=== PATIENT | male | born 1960 | race Caucasian/White ===

== ENCOUNTER 2020-01-11 11:58 | Outpatient (CLI) | payer MEDICARE, MEDICAID, SELFPAY ==
--- NOTE | ~2020-01-11 | XR_ITS ---
EXAMINATION: XR abdomen/kub 1V EXAM DATE: 01/11/2020 12:27 INDICATION: Left ureteral stone. TECHNIQUE: Frontal projection of the upper abdomen, frontal projection lower abdomen/pelvis for inter pretation. There is no prior study for comparison. FINDINGS: There is an 9 mm calcification projecting over the proximal aspect left ureter, could be a ureteral stone. This finding has been indicated, marked on the examination for review, clinical corre lation. There may be a couple of calyceal stones. Nonobstructive bowel gas pattern. IMPRESSION: 1. Probable left ureteral stone, left nephrolithiasis. Reviewed, dictated and finalized at location A. 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
== END 2020-01-11 11:59 | disposition home or self-care (01) ==
LOC: ANHIMG 12:11
PROVIDERS: PCP Family Medicine; Visit Provider Urology
DX: N20.1 Calculus of ureter (principal)
CPT/HCPCS: 74018

== ENCOUNTER 2021-12-03 13:07 | Emergency (ER) | payer MEDICARE, MEDICAID, SELFPAY ==
[2021-12-03 13:19] VITALS: BP 113/66; PULSE 67; RESP 16; TEMP 36.1; O2SAT 99
--- NOTE | 2021-12-03 13:44 | ED.GENADULT ---
HPI - General Adult General Chief complaint: Unspecified Stated complaint: Dizziness,Rash on Body, Vision Blurry Time Seen by Provider: 12/03/21 13:25 Source: patient Mode of arrival: ambulatory Limitations: no limitations History of Present Illness HPI narrative: Mr. Salvador is a 61-year-old male patient presenting to the clinic today with complaints of a minute headache that comes and goes, dizziness, and double vision x1 week. He reports he also has a rash that developed on his left arm that started and it has spread to bilateral lower legs over the weekend. He denies any fever or chills. He reports he does have intermittent shortness of breath and chest pain. States the headache is sharp in nature over the right parietal lobe. History of CABG Related Data Home Medications Medication Instructions Recorded Confirmed aspirin 81 mg tablet,delayed 81 mg PO DAILY 02/03/20 12/03/21 release (Josue Low Dose Aspirin) atorvastatin 40 mg tablet 40 mg PO DAILY 02/03/20 12/03/21 budesonide-formoterol HFA 160 2 puff inhalation Q12H 02/03/20 12/03/21 mcg-4.5 mcg/actuation aerosol inhaler (Symbicort) carbamazepine 200 mg tablet 200 mg PO TID 02/03/20 12/03/21 carbidopa 25 mg-levodopa 100 mg 1 tablet PO QID 02/03/20 12/03/21 tablet carvedilol 3.125 mg tablet 3.125 mg PO BID 02/03/20 12/03/21 cetirizine 10 mg capsule 10 mg PO DAILY 02/03/20 12/03/21 famotidine 20 mg tablet 20 mg PO BID 02/03/20 12/03/21 fluoxetine 20 mg capsule 60 mg HS 02/03/20 12/03/21 furosemide 20 mg tablet 20 mg PO DAILY 02/03/20 12/03/21 hydroxyzine HCl 50 mg tablet 50 mg PO TID 02/03/20 12/03/21 isosorbide mononitrate 30 mg 30 mg PO DAILY 02/03/20 12/03/21 tablet,extended release 24 hr losartan 50 mg tablet 50 mg PO DAILY 02/03/20 12/03/21 montelukast 10 mg tablet 10 mg PO DAILY 02/03/20 12/03/21 omeprazole 40 mg capsule,delayed 40 mg PO DAILY 02/03/20 12/03/21 release quetiapine 50 mg tablet 50 mg PO BID 02/03/20 12/03/21 zonisamide 100 mg capsule 100 mg PO HS 02/03/20 12/03/21 Allergies Allergy/AdvReac Type Severity Reaction Status Date / Time tramadol Allergy Unknown SEZIR Verified 12/03/21 13:41 fluticasone AdvReac Other Verified 12/03/21 13:41 [From Advair Diskus] salmeterol AdvReac Other Verified 12/03/21 13:41 [From Advair Diskus] dialudid Allergy Mild itching Uncoded 12/03/21 13:41 Mushroom Allergy Unknown Anaphylaxis Uncoded 12/03/21 13:41 Review of Systems Review of Systems: Pertinent positives per HPI. Patient denies any fever, chills, visual changes, dizziness, cough, runny nose, sore throat, palpitations, nausea, vomiting, diarrhea, constipation, abdominal pain, or any urinary issues. [facility] Social History Social History Smoking status: Current every day smoker Additional smoking assessment comments: STATES SMOKES 3/4PK/DAY/AGE 14 Alcohol intake: former Alcohol use details: RECOVERING ALCOHOLIC Substance use type: marijuana and crack/cocaine Other substance usage details: STATES RECOVERY CRACK ADDIC, SMOKES MARIJUANA NIGHTLY FOR SLEEP Spiritual care concerns: No Comments At the time of my signature, I reviewed and agree with the nursing past medical, surgical, social, and family history. There is no relevant family history pertinent to the patient complaint. Course Course Emergency Course: Portions of this record may have been created with voice recognition software. Level of Care: Express Care Visit Vital Signs Vital signs: Vital Signs Temperature 36.1 C L 12/03/21 13:19 Pulse Rate 67 12/03/21 13:19 Respiratory Rate 16 12/03/21 13:19 Blood Pressure 113/66 12/03/21 13:19 Pulse Oximetry 99 12/03/21 13:19 Oxygen Delivery Room Air 12/03/21 13:19 Temperature 36.1 C L 12/03/21 13:19 Pulse Rate 67 12/03/21 13:19 Respiratory Rate 16 12/03/21 13:19 Blood Pressure 113/66 12/03/21 13:19 Pulse Oxi
== END 2021-12-03 13:49 | disposition short-term general hospital (02) ==
PROVIDERS: Emergency Provider Nurse Practitioner Family; PCP Family Medicine
DX: R42 Dizziness and giddiness (principal); H53.2 Diplopia; R21 Rash and other nonspecific skin eruption; G44.89 Other headache syndrome; F17.219 Nicotine dependence, cigarettes, with unspecified nicotine-induced disorders; F12.90 Cannabis use, unspecified, uncomplicated; Z79.82 Long term (current) use of aspirin; Z95.1 Presence of aortocoronary bypass graft; G20 Parkinson's disease; I25.10 Atherosclerotic heart disease of native coronary artery without angina pectoris; E78.00 Pure hypercholesterolemia, unspecified; I10 Essential (primary) hypertension; I25.2 Old myocardial infarction; J44.9 Chronic obstructive pulmonary disease, unspecified; K21.9 Gastro-esophageal reflux disease without esophagitis; M16.11 Unilateral primary osteoarthritis, right hip; Z85.828 Personal history of other malignant neoplasm of skin; F41.9 Anxiety disorder, unspecified; F32.9 Major depressive disorder, single episode, unspecified
CPT/HCPCS: 99212; G0463

== ENCOUNTER 2021-12-03 14:11 | Emergency (ER) | payer MEDICARE, MEDICAID, SELFPAY ==
[2021-12-03 14:23] VITALS: BP 116/66; PULSE 73; RESP 16; TEMP 36.8; O2SAT 99
--- NOTE | 2021-12-03 14:26 | ECG_ITS ---
Measurements Intervals [place] Rate: 73 P: -4 NV: 168 QRS: 23 QRSD: 113 T: 64 QT: 398 QTc: 440 Interpretive Statements SINUS RHYTHM INCOMPLETE RIGHT BUNDLE BRANCH BLOCK [90+ ms QRS DURATION, TERMINAL R IN V1/V2, 40+ ms S IN I/aVL/V4/V5/V6] NO PREVIOUS ECG AVAILABLE FOR COMPARISON Electronically Signed On 12-04-2021 13:08:02 CDT by Cris Israel M.D.
[2021-12-03 14:40] LABS: Basophils Percent Auto 0.2 % (0.2-1.2); Eosinophils Absolute Auto 0.1 K/mm3 (0-0.3); Eosinophils Percent Auto 0.5 % (0-4.4); Hematocrit 44.5 % (42.0-52.0); Hemoglobin 14.8 g/dL (14.0-18.0); Immature Granulocyte Absolute 0.05 K/mm3 (0.00-0.031); Immature Granulocyte Percent A 0.4 % (0-0.5); Lymphocytes Absolute Auto 1.84 K/mm3 (0.9-3.2); Lymphocytes Percent Auto 14.3 % (18.3-44.2); Mean Corpuscular HGB Conc 33.3 g/dl (32-36); Mean Corpuscular Volume 90.1 fl (80-100); Mean Platelet Volume 9.4 fl (7.4-10.4); Monocytes Absolute Auto 1.7 K/mm3 (0.1-0.6); Monocytes Percent Auto 13.4 % (2.6-8.5); Neutrophils Absolute Auto 9.1 K/mm3 (1.3-6.7); Neutrophils Percent Auto 71.2 % (45.5-73.1); Platelet Count Result 232 k/mm3 (150-375); Red Blood Count 4.94 M/mm3 (4.6-6.20); Red Cell Distribution Width 12.8 % (11.5-14.5); White Blood Count 12.8 K/mm3 (4.5-10.0)
[2021-12-03 14:51] LABS: Alanine Aminotransferase 13 U/L (6-50); Albumin Level 4.4 g/dL (3.5-5.1); Alkaline Phosphatase 204 U/L (38-126); Anion Gap 16 mmol/L (8-16); Aspartate Amino Transferase 20 U/L (17-59); Bilirubin,Total 0.9 mg/dL (0.2-1.3); Blood Urea Nitrogen 15 mg/dL (9-20); Calcium 8.9 mg/dL (8.4-10.2); Carbon Dioxide 22 mmol/L (22-30); Chloride 101 mmol/L (98-107); Estimated CRCL calculation 72 ml/min; Estimated Glomerular Filt Rate > 60; Glucose 110 mg/dL (65-110); Potassium 3.8 mmol/L (3.4-5.0); Sodium 139 mmol/L (137-145)
[2021-12-03 15:41] LABS: Add Urine Microscopic? YES; Appearance Urine Clear (Clear); Bilirubin Urine Negative (Negative); Blood Urine Negative (Negative); Color Urine Yellow (Yellow); Glucose Urine UA Negative (Negative); Ketones Urine Negative (Negative); Leukocyte Esterase Ur Trace LEU/UL (Negative); Mucus Urine Rare /lpf; Nitrate Urine Negative (Negative); Protein Urine Negative (Negative); RBC Urine 0-2 /hpf (0-2); Specific Grav Ur 1.016 (1.001-1.035); WBC Urine 21-30 /hpf
[2021-12-03 15:54] VITALS: BP 110/70; PULSE 66; RESP 16; O2SAT 97
--- NOTE | 2021-12-03 17:32 | ED.DIZZY ---
HPI - Dizziness General Chief Complaint: Dizziness Stated Complaint: DIZZINESS TD, N/V RASH X3D Time Seen by Provider: 12/03/21 17:09 Source: patient and RN notes reviewed Mode of arrival: ambulatory Limitations: no limitations History of Present Illness HPI Narrative: This is a 61 year old male with history of CAD, CABG, COPD, parkinsons, seizure who presents for evaluation of dizziness with double vision and a rash. Patient states for 1 week he has been having double vision. He states this is occurring intermittently. It seems that if he covers his left eye he does not see double. He also reports dizziness for 1 week. He describes his dizziness as feeling wobble, and it has caused him to almost fall. He also reports today he had sharp stabbing right parietal headache that is intermittent. He reports chronic weakness to his right side from parkinsons, seizures and CVA. Patient also reports on he developed red area to left forearm, and he thought he suffered an insect bite. This rash was itching and it changed color . He states it was warm and rash , and now it is not as raised. HE also noticed rash to his left leg and right ankle today. Denies fever or night sweats. He states he has chills at night. Related Data Home Medications Medication Instructions Recorded Confirmed aspirin 81 mg tablet,delayed 81 mg PO DAILY 02/03/20 12/03/21 release (Josue Low Dose Aspirin) atorvastatin 40 mg tablet 40 mg PO DAILY 02/03/20 12/03/21 budesonide-formoterol HFA 160 2 puff inhalation Q12H 02/03/20 12/03/21 mcg-4.5 mcg/actuation aerosol inhaler (Symbicort) carbamazepine 200 mg tablet 200 mg PO TID 02/03/20 12/03/21 carbidopa 25 mg-levodopa 100 mg 1 tablet PO QID 02/03/20 12/03/21 tablet carvedilol 3.125 mg tablet 3.125 mg PO BID 02/03/20 12/03/21 cetirizine 10 mg capsule 10 mg PO DAILY 02/03/20 12/03/21 famotidine 20 mg tablet 20 mg PO BID 02/03/20 12/03/21 fluoxetine 20 mg capsule 60 mg HS 02/03/20 12/03/21 furosemide 20 mg tablet 20 mg PO DAILY 02/03/20 12/03/21 hydroxyzine HCl 50 mg tablet 50 mg PO TID 02/03/20 12/03/21 isosorbide mononitrate 30 mg 30 mg PO DAILY 02/03/20 12/03/21 tablet,extended release 24 hr losartan 50 mg tablet 50 mg PO DAILY 02/03/20 12/03/21 montelukast 10 mg tablet 10 mg PO DAILY 02/03/20 12/03/21 omeprazole 40 mg capsule,delayed 40 mg PO DAILY 02/03/20 12/03/21 release quetiapine 50 mg tablet 50 mg PO BID 02/03/20 12/03/21 zonisamide 100 mg capsule 100 mg PO HS 02/03/20 12/03/21 Allergies Allergy/AdvReac Type Severity Reaction Status Date / Time tramadol Allergy Unknown SEZIR Verified 12/03/21 13:41 fluticasone AdvReac Other Verified 12/03/21 13:41 [From Advair Diskus] salmeterol AdvReac Other Verified 12/03/21 13:41 [From Advair Diskus] dialudid Allergy Mild itching Uncoded 12/03/21 13:41 Mushroom Allergy Unknown Anaphylaxis Uncoded 12/03/21 13:41 Review of Systems Review of Systems: All systems reviewed & are unremarkable except as noted in HPI and below Constitutional: Constitutional: Reports chills, Reports fatigue and Denies fever(s) Eyes: Eyes: Reports change in vision and Reports diplopia Cardiovascular: Cardiovascular: Denies chest pain Respiratory: Respiratory: Denies chest congestion, Denies cough and Denies dyspnea Gastrointestinal: Gastrointestinal: Denies abdominal pain, Reports nausea and Reports vomiting Musculoskeletal: Musculoskeletal: Denies arthralgias and Denies muscle cramps Integumentary/Breasts: Skin/Breast: Reports pruritus and Reports rash Neurologic: Denies vertigo, Reports dizziness, Reports headache(s) and Reports focal weakness (chronic) [facility] Past Medical History Medical History (Updated 12/03/21 @ 23:27 by Jess Mancera MD) Aortic valve disease CVA (cerebral vascular accident) Parkinson's disease Seizure Valvular heart disease Surgical History Surgical History (Updated 12/03/21 @ 18:15 by Yuridia
--- NOTE | 2021-12-03 17:33 | PC.NURSE ---
pt stated that he was going to leave and go to his hospital in [place], thought he had waited enough. pt asked to say and complete assessment, pt refused and ambulated out with steady gait
[2021-12-03 18:03] LABS: CRP 17.5 mg/dL (<1.0)
== END 2021-12-03 17:35 | disposition left against medical advice (07) ==
PROVIDERS: Emergency Medicine; Emergency Provider General Practice; PCP Family Medicine
DX: R42 Dizziness and giddiness (principal); I25.10 Atherosclerotic heart disease of native coronary artery without angina pectoris; J44.9 Chronic obstructive pulmonary disease, unspecified; G20 Parkinson's disease; I35.8 Other nonrheumatic aortic valve disorders; F17.210 Nicotine dependence, cigarettes, uncomplicated; R82.998 Other abnormal findings in urine; Z95.2 Presence of prosthetic heart valve; Z95.1 Presence of aortocoronary bypass graft; Z86.73 Personal history of transient ischemic attack (TIA), and cerebral infarction without residual deficits; Z79.82 Long term (current) use of aspirin
CPT/HCPCS: 36415; 80053; 81001; 85025; 86140; 87086; 93005; 99283

== ENCOUNTER 2022-02-20 15:35 | Emergency (ER) | payer MEDICARE, MEDICAID, SELFPAY ==
--- NOTE | ~2022-02-20 | XR_ITS ---
XR chest 2V DATE: 02/20/2022 16:34 INDICATION: Weakness for one to 2 weeks TECHNIQUE: PA and lateral views COMPARISON: None FINDINGS: Status post sternotomy, coronary bypass graft surgery and aortic valve replacement. Normal heart size. Bilateral hyperinflation. There is bilateral hyperinflation. There are increased interstitial markings in the lower lung zones particularly, most likely due to chronic interstitial fibrosis. No pulmonary consolidation, pulmonary vascular congestion or pleural effusion or pneumothorax. IMPRESSION: Bilateral hyperinflation suggesting obstructive airways disease, with probable chronic in terstitial fibrosis primarily in the lower lung zones Status post coronary bypass graft surgery and aortic valve replacement Reviewed, dictated and finalized at location A. D ADVOCATE IMPRESSION: Bilateral hyperinflation suggesting obstructive airways disease, wi th probable chronic interstitial fibrosis primarily in the lower lung zones Status post coronary bypass graft surgery and aortic valve replacement
[2022-02-20 16:03] VITALS: BP 91/51; PULSE 64; RESP 20; TEMP 36.6; O2SAT 95
--- NOTE | 2022-02-20 16:08 | ECG_ITS ---
Measurements Intervals [place] Rate: 64 P: -5 IA: 162 QRS: 53 QRSD: 113 T: 70 QT: 436 QTc: 452 Interpretive Statements SINUS RHYTHM BASELINE ARTIFACT NONSPECIFIC INTRAVENTRICULAR CONDUCTION DELAY BORDERLINE ECG COMPARED TO ECG 12/03/2021 14:32:34 CRITERIA FOR INCOMPLETE RIGHT BUNDLE-BRANCH BLOCK NOT APPRECIATED Electronically Signed On 02-20-2022 17:03:41 BORE MINER OPERATOR by Yovany Montero M.D.
[2022-02-20 17:19] LABS: Basophils Percent Auto 0.4 % (0.2-1.2); Eosinophils Absolute Auto 0.1 K/mm3 (0-0.3); Eosinophils Percent Auto 0.6 % (0-4.4); Hematocrit 34.3 % (42.0-52.0); Hemoglobin 11.5 g/dL (14.0-18.0); Immature Granulocyte Absolute 0.06 K/mm3 (0.00-0.031); Immature Granulocyte Percent A 0.6 % (0-0.5); Lymphocytes Absolute Auto 1.78 K/mm3 (0.9-3.2); Lymphocytes Percent Auto 18.2 % (18.3-44.2); Mean Corpuscular HGB Conc 33.5 g/dl (32-36); Mean Corpuscular Hemoglobin 28.5 pg (26-34); Mean Corpuscular Volume 84.9 fl (80-100); Monocytes Absolute Auto 1.3 K/mm3 (0.1-0.6); Monocytes Percent Auto 12.8 % (2.6-8.5); Neutrophils Absolute Auto 6.6 K/mm3 (1.3-6.7); Neutrophils Percent Auto 67.4 % (45.5-73.1); Platelet Count Result 292 k/mm3 (150-375); Red Blood Count 4.04 M/mm3 (4.6-6.20); Red Cell Distribution Width 14.6 % (11.5-14.5); White Blood Count 9.8 K/mm3 (4.5-10.0)
[2022-02-20 17:28] VITALS: BP 90/49; PULSE 64; O2SAT 97
[2022-02-20 17:28] LABS: Alanine Aminotransferase 15 U/L (6-50); Albumin Level 3.5 g/dL (3.5-5.1); Alkaline Phosphatase 189 U/L (38-126); Anion Gap 8 mmol/L (8-16); Aspartate Amino Transferase 25 U/L (17-59); Bilirubin,Total 0.8 mg/dL (0.2-1.3); Blood Urea Nitrogen 16 mg/dL (9-20); Calcium 8.1 mg/dL (8.4-10.2); Carbon Dioxide 22 mmol/L (22-30); Chloride 104 mmol/L (98-107); Estimated CRCL calculation 66 ml/min; Estimated Glomerular Filt Rate > 60; Glucose 102 mg/dL (65-110); Potassium 3.3 mmol/L (3.4-5.0); Sodium 134 mmol/L (137-145)
[2022-02-20 19:00] VITALS: BP 94/52; PULSE 68; RESP 20; TEMP 36.6; O2SAT 100
[2022-02-20 19:22] LABS: Add Urine Microscopic? NO; Appearance Urine Clear (Clear); Bilirubin Urine Negative (Negative); Blood Urine Negative (Negative); Color Urine Yellow (Yellow); Glucose Urine UA Negative (Negative); Ketones Urine Negative (Negative); Leukocyte Esterase Ur Negative LEU/UL (Negative); Nitrate Urine Negative (Negative); Protein Urine Negative (Negative); pH Urine 5.5 (5.0-9.0)
[2022-02-20 20:24] VITALS: BP 114/67; PULSE 68; RESP 15; O2SAT 100
[2022-02-20 21:01] VITALS: BP 111/81; PULSE 70; RESP 20; O2SAT 100
[2022-02-20 21:37] VITALS: BP 114/80; PULSE 69; O2SAT 100
[2022-02-20 21:37] LABS: Troponin I < 0.012 ng/mL (0.000-0.034)
[2022-02-20] MEDS: POTASSIUM CHLORIDE 20 MEQ PACKET (FOR LIQUID) 40 MEQ PO (21:45)
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
== END 2022-02-20 21:55 | disposition home or self-care (01) ==
PROVIDERS: Emergency Medicine; Emergency Provider Emergency Medicine; PCP Family Medicine
DX: R53.83 Other fatigue (principal); G20 Parkinson's disease; I35.8 Other nonrheumatic aortic valve disorders; F17.210 Nicotine dependence, cigarettes, uncomplicated; Z95.2 Presence of prosthetic heart valve; Z86.73 Personal history of transient ischemic attack (TIA), and cerebral infarction without residual deficits; Z79.82 Long term (current) use of aspirin; I45.9 Conduction disorder, unspecified; I45.4 Nonspecific intraventricular block
CPT/HCPCS: 36415; 71046; 80053; 81003; 84484; 85025; 93005; 99283; A9270

== ENCOUNTER 2022-05-14 18:08 | Emergency (ER) | payer OTHER, MEDICARE, MEDICAID, SELFPAY ==
[2022-05-14] VITALS (24 sets, daily range): BP systolic 111–138; BP diastolic 69–80; PULSE 86–94; RESP 12–27; TEMP 36.4–36.9; O2SAT 94–100
--- NOTE | ~2022-05-14 | CT_ITS ---
EXAMINATION: CT brain wo con DATE: 05/14/2022 19:05 INDICATION: AMS . TECHNIQUE: Computed tomography (CT) of the head was performed without intravenous contrast. The mA wa s adjusted according to patient size. Iterative reconstruction technique was employed. The dose-lengt h product was 908.00 mGy-cm. COMPARISON: None. FINDINGS: No acute intracranial hemorrhage or extra-axial fluid collection. No hydrocephalus, mass, or herniation. No acute ischemic infarct. Unremarkable dural venous sinus attenuation. No acute osseous abnormality. Retention cyst or polyp in the right maxillary sinus, with surrounding sclerosis, the remaining aerat ed spaces are clear. Mild atrophy and chronic white matter change. Atherosclerotic intracranial calcification. Volume loss and parenchymal hypodensity in the majority of the right MCA territory and right basal ganglia, with cortical thinning, and gyral hyperdensities. These changes mostly represent early encephalomalacia a nd laminar necrosis. Old lacunar infarcts in the left basal ganglia. IMPRESSION: No acute intracranial process. Reviewed, dictated and finalized at location K.
--- NOTE | ~2022-05-14 | XR_ITS ---
EXAMINATION: XR chest 2V Exam Date/Time: 05/14/2022 19:10 CDT HISTORY: Confusion. Poor historian. Hx CVA, Aortic valve replacement Comparison: 02/20/2022. RESULT: Lines, tubes, and devices: Intact sternotomy wires. Mediastinal surgical clips. Cardiac valve replac ement. Lungs and pleura: Increased diffuse and peripheral reticular opacities. Cardiomediastinal silhouette: Stable. Other: No acute osseous or upper abdominal finding. IMPRESSION: Mild interstitial edema, likely overlying chronic interstitial or emphysematous change. Reviewed, dictated and finalized at location K.
--- NOTE | 2022-05-14 18:18 | ECG_ITS ---
Measurements Intervals [place] Rate: 88 P: 215 NE: 156 QRS: 125 QRSD: 112 T: 107 QT: 414 QTc: 503 Interpretive Statements ECTOPIC ATRIAL RHYTHM CONSIDER LIMB LEAD REVERSAL INCOMPLETE RIGHT BUNDLE BRANCH BLOCK BASELINE ARTIFACT- I, II, III, AVR, AVL, AVF, V1-V2 ABNORMAL ECG COMPARED TO ECG 02/20/2022 16:49:48 ECTOPIC ATRIAL RHYTHM NOW PRESENT Electronically Signed On 05-14-2022 21:49:31 CDT by Tripp Finnegan D.O.
[2022-05-14 20:19] LABS: Basophils Absolute Auto 0.1 K/mm3 (0.0-0.1); Basophils Percent Auto 0.6 % (0.2-1.2); Eosinophils Absolute Auto 0.1 K/mm3 (0-0.3); Hematocrit 37.7 % (42.0-52.0); Hemoglobin 12.4 g/dL (14.0-18.0); Immature Granulocyte Absolute 0.04 K/mm3 (0.00-0.031); Immature Granulocyte Percent A 0.3 % (0-0.5); Lymphocytes Absolute Auto 2.73 K/mm3 (0.9-3.2); Lymphocytes Percent Auto 23.6 % (18.3-44.2); Mean Corpuscular HGB Conc 32.9 g/dl (32-36); Mean Corpuscular Hemoglobin 30.4 pg (26-34); Mean Corpuscular Volume 92.4 fl (80-100); Mean Platelet Volume 9.7 fl (7.4-10.4); Monocytes Absolute Auto 1.5 K/mm3 (0.1-0.6); Neutrophils Absolute Auto 7.1 K/mm3 (1.3-6.7); Neutrophils Percent Auto 61.5 % (45.5-73.1); Platelet Count Result 475 k/mm3 (150-375); Red Blood Count 4.08 M/mm3 (4.6-6.20); Red Cell Distribution Width 16.9 % (11.5-14.5); White Blood Count 11.6 K/mm3 (4.5-10.0)
[2022-05-14 20:29] LABS: Alanine Aminotransferase 16 U/L (6-50); Albumin Level 4.2 g/dL (3.5-5.1); Alkaline Phosphatase 285 U/L (38-126); Anion Gap 5 mmol/L (8-16); Aspartate Amino Transferase 56 U/L (17-59); Bilirubin,Total 0.9 mg/dL (0.2-1.3); Blood Urea Nitrogen 14 mg/dL (9-20); Calcium 9.2 mg/dL (8.4-10.2); Carbon Dioxide 27 mmol/L (22-30); Chloride 100 mmol/L (98-107); Estimated CRCL calculation 110 ml/min; Estimated Glomerular Filt Rate > 60; Glucose 99 mg/dL (65-110); Lipase 77 U/L (23-300); Potassium 4.3 mmol/L (3.4-5.0); Sodium 132 mmol/L (137-145)
[2022-05-14 20:41] LABS: Troponin I < 0.012 ng/mL (0.000-0.034)
[2022-05-14 20:42] LABS: Partial Thromboplastin Time 27.7 SECONDS (22.3-36.8)
[2022-05-14 21:22] LABS: INR 1.1; Prothrombin Time 13.6 Seconds (11.1-14.7)
[2022-05-14 21:49] LABS: Appearance Urine Cloudy (Clear); Bacteria Urine None Seen /hpf; Bilirubin Urine Negative (Negative); Blood Urine Negative (Negative); Color Urine Yellow (Yellow); Glucose Urine UA Negative (Negative); Ketones Urine Negative (Negative); Leukocyte Esterase Ur Trace LEU/UL (Negative); Nitrate Urine Negative (Negative); Non Pathogenic Casts 0-2; Protein Urine 1+ mg/dL (Negative); RBC Urine 0-2 /hpf (0-2); Specific Grav Ur 1.017 (1.001-1.035); Squamous Epithelial Cell Urine None seen /hpf (Few); WBC Urine 0-5 /hpf
[2022-05-14 21:51] LABS: Add Urine Microscopic? YES
--- NOTE | 2022-05-14 21:59 | ED.GENADULT ---
HPI - General Adult General Chief complaint: Altered Mental Status Stated complaint: unknown reason for ER visit Time Seen by Provider: 05/14/22 18:17 History of Present Illness HPI narrative: Patient is a 61-year-old male who presents ER from [facility]. Patient was being sent over for a CT scan. He recently had a CVA and was seen at [facility] prior to coming to the rehabilitation center. 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 He has been getting IV antibiotics. Patient has had no new neurologic deficit however he has had some increased confusion at the rehabilitation position wanted to evaluate further. Before getting the CT the patient mention chest pain to the paramedics and so they wanted to stop in the emergency room. Patient cannot give an adequate history of his chest pain. He does not have it currently. Denies history of heart disease other than his valve replacement. Patient does not recall being at [facility] for his CVA. Related Data Home Medications Medication Instructions Recorded Confirmed aspirin 81 mg tablet,delayed 81 mg PO DAILY 02/03/20 12/03/21 release (Josue Low Dose Aspirin) atorvastatin 40 mg tablet 40 mg PO DAILY 02/03/20 12/03/21 budesonide-formoterol HFA 160 2 puff inhalation Q12H 02/03/20 12/03/21 mcg-4.5 mcg/actuation aerosol inhaler (Symbicort) carbamazepine 200 mg tablet 200 mg PO TID 02/03/20 12/03/21 carbidopa 25 mg-levodopa 100 mg 1 tablet PO QID 02/03/20 12/03/21 tablet carvedilol 3.125 mg tablet 3.125 mg PO BID 02/03/20 12/03/21 cetirizine 10 mg capsule 10 mg PO DAILY 02/03/20 12/03/21 famotidine 20 mg tablet 20 mg PO BID 02/03/20 12/03/21 fluoxetine 20 mg capsule 60 mg HS 02/03/20 12/03/21 furosemide 20 mg tablet 20 mg PO DAILY 02/03/20 12/03/21 hydroxyzine HCl 50 mg tablet 50 mg PO TID 02/03/20 12/03/21 isosorbide mononitrate 30 mg 30 mg PO DAILY 02/03/20 12/03/21 tablet,extended release 24 hr losartan 50 mg tablet 50 mg PO DAILY 02/03/20 12/03/21 montelukast 10 mg tablet 10 mg PO DAILY 02/03/20 12/03/21 omeprazole 40 mg capsule,delayed 40 mg PO DAILY 02/03/20 12/03/21 release quetiapine 50 mg tablet 50 mg PO BID 02/03/20 12/03/21 zonisamide 100 mg capsule 100 mg PO HS 02/03/20 12/03/21 Allergies Allergy/AdvReac Type Severity Reaction Status Date / Time tramadol Allergy Unknown SEZIR Verified 05/14/22 18:26 fluticasone AdvReac Other Verified 05/14/22 18:26 [From Advair Diskus] salmeterol AdvReac Other Verified 05/14/22 18:26 [From Advair Diskus] dialudid Allergy Mild itching Uncoded 05/14/22 18:26 Mushroom Allergy Unknown Anaphylaxis Uncoded 05/14/22 18:26 Review of Systems Review of Systems: ROS unobtainable: Yes unobtainable due to mental status PMFSH Past Medical History Medical History Aortic valve disease CVA (cerebral vascular accident) Parkinson's disease Seizure Valvular heart disease Surgical History Surgical History H/O aortic valve replacement Family History Family History (Updated 05/10/22 @ 05:50 by Fareed Toscano RN) Other Unknown family medical history Social History Social History Smoking status: Former smoker Tobacco type: cigarettes Second hand tobacco smoke exposure: Yes Smoking end date: 11/01/21 Additional smoking assessment comments: STATES SMOKES 3/4PK/DAY/AGE 14 Alcohol intake: former Alcohol use details: RECOVERING ALCOHOLIC Substance use: former Substance use type: marijuana Other substance usage details: STATES RECOVERY CRACK ADDIC, SMOKES MARIJUANA NIGHTLY FOR SLEEP Living arrangements: alone Spiritual care concerns: No Exam Narrative: GENERAL: Well-appearing, well-nourished, and in no acute distress. HEAD: Normocephalic, atraumatic. EYES: PERRL and EOMI. ENT: Mucous me
--- NOTE | 2022-05-14 22:45 | PC.NURSE ---
[facility].
--- NOTE | 2022-05-14 22:54 | PC.NURSE ---
[facility] here
== END 2022-05-14 23:00 ==
PROVIDERS: Emergency Provider Emergency Medicine; PCP Family Medicine
DX: R41.0 Disorientation, unspecified (principal); G20 Parkinson's disease; G40.909 Epilepsy, unspecified, not intractable, without status epilepticus; F12.90 Cannabis use, unspecified, uncomplicated; F14.21 Cocaine dependence, in remission; Z95.4 Presence of other heart-valve replacement; Z87.891 Personal history of nicotine dependence; Z86.73 Personal history of transient ischemic attack (TIA), and cerebral infarction without residual deficits; Z79.82 Long term (current) use of aspirin; Z79.51 Long term (current) use of inhaled steroids
CPT/HCPCS: 36415; 70450; 71046; 80053; 81001; 83690; 84484; 85025; 85610; 85730; 93005; 99284

== ENCOUNTER 2022-05-22 17:26 | Inpatient (IN) | payer MEDICARE, MEDICAID, SELFPAY ==
--- NOTE | ~2022-05-22 | XR_ITS ---
EXAMINATION: XR barium swallow modified DATE: 05/23/2022 09:55 INDICATION: Dysphagia. TECHNIQUE: The patient was given barium-containing material of multiple consistencies to swallow by t he speech pathologist while I performed fluoroscopy. Fluoroscopy exposure time was 1.7 minutes. The n umber of fluoroscopy images saved to the PACS was 1. Dose-area product was 1.2 Gy-cm^2. FINDINGS: There is reduced labial seal/lip tension. There is a reduced laryngeal elevation, reduced laryngeal a dduction, reduced tongue base retraction, reduced pharyngeal squeeze, vallecular residue, piriform si nus residue, pharyngeal wall residue, laryngeal penetration, and silent aspiration. IMPRESSION: 1. Silent aspiration. 2. Please refer to the speech therapy report for recommendations. Reviewed, dictated and finalized at location A.
[2022-05-22 17:36] VITALS: BMI 20.7
--- NOTE | 2022-05-22 17:44 | ADMGEN ---
This patient, Blaine Salvador, was admitted to Medical Room 257-01. Patient/family oriented to hospital policies and general routines including ID bracelet, bed and alarms, visiting hours, pain management, procedures, bathroom and other care routines, personal items, smoking policy, room service/diet, and visiting hours. Information on how to activate the Rapid Response Team has been discussed. Patient/Family are encouraged to report perceived risks to care and to ask questions if they do not understand what they are told or what they should do.
--- NOTE | 2022-05-22 19:00 | PM.IMHP ---
H&P: HPI History of Present Illness Date/Time: 05/22/22 19:00 Chief Complaint: Dysphagia. Narrative: This is a 61-year-old male with history of Parkinson's disease, seizures, psychogenic nonepileptic seizures, coronary artery disease, hypertension, stroke, and bacterial endocarditis currently receiving IV antibiotics who is being [facility] of G-tube placement due to ongoing issues with dysphagia. Patient provides the following history however he is not a great historian and some of the following is obtained via a review of his EMR. He suffered a stroke on 05/01/2022 at which time a CTA of the head and neck demonstrated tandem occlusion of the right distal ICA and M1. He was unable to received tPA as he was currently being treated for endocarditis and bacteremia. Since being at rehab he has had some outbursts and has been somewhat disrespectful with staff. He was also having trouble sleeping and he was started on Seroquel which seemed to improve his mood and insomnia. He has been participating with therapy though he has dense left-sided hemiplegia and left-sided neglect. He has ongoing issues with swallowing and is on high risk aspiration precautions. G-tube insertion was discussed but was felt that he may not be a great candidate as he had been having issues with confusion. Today was decided to send him in for G-tube consideration given ongoing swallow issues. At the time of my evaluation he is awake and in a good mood. He is not able to provide a great history. He perseverates on the fact that he wants ice cream and was told that he would be able to get some while he was here. Other than that he has no complaints and he specifically denies headache, fever, chills, sweats, cold and flu symptoms, chest pain, shortness a breath, abdominal pain, nausea, vomiting, diarrhea, and dysuria. Review of Systems Review of Systems: Twelve systems were reviewed. The accuracy of such is questionable as he is not a great historian. [facility] Past Medical History Medical History (Updated 05/23/22 @ 01:22 by Sara Ni PA-C) Anxiety Aortic valve disease Cerebrovascular accident (05/01/22) CTA head and neck showed 10 occlusion of the right distal ICA and M1. He was not a candidate for tPA with concomitant diagnosis of bacteremia and endocarditis. Depression with anxiety History of esophageal dilatation Hyperlipidemia Hypertension Kidney stones Major depressive disorder Parkinson's disease Psychogenic nonepileptic seizure Seizure Skin cancer Valvular heart disease Vitamin D deficiency Surgical History Surgical History (Updated 05/23/22 @ 01:22 by Sara Ni PA-C) History of aortic valve replacement History of appendectomy History of open reduction and internal fixation (ORIF) procedure Repair left ankle fracture. History of spinal surgery Family History Family History Other Unknown family medical history Social History Social History (Updated 05/23/22 @ 01:22 by Sara Ni PA-C) Social History: Surrogate medical decision maker: Angeline Perkins, friend. Code status: Full code. Smoking packs per day: 0.75 Smoking cigarettes per day: 15.0 Years smoked: 47 Smoking pack-years: 35.25 Smoking status: Former smoker Tobacco type: cigarettes Second hand tobacco smoke exposure: Yes Smoking end date: 11/01/21 Alcohol intake: former Alcohol use details: Recovering alcoholic. Substance use: current Substance use type: marijuana Other substance usage details: Smokes marijuana nightly for sleep. Former crack cocaine user. Lack of Transportation: No Lack of Food: Never True Current Housing: I Have Housing Concerned About Future Housing: YES Difficulty Paying Gas/Electric Bills: No Difficulty Paying for Meds: No Currently Unemployed: No Education: Don't Know Diffi
[2022-05-22 19:43] VITALS: BP 116/59; PULSE 78; RESP 18; TEMP 36.5; O2SAT 96
[2022-05-22 20:16] LABS: Alanine Aminotransferase 28 U/L (6-50); Albumin Level 3.9 g/dL (3.5-5.1); Alkaline Phosphatase 241 U/L (38-126); Anion Gap 3 mmol/L (8-16); Aspartate Amino Transferase 53 U/L (17-59); Bilirubin,Total 0.7 mg/dL (0.2-1.3); Blood Urea Nitrogen 19 mg/dL (9-20); Calcium 9.2 mg/dL (8.4-10.2); Carbon Dioxide 32 mmol/L (22-30); Chloride 102 mmol/L (98-107); Estimated CRCL calculation 98 ml/min; Estimated Glomerular Filt Rate > 60; Glucose 94 mg/dL (65-110); Potassium 4.6 mmol/L (3.4-5.0); Sodium 137 mmol/L (137-145)
[2022-05-22 20:17] LABS: Magnesium 2.3 mg/dL (1.6-2.3)
[2022-05-22 20:19] LABS: Basophils Absolute Auto 0.1 K/mm3 (0.0-0.1); Basophils Percent Auto 0.6 % (0.2-1.2); Eosinophils Absolute Auto 0.1 K/mm3 (0-0.3); Eosinophils Percent Auto 1.2 % (0-4.4); Hematocrit 38.9 % (42.0-52.0); Hemoglobin 12.6 g/dL (14.0-18.0); Immature Granulocyte Absolute 0.05 K/mm3 (0.00-0.031); Immature Granulocyte Percent A 0.5 % (0-0.5); Lymphocytes Absolute Auto 2.76 K/mm3 (0.9-3.2); Lymphocytes Percent Auto 26.4 % (18.3-44.2); Mean Corpuscular HGB Conc 32.4 g/dl (32-36); Mean Corpuscular Hemoglobin 31.3 pg (26-34); Mean Corpuscular Volume 96.5 fl (80-100); Mean Platelet Volume 9.6 fl (7.4-10.4); Monocytes Absolute Auto 0.9 K/mm3 (0.1-0.6); Monocytes Percent Auto 8.8 % (2.6-8.5); Neutrophils Absolute Auto 6.5 K/mm3 (1.3-6.7); Neutrophils Percent Auto 62.5 % (45.5-73.1); Platelet Count Result 382 k/mm3 (150-375); Red Blood Count 4.03 M/mm3 (4.6-6.20); Red Cell Distribution Width 17.4 % (11.5-14.5); White Blood Count 10.5 K/mm3 (4.5-10.0)
[2022-05-23 06:00] VITALS: BP 152/83; PULSE 77; RESP 18; TEMP 36.3; O2SAT 100
[2022-05-23] MEDS: SALINE LOCK FLUSH 10 ML IV PUSH ×3 (06:09→22:08)
[2022-05-23] MEDS: FLUTICASONE/SALMETEROL 115-21 MCG INHALER 1 PUFF 2 PUFF INHALATION ×2 (07:52→21:00)
[2022-05-23 07:57] VITALS: PULSE 77; RESP 16; O2SAT 100
[2022-05-23] MEDS: carBAMazepine 200 MG TABLET PO ×3 (10:49→17:46)
[2022-05-23] MEDS: busPIRone HCL 10 MG TABLET PO ×3 (10:49→17:45)
[2022-05-23] MEDS: CARBIDOPA/LEVODOPA 25/100 MG TABLET 1 TABLET PO ×4 (10:49→20:03)
[2022-05-23] MEDS: ASPIRIN 81 MG ENTERIC TABLET PO (10:49)
[2022-05-23] MEDS: LOSARTAN POTASSIUM 25 MG TABLET PO (10:50)
[2022-05-23] MEDS: MONTELUKAST SODIUM 10 MG TABLET PO (10:50)
[2022-05-23] MEDS: DOCUSATE SODIUM 100 MG CAPSULE PO (10:50)
[2022-05-23] MEDS: FAMOTIDINE 20 MG TABLET PO ×2 (10:50→17:46)
[2022-05-23] MEDS: CLOPIDOGREL BISULFATE 75 MG TABLET PO (10:50)
[2022-05-23] MEDS: ZONISAMIDE 100 MG CAPSULE PO ×2 (10:51→17:47)
--- NOTE | 2022-05-23 10:51 | PCSTNOTE ---
Modified barium swallow study (MBSS) completed. Patient demonstrated penetration with thin and moderately thick barium by spoon and silent aspiration with other consistencies and amounts (thin by cup, mildly thick by spoon and cup, moderately thick by cup). Patient made no effort to clear airway. No penetration or aspiration observed with pudding consistency 3ml spoonful using chin tuck. Patient attempted to perform compensatory strategies upon request but had difficulty following through. Recommendations: pudding thickened liquids and pudding thickened foods only by spoon. Nothing by cup or straw. Combined oral and nonoral feeding may be appropriate for this patient. Speech therapy is recommended to address swallowing. Thank you for the referral of this patient.
--- NOTE | 2022-05-23 13:33 | PC.NURSE ---
On 05/23/22, the student, [Giselle Jang], provided care and completed [facility] documentation on this patient. I have reviewed the student's documentation and agree with the findings.
--- NOTE | 2022-05-23 15:00 | PC.NURSE ---
On 05/23/22, the student, [Charleen Mcmullen], provided care and completed [facility] documentation on this patient. I have reviewed the student's documentation and agree with the findings.
[2022-05-23 15:27] VITALS: BP 124/62; PULSE 80; RESP 17; TEMP 36.2; O2SAT 100
--- NOTE | 2022-05-23 15:56 | PM.IMPN ---
Progress Note: A&P Assessment and Plan (1) Dysphagia: Code(s): R13.10 - Dysphagia, unspecified Status: Acute Assessment and Plan: He has had ongoing issues with dysphagia and was sent from rehab for consideration of G-tube placement. Completed modified barium swallow today which demonstrated penetration with thin and thick barium and silent aspiration with other consistencies, patient did not make efforts to clear his airway, exhibit difficulty with following commands for compensatory strategies. he may be Will to tolerate pudding thickened liquids and food only with a spoon, nothing by cup or straw. Per speech therapy, he is a candidate for combination oral in non oral feedings. Will proceed with consultation to Gastroenterology for consideration of G-tube placement. If patient is a candidate, will need to discuss with healthcare POA prior to proceeding. Continue with pureed below for diet with extremely thick level 4 liquids (2) Bacterial endocarditis: Code(s): I33.0 - Acute and subacute infective endocarditis Status: Acute Assessment and Plan: Continue meropenem 1 g q8h. Initially ordered to continue through 05/23/2022, however does not appear patient has received since admission, therefore will begin at this time and extend for one day to ensure full treatment course. Meropenem is nonformulary but per pharmacy can provide. Will place orders via pharmacy communication. (3) Hypertension: Code(s): I10 - Essential (primary) hypertension Status: Acute Assessment and Plan: Blood pressures were reviewed and they are stable. continue home losartan (4) Hyperlipidemia: Code(s): E78.5 - Hyperlipidemia, unspecified Status: Acute Assessment and Plan: On statin; LFTs within normal limits. (5) Parkinsons disease: Code(s): G20 - Parkinson's disease Status: Acute Assessment and Plan: Continue carbidopa levodopa. Subjective Date/time seen: 05/23/22 15:56 Interval history: date of service: 05/23/2022 Blaine Salvador is a 61-year-old male with a history of anxiety, depression, CVA, hypertension, hyperlipidemia, psychogenic seizures, Parkinson's disease CAD recent bacterial endocarditis currently on IV antibiotics who is seen in follow-up for dysphagia. Patient is mostly a poor historian though he is A&O x4. He tends to perseverate and not able to provide any clear history. He states that he passed his modified barium swallow today, however this was not the report that was received from the speech therapist. The patient does state that if required, he would be agreeable to NG tube. Briefly reviewed what this would entail and patient remains in agreement. this would need to be discussed with his healthcare power of assistant attorney general prior to proceeding, as the patient does not exhibit ability for higher order decision making independently. Review of Systems Review of Systems: All systems reviewed & are unremarkable except as noted in HPI and below Exam Narrative: General: thin, chronically ill-appearing 61-year-old male, sitting up in bed , comfortable, NARD Neuro: awake, alert and oriented x4, speech clear, exhibits some confusion HEENMT: normocephalic, atraumatic, EOMI, sclerae anicteric Respiratory: clear to auscultation bilaterally, nonlabored breathing Cardio: regular rate, regular rhythm with S1-S2 Abdomen: nondistended, normoactive bowel sounds, soft, nontender to palpation Extremities: no edema, erythema, or tenderness to palpation, DP pulses 2+ bilaterally Skin: no rashes or lesions, warm and dry Psych: appropriate mood and affect, judgment and insight poor Objective Data Vital Signs Vital Signs: Vital Signs - 24 hr 05/22/22 19:43 05/22/22 20:00 05/23/22 06:00 Temperature 97.7 F 97.4 F L Pulse Rate 78 77 Respiratory Rate 18 18 Blood Pressure 116/59 L 152/83 H Pulse Oximetry 96 100 Oxygen
[2022-05-23] MEDS: QUEtiapine FUMARATE 25 MG TABLET 50 MG PO (20:02)
[2022-05-23] MEDS: FLUoxetine HCL 20 MG CAPSULE 80 MG PO (20:03)
[2022-05-23] MEDS: ATORVASTATIN 40 MG TABLET PO (20:03)
[2022-05-23] MEDS: MELATONIN 3 MG TABLET PO (20:04)
[2022-05-23 20:19] VITALS: BP 111/59; PULSE 83; RESP 18; TEMP 36.3; O2SAT 100
[2022-05-24] VITALS (13 sets, daily range): BP systolic 113–140; BP diastolic 57–79; PULSE 64–91; RESP 18–20; TEMP 36.2–36.4; O2SAT 95–100; BMI 20.7; BMI 10.0
[2022-05-24] MEDS: SALINE LOCK FLUSH 10 ML IV PUSH ×3 (05:05→20:25)
[2022-05-24 07:58] LABS: Hematocrit 39.9 % (42.0-52.0); Hemoglobin 13.3 g/dL (14.0-18.0); Mean Corpuscular HGB Conc 33.3 g/dl (32-36); Mean Corpuscular Hemoglobin 31.4 pg (26-34); Mean Corpuscular Volume 94.3 fl (80-100); Mean Platelet Volume 9.7 fl (7.4-10.4); Platelet Count Result 370 k/mm3 (150-375); Red Blood Count 4.23 M/mm3 (4.6-6.20); Red Cell Distribution Width 17.2 % (11.5-14.5); White Blood Count 11.6 K/mm3 (4.5-10.0)
[2022-05-24 08:08] LABS: Anion Gap 6 mmol/L (8-16); Blood Urea Nitrogen 17 mg/dL (9-20); Calcium 9.4 mg/dL (8.4-10.2); Carbon Dioxide 29 mmol/L (22-30); Chloride 103 mmol/L (98-107); Estimated CRCL calculation 98 ml/min; Estimated Glomerular Filt Rate > 60; Glucose 112 mg/dL (65-110); Potassium 4.5 mmol/L (3.4-5.0); Sodium 138 mmol/L (137-145)
[2022-05-24] MEDS: FLUTICASONE/SALMETEROL 115-21 MCG INHALER 1 PUFF 2 PUFF INHALATION ×2 (08:26→21:15)
--- NOTE | 2022-05-24 10:36 | PC.NURSE ---
On 05/24/22, the student, [Giselle Jang], provided care and completed [facility] documentation on this patient. I have reviewed the student's documentation and agree with the findings.
--- NOTE | 2022-05-24 11:00 | PM.IMPN ---
Progress Note: A&P Assessment and Plan (1) Dysphagia: Code(s): R13.10 - Dysphagia, unspecified Status: Acute Assessment and Plan: He has had ongoing issues with dysphagia and was sent from rehab for consideration of G-tube placement. Completed modified barium swallow on 05/23 which demonstrated penetration with thin and thick barium and silent aspiration with other consistencies, patient did not make efforts to clear his airway, exhibit difficulty with following commands for compensatory strategies. he may be able to tolerate pudding thickened liquids and food only with a spoon, nothing by cup or straw. Per speech therapy, he is a candidate for combination oral in non oral feedings.GI consult appreciated. Planning for G-tube placement this afternoon. Will begin tube feedings following placement per chief of pediatric urology recommendations. (2) Bacterial endocarditis: Code(s): I33.0 - Acute and subacute infective endocarditis Status: Acute Assessment and Plan: Managed at outside facility and continued At [facility]. Patient was treated with meropenem 1 g q.8 hours with day of antibiotics scheduled to be 05/23/2022, however patient missed 1 day of antibiotics on transfer to this facility. Last dose of meropenem will be this evening. (3) Hypertension: Code(s): I10 - Essential (primary) hypertension Status: Acute Assessment and Plan: Blood pressures were reviewed and they are stable. continue home losartan (4) Hyperlipidemia: Code(s): E78.5 - Hyperlipidemia, unspecified Status: Acute Assessment and Plan: On statin; LFTs within normal limits. (5) Parkinsons disease: Code(s): G20 - Parkinson's disease Status: Acute Assessment and Plan: Continue carbidopa levodopa. Subjective Date/time seen: 05/24/22 11:00 Interval history: date of service: 05/24/2022 Blaine Salvador is a 61-year-old male with a history of anxiety, depression, CVA, hypertension, hyperlipidemia, psychogenic seizures, Parkinson's disease CAD recent bacterial endocarditis currently on IV antibiotics who is seen in follow-up for dysphagia. he is awaiting G-tube placement today. Patient states overall he is feeling well. He is a poor historian and not able to provide any additional reliable history. Review of Systems Review of Systems: All systems reviewed & are unremarkable except as noted in HPI and below Exam Narrative: General: thin, chronically ill-appearing 61-year-old male, sitting up in bed , comfortable, NARD Neuro: awake, alert and oriented x4, speech clear, exhibits some confusion HEENMT: normocephalic, atraumatic, EOMI, sclerae anicteric Respiratory: clear to auscultation bilaterally, nonlabored breathing Cardio: regular rate, regular rhythm with S1-S2 Abdomen: nondistended, normoactive bowel sounds, soft, nontender to palpation Extremities: no edema, erythema, or tenderness to palpation, DP pulses 2+ bilaterally Skin: no rashes or lesions, warm and dry Psych: appropriate mood and affect, judgment and insight poor Objective Data Vital Signs Vital Signs: Vital Signs - 24 hr 05/23/22 15:27 05/23/22 20:19 05/23/22 20:00 Temperature 97.1 F L 97.4 F L Pulse Rate 80 83 Respiratory Rate 17 18 Blood Pressure 124/62 111/59 L Pulse Oximetry 100 100 Oxygen Delivery Room Air 05/24/22 04:26 05/24/22 08:27 05/24/22 11:52 Temperature 97.5 F L 97.2 F L Pulse Rate 74 77 Respiratory Rate 18 19 Blood Pressure 120/72 128/77 Pulse Oximetry 100 99 100 Oxygen Delivery Room Air Room Air 05/24/22 12:31 05/24/22 12:41 05/24/22 12:51 Temperature Pulse Rate 73 71 74 Respiratory Rate 20 19 18 Blood Pressure 118/57 L 126/71 140/65 Pulse Oximetry 100 100 100 Oxygen Delivery Room Air Room Air Room Air 05/24/22 13:27 05/24/22 13:45 05/24/22 14:16 Temperature 97.6 F 97.6 F 97.6 F Pulse Rate 72 73 64 Respiratory Rate 18 18 18
[2022-05-24] MEDS: LACTATED RINGERS 1,000 ML 150 ML IV CONT (11:51)
--- NOTE | 2022-05-24 12:01 | WPDGICN ---
Assessment and Plan Assessment and plan (1) Dysphagia: Code(s): R13.10 - Dysphagia, unspecified Status: Acute Assessment and Plan: dysphagia with aphasia and recent stroke speech therapist evaluated patient and risk for aspiration will proceed with G-tube placement, ordered abx (2) Acute bacterial endocarditis: Code(s): I33.0 - Acute and subacute infective endocarditis Status: Acute Assessment and Plan: just completed treatment (3) Cerebrovascular accident: Onset Date: 05/01/22 Code(s): I63.9 - Cerebral infarction, unspecified Status: Acute Assessment and Plan: medical treatment (4) Seizure: Code(s): R56.9 - Unspecified convulsions Status: Acute GI Consult Note Consult date/time: 05/24/22 12:01 Reason for consult: dysphagia, aspiration HPI: Blaine Salvador is a 61 year old male with history of Parkinson's disease, seizures, coronary artery disease, hypertension, stroke, and bacterial endocarditis that just completed today IV antibiotics who was directly [facility] for [facility] of G-tube placement due to ongoing issues with dysphagia. History is obtained from records since he is poor historian (awake and alert though). He also suffered a stroke on 05/01/2022 at which time a CTA of the head and neck demonstrated tandem occlusion of the right distal ICA and M1, not a candidate for tPA because of ongoing endocarditis. Now he has aphasia and left hemiparesis. Speech therapist found that he has been having difficulty with swallowing, primary already talked to POA and agreeable for G-tube placement. Review of Systems Review of Systems: Twelve systems were reviewed. The accuracy of such is questionable as he is not a great historian. [facility] Past Medical History Medical History (Updated 05/24/22 @ 12:09 by Yfn Green MD) Anxiety Aortic valve disease Cerebrovascular accident (05/01/22) CTA head and neck showed 10 occlusion of the right distal ICA and M1. He was not a candidate for tPA with concomitant diagnosis of bacteremia and endocarditis. Depression with anxiety History of esophageal dilatation Hyperlipidemia Hypertension Kidney stones Major depressive disorder Parkinson's disease Psychogenic nonepileptic seizure Seizure Skin cancer Valvular heart disease Vitamin D deficiency Surgical History Surgical History (Updated 05/23/22 @ 01:22 by Sara Ni PA-C) History of aortic valve replacement History of appendectomy History of open reduction and internal fixation (ORIF) procedure Repair left ankle fracture. History of spinal surgery Family History Family History Other Unknown family medical history Social History Social History (Updated 05/23/22 @ 01:22 by Sara Ni PA-C) Social History: Surrogate medical decision maker: Angeline Perkins, friend. Code status: Full code. Smoking packs per day: 0.75 Smoking cigarettes per day: 15.0 Years smoked: 47 Smoking pack-years: 35.25 Smoking status: Former smoker Tobacco type: cigarettes Second hand tobacco smoke exposure: Yes Smoking end date: 11/01/21 Alcohol intake: former Alcohol use details: Recovering alcoholic. Substance use: current Substance use type: marijuana Other substance usage details: Smokes marijuana nightly for sleep. Former crack cocaine user. Lack of Transportation: No Lack of Food: Never True Current Housing: I Have Housing Concerned About Future Housing: YES Difficulty Paying Gas/Electric Bills: No Difficulty Paying for Meds: No Currently Unemployed: No Education: Don't Know Difficulty w/ Childcare or Family Care: No Additional living arrangements comments: Prior to his stroke he was living with his mortgage loan coordinator in [place]. Additional occupation/education comments: Disabled. [employer]
--- NOTE | 2022-05-24 12:06 | WPDANESEPPF ---
Anes - Initial Pre Proc Eval Procedure: Operation Date: 05/24/22 13:45 Proposed Procedures p Percutaneous Endoscopic Gastrostomy - Yfn Green MD Date/Time: 05/24/22 12:06 Surgeon: Jerri Lui MD Pre Op Diagnosis: dysphagia Patient Data Age: 61 Gender: M Height: 1.88 m Weight: 73.4 kg Last Vital Signs Temp 97.2 F L 05/24/22 11:52 Pulse 77 05/24/22 11:52 Resp 19 05/24/22 11:52 BP 128/77 05/24/22 11:52 Pulse Ox 100 05/24/22 11:52 O2 Del Method Room Air 05/24/22 11:52 Allergies Allergy/AdvReac Type Severity Reaction Status Date / Time tramadol Allergy Unknown SEZIR Verified 05/14/22 18:26 fluticasone AdvReac Other Verified 05/14/22 18:26 [From Advair Diskus] salmeterol AdvReac Other Verified 05/14/22 18:26 [From Advair Diskus] dialudid Allergy Mild itching Uncoded 05/14/22 18:26 Mushroom Allergy Unknown Anaphylaxis Uncoded 05/14/22 18:26 Home Medications Medication Instructions Recorded Confirmed Type aspirin 81 mg tablet,delayed 81 mg PO DAILY 02/03/20 05/22/22 History release (Josue Low Dose Aspirin) atorvastatin 40 mg tablet 40 mg PO QHS 02/03/20 05/22/22 History budesonide-formoterol HFA 160 2 puff inhalation Q12H 02/03/20 05/22/22 History mcg-4.5 mcg/actuation aerosol inhaler (Symbicort) carbamazepine 200 mg tablet 200 mg PO TIDWM 02/03/20 05/22/22 History carbidopa 25 mg-levodopa 100 mg 1 tablet PO QID 02/03/20 05/22/22 History tablet famotidine 20 mg tablet 20 mg PO BID 02/03/20 05/22/22 History fluoxetine 20 mg capsule 80 mg PO HS 02/03/20 05/22/22 History losartan 50 mg tablet 25 mg PO DAILY 02/03/20 05/22/22 History montelukast 10 mg tablet 10 mg PO DAILY 02/03/20 05/22/22 History quetiapine 50 mg tablet 100 mg PO Q8H 02/03/20 05/22/22 History zonisamide 100 mg capsule 100 mg PO BID 02/03/20 05/22/22 History acetaminophen 325 mg tablet 325 mg PO Q6H PRN Pain 05/22/22 05/22/22 History buspirone 10 mg tablet 10 mg PO TID 05/22/22 05/22/22 History clopidogrel 75 mg tablet 75 mg PO QAM 05/22/22 05/22/22 History docusate sodium 100 mg capsule 100 mg PO DAILY 05/22/22 05/22/22 History ergocalciferol (vitamin D2) 50,000 50,000 unit PO WEEKLY 05/22/22 05/22/22 History unit tablet heparin (porcine) 5,000 unit/0.5 5,000 unit Q8H 05/22/22 05/22/22 History mL injection syringe lorazepam 0.5 mg tablet 0.5 mg PO Q6H PRN anxiety 05/22/22 05/22/22 History melatonin 3 mg tablet 3 mg PO HS PRN Sleep 05/22/22 05/22/22 History ondansetron HCl 4 mg tablet 4 mg PO Q6H 05/22/22 05/22/22 History polyethylene glycol 1 ea miscellaneous QAM PRN 05/22/22 05/22/22 History Constipation trazodone 150 mg tablet 150 mg PO QHS 05/22/22 05/22/22 History Laboratory Tests 05/24/22 05/24/22 07:52 07:52 WBC 11.6 K/mm3 H K/mm3 (4.5-10.0) RBC 4.23 M/mm3 L M/mm3 (4.6-6.20) Hgb 13.3 g/dL L g/dL (14.0-18.0) Hct 39.9 % L % (42.0-52.0) MCV 94.3 fl fl (80-100) MCH 31.4 pg pg (26-34) MCHC 33.3 g/dl g/dl (32-36) RDW 17.2 % H % (11.5-14.5) Plt Count 370 k/mm3 k/mm3 (150-375) MPV 9.7 fl fl (7.4-10.4) Sodium 138 mmol/L mmol/L (137-145) Potassium 4.5 mmol/L mmol/L (3.4-5.0) Chloride 103 mmol/L mmol/L (98-107) Carbon Dioxide 29 mmol/L mmol/L (22-30) Anion Gap 6 mmol/L L mmol/L (8-16) BUN 17 mg/dL mg/dL (9-20) Creatinine 0.70 mg/dL mg/dL (0.7-1.3) Estim Creat Clear Calc 98 ml/min ml/min Estimated GFR > 60 (59 - ) Glucose 112 mg/dL H mg/dL (65-110) Calcium 9.4 mg/dL mg/dL (8.4-10.2) Patient hx anesthesia problems: none Family hx anesthesia problems: none Results Review: All pre-operative results and documents have been reviewed as part of the pre-operative evaluation. [facility] Past Medical History Medical History (Updated 05/23/22 @ 01:22 by Sara Ni PA-C)
[2022-05-24] MEDS: ceFAZolin 1 GM/NS 50 ML 1 GM/50 ML BAG IVPB (12:09)
[2022-05-24] MEDS: ASPIRIN 81 MG ENTERIC TABLET PO (13:22)
[2022-05-24] MEDS: busPIRone HCL 10 MG TABLET PO ×2 (13:23→17:48)
[2022-05-24] MEDS: ZONISAMIDE 100 MG CAPSULE PO ×2 (13:23→17:51)
[2022-05-24] MEDS: FAMOTIDINE 20 MG TABLET PO ×2 (13:23→17:48)
[2022-05-24] MEDS: MONTELUKAST SODIUM 10 MG TABLET PO (13:23)
[2022-05-24] MEDS: CARBIDOPA/LEVODOPA 25/100 MG TABLET 1 TABLET PO ×3 (13:23→20:24)
[2022-05-24] MEDS: DOCUSATE SODIUM 100 MG CAPSULE PO (13:23)
[2022-05-24] MEDS: carBAMazepine 200 MG TABLET PO ×2 (13:23→17:48)
[2022-05-24] MEDS: LOSARTAN POTASSIUM 25 MG TABLET PO (13:26)
[2022-05-24] MEDS: QUEtiapine FUMARATE 25 MG TABLET 50 MG PO (20:24)
[2022-05-24] MEDS: FLUoxetine HCL 20 MG CAPSULE 80 MG PO (20:24)
[2022-05-24] MEDS: ATORVASTATIN 40 MG TABLET PO (20:25)
[2022-05-25 04:25] VITALS: BP 114/64; PULSE 78; RESP 20; TEMP 36.3; O2SAT 98
[2022-05-25] MEDS: SALINE LOCK FLUSH 10 ML IV PUSH ×3 (06:28→21:32)
[2022-05-25 07:19] LABS: Hematocrit 39.8 % (42.0-52.0); Hemoglobin 12.8 g/dL (14.0-18.0); Mean Corpuscular HGB Conc 32.2 g/dl (32-36); Mean Corpuscular Hemoglobin 30.9 pg (26-34); Mean Corpuscular Volume 96.1 fl (80-100); Mean Platelet Volume 9.7 fl (7.4-10.4); Platelet Count Result 316 k/mm3 (150-375); Red Blood Count 4.14 M/mm3 (4.6-6.20); White Blood Count 10.8 K/mm3 (4.5-10.0)
[2022-05-25 07:29] LABS: Anion Gap 4 mmol/L (8-16); Blood Urea Nitrogen 18 mg/dL (9-20); Calcium 9.3 mg/dL (8.4-10.2); Carbon Dioxide 27 mmol/L (22-30); Chloride 106 mmol/L (98-107); Estimated CRCL calculation 113 ml/min; Estimated Glomerular Filt Rate > 60; Glucose 109 mg/dL (65-110); Potassium 4.3 mmol/L (3.4-5.0); Sodium 137 mmol/L (137-145)
[2022-05-25 08:25] VITALS: O2SAT 96
[2022-05-25] MEDS: FLUTICASONE/SALMETEROL 115-21 MCG INHALER 1 PUFF 2 PUFF INHALATION ×2 (08:25→22:23)
[2022-05-25 09:59] VITALS: BP 119/74; PULSE 96; RESP 16; TEMP 36.4; O2SAT 99
[2022-05-25] MEDS: MONTELUKAST SODIUM 10 MG TABLET PO (10:01)
[2022-05-25] MEDS: CARBIDOPA/LEVODOPA 25/100 MG TABLET 1 TABLET PO ×4 (10:02→21:31)
[2022-05-25] MEDS: CLOPIDOGREL BISULFATE 75 MG TABLET PO (10:02)
[2022-05-25] MEDS: PANTOPRAZOLE SODIUM IV 40 MG VIAL IV PUSH (10:02)
[2022-05-25] MEDS: busPIRone HCL 10 MG TABLET PO ×3 (10:02→17:59)
[2022-05-25] MEDS: LOSARTAN POTASSIUM 25 MG TABLET PO (10:02)
[2022-05-25] MEDS: ZONISAMIDE 100 MG CAPSULE PO ×2 (10:02→18:00)
[2022-05-25] MEDS: DOCUSATE SODIUM 100 MG CAPSULE PO (10:02)
[2022-05-25] MEDS: ASPIRIN 81 MG ENTERIC TABLET PO (10:02)
--- NOTE | 2022-05-25 10:08 | PC.NURSE ---
called pharmacy for missing tegretol. will give medication to patient when received
[2022-05-25] MEDS: carBAMazepine 200 MG TABLET PO ×3 (10:57→18:00)
--- NOTE | 2022-05-25 12:20 | PM.IMPN ---
Progress Note: A&P Assessment and Plan (1) Dysphagia: Code(s): R13.10 - Dysphagia, unspecified Status: Acute Assessment and Plan: He has had ongoing issues with dysphagia and was sent from rehab for consideration of G-tube placement. Completed modified barium swallow on 05/23 which demonstrated penetration with thin and thick barium and silent aspiration with other consistencies, patient did not make efforts to clear his airway, exhibit difficulty with following commands for compensatory strategies. he may be able to tolerate pudding thickened liquids and food only with a spoon, nothing by cup or straw. Per speech therapy, he is a candidate for combination oral and non oral feedings. GI consult appreciated. G-tube placed on 05/24/2022. Tube feedings initiated today per dietitian recommendations. Continue with tube feedings and allowed patient to continue to attempt oral feeding. Continue speech therapy (2) Bacterial endocarditis: Code(s): I33.0 - Acute and subacute infective endocarditis Status: Acute Assessment and Plan: Patient completed course of meropenem on 05/24/2022 (3) Hypertension: Code(s): I10 - Essential (primary) hypertension Status: Acute Assessment and Plan: Blood pressures were reviewed and they are stable. continue home losartan (4) Hyperlipidemia: Code(s): E78.5 - Hyperlipidemia, unspecified Status: Acute Assessment and Plan: On statin; LFTs within normal limits. (5) Parkinsons disease: Code(s): G20 - Parkinson's disease Status: Acute Assessment and Plan: Continue carbidopa levodopa. Plan Awaiting SNF placement authorization Subjective Date/time seen: 05/25/22 12:20 Interval history: date of service: 05/25/2022 Blaine Salvador is a 61-year-old male with a history of anxiety, depression, CVA, hypertension, hyperlipidemia, psychogenic seizures, Parkinson's disease CAD, and recent bacterial endocarditis currently on IV antibiotics who is seen in follow-up for dysphagia. Patient underwent G-tube placement yesterday and tolerated this well. He is currently receiving tube feedings and reports no issues. He denies abdominal pain. Denies shortness of breath or chest pain. He has no additional concerns. Patient states that he thought last night he felt a ?seizure attack? coming on but he was able to ?breathe myself out of it. He is feeling well at this time. He is a poor historian and not able to provide any additional reliable history. Review of Systems Review of Systems: All systems reviewed & are unremarkable except as noted in HPI and below Exam Narrative: General: thin, chronically ill-appearing 61-year-old male, sitting up in bed , comfortable, NARD Neuro: awake, alert and oriented x4, speech clear, exhibits some confusion HEENMT: normocephalic, atraumatic, EOMI, sclerae anicteric Respiratory: clear to auscultation bilaterally, nonlabored breathing Cardio: regular rate, regular rhythm with S1-S2 Abdomen: nondistended, normoactive bowel sounds, soft, nontender to palpation, G-tube in place Extremities: no edema, erythema, or tenderness to palpation, DP pulses 2+ bilaterally Skin: no rashes or lesions, warm and dry Psych: appropriate mood and affect, judgment and insight poor Objective Data Vital Signs Vital Signs: Vital Signs - 24 hr 05/24/22 12:31 05/24/22 12:41 05/24/22 12:51 Temperature Pulse Rate 73 71 74 Respiratory Rate 20 19 18 Blood Pressure 118/57 L 126/71 140/65 Pulse Oximetry 100 100 100 Oxygen Delivery Room Air Room Air Room Air 05/24/22 13:27 05/24/22 13:45 05/24/22 14:16 Temperature 97.6 F 97.6 F 97.6 F Pulse Rate 72 73 64 Respiratory Rate 18 18 18 Blood Pressure 116/66 124/78 113/71 Pulse Oximetry 100 100 97 Oxygen Delivery 05/24/22 15:15 05/24/22 16:18 05/24/22 20:15 Temperature 97.5 F L 97.4 F L Pulse Rate 71 80 Respira
[2022-05-25 12:52] VITALS: BMI 10.0
[2022-05-25 14:00] VITALS: BP 118/72; PULSE 94; RESP 16; TEMP 36.1; O2SAT 98
--- NOTE | 2022-05-25 14:03 | PCPTNOTE ---
Patient refused treatment this session due to patient not feeling well at this time.
--- NOTE | 2022-05-25 14:07 | WPDGIPROGNO ---
Progress Note: A&P Assessment and Plan (1) Dysphagia: Code(s): R13.10 - Dysphagia, unspecified Status: Acute Assessment and Plan: s/p peg placement yesterday tolerating feeding will follow from af[place], call if questions (2) Cerebrovascular accident: Onset Date: 05/01/22 Code(s): I63.9 - Cerebral infarction, unspecified Status: Acute Assessment and Plan: on meds therapy (3) Bacterial endocarditis: Code(s): I33.0 - Acute and subacute infective endocarditis Status: Acute Assessment and Plan: treated (4) Esophagitis: Code(s): K20.90 - Esophagitis, unspecified without bleeding Status: Acute Assessment and Plan: found yesterday on ppi now Subjective Date/time seen: 05/25/22 14:07 Interval history: comfortable, tolerating tube feeding at 60 ml/h Review of Systems Review of Systems: All systems reviewed & are unremarkable except as noted in HPI and below Exam Const: General: comfortable Other: chronically ill appearing HENMT: Face/Nose/Sinus: Normal nares present Eyes: Sclera: sclerae normal Neck: Neck: supple Resp: Effort & Inspection: normal respiratory effort Cardio: Rate: regular rate GI: GI Palp: Yes Soft to palpation and No Guarding due to palpation present (GI) Auscultation: normal bowel sounds Other: g-tube in place Skin: General skin exam: normal color Neuro: Other: left hemiparesis, he is alert, awake and oriented but has been getting confused Extrem: General: normal to inspection Psych: Affect: No Hostile affect present Objective Data Vital Signs Vital Signs: Vital Signs - 24 hr 05/24/22 14:16 05/24/22 15:15 05/24/22 16:18 Temperature 97.6 F 97.5 F L Pulse Rate 64 71 Respiratory Rate 18 18 Blood Pressure 113/71 127/79 Pulse Oximetry 97 100 Oxygen Delivery Room Air 05/24/22 20:15 05/24/22 21:18 05/24/22 20:00 Temperature 97.4 F L Pulse Rate 80 91 91 Respiratory Rate 18 18 Blood Pressure 123/69 Pulse Oximetry 100 95 95 Oxygen Delivery Room Air Room Air 05/25/22 04:25 05/25/22 08:25 05/25/22 09:59 Temperature 97.4 F L 97.6 F Pulse Rate 78 96 Respiratory Rate 20 16 Blood Pressure 114/64 119/74 Pulse Oximetry 98 96 99 Oxygen Delivery Room Air 05/25/22 10:15 Temperature Pulse Rate Respiratory Rate Blood Pressure Pulse Oximetry Oxygen Delivery Room Air Intake/Output Intake/Output: Intake & Output 05/22/22 05/23/22 05/24/22 05/25/22 23:59 23:59 23:59 23:59 Intake Total 933 843 7730 Balance 709 557 4089 Meds/Results Medications: Active Medications Generic Name Dose Route Start Last Admin Trade Name Elsy PRN Reason Stop Dose Admin Aspirin 81 mg 05/23/22 09:00 05/25/22 10:02 Aspirin 81 Mg Enteric Tablet PO 81 mg DAILY KELL Administration Atorvastatin Calcium 40 mg 05/23/22 21:00 05/24/22 20:25 Atorvastatin 40 Mg Tablet PO 40 mg QHS KELL Administration Buspirone HCl 10 mg 05/23/22 09:00 05/25/22 13:07 Buspirone Hcl 10 Mg Tablet PO 10 mg TID KELL Administration Carbamazepine 200 mg 05/23/22 08:00 05/25/22 13:07 Carbamazepine 200 Mg Tablet PO 200 mg TIDWM KELL Administration Carbidopa/Levodopa 1 tablet 05/23/22 08:00 05/25/22 13:07 Carbidopa/Levodopa 25/100 Mg Tablet PO 1 tablet WMHS KELL Administration Clopidogrel Bisulfate 75 mg 05/23/22 09:00 05/25/22 10:02 Clopidogrel Bisulfate 75 Mg Tablet PO 75 mg QAM KELL Administration Docusate Sodium 100 mg 05/23/22 09:00 05/25/22 10:02 Docusate Sodium 100 Mg Capsule PO 100 mg DAILY KELL Administration Fluoxetine HCl 80 mg 05/23/22 21:00 05/24/22 20:24 Fluoxetine Hcl 20 Mg Capsule PO 80 mg HS KELL Administration Losartan Potassium 25 mg 05/23/22 09:00 05/25/22 10:02 Losartan Potassium 25 Mg Tablet PO 25 mg DAILY KELL Administration Melatonin 3 mg 05/23/22 01:28 05/23/22 20:04 Me
--- NOTE | 2022-05-25 16:50 | WPDANESPN ---
Anes - Prog Note Post-Op Date/Time: 05/25/22 16:50 Cardiovascular status: normal Respiratory status: normal Airway patency: baseline Mental status: baseline Post-Op hydration status: normal Vital Signs: Last Vital Signs Temp 36.1 C L 05/25/22 14:00 Pulse 94 05/25/22 14:00 Resp 16 05/25/22 14:00 BP 118/72 05/25/22 14:00 Pulse Ox 98 05/25/22 14:00 O2 Del Method Room Air 05/25/22 10:15 Pain Score (VAS): 05/03 I/O: Intake & Output 05/25/22 05/25/22 05/25/22 07:59 15:59 23:59 Intake Total 0 1050 Balance 0 1050 Laboratory Tests 05/25/22 07:12 05/25/22 07:12 05/25/22 05/25/22 07:12 07:12 WBC 10.8 H RBC 4.14 L Hgb 12.8 L Hct 39.8 L MCV 96.1 MCH 30.9 MCHC 32.2 RDW 17.0 H Plt Count 316 MPV 9.7 Sodium 137 Potassium 4.3 Chloride 106 Carbon Dioxide 27 Anion Gap 4 L BUN 18 Creatinine 0.60 L Estim Creat Clear Calc 113 Estimated GFR > 60 Glucose 109 Calcium 9.3 Post-procedural complaints: none Patient Feedback: Patient satisfied with anesthetic care.
[2022-05-25] MEDS: MELATONIN 3 MG TABLET PO (21:31)
[2022-05-25] MEDS: QUEtiapine FUMARATE 25 MG TABLET 50 MG PO (21:31)
[2022-05-25] MEDS: ATORVASTATIN 40 MG TABLET PO (21:31)
[2022-05-25] MEDS: FLUoxetine HCL 20 MG CAPSULE 80 MG PO (21:31)
[2022-05-25 21:33] VITALS: BP 122/74; PULSE 90; RESP 16; TEMP 36.8; O2SAT 97
[2022-05-26] MEDS: SALINE LOCK FLUSH 10 ML IV PUSH ×3 (05:25→20:33)
[2022-05-26 05:32] VITALS: BP 118/64; PULSE 72; RESP 16; TEMP 36.7; O2SAT 98
[2022-05-26 07:21] LABS: Hematocrit 36.7 % (42.0-52.0); Hemoglobin 12.1 g/dL (14.0-18.0); Mean Corpuscular Hemoglobin 31.3 pg (26-34); Mean Corpuscular Volume 95.1 fl (80-100); Mean Platelet Volume 9.5 fl (7.4-10.4); Platelet Count Result 288 k/mm3 (150-375); Red Blood Count 3.86 M/mm3 (4.6-6.20); Red Cell Distribution Width 17.2 % (11.5-14.5); White Blood Count 13.7 K/mm3 (4.5-10.0)
[2022-05-26 07:29] LABS: Anion Gap 5 mmol/L (8-16); Blood Urea Nitrogen 20 mg/dL (9-20); Calcium 8.8 mg/dL (8.4-10.2); Carbon Dioxide 29 mmol/L (22-30); Chloride 102 mmol/L (98-107); Estimated CRCL calculation 113 ml/min; Estimated Glomerular Filt Rate > 60; Glucose 126 mg/dL (65-110); Potassium 4.2 mmol/L (3.4-5.0); Sodium 136 mmol/L (137-145)
[2022-05-26 08:20] VITALS: PULSE 72; RESP 18; O2SAT 93
[2022-05-26] MEDS: FLUTICASONE/SALMETEROL 115-21 MCG INHALER 1 PUFF 2 PUFF INHALATION ×2 (08:20→21:34)
[2022-05-26 09:19] VITALS: BP 124/66; PULSE 78; RESP 17; TEMP 36.9; O2SAT 100
[2022-05-26] MEDS: carBAMazepine 200 MG TABLET PO ×3 (09:20→17:45)
[2022-05-26] MEDS: ASPIRIN 81 MG ENTERIC TABLET PO (09:21)
[2022-05-26] MEDS: busPIRone HCL 10 MG TABLET PO ×3 (09:21→17:45)
[2022-05-26] MEDS: ZONISAMIDE 100 MG CAPSULE PO ×2 (09:21→17:45)
[2022-05-26] MEDS: CLOPIDOGREL BISULFATE 75 MG TABLET PO (09:21)
[2022-05-26] MEDS: CARBIDOPA/LEVODOPA 25/100 MG TABLET 1 TABLET PO ×4 (09:21→20:32)
[2022-05-26] MEDS: WATER FOR IRRIGATION, STERILE 1,000 ML BOTTLE 1000 ML (09:21)
[2022-05-26] MEDS: PANTOPRAZOLE SODIUM IV 40 MG VIAL IV PUSH (09:21)
[2022-05-26] MEDS: MONTELUKAST SODIUM 10 MG TABLET PO (09:21)
[2022-05-26] MEDS: LOSARTAN POTASSIUM 25 MG TABLET PO (09:21)
[2022-05-26] MEDS: DOCUSATE SODIUM 100 MG CAPSULE PO (09:21)
--- NOTE | 2022-05-26 11:16 | PCPTNOTE ---
Patient refused treatment this session. Patient reported he did not feel good and did not want to do it.
[2022-05-26 14:00] VITALS: BP 111/63; PULSE 87; RESP 16; TEMP 36.4; O2SAT 92
[2022-05-26 14:33] LABS: Appearance Urine Turbid (Clear); Bacteria Urine None Seen /hpf; Bilirubin Urine Negative (Negative); Blood Urine Negative (Negative); Color Urine Yellow (Yellow); Glucose Urine UA Negative (Negative); Ketones Urine Negative (Negative); Leukocyte Esterase Ur Trace LEU/UL (Negative); Need Manual Microscopic Reviewed; Nitrate Urine Negative (Negative); Protein Urine Trace mg/dL (Negative); Specific Grav Ur 1.017 (1.001-1.035); Squamous Epithelial Cell Urine None seen /hpf (Few); WBC Urine 0-5 /hpf; pH Urine 7.5 (5.0-9.0)
[2022-05-26 14:34] LABS: Add Urine Microscopic? YES
--- NOTE | 2022-05-26 15:13 | PM.IMPN ---
Progress Note: A&P Assessment and Plan (1) Dysphagia: Code(s): R13.10 - Dysphagia, unspecified Status: Acute Assessment and Plan: He has had ongoing issues with dysphagia and was sent from rehab for consideration of G-tube placement. Completed modified barium swallow on 05/23 which demonstrated penetration with thin and thick barium and silent aspiration with other consistencies, patient did not make efforts to clear his airway, exhibit difficulty with following commands for compensatory strategies. he may be able to tolerate pudding thickened liquids and food only with a spoon, nothing by cup or straw. Per speech therapy, he is a candidate for combination oral and non oral feedings. GI consult appreciated. G-tube placed on 05/24/2022. Tube feedings initiated per dietitian recommendations. Continue with tube feedings and allowed patient to continue to attempt oral feeding. Continue speech therapy (2) Bacterial endocarditis: Code(s): I33.0 - Acute and subacute infective endocarditis Status: Acute Assessment and Plan: Patient completed course of meropenem on 05/24/2022 (3) Hypertension: Code(s): I10 - Essential (primary) hypertension Status: Acute Assessment and Plan: Blood pressures are stable. continue home losartan (4) Hyperlipidemia: Code(s): E78.5 - Hyperlipidemia, unspecified Status: Acute Assessment and Plan: On statin; LFTs within normal limits. (5) Parkinsons disease: Code(s): G20 - Parkinson's disease Status: Acute Assessment and Plan: Continue carbidopa levodopa. (6) Leukocytosis: Code(s): D72.829 - Elevated white blood cell count, unspecified Status: Acute Assessment and Plan: Slight elevation in WBC to 13.7. Etiology for this is. No signs / symptoms to indicate infection patient remains afebrile. Will obtain UA to rule out UTI. Continue to monitor CBC with differential. Plan Awaiting SNF placement authorization Subjective Date/time seen: 05/26/22 15:13 Interval history: Date of service: 05/26/2022 Blaine Salvador is a 61-year-old male with a history of anxiety, depression, CVA, hypertension, hyperlipidemia, psychogenic seizures, Parkinson's disease CAD, and recent bacterial endocarditis currently on IV antibiotics who is seen in follow-up for dysphagia now s/p peg tube placement. Patient reports feeling well today. Tolerating tube feedings. Offers no concerns. Review of Systems Review of Systems: All systems reviewed & are unremarkable except as noted in HPI and below Exam Narrative: General: thin, chronically ill-appearing 61-year-old male, sitting up in bed , comfortable, NARD Neuro: awake, alert and oriented x4, speech clear, exhibits some confusion HEENMT: normocephalic, atraumatic, EOMI, sclerae anicteric Respiratory: clear to auscultation bilaterally, nonlabored breathing Cardio: regular rate, regular rhythm with S1-S2 Abdomen: nondistended, normoactive bowel sounds, soft, nontender to palpation, G-tube in place Extremities: no edema, erythema, or tenderness to palpation, DP pulses 2+ bilaterally Skin: no rashes or lesions, warm and dry Psych: appropriate mood and affect, judgment and insight poor Objective Data Vital Signs Vital Signs: Vital Signs - 24 hr 05/25/22 21:33 05/26/22 05:32 05/26/22 08:20 Temperature 98.2 F 98.0 F Pulse Rate 90 72 72 Respiratory Rate 16 16 18 Blood Pressure 122/74 118/64 Pulse Oximetry 97 98 93 Oxygen Delivery Room Air 05/26/22 08:20 05/26/22 09:19 05/26/22 09:30 Temperature 98.4 F Pulse Rate 72 78 Respiratory Rate 18 17 Blood Pressure 124/66 Pulse Oximetry 100 Oxygen Delivery Room Air 05/26/22 14:00 Temperature 97.6 F Pulse Rate 87 Respiratory Rate 16 Blood Pressure 111/63 Pulse Oximetry 92 Oxygen Delivery Intake/Output Intake/Output: Intake & Output 05/23
[2022-05-26] MEDS: ATORVASTATIN 40 MG TABLET PO (20:32)
[2022-05-26] MEDS: QUEtiapine FUMARATE 25 MG TABLET 50 MG PO (20:32)
[2022-05-26] MEDS: FLUoxetine HCL 20 MG CAPSULE 80 MG PO (20:33)
[2022-05-26 21:35] VITALS: PULSE 70; RESP 16
[2022-05-26 23:01] VITALS: BP 126/63; PULSE 88; RESP 20; TEMP 36.3; O2SAT 98
[2022-05-27] MEDS: SALINE LOCK FLUSH 10 ML IV PUSH (05:45)
[2022-05-27 06:01] LABS: Basophils Percent Auto 0.3 % (0.2-1.2); Eosinophils Absolute Auto 0.2 K/mm3 (0-0.3); Eosinophils Percent Auto 1.6 % (0-4.4); Hematocrit 34.3 % (42.0-52.0); Hemoglobin 11.4 g/dL (14.0-18.0); Immature Granulocyte Absolute 0.05 K/mm3 (0.00-0.031); Immature Granulocyte Percent A 0.4 % (0-0.5); Lymphocytes Absolute Auto 2.59 K/mm3 (0.9-3.2); Lymphocytes Percent Auto 20.2 % (18.3-44.2); Mean Corpuscular HGB Conc 33.2 g/dl (32-36); Mean Corpuscular Hemoglobin 31.2 pg (26-34); Mean Platelet Volume 9.6 fl (7.4-10.4); Monocytes Absolute Auto 1.2 K/mm3 (0.1-0.6); Monocytes Percent Auto 9.1 % (2.6-8.5); Neutrophils Absolute Auto 8.7 K/mm3 (1.3-6.7); Neutrophils Percent Auto 68.4 % (45.5-73.1); Platelet Count Result 272 k/mm3 (150-375); Red Blood Count 3.65 M/mm3 (4.6-6.20); Red Cell Distribution Width 17.1 % (11.5-14.5); White Blood Count 12.8 K/mm3 (4.5-10.0)
[2022-05-27 06:14] LABS: Anion Gap 4 mmol/L (8-16); Blood Urea Nitrogen 18 mg/dL (9-20); Carbon Dioxide 29 mmol/L (22-30); Chloride 102 mmol/L (98-107); Estimated CRCL calculation 113 ml/min; Estimated Glomerular Filt Rate > 60; Glucose 100 mg/dL (65-110); Potassium 4.3 mmol/L (3.4-5.0); Sodium 135 mmol/L (137-145)
[2022-05-27 06:49] VITALS: BP 112/61; PULSE 84; RESP 21; TEMP 36.7; O2SAT 100
[2022-05-27 08:36] VITALS: BP 108/65; PULSE 86; O2SAT 97
[2022-05-27] MEDS: CARBIDOPA/LEVODOPA 25/100 MG TABLET 1 TABLET PO ×2 (08:38→12:12)
[2022-05-27] MEDS: carBAMazepine 200 MG TABLET PO ×2 (08:38→12:12)
[2022-05-27] MEDS: busPIRone HCL 10 MG TABLET PO ×2 (08:39→12:12)
[2022-05-27] MEDS: ASPIRIN 81 MG ENTERIC TABLET PO (08:39)
[2022-05-27] MEDS: LOSARTAN POTASSIUM 25 MG TABLET PO (08:40)
[2022-05-27] MEDS: MONTELUKAST SODIUM 10 MG TABLET PO (08:40)
[2022-05-27] MEDS: CLOPIDOGREL BISULFATE 75 MG TABLET PO (08:40)
[2022-05-27] MEDS: PANTOPRAZOLE SODIUM IV 40 MG VIAL IV PUSH (08:41)
[2022-05-27] MEDS: ZONISAMIDE 100 MG CAPSULE PO (08:41)
[2022-05-27] MEDS: DOCUSATE SODIUM 100 MG CAPSULE PO (08:43)
[2022-05-27] MEDS: FLUTICASONE/SALMETEROL 115-21 MCG INHALER 1 PUFF 2 PUFF INHALATION (08:51)
[2022-05-27 08:52] VITALS: O2SAT 100
--- NOTE | 2022-05-27 12:15 | P.CDI_ITS ---
CDI Query Clarification Request Moderate calorie malnutrition <Mary Spencer PA-C - Last Filed: 05/28/22 07:34> Clarified Diagnosis Clarified Diagnosis: BMI 20.7 Nutritional Diagnostic Statement. Moderate Calorie Malnutrition as related to increased protein needs in the setting of chronic disease or condition (Dysphagia) as evidence by < 75% of estimated protein needs > 7 days and significant weight loss of 20% in the past 3 months. Please refer to the Comprehensive Nutrition Assessment for more information. Please clarify severity of protein calorie malnutrition: * Mild * Moderate * Severe * Other / Unspecified <Irene Schwab RN - Last Filed: 05/27/22 12:22>
[2022-05-27 14:20] VITALS: BP 112/57; PULSE 71; RESP 16; TEMP 36.6; O2SAT 94
--- NOTE | 2022-05-27 14:48 | PM.DS ---
DS: Admitting Diagnosis Discharge Date 05/27/2022 Admitting Diagnosis Dysphagia DS: Discharge Diagnosis Discharge Diagnosis (1) Dysphagia: Code(s): R13.10 - Dysphagia, unspecified Status: Acute Assessment and Plan: He has had ongoing issues with dysphagia and was sent from rehab for consideration of G-tube placement. Completed modified barium swallow on 05/23 which demonstrated penetration with thin and thick barium and silent aspiration with other consistencies, patient did not make efforts to clear his airway, exhibited difficulty with following commands for compensatory strategies. He can tolerate pudding thickened liquids and food only with a spoon, nothing by cup or straw. Per speech therapy, he is a candidate for combination oral and non oral feedings. Seen in consult by GI. G-tube placed on 05/24/2022. Tube feedings initiated per dietitian recommendations. Continue with tube feedings and allow patient to continue to attempt oral feeding. Continue speech therapy at outpatient facility (2) Bacterial endocarditis: Code(s): I33.0 - Acute and subacute infective endocarditis Status: Acute Assessment and Plan: Managed at outside facility. Patient completed course of meropenem on 05/24/2022 (3) Hypertension: Code(s): I10 - Essential (primary) hypertension Status: Acute Assessment and Plan: Blood pressures remained stable. continue home losartan (4) Hyperlipidemia: Code(s): E78.5 - Hyperlipidemia, unspecified Status: Acute Assessment and Plan: On statin; LFTs within normal limits. (5) Parkinsons disease: Code(s): G20 - Parkinson's disease Status: Acute Assessment and Plan: Continue carbidopa levodopa. (6) Leukocytosis: Code(s): D72.829 - Elevated white blood cell count, unspecified Status: Acute Assessment and Plan: Slight elevation in WBC to 13.7. Etiology for this unclear. No signs/symptoms to indicate infection. Patient remained afebrile. UA unremarkable. Downward trend, anticipate resolution. Plan Awaiting SNF placement authorization DS: Summary Hospital Course Hospital Course: Date of admission: 05/22/2022 Date of discharge: 05/27/2022 Blaine Salvador? is a 61-year-old male with a history of anxiety, depression, CVA, hypertension, hyperlipidemia, psychogenic seizures, Parkinson's disease, CAD, and recent bacterial endocarditis?who was directly admitted to [facility] on 05/22/2022 from acute rehab facility due to ongoing issues with dysphagia after suffering a stroke on 05/01/2022. On presentation, he had mild leukocytosis, additional laboratory workup unremarkable. He was seen in consultation by Gastroenterology and underwent PEG tube placement on 05/24/2022. Tube feeding diets were initiated per dietitian recommendations. Patient was evaluated by speech therapy and was allowed to attempt oral feedings with a pureed diet and extremely thickened liquids. He will continue with combination oral and non oral feeding and will continue with speech therapy at [facility]. Patient was discharged in hemodynamically stable condition on 05/27/2022. Time Spent with Patient Time attestation: Total time spent providing and/or coordinating discharge services: 45 minutes Exam Narrative: General: thin, chronically ill-appearing 61-year-old male, sitting up in bed , comfortable, NARD Neuro: awake, alert and oriented x4, speech clear, exhibits some confusion HEENMT: normocephalic, atraumatic, EOMI, sclerae anicteric Respiratory: clear to auscultation bilaterally, nonlabored breathing Cardio: regular rate, regular rhythm with S1-S2 Abdomen: nondistended, normoactive bowel sounds, soft, nontender to palpation, G-tube in place Extremities: no edema, erythema, or tenderness to palpation, DP pulses 2+ bilaterally Skin: no rashes or lesions, warm and dry Psych: appropriate mood and affect,
[2022-05-27 15:19] LABS: EDCOVIDSCREEN Negative (Negative)
== END 2022-05-27 16:20 | DRG 57 ==
PROVIDERS: Internal Medicine Gastroenterology; Physician Assistant; Admitting Provider Family Medicine; PCP Family Medicine; Visit Provider Physician Assistant
PROC: 0DH63UZ Insertion of Feeding Device into Stomach, Percutaneous Approach (ICD-10-PCS; CPT 43246; principal; 2022-05-24 13:45)
DX: I69.991 Dysphagia following unspecified cerebrovascular disease (principal); E44.0 Moderate protein-calorie malnutrition; I10 Essential (primary) hypertension; E78.5 Hyperlipidemia, unspecified; G20 Parkinson's disease; D72.829 Elevated white blood cell count, unspecified; R13.10 Dysphagia, unspecified; K21.00 Gastro-esophageal reflux disease with esophagitis, without bleeding; Z68.20 Body mass index [BMI] 20.0-20.9, adult; Z20.822 Contact with and (suspected) exposure to COVID-19
CPT/HCPCS: 36415; 43246; 80048; 80053; 81001; 83735; 85025; 85027; 87040; 87426; 92526; 92611; 94640; 96365; 96366; 96376; 97110; 97162; 97165; 97530; 97535; A9270; C9113; C9803; G0378; G0379; J0690; J2185; J2704; J7050; J7120

== ENCOUNTER 2022-06-06 16:12 | Emergency (ER) | payer MEDICARE, MEDICAID, SELFPAY ==
--- NOTE | ~2022-06-06 | CT_ITS ---
EXAMINATION: CT brain wo con INDICATION: Head injury COMPARISON: None TECHNIQUE: Standard unenhanced head CT. The dose-length product (DLP) was 681.00 mGy-cm. The mA was a djusted according to patient size. Iterative reconstruction technique was employed. FINDINGS: There is no intracranial hemorrhage. There are increasing hypoattenuation involving the rig ht frontal, temporal, and parietal lobes. The dubose matter in much of the affected territory appears t o be preserved. The ventricles are normal. There is no abnormal mass effect or midline shift. There i s a polyp or mucous retention cyst of the right sphenoid sinus. The basal cisterns are patent. Intrac ranial calcified cerebral atherosclerosis is noted. The orbits are normal. IMPRESSION: 1. Increasing area of hypoattenuation in the right frontal, temporal, and parietal lobes with relativ e preservation of the dubose matter. Although findings could reflect evolving subacute infarct, and und erlying mass is a consideration. Consider follow-up MRI without and with contrast. Reviewed, dictated and finalized at location F. IMPRESSION: 1. Increasing area of hypoattenuation in the right frontal, temporal, and parie kaycee lobes with relative preservation of the dubose matter. Although findings coul d reflect evolving subacute infarct, and underlying mass is a consideration. Co nsider follow-up MRI without and with contrast.
--- NOTE | ~2022-06-06 | CT_ITS ---
EXAMINATION: CT facial & cervical spine wo DATE: 06/06/2022 17:11 INDICATION: Head injury TECHNIQUE: Computed tomography (CT) of the maxillofacial region and cervical spine was performed with out intravenous contrast. The dose-length product (DLP) was 399.88 mGy-cm. Automated exposure control and iterative reconstruction technique were employed. COMPARISON: None FINDINGS: MAXILLOFACIAL CT: There is a small left periorbital soft tissue hematoma. No facial fracture is identified. There is a polyp or mucous retention cyst of the right sphenoid sinus. CERVICAL SPINE CT: Bone alignment is normal. There is no fracture. There is mild loss of intervertebral disc space heigh t at C6-7. Small degenerative osteophytes project from the anterior endplates of multiple vertebral b odies. The odontoid process is intact. The vertebral body heights are maintained. There is moderate e mphysema of the visualized lung apices. IMPRESSION: 1. Left periorbital soft tissue hematoma without facial fracture. 2. Mild cervical spondylosis. Reviewed, dictated and finalized at location F.
--- NOTE | ~2022-06-06 | XR_ITS ---
EXAMINATION: XR lumbar spine min 4V DATE: 06/06/2022 18:42 INDICATION: Low back pain TECHNIQUE: Anteroposterior, lateral, and bilateral oblique views of the lumbar spine, and cone-down l ateral view of the lumbosacral junction were obtained. COMPARISON: None. FINDINGS: No fracture, dislocation, or subluxation. There is mild loss of intervertebral disc space h eight at L5-S1. The vertebral body heights are maintained. A gastrostomy tube is noted. A moderate vo lume of colonic stool is present. There is mild facet joint osteoarthritis. IMPRESSION: 1. Mild lumbar spondylosis without acute findings. Reviewed, dictated and finalized at location F.
[2022-06-06 16:14] VITALS: BP 115/80; PULSE 82; RESP 18; O2SAT 100
[2022-06-06] MEDS: LIDOCAINE HCL 1% LOCAL INJ 10 ML VIAL 5 ML INFILTRATE (18:08)
--- NOTE | 2022-06-06 18:50 | ED.FALL ---
HPI - Fall General Chief Complaint: Fall Stated Complaint: fall/ eye lac Time Seen by Provider: 06/06/22 16:56 Source: patient and old records reviewed Mode of arrival: EMS Limitations: no limitations History of Present Illness HPI Narrative: Patient is a 61 y/o male who presents to the ED via EMS with c/o a fall out of bed. Patient with recent history of CVA, left-sided hemiplegia, seen at [facility], currently residing at [facility] for rehab. Patient reports he fell out of bed today and hit his head on the ground. He sustained a small laceration to his left outer eyebrow. Patient states he remembers everything that happened up to the fall. He is unsure if he lost consciousness or not. EMS was then contacted to bring patient here. Patient is on aspirin and Plavix. Patient also reports having mild pain to his lower back. Denies any dizziness, lightheadedness, new vision changes, new weakness, nausea, vomiting, abdominal pain, neck pain. Related Data Home Medications Medication Instructions Recorded Confirmed aspirin 81 mg tablet,delayed 81 mg PO DAILY 02/03/20 05/22/22 release (Josue Low Dose Aspirin) atorvastatin 40 mg tablet 40 mg PO QHS 02/03/20 05/22/22 budesonide-formoterol HFA 160 2 puff inhalation Q12H 02/03/20 05/22/22 mcg-4.5 mcg/actuation aerosol inhaler (Symbicort) carbamazepine 200 mg tablet 200 mg PO TIDWM 02/03/20 05/22/22 carbidopa 25 mg-levodopa 100 mg 1 tablet PO QID 02/03/20 05/22/22 tablet famotidine 20 mg tablet 20 mg PO BID 02/03/20 05/22/22 fluoxetine 20 mg capsule 80 mg PO HS 02/03/20 05/22/22 losartan 50 mg tablet 25 mg PO DAILY 02/03/20 05/22/22 montelukast 10 mg tablet 10 mg PO DAILY 02/03/20 05/22/22 quetiapine 50 mg tablet 100 mg PO Q8H 02/03/20 05/22/22 zonisamide 100 mg capsule 100 mg PO BID 02/03/20 05/22/22 acetaminophen 325 mg tablet 325 mg PO Q6H PRN Pain 05/22/22 05/22/22 buspirone 10 mg tablet 10 mg PO TID 05/22/22 05/22/22 clopidogrel 75 mg tablet 75 mg PO QAM 05/22/22 05/22/22 docusate sodium 100 mg capsule 100 mg PO DAILY 05/22/22 05/22/22 ergocalciferol (vitamin D2) 50,000 50,000 unit PO WEEKLY 05/22/22 05/22/22 unit tablet heparin (porcine) 5,000 unit/0.5 5,000 unit Q8H 05/22/22 05/22/22 mL injection syringe lorazepam 0.5 mg tablet 0.5 mg PO Q6H PRN anxiety 05/22/22 05/22/22 melatonin 3 mg tablet 3 mg PO HS PRN Sleep 05/22/22 05/22/22 ondansetron HCl 4 mg tablet 4 mg PO Q6H 05/22/22 05/22/22 polyethylene glycol 1 ea miscellaneous QAM PRN 05/22/22 05/22/22 Constipation trazodone 150 mg tablet 150 mg PO QHS 05/22/22 05/22/22 Allergies Allergy/AdvReac Type Severity Reaction Status Date / Time mushroom Allergy Severe Anaphylaxis Verified 05/24/22 13:10 hydromorphone Allergy Mild Itching Verified 05/24/22 13:10 tramadol Allergy Unknown SEZIR Verified 05/14/22 18:26 fluticasone AdvReac Other Verified 05/14/22 18:26 [From Advair Diskus] salmeterol AdvReac Other Verified 05/14/22 18:26 [From Advair Diskus] Review of Systems Review of Systems: CONSTITUTIONAL: Denies fever, chills, or sweats. EYES: Denies visual changes. CARDIOVASCULAR: Denies chest pain. RESPIRATORY: Denies dyspnea. GASTROINTESTINAL: Denies abdominal pain, nausea, vomiting. SKIN: See HPI. MUSCULOSKELETAL: See HPI. NEUROLOGIC: See HPI. All systems reviewed & are unremarkable except as noted in HPI and below PMFSH Past Medical History Medical History Anxiety Aortic valve disease Cerebrovascular accident (05/01/22) CTA head and neck showed 10 occlusion of the right distal ICA and M1. He was not a candidate for tPA with concomitant diagnosis of bacteremia and endocarditis. Depression with anxiety Esophagitis History of esophageal dilatation Hyperlipidemia Hypertension Kidney stones Major depressive disorder Parkinson's disease Psychogenic nonepileptic seizure Seizure Skin cancer Valvular heart diseas
[2022-06-06 19:28] VITALS: BP 110/81; PULSE 83; RESP 14; O2SAT 95
== END 2022-06-06 20:35 ==
PROVIDERS: Emergency Provider Physician Assistant; PCP Family Medicine
DX: S01.112A Laceration without foreign body of left eyelid and periocular area, initial encounter (principal); S09.90XA Unspecified injury of head, initial encounter; I69.954 Hemiplegia and hemiparesis following unspecified cerebrovascular disease affecting left non-dominant side; I35.9 Nonrheumatic aortic valve disorder, unspecified; K20.90 Esophagitis, unspecified without bleeding; E78.5 Hyperlipidemia, unspecified; I10 Essential (primary) hypertension; G20 Parkinson's disease; E55.9 Vitamin D deficiency, unspecified; F32.9 Major depressive disorder, single episode, unspecified; F41.9 Anxiety disorder, unspecified; Z85.828 Personal history of other malignant neoplasm of skin; Z87.442 Personal history of urinary calculi; Z95.2 Presence of prosthetic heart valve; Z87.891 Personal history of nicotine dependence; Z79.82 Long term (current) use of aspirin; Z79.02 Long term (current) use of antithrombotics/antiplatelets; M47.812 Spondylosis without myelopathy or radiculopathy, cervical region; W06.XXXA Fall from bed, initial encounter
CPT/HCPCS: 12011; 70450; 70486; 72110; 72125; 99284

== ENCOUNTER 2022-06-14 03:25 | Emergency (ER) | payer MEDICARE, MEDICAID, SELFPAY ==
--- NOTE | ~2022-06-14 | CT_ITS ---
EXAMINATION: CT brain wo con DATE: 06/14/2022 04:26 INDICATION: Status post fall. TECHNIQUE: Computed tomography (CT) of the head was performed without intravenous contrast. The dose- length product was 681.00 mGy-cm. Automated exposure control and iterative reconstruction technique w ere employed. COMPARISON: Comparison to multiple prior studies sequentially, with oldest reviewed study dated 05/14. FINDINGS: There is an increasing area of size and decreasing density of the right parietal lobe witho ut significant mass effect. There are chronic bilateral lacunar infarctions. No ventriculomegaly or m idline shift. Paranasal sinuses and mastoids are pneumatized. There is intracranial atherosclerosis. There is mucosal thickening of the right sphenoid sinus. Mastoids are pneumatized. No depressed skull fractures. No evidence for intracranial hemorrhage. IMPRESSION: 1. Interval progression of size and hypoattenuation of area of the right parietal lobe, consistent wi th late subacute infarction in the MCA distribution. 2: Chronic bilateral lacunar infarctions. Reviewed, dictated and finalized at location A. IMPRESSION: 1. Interval progression of size and hypoattenuation of area of the right pariet al lobe, consistent with late subacute infarction in the MCA distribution. 2: Chronic bilateral lacunar infarctions.
[2022-06-14 03:34] VITALS: BP 117/66; PULSE 71; RESP 12; TEMP 36.9; O2SAT 100
--- NOTE | 2022-06-14 04:04 | ED.FALL ---
HPI - Fall General Chief Complaint: Fall Stated Complaint: SKIN TEAR TO NOSE S/P FALL Time Seen by Provider: 06/14/22 03:40 History of Present Illness HPI Narrative: Patient is a 61-year-old male presenting after a fall. Patient states that he was getting out of bed to get a soda and he fell forward and struck his nose as he fell to the floor. He sustained an abrasion to his nose. He denies losing consciousness. He denies headache, numbness or weakness, neck pain, back pain, nausea or vomiting. He denies any complaints other than mild soreness of his nose. Related Data Home Medications Medication Instructions Recorded Confirmed aspirin 81 mg tablet,delayed 81 mg PO DAILY 02/03/20 05/22/22 release (Josue Low Dose Aspirin) atorvastatin 40 mg tablet 40 mg PO QHS 02/03/20 05/22/22 budesonide-formoterol HFA 160 2 puff inhalation Q12H 02/03/20 05/22/22 mcg-4.5 mcg/actuation aerosol inhaler (Symbicort) carbamazepine 200 mg tablet 200 mg PO TIDWM 02/03/20 05/22/22 carbidopa 25 mg-levodopa 100 mg 1 tablet PO QID 02/03/20 05/22/22 tablet famotidine 20 mg tablet 20 mg PO BID 02/03/20 05/22/22 fluoxetine 20 mg capsule 80 mg PO HS 02/03/20 05/22/22 losartan 50 mg tablet 25 mg PO DAILY 02/03/20 05/22/22 montelukast 10 mg tablet 10 mg PO DAILY 02/03/20 05/22/22 quetiapine 50 mg tablet 100 mg PO Q8H 02/03/20 05/22/22 zonisamide 100 mg capsule 100 mg PO BID 02/03/20 05/22/22 acetaminophen 325 mg tablet 325 mg PO Q6H PRN Pain 05/22/22 05/22/22 buspirone 10 mg tablet 10 mg PO TID 05/22/22 05/22/22 clopidogrel 75 mg tablet 75 mg PO QAM 05/22/22 05/22/22 docusate sodium 100 mg capsule 100 mg PO DAILY 05/22/22 05/22/22 ergocalciferol (vitamin D2) 50,000 50,000 unit PO WEEKLY 05/22/22 05/22/22 unit tablet heparin (porcine) 5,000 unit/0.5 5,000 unit Q8H 05/22/22 05/22/22 mL injection syringe lorazepam 0.5 mg tablet 0.5 mg PO Q6H PRN anxiety 05/22/22 05/22/22 melatonin 3 mg tablet 3 mg PO HS PRN Sleep 05/22/22 05/22/22 ondansetron HCl 4 mg tablet 4 mg PO Q6H 05/22/22 05/22/22 polyethylene glycol 1 ea miscellaneous QAM PRN 05/22/22 05/22/22 Constipation trazodone 150 mg tablet 150 mg PO QHS 05/22/22 05/22/22 Allergies Allergy/AdvReac Type Severity Reaction Status Date / Time mushroom Allergy Severe Anaphylaxis Verified 05/24/22 13:10 hydromorphone Allergy Mild Itching Verified 05/24/22 13:10 tramadol Allergy Unknown SEZIR Verified 05/14/22 18:26 fluticasone AdvReac Other Verified 05/14/22 18:26 [From Advair Diskus] salmeterol AdvReac Other Verified 05/14/22 18:26 [From Advair Diskus] Review of Systems Review of Systems: All systems reviewed & are unremarkable except as noted in HPI and below PMFSH Past Medical History Medical History Anxiety Aortic valve disease Cerebrovascular accident (05/01/22) CTA head and neck showed 10 occlusion of the right distal ICA and M1. He was not a candidate for tPA with concomitant diagnosis of bacteremia and endocarditis. Depression with anxiety Esophagitis History of esophageal dilatation Hyperlipidemia Hypertension Kidney stones Major depressive disorder Parkinson's disease Psychogenic nonepileptic seizure Seizure Skin cancer Valvular heart disease Vitamin D deficiency Surgical History Surgical History History of aortic valve replacement History of appendectomy History of open reduction and internal fixation (ORIF) procedure Repair left ankle fracture. History of spinal surgery Family History Family History Other Unknown family medical history Social History Social History Social History: Surrogate medical decision maker: Angeline Perkins, friend. Code status: Full code. Smoking packs per day: 0.75 Smoking cigarettes per day: 15.0
[2022-06-14 05:28] VITALS: PULSE 78; RESP 15; O2SAT 97
== END 2022-06-14 06:01 ==
PROVIDERS: Emergency Provider Emergency Medicine; PCP Family Medicine
DX: S00.81XA Abrasion of other part of head, initial encounter (principal); E78.5 Hyperlipidemia, unspecified; I10 Essential (primary) hypertension; G20 Parkinson's disease; Z85.828 Personal history of other malignant neoplasm of skin; Z87.891 Personal history of nicotine dependence; Z86.73 Personal history of transient ischemic attack (TIA), and cerebral infarction without residual deficits; W06.XXXA Fall from bed, initial encounter
CPT/HCPCS: 70450; 99284

== ENCOUNTER 2022-06-22 18:13 | Emergency (ER) | payer MEDICARE, MEDICAID, SELFPAY ==
[2022-06-22] VITALS (17 sets, daily range): BP systolic 115–136; BP diastolic 67–108; PULSE 78–92; RESP 12–33; TEMP 36.5–36.9; O2SAT 86–100
--- NOTE | ~2022-06-22 | CT_ITS ---
EXAMINATION: CT brain wo con DATE: 06/22/2022 18:58 INDICATION: Anticoagulated patient post fall with head trauma TECHNIQUE: Computed tomography (CT) of the head was performed without intravenous contrast. Sagittal and coronal reconstructions were performed. The mA was adjusted according to patient size. Iterative reconstruction technique was employed. The dose-length product was 832.33 mGy-cm. COMPARISON: head CT dated 06/14/2022 FINDINGS: No fracture. Small old lacunar infarcts in the left frontal centrum semiovale and at the head of the left caudate nucleus. Additional small old infarct along a sulcus in the left parietal lobe. Consiste nt is a large region of encephalomalacia in the right frontal, temporal and parietal lobes extends in to the right basal ganglia and thalamus consistent with chronic infarct involving a significant porti on of the right middle cerebral artery vascular distribution. No acute intracranial hemorrhage, acute infarction or abnormal extra axial fluid collection. Ventricles are normal and symmetric. No mass/ma ss effect. Intracranial calcified cerebral atherosclerosis is noted. The orbits, paranasal sinuses an d mastoid air cells are normal. IMPRESSION: 1. No fracture or acute intracranial process. 2. Large the region of encephalomalacia involving portions of the right frontal, parietal and tempora l lobes as well as portions of the right thalamus and basal ganglia consistent with chronic infarct i nvolving the majority the vascular distribution of the right middle cerebral artery. 3. 3 additional small chronic infarcts at the left caudate nucleus and in the left frontal and pariet al lobes. Reviewed, dictated and finalized at location A. IMPRESSION: 1. No fracture or acute intracranial process. 2. Large the region of encephalomalacia involving portions of the right frontal , parietal and temporal lobes as well as portions of the right thalamus and bas al ganglia consistent with chronic infarct involving the majority the vascular distribution of the right middle cerebral artery. 3. 3 additional small chronic infarcts at the left caudate nucleus and in the l eft frontal and parietal lobes.
--- NOTE | 2022-06-22 19:21 | ED.FALL ---
HPI - Fall General Chief Complaint: Fall <Jose Easley PA-C - Last Filed: 06/22/22 21:12> Stated Complaint: FALL, FACE LAC <Jose Easley PA-C - Last Filed: 06/22/22 21:12> Time Seen by Provider: 06/22/22 18:36 <Jose Easley PA-C - Last Filed: 06/22/22 21:12> Source: patient <Jose Easley PA-C - Last Filed: 06/22/22 21:12> Mode of arrival: EMS <Jose Easley PA-C - Last Filed: 06/22/22 21:12> Limitations: no limitations <Jose Easley PA-C - Last Filed: 06/22/22 21:12> History of Present Illness HPI Narrative: This is a 61-year-old male with recent history of CVA 10 weeks ago who presents to the ED via EMS from [facility] for chief complaint of a fall that occurred just prior to arrival. Patient states he was in his bed and was trying to roll over and fell out of the bed onto the ground. Patient states he did hit his head. Denies any LOC. He takes Plavix daily and heparin every 8 hours. Patient reports no new pain after the fall today but his rehab hospital wanted him to come to the ER to rule out a brain bleed. Patient states that he had another fall 2 weeks ago in which she had a skin tear of the nose. Again denies any location of pain following the fall today. Reports residual deficits with speech, left arm and left leg numbness and weakness. <Jose Easley PA-C - Last Filed: 06/22/22 21:12> Related Data Home Medications: Home Medications Medication Instructions Recorded Confirmed aspirin 81 mg tablet,delayed 81 mg PO DAILY 02/03/20 05/22/22 release (Josue Low Dose Aspirin) atorvastatin 40 mg tablet 40 mg PO QHS 02/03/20 05/22/22 budesonide-formoterol HFA 160 2 puff inhalation Q12H 02/03/20 05/22/22 mcg-4.5 mcg/actuation aerosol inhaler (Symbicort) carbamazepine 200 mg tablet 200 mg PO TIDWM 02/03/20 05/22/22 carbidopa 25 mg-levodopa 100 mg 1 tablet PO QID 02/03/20 05/22/22 tablet famotidine 20 mg tablet 20 mg PO BID 02/03/20 05/22/22 fluoxetine 20 mg capsule 80 mg PO HS 02/03/20 05/22/22 losartan 50 mg tablet 25 mg PO DAILY 02/03/20 05/22/22 montelukast 10 mg tablet 10 mg PO DAILY 02/03/20 05/22/22 quetiapine 50 mg tablet 100 mg PO Q8H 02/03/20 05/22/22 zonisamide 100 mg capsule 100 mg PO BID 02/03/20 05/22/22 acetaminophen 325 mg tablet 325 mg PO Q6H PRN Pain 05/22/22 05/22/22 buspirone 10 mg tablet 10 mg PO TID 05/22/22 05/22/22 clopidogrel 75 mg tablet 75 mg PO QAM 05/22/22 05/22/22 docusate sodium 100 mg capsule 100 mg PO DAILY 05/22/22 05/22/22 ergocalciferol (vitamin D2) 50,000 50,000 unit PO WEEKLY 05/22/22 05/22/22 unit tablet heparin (porcine) 5,000 unit/0.5 5,000 unit Q8H 05/22/22 05/22/22 mL injection syringe lorazepam 0.5 mg tablet 0.5 mg PO Q6H PRN anxiety 05/22/22 05/22/22 melatonin 3 mg tablet 3 mg PO HS PRN Sleep 05/22/22 05/22/22 ondansetron HCl 4 mg tablet 4 mg PO Q6H 05/22/22 05/22/22 polyethylene glycol 1 ea miscellaneous QAM PRN 05/22/22 05/22/22 Constipation trazodone 150 mg tablet 150 mg PO QHS 05/22/22 05/22/22 <Jose Easley PA-C - Last Filed: 06/22/22 21:12> Allergies/Adverse Reactions: Allergies Allergy/AdvReac Type Severity Reaction Status Date / Time mushroom Allergy Severe Anaphylaxis Verified 06/22/22 18:27 hydromorphone Allergy Mild Itching Verified 06/22/22 18:27 tramadol Allergy Unknown SEZIR Verified 06/22/22 18:27 fluticasone AdvReac Other Verified 06/22/22 18:27 [From Advair Diskus] salmeterol AdvReac Other Verified 06/22/22 18:27 [From Advair Diskus] <Jose Easley PA-C - Last Filed: 06/22/22 21:12> Review of Systems Review of Systems: CONSTITUTIONAL: Denies fever, chills, or sweats. EYES: Denies visual changes, redness, or discharge. ENT: Denies rhinorrhea, congestion, sore throat, or otalgia. CARDIOVASCULAR: Denies chest pain, palpitations, or edema. RESPIRATORY: Denies cough or dyspnea. GASTROINTESTINAL: Denies abdominal pain, nausea, vomiting, or diarrhe
[2022-06-22] MEDS: HYDROcodone/acetaminophen (*CRX) 7.5-325 MG TABLET 1 TAB PO (21:28)
[2022-06-22] MEDS: ORPHENADRINE CITRATE 100 MG TABLET.ER PO (23:09)
[2022-06-22] MEDS: ACETAMINOPHEN 500 MG TABLET 1000 MG PO (23:09)
[2022-06-22] MEDS: KETOROLAC (*BKC) 60 MG/2 ML VIAL IM (23:09)
[2022-06-23] VITALS (16 sets, daily range): BP systolic 110–148; BP diastolic 48–104; PULSE 75–81; RESP 17–28; TEMP 36.4; O2SAT 100
== END 2022-06-23 03:03 ==
PROVIDERS: Emergency Provider Physician Assistant; PCP Internal Medicine
DX: S09.90XA Unspecified injury of head, initial encounter (principal); I69.928 Other speech and language deficits following unspecified cerebrovascular disease; I69.954 Hemiplegia and hemiparesis following unspecified cerebrovascular disease affecting left non-dominant side; G20 Parkinson's disease; I35.8 Other nonrheumatic aortic valve disorders; I10 Essential (primary) hypertension; E78.5 Hyperlipidemia, unspecified; E55.9 Vitamin D deficiency, unspecified; F41.8 Other specified anxiety disorders; Z85.828 Personal history of other malignant neoplasm of skin; Z87.442 Personal history of urinary calculi; Z87.891 Personal history of nicotine dependence; Z95.2 Presence of prosthetic heart valve; Z79.82 Long term (current) use of aspirin; Z79.02 Long term (current) use of antithrombotics/antiplatelets; W06.XXXA Fall from bed, initial encounter
CPT/HCPCS: 70450; 96372; 99284; A9270; J1885

== ENCOUNTER 2022-06-23 08:57 | Emergency (ER) | payer MEDICARE, MEDICAID, SELFPAY ==
--- NOTE | ~2022-06-23 | XR_ITS ---
EXAMINATION: XR wrist LT min 3V DATE: 06/23/2022 11:14 INDICATION: Left wrist swelling post frequent falls TECHNIQUE: Posteroanterior, ulnar deviation, oblique, and lateral views of the left wrist were obtain ed. COMPARISON: none FINDINGS: Bone alignment is normal. No fracture. Joint spaces are relatively preserved. Mild soft tissue swelli ng dorsal to the carpus and volar to the wrist and distal forearm. IMPRESSION: 1. No acute osseous abnormality. Reviewed, dictated and finalized at location A.
[2022-06-23 09:01] VITALS: BP 128/79; PULSE 75; RESP 16; TEMP 36.3; O2SAT 99
--- NOTE | 2022-06-23 09:14 | ED.GENADULT ---
HPI - General Adult General Chief complaint: Unspecified Stated complaint: g tube replacement Time Seen by Provider: 06/23/22 08:58 Source: patient, family and old records reviewed Mode of arrival: EMS Limitations: clinical condition History of Present Illness HPI narrative: Patient is a 61 y/o male with PMH of recent CVA with left sided hemiparesis, G-tube placement, who presents to the ED via EMS with report of G tube dislodgement. Patient is currently residing at [facility]. Initially had G-tube placed 05/[address] Espinal for dysphagia/aspiration risk after CVA. Patient was seen in the ED last night for a ground-level fall. Family member/POA at bedside reports that the G-tube was in place while patient was here in the hospital. He was transferred back to the residential around 4:30 AM. Sometime between then and now, patient's G-tube has become dislodged. Patient does not remember it being caught on anything or pulling it out himself. Patient's family member does not want G-tube replaced. She reports he has not been using it for enteral feedings in several weeks. He has been tolerating p.o. intake. He denies any abdominal pain or issues with his bowels. Denies fever, nausea, vomiting. Related Data Home Medications Medication Instructions Recorded Confirmed aspirin 81 mg tablet,delayed 81 mg PO DAILY 02/03/20 05/22/22 release (Josue Low Dose Aspirin) atorvastatin 40 mg tablet 40 mg PO QHS 02/03/20 05/22/22 budesonide-formoterol HFA 160 2 puff inhalation Q12H 02/03/20 05/22/22 mcg-4.5 mcg/actuation aerosol inhaler (Symbicort) carbamazepine 200 mg tablet 200 mg PO TIDWM 02/03/20 05/22/22 carbidopa 25 mg-levodopa 100 mg 1 tablet PO QID 02/03/20 05/22/22 tablet famotidine 20 mg tablet 20 mg PO BID 02/03/20 05/22/22 fluoxetine 20 mg capsule 80 mg PO HS 02/03/20 05/22/22 losartan 50 mg tablet 25 mg PO DAILY 02/03/20 05/22/22 montelukast 10 mg tablet 10 mg PO DAILY 02/03/20 05/22/22 quetiapine 50 mg tablet 100 mg PO Q8H 02/03/20 05/22/22 zonisamide 100 mg capsule 100 mg PO BID 02/03/20 05/22/22 acetaminophen 325 mg tablet 325 mg PO Q6H PRN Pain 05/22/22 05/22/22 buspirone 10 mg tablet 10 mg PO TID 05/22/22 05/22/22 clopidogrel 75 mg tablet 75 mg PO QAM 05/22/22 05/22/22 docusate sodium 100 mg capsule 100 mg PO DAILY 05/22/22 05/22/22 ergocalciferol (vitamin D2) 50,000 50,000 unit PO WEEKLY 05/22/22 05/22/22 unit tablet heparin (porcine) 5,000 unit/0.5 5,000 unit Q8H 05/22/22 05/22/22 mL injection syringe lorazepam 0.5 mg tablet 0.5 mg PO Q6H PRN anxiety 05/22/22 05/22/22 melatonin 3 mg tablet 3 mg PO HS PRN Sleep 05/22/22 05/22/22 ondansetron HCl 4 mg tablet 4 mg PO Q6H 05/22/22 05/22/22 polyethylene glycol 1 ea miscellaneous QAM PRN 05/22/22 05/22/22 Constipation trazodone 150 mg tablet 150 mg PO QHS 05/22/22 05/22/22 Allergies Allergy/AdvReac Type Severity Reaction Status Date / Time mushroom Allergy Severe Anaphylaxis Verified 06/22/22 18:27 hydromorphone Allergy Mild Itching Verified 06/22/22 18:27 tramadol Allergy Unknown SEZIR Verified 06/22/22 18:27 fluticasone AdvReac Other Verified 06/22/22 18:27 [From Advair Diskus] salmeterol AdvReac Other Verified 06/22/22 18:27 [From Advair Diskus] Review of Systems Review of Systems: CONSTITUTIONAL: Denies fever, chills, or sweats. CARDIOVASCULAR: Denies chest pain. RESPIRATORY: Denies dyspnea. GASTROINTESTINAL: See HPI. GENITOURINARY: Denies dysuria or hematuria. All systems reviewed & are unremarkable except as noted in HPI and below PMFSH Past Medical History Medical History Anxiety Aortic valve disease Cerebrovascular accident (05/01/22) CTA head and neck showed 10 occlusion of the right distal ICA and M1. He was not a candidate for tPA with concomitant diagnosis of bacteremia and endocarditis. Depression with anxiety Esophagitis History of esophageal dilata
--- NOTE | 2022-06-23 10:23 | PCCCNOTE ---
Called down to speak with pt and pt POA regarding changing NH facilities. Pt in ED for displaced G tube. At present unsure if G-tube will be re inserted or left out. Will attempt to call other NH once g tube status determined.
--- NOTE | 2022-06-23 10:56 | PCCCNOTE ---
Call made to Patrick at [facility] and message left regarding pt desire to change facilities. Call to Tanya at [facility] regarding availability for transfer to [facility]
[2022-06-23] MEDS: ONDANSETRON HCL ODT 4 MG TABLET PO (11:49)
--- NOTE | 2022-06-23 11:49 | PC.NURSE ---
pt vomited x1. provider aware. pt cleaned, linens changed.
--- NOTE | 2022-06-23 12:15 | PC.NURSE ---
g-tube will not be replaced per provider. bandaid applied to insertion site
[2022-06-23 14:22] VITALS: BP 132/79; PULSE 78; RESP 16; O2SAT 96
== END 2022-06-23 14:24 ==
PROVIDERS: Emergency Provider Physician Assistant; PCP Internal Medicine
DX: T85.528A Displacement of other gastrointestinal prosthetic devices, implants and grafts, initial encounter (principal); M25.432 Effusion, left wrist; I69.954 Hemiplegia and hemiparesis following unspecified cerebrovascular disease affecting left non-dominant side; F41.9 Anxiety disorder, unspecified; F32.A Depression, unspecified; E78.5 Hyperlipidemia, unspecified; I10 Essential (primary) hypertension; Z87.442 Personal history of urinary calculi; G20 Parkinson's disease; G40.909 Epilepsy, unspecified, not intractable, without status epilepticus
CPT/HCPCS: 73110; 99284; A9270

== ENCOUNTER 2022-08-08 13:30 | Emergency (ER) | payer MEDICARE, SELFPAY ==
--- NOTE | ~2022-08-08 | CT_ITS ---
EXAMINATION: CT brain wo con DATE: 08/08/2022 15:11 INDICATION: head injury . TECHNIQUE: Computed tomography (CT) of the head was performed without intravenous contrast. The mA wa s adjusted according to patient size. Iterative reconstruction technique was employed. The dose-lengt h product was 681.00 mGy-cm. COMPARISON: 06/22/2022. FINDINGS: No acute intracranial hemorrhage or extra-axial fluid collection. No hydrocephalus, mass, or herniation. No acute ischemic infarct. Unremarkable dural venous sinus attenuation. No acute osseous abnormality. The aerated spaces are clear. Mild atrophy and chronic white matter change. Atherosclerotic intracranial calcification. Old left MC A territory infarct. Old focal left basal ganglia, left parietal lobe, and left centrum semiovale inf arcts. IMPRESSION: No acute intracranial process. Reviewed, dictated and finalized at location K.
--- NOTE | ~2022-08-08 | XR_ITS ---
XR forearm LT 2V 08/08/2022 15:29 Indication: Left arm pain Procedure: 3 views left forearm Comparison: 06/23/2022 Findings: Osteopenia. No fracture or traumatic malalignment. No foreign bodies. No focal soft tissue abnormality. Impression: 1: No acute bone or joint abnormality. Reviewed, dictated and finalized at location L. Impression: 1: No acute bone or joint abnormality.
[2022-08-08 13:31] VITALS: BP 104/65; PULSE 78; RESP 18; TEMP 36.4; O2SAT 100
[2022-08-08 13:37] VITALS: BP 104/65; PULSE 77; RESP 23; O2SAT 95
[2022-08-08 13:46] VITALS: BP 113/74; PULSE 79; RESP 16; O2SAT 95
[2022-08-08 14:02] VITALS: BP 117/70; PULSE 76; RESP 23; O2SAT 95
[2022-08-08 14:16] VITALS: BP 117/72; PULSE 73; RESP 29; O2SAT 94
--- NOTE | 2022-08-08 14:43 | ED.FALL ---
HPI - Fall General Chief Complaint: Fall Stated Complaint: GLF Time Seen by Provider: 08/08/22 14:10 Source: patient, EMS, RN notes reviewed and old records reviewed Mode of arrival: EMS Limitations: no limitations History of Present Illness HPI Narrative: This is a 61 year old male with history of CVA with residual left side deficit who presents from retirement for evaluation of a ground level fall. Patient states he was trying to transfer himself from his chair to the bed. He states he slid down to the ground and nursing staff told him that he hit his head. He denies LOC, head ache, neck pain. He is on anticoagulation for CVA. She has wound to left forearm from his fall. HE denies any complaints. He state he was sent on because of protocol for his fall since his wound was bleeding. Related Data Home Medications Medication Instructions Recorded Confirmed aspirin 81 mg tablet,delayed 81 mg PO DAILY 02/03/20 05/22/22 release (Josue Low Dose Aspirin) atorvastatin 40 mg tablet 40 mg PO QHS 02/03/20 05/22/22 budesonide-formoterol HFA 160 2 puff inhalation Q12H 02/03/20 05/22/22 mcg-4.5 mcg/actuation aerosol inhaler (Symbicort) carbamazepine 200 mg tablet 200 mg PO TIDWM 02/03/20 05/22/22 carbidopa 25 mg-levodopa 100 mg 1 tablet PO QID 02/03/20 05/22/22 tablet famotidine 20 mg tablet 20 mg PO BID 02/03/20 05/22/22 fluoxetine 20 mg capsule 80 mg PO HS 02/03/20 05/22/22 losartan 50 mg tablet 25 mg PO DAILY 02/03/20 05/22/22 montelukast 10 mg tablet 10 mg PO DAILY 02/03/20 05/22/22 quetiapine 50 mg tablet 100 mg PO Q8H 02/03/20 05/22/22 zonisamide 100 mg capsule 100 mg PO BID 02/03/20 05/22/22 acetaminophen 325 mg tablet 325 mg PO Q6H PRN Pain 05/22/22 05/22/22 buspirone 10 mg tablet 10 mg PO TID 05/22/22 05/22/22 clopidogrel 75 mg tablet 75 mg PO QAM 05/22/22 05/22/22 docusate sodium 100 mg capsule 100 mg PO DAILY 05/22/22 05/22/22 ergocalciferol (vitamin D2) 50,000 50,000 unit PO WEEKLY 05/22/22 05/22/22 unit tablet heparin (porcine) 5,000 unit/0.5 5,000 unit Q8H 05/22/22 05/22/22 mL injection syringe lorazepam 0.5 mg tablet 0.5 mg PO Q6H PRN anxiety 05/22/22 05/22/22 melatonin 3 mg tablet 3 mg PO HS PRN Sleep 05/22/22 05/22/22 ondansetron HCl 4 mg tablet 4 mg PO Q6H 05/22/22 05/22/22 polyethylene glycol 1 ea miscellaneous QAM PRN 05/22/22 05/22/22 Constipation trazodone 150 mg tablet 150 mg PO QHS 05/22/22 05/22/22 Allergies Allergy/AdvReac Type Severity Reaction Status Date / Time mushroom Allergy Severe Anaphylaxis Verified 06/22/22 18:27 hydromorphone Allergy Mild Itching Verified 06/22/22 18:27 tramadol Allergy Unknown SEZIR Verified 06/22/22 18:27 fluticasone AdvReac Other Verified 06/22/22 18:27 [From Advair Diskus] salmeterol AdvReac Other Verified 06/22/22 18:27 [From Advair Diskus] Review of Systems Cardiovascular: Cardiovascular: Denies syncope, Denies rapid heart rate, Denies irregular heart rhythm, Denies leg edema and Denies dyspnea Respiratory: Respiratory: Denies chest congestion, Denies hemoptysis, Denies excessive phlegm production and Denies dyspnea Gastrointestinal: Gastrointestinal: Denies abdominal pain, Denies hematochezia, Denies diarrhea and Denies vomiting Genitourinary: Genitourinary: Denies hematuria, Denies dysuria, Denies penile discharge and Denies testicular pain Musculoskeletal: Musculoskeletal: Denies joint swelling and Denies loss of height Neurologic: Denies syncope, Reports focal weakness (residual left side weakness) and Denies weakness PMFSH Past Medical History Medical History Anxiety Aortic valve disease Cerebrovascular accident (05/01/22) CTA head and neck showed 10 occlusion of the right distal ICA and M1. He was not a candidate for tPA with concomitant diagnosis of bacteremia and endocarditis. Depression with anxiety Esophagitis History of esophageal dilatation Hyperlipidemia Hyperten
== END 2022-08-08 18:10 ==
PROVIDERS: Emergency Provider General Practice; PCP Internal Medicine
DX: S09.90XA Unspecified injury of head, initial encounter (principal); S50.812A Abrasion of left forearm, initial encounter; G20 Parkinson's disease; I69.954 Hemiplegia and hemiparesis following unspecified cerebrovascular disease affecting left non-dominant side; I10 Essential (primary) hypertension; E78.5 Hyperlipidemia, unspecified; E55.9 Vitamin D deficiency, unspecified; I38 Endocarditis, valve unspecified; F41.8 Other specified anxiety disorders; Z95.2 Presence of prosthetic heart valve; Z85.828 Personal history of other malignant neoplasm of skin; Z87.442 Personal history of urinary calculi; Z79.82 Long term (current) use of aspirin; W07.XXXA Fall from chair, initial encounter
CPT/HCPCS: 70450; 73090; 99284

== ENCOUNTER 2023-01-20 20:06 | Inpatient (IN) | payer MEDICARE, MEDICAID, SELFPAY ==
[2023-01-20] VITALS (8 sets, daily range): BP systolic 137–198; BP diastolic 90–98; PULSE 63–79; RESP 12–22; TEMP 36.7; O2SAT 97–100
--- NOTE | ~2023-01-20 | MR_ITS ---
EXAMINATION: MR brain/brain stem wo con DATE: 01/23/2023 10:26 INDICATION: Altered mental status. TECHNIQUE: Magnetic resonance imaging (MRI) of the brain and brainstem was performed without intraven ous contrast. COMPARISON: Head CT 01/20/2023 FINDINGS: There is an old infarct involving right frontotemporal parietal region, right insula, right basal ganglia, and right thalamus. There are old infarcts involving the left basal ganglia and left frontal lobe deep white matter. There are small old infarcts in the cerebellum bilaterally. There is chronic Wallerian degeneration involving the corticospinal tracts on the right in the brainstem. Ther e are old blood products involving the right basal ganglia and left midbrain. There is no acute infar ction or abnormal intracranial mass lesion. There is ex vacuo dilatation of the bodies of the lateral ventricles. There is extensive mucosal thickening in the paranasal sinuses. The orbits are normal. T here are trace bilateral mastoid effusions. IMPRESSION: 1. Old infarcts in the brain. Reviewed, dictated and finalized at location A. [employer]
--- NOTE | ~2023-01-20 | CT_ITS ---
EXAMINATION: CT brain wo con DATE: 01/20/2023 22:59 INDICATION: Altered mental status TECHNIQUE: Computed tomography (CT) of the head was performed without intravenous contrast. Sagittal and coronal reconstructions were performed. The mA was adjusted according to patient size. Iterative reconstruction technique was employed. The dose-length product was 1891.67 mGy-cm. COMPARISON: head CT dated 08/08/2022 FINDINGS: No interval change in a large region of encephalomalacia in the right frontal, temporal and parietal lobes and extending into the right basal ganglia and thalamus consistent with chronic infarct involvi ng a large portion of the right middle cerebral artery vascular distribution. Additional unchanged sm all old lacunar infarcts at the head and body of the left caudate nucleus, the left frontal lobe cent rum semiovale and along a sulcus in the left parietal lobe. No acute intracranial hemorrhage, acute i nfarction or abnormal extra axial fluid collection. There is additional mild scattered white matter h ypoattenuation consistent with chronic small vessel ischemic disease. Symmetric prominence of the sul ci and ventricles consistent with mild age-appropriate diffuse cerebral volume loss. No mass/mass eff ect. There is prominent mucosal thickening throughout the paranasal sinuses with thickened sclerotic martinez to the right sphenoid sinus consistent with chronic sinusitis. The orbits and mastoid air cells are normal. IMPRESSION: 1. No acute intracranial process. 2. Large chronic infarct involving a significant portion of the right middle cerebral artery vascular distribution. 3. A few additional small old lacunar infarcts involving the left basal ganglia and left cerebral hem isphere. 4. Age-related changes including mild diffuse on loss and mild scattered white matter hypoattenuation consistent with chronic small vessel ischemic disease. 5. Extensive sinus disease. Reviewed, dictated and finalized at location A. 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 No acute intracranial process. 2. Large chronic infarct involving a significant portion of the right middle ce rebral artery vascular distribution. 3. A few additional small old lacunar infarcts involving the left basal ganglia and left cerebral hemisphere. 4. Age-related changes including mild diffuse on loss and mild scattered white matter hypoattenuation consistent with chronic small vessel ischemic disease. 5. Extensive sinus disease.
--- NOTE | ~2023-01-20 | CT_ITS ---
Clinical Indication: Projectile vomiting, abdominal distention CT Scan of the Chest, Abdomen, and Pelvis with Contrast: Technique: Contiguous sections were acquired throughout the chest, abdomen, and pelvis after intraven ous administration of 100 cc of Omnipaque 350. Dose reduction technique was used on this scan by uti lizing automated exposure control and iterative reconstruction technique. The dose-length product (DL P) was 1150.53 mGy-cm. Findings: There is no evidence of any significant mediastinal, hilar or axillary lymphadenopathy. The mediastin al soft tissues and vascular structures appear normal. There is no evidence of pleural or pericardial effusion. There is advanced emphysema, particularly the upper lobes. There is mild chronic interstitial change at the left lung base. No suspicious pulmonary nodule seen. Left lung apex is excluded from the field -of-view. The liver, spleen, pancreas, gallbladder, adrenals and right kidney are within normal limits. Nonobst ructing left renal stones are present, measuring up to 9 mm. There are atherosclerotic calcifications of the aorta. No lymphadenopathy. No bowel obstruction or bowel wall thickening. There is no evidence to suggest acute appendicitis. There is layering debris and/or small stones in the urinary bladder. No pelvic mass evident otherwise . No ascites. Impression: Advanced emphysema, particularly of the upper lobes, with mild chronic interstitial change at the lef t lung base. Nonobstructing left nephrolithiasis, as detailed above. Probable stones and/or layering debris in the urinary bladder. Reviewed, dictated and finalized at [facility]. OPERATOR Impression: Advanced emphysema, particularly of the upper lobes, with mild chronic intersti tial change at the left lung base. Nonobstructing left nephrolithiasis, as detailed above. Probable stones and/or layering debris in the urinary bladder.
--- NOTE | ~2023-01-20 | XR_ITS ---
EXAMINATION: XR chest 1V portable DATE: 01/20/2023 22:09 INDICATION: Altered mental status TECHNIQUE: frontal view of the chest was obtained. COMPARISON: Chest radiograph dated 05/14/2022 FINDINGS: Again seen are reticular opacities at the bilateral lung bases which in the acute setting could repre sent mild pulmonary edema or less likely pneumonia or more chronic interstitial lung disease. Calcite nodules projecting over the right hemidiaphragm consistent with old granulomatous disease. No new ai rspace opacities, pleural effusion or pneumothorax. The cardiomediastinal silhouette is normal. Media n sternotomy wires, ostial markers and mediastinal surgical clips consistent with prior coronary shiela ry bypass grafting. There has also been an aortic valve repair. IMPRESSION: 1. Persistent reticular pattern at the bilateral lung bases which in acute setting could represent mi ld pulmonary edema or less likely pneumonia or chronic interstitial lung disease. Reviewed, dictated and finalized at location A. CAMERA PERSON IMPRESSION: 1. Persistent reticular pattern at the bilateral lung bases which in acute sett ing could represent mild pulmonary edema or less likely pneumonia or chronic in terstitial lung disease.
--- NOTE | 2023-01-20 20:22 | ECG_ITS ---
Measurements Intervals [place] Rate: 66 P: 22 NC: 203 QRS: 37 QRSD: 104 T: 72 QT: 422 QTc: 445 Interpretive Statements SINUS RHYTHM INCOMPLETE RIGHT BUNDLE BRANCH BLOCK CANNOT RULE OUT SEPTAL INFARCT, AGE INDETERMINATE BORDERLINE ST-T WAVE ABNORMALITY- ANT/HIGH LAT LEADS BASELINE ARTIFACT- I, II, III, AVR, AVL, AVF, V1-V2 BORDERLINE ECG COMPARED TO ECG 05/14/2022 18:30:32 SINUS RHYTHM NOW PRESENT Electronically Signed On 01-21-2023 6:35:46 TODDLER GUIDE by Tripp Finnegan D.O.
[2023-01-20] MEDS: SODIUM CHLORIDE 0.9% IV 1,000 ML 999 ML IV CONT (22:29)
[2023-01-20] MEDS: LORazepam INJ (*CRX) 2 MG/ML VIAL 0.5 MG IV PUSH (22:29)
[2023-01-20 22:47] LABS: Basophils Percent Auto 0.4 % (0.2-1.2); Eosinophils Absolute Auto 0.1 K/mm3 (0-0.3); Eosinophils Percent Auto 1.1 % (0-4.4); Hematocrit 43.6 % (42.0-52.0); Hemoglobin 14.4 g/dL (14.0-18.0); Immature Granulocyte Absolute 0.04 K/mm3 (0.00-0.031); Immature Granulocyte Percent A 0.5 % (0-0.5); Lymphocytes Absolute Auto 2.23 K/mm3 (0.9-3.2); Lymphocytes Percent Auto 26.3 % (18.3-44.2); Mean Corpuscular Hemoglobin 32.1 pg (26-34); Mean Corpuscular Volume 97.1 fl (80-100); Mean Platelet Volume 10.1 fl (7.4-10.4); Monocytes Absolute Auto 0.8 K/mm3 (0.1-0.6); Monocytes Percent Auto 9.3 % (2.6-8.5); Neutrophils Absolute Auto 5.3 K/mm3 (1.3-6.7); Neutrophils Percent Auto 62.4 % (45.5-73.1); Platelet Count Result 266 k/mm3 (150-375); Red Blood Count 4.49 M/mm3 (4.6-6.20); Red Cell Distribution Width 12.5 % (11.5-14.5); White Blood Count 8.5 K/mm3 (4.5-10.0)
[2023-01-20 22:49] LABS: Appearance Urine Clear (Clear); Bilirubin Urine Negative (Negative); Blood Urine Negative (Negative); Color Urine Yellow (Yellow); Glucose Urine UA Negative (Negative); Ketones Urine Negative (Negative); Leukocyte Esterase Ur Negative LEU/UL (Negative); Nitrate Urine Negative (Negative); Protein Urine Negative (Negative); pH Urine 7.5 (5.0-9.0)
[2023-01-20 22:55] LABS: Add Urine Microscopic? NO
[2023-01-20 22:58] LABS: Prothrombin Time 13.8 Seconds (11.1-14.7)
[2023-01-20 22:59] LABS: Partial Thromboplastin Time 32.3 SECONDS (22.3-36.8)
[2023-01-20 23:01] LABS: Alanine Aminotransferase 22 U/L (6-50); Albumin Level 4.1 g/dL (3.5-5.1); Alkaline Phosphatase 190 U/L (38-126); Anion Gap 10 mmol/L (8-16); Aspartate Amino Transferase 25 U/L (17-59); Bilirubin,Total 0.5 mg/dL (0.2-1.3); Blood Urea Nitrogen 12 mg/dL (9-20); Calcium 9.2 mg/dL (8.4-10.2); Carbon Dioxide 24 mmol/L (22-30); Chloride 104 mmol/L (98-107); Estimated Glomerular Filt Rate > 60; Glucose 84 mg/dL (65-110); Lactic Acid Reflex 1.9 mmol/L (0.7-2.0); Potassium 3.8 mmol/L (3.4-5.0); Sodium 138 mmol/L (137-145)
[2023-01-20 23:12] LABS: Troponin I < 0.012 ng/mL (0.000-0.034)
[2023-01-20 23:22] LABS: Influenza A QL RT-PCR Negative (Negative); Influenza B QL RT-PCR Negative (Negative); RSV RNA, RT-PCR Negative (Negative); SARS-CoV-2 RNA PCR Positive (Negative)
[2023-01-20 23:27] LABS: Procalcitonin 0.1 ng/mL
--- NOTE | 2023-01-20 23:54 | ED.GENADULT ---
HPI - General Adult General Chief complaint: Altered Mental Status Stated complaint: AMS, COVID+ Time Seen by Provider: 01/20/23 21:52 History of Present Illness HPI narrative: patient is a 62-year-old gentleman who presents to emergency department with chief complaint of altered mental status. Patient is a resident of [facility] and is normally alert and oriented x2. The patient has prior history of stroke and has also had a seizure in the past the patient was diagnosed with COVID-19 at the nursing facility and they have noticed that he has had decreased appetite the patient was reported to be at his baseline this afternoon but has been more confused constantly repeating himself. The patient has had foul-smelling urine and reported that he just does not feel well. Related Data Home Medications Medication Instructions Recorded Confirmed aspirin 81 mg tablet,delayed 81 mg PO DAILY 02/03/20 05/22/22 release (Josue Low Dose Aspirin) atorvastatin 40 mg tablet 40 mg PO QHS 02/03/20 05/22/22 budesonide-formoterol HFA 160 2 puff inhalation Q12H 02/03/20 05/22/22 mcg-4.5 mcg/actuation aerosol inhaler (Symbicort) carbamazepine 200 mg tablet 200 mg PO TIDWM 02/03/20 05/22/22 carbidopa 25 mg-levodopa 100 mg 1 tablet PO QID 02/03/20 05/22/22 tablet famotidine 20 mg tablet 20 mg PO BID 02/03/20 05/22/22 fluoxetine 20 mg capsule 80 mg PO HS 02/03/20 05/22/22 losartan 50 mg tablet 25 mg PO DAILY 02/03/20 05/22/22 montelukast 10 mg tablet 10 mg PO DAILY 02/03/20 05/22/22 quetiapine 50 mg tablet 100 mg PO Q8H 02/03/20 05/22/22 zonisamide 100 mg capsule 100 mg PO BID 02/03/20 05/22/22 acetaminophen 325 mg tablet 325 mg PO Q6H PRN Pain 05/22/22 05/22/22 buspirone 10 mg tablet 10 mg PO TID 05/22/22 05/22/22 clopidogrel 75 mg tablet 75 mg PO QAM 05/22/22 05/22/22 docusate sodium 100 mg capsule 100 mg PO DAILY 05/22/22 05/22/22 ergocalciferol (vitamin D2) 50,000 50,000 unit PO WEEKLY 05/22/22 05/22/22 unit tablet heparin (porcine) 5,000 unit/0.5 5,000 unit Q8H 05/22/22 05/22/22 mL injection syringe lorazepam 0.5 mg tablet 0.5 mg PO Q6H PRN anxiety 05/22/22 05/22/22 melatonin 3 mg tablet 3 mg PO HS PRN Sleep 05/22/22 05/22/22 ondansetron HCl 4 mg tablet 4 mg PO Q6H 05/22/22 05/22/22 polyethylene glycol 1 ea miscellaneous QAM PRN 05/22/22 05/22/22 Constipation trazodone 150 mg tablet 150 mg PO QHS 05/22/22 05/22/22 Allergies Allergy/AdvReac Type Severity Reaction Status Date / Time mushroom Allergy Severe Anaphylaxis Verified 06/22/22 18:27 hydromorphone Allergy Mild Itching Verified 06/22/22 18:27 tramadol Allergy Unknown SEZIR Verified 06/22/22 18:27 fluticasone AdvReac Other Verified 06/22/22 18:27 [From Advair Diskus] salmeterol AdvReac Other Verified 06/22/22 18:27 [From Advair Diskus] Review of Systems Review of Systems: A 10 system review of systems was completed on the patient and is negative except for what is stated in the HPI. Nursing and ancillary documentation was reviewed. [facility] Past Medical History Medical History Anxiety Aortic valve disease Cerebrovascular accident (05/01/22) CTA head and neck showed 10 occlusion of the right distal ICA and M1. He was not a candidate for tPA with concomitant diagnosis of bacteremia and endocarditis. Depression with anxiety Esophagitis History of esophageal dilatation Hyperlipidemia Hypertension Kidney stones Major depressive disorder Parkinson's disease Psychogenic nonepileptic seizure Seizure Skin cancer Valvular heart disease Vitamin D deficiency Surgical History Surgical History History of aortic valve replacement History of appendectomy History of open reduction and internal fixation (ORIF) procedure Repair left ankle fracture. History of spinal surgery Family History Family History (Reviewed
[2023-01-21] VITALS (18 sets, daily range): BP systolic 106–174; BP diastolic 58–95; PULSE 70–84; RESP 14–20; TEMP 36.1–37.4; O2SAT 95–100; BMI 22.2
[2023-01-21] MEDS: LORazepam INJ (*CRX) 2 MG/ML VIAL 0.5 MG IV PUSH (01:31)
[2023-01-21] MEDS: SODIUM CHLORIDE 0.9% IV 1,000 ML 125 ML IV CONT ×3 (01:48→19:42)
[2023-01-21] MEDS: ONDANSETRON INJ 4 MG/2 ML VIAL IV PUSH (02:29)
[2023-01-21 03:30] LABS: Troponin I < 0.012 ng/mL (0.000-0.034)
--- NOTE | 2023-01-21 03:33 | PM.IMHP ---
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 The patient was recently diagnosed with COVID. The patient could only tell ER that he did not feel good. At the time of my evaluation the patient was talking about the [place] answers that he went to see. He made inappropriate suggestive comments the nurses stating that they turned him on. And asked them if they were happy that his penis was looking at them. He was overall inappropriate. He was difficult to redirect. He was allowing staff to provide care and would occasionally follow commands. He could not give significant review of systems. The patient had been admitted the nursing staff called me while patient was still in the ER to tell me the patient was having projectile vomiting at least 3 times. Emesis was reportedly like green in color. The patient denied any abdominal pain at the time my evaluation but abdomen was obviously distended. The patient urine smelled foul. The patient's depends was saturated. As patient could not provide any history I did order a CT of the chest abdomen pelvis to evaluate further I suspected the patient is likely having urinary retention and or difficulties with his bowels. At the end of my shift the CT report had not officially returned but on my review the CT the patient had obviously distended bladder and I requested a Rowe catheter be placed which resulted in greater than 1 L of urine output. Review of Systems Review of Systems: ROS unobtainable: Yes unobtainable due to mental status [facility] Past Medical History Medical History Anxiety Aortic valve disease Cerebrovascular accident (05/01/22) CTA head and neck showed 10 occlusion of the right distal ICA and M1. He was not a candidate for tPA with concomitant diagnosis of bacteremia and endocarditis. Depression with anxiety Esophagitis History of esophageal dilatation Hyperlipidemia Hypertension Kidney stones Major depressive disorder Parkinson's disease Psychogenic nonepileptic seizure Seizure Skin cancer Valvular heart disease Vitamin D deficiency Surgical History Surgical History History of aortic valve replacement History of appendectomy History of open reduction and internal fixation (ORIF) procedure Repair left ankle fracture. History of spinal surgery Family History Family History Other Unknown family medical history Social History Social History Social History: Surrogate medical decision maker: Angeline Perkins, friend. Code status: Full code. Smoking packs per day: 0.75 Smoking cigarettes per day: 15.0 Years smoked: 47 Smoking pack-years: 35.25 Smoking status: Former smoker Second hand tobacco smoke exposure: Yes Alcohol intake: former Alcohol use details: Recovering alcoholic. Substance use: current Substance use type: marijuana Other substance usage details: Smokes marijuana nightly for sleep. Former crack cocaine user. Lack of Transportation: No Lack of Food: Never True Current Housing: I Have Housing Concerned About Future Housing: YES Difficulty Paying Gas/Electric Bills: No Difficulty Paying for Meds: No Currently Unemployed: No Education: Don't Know Difficulty w/ Childcare or Family Care: No Additional living arrangements comments: Prior to his stroke he was living with his thread winder automatic in [place]. Addition
[2023-01-21] MEDS: PROMETHAZINE HCL 25 MG/ML AMPUL IM (05:15)
--- NOTE | 2023-01-21 06:16 | ADMGEN ---
This patient, Blaine Salvador, was admitted to IMU Room 204-01. Patient/family oriented to hospital policies and general routines including ID bracelet, bed and alarms, visiting hours, pain management, procedures, bathroom and other care routines, personal items, smoking policy, room service/diet, and visiting hours. Information on how to activate the Rapid Response Team has been discussed. Patient/Family are encouraged to report perceived risks to care and to ask questions if they do not understand what they are told or what they should do.
[2023-01-21] MEDS: ENOXAPARIN 40 MG/0.4 ML SYRINGE SUB-Q (10:54)
[2023-01-21] MEDS: FAMOTIDINE 20 MG/2 ML VIAL IV PUSH (10:54)
--- NOTE | 2023-01-21 11:37 | WPDNEURCNPN ---
Assessment and Plan Assessment and plan (1) COVID-19: Code(s): U07.1 - COVID-19 Status: Acute (2) Altered mental status: Qualifiers: Altered mental status type: delirium Qualified Code(s): R41.0 - Disorientation, unspecified Code(s): R41.82 - Altered mental status, unspecified Status: Acute (3) Cerebrovascular accident: Onset Date: 05/01/22 Code(s): I63.9 - Cerebral infarction, unspecified Status: Acute Plan 1 notably acute changes in the mental status subsequent to fall superimposed on the underlying multiple comorbid condition as outlined above particularly the previous stroke and now unfortunately recent diagnosis of the COVID as well at this stage the supportive care will be continued, CT scan as already documented the old stroke but no evidence of bleed further care will be medically at present. Consult date: 01/21/23 HPI: Blaine Salvador is a 62 year old male admitted to the hospital through the emergency room with ongoing history of past cerebrovascular accident with residual left-sided neuro deficit on transfer from the skilled nursing for the evaluation of ground level fall. Patient was trying to transfer himself from his chair to the bed when he slid down to the ground and reportedly hit his head though he did not become unconscious he was not complaining of any headache or neck ache but has been on anticoagulation for the previous stroke. He was noted to have a wound to the left forearm from his recent fall, his medications include aspirin 81mg daily, atorvastatin 40mg daily, carbamazepine 200mg 3 times a day, carbidopa levodopa 25/101 tablet 4 times a day, fluoxetine 20mg each 4 of them at night, losartan 25mg daily, Seroquel 50mg at every 8hours, zonisamide 100mg twice a day, BuSpar 10mg 3 times a day, clopidogrel 75mg daily, in addition to on p.r.n. basis lorazepam and trazodone 150mg at night. Eval in the emergency room documented hemoglobin of 14.4 and a BC is 8.5 and platelet count 266, BMP normal but serology positive for the SARs, head CT scan with large chronic infarct involving the significant portion of the right middle cerebral artery in addition to small old lacunar infarcts involving left basal ganglia left cerebral hemorrhage and chronic small vessel ischemic disease, chest x-ray with persistent radicular pattern of bilateral lung bases which could suggest the mild pulmonary edema a chronic change PMFSH Past Medical History Medical History Anxiety Aortic valve disease Cerebrovascular accident (05/01/22) CTA head and neck showed 10 occlusion of the right distal ICA and M1. He was not a candidate for tPA with concomitant diagnosis of bacteremia and endocarditis. Depression with anxiety Esophagitis History of esophageal dilatation Hyperlipidemia Hypertension Kidney stones Major depressive disorder Parkinson's disease Psychogenic nonepileptic seizure Seizure Skin cancer Valvular heart disease Vitamin D deficiency Surgical History Surgical History History of aortic valve replacement History of appendectomy History of open reduction and internal fixation (ORIF) procedure Repair left ankle fracture. History of spinal surgery Family History Family History Other Unknown family medical history Social History Social History Social History: Surrogate medical decision maker: Angeline Perkins, friend. Code status: Full code. Smoking packs per day: 0.75 Smoking cigarettes per day: 15.0 Years smoked: 47 Smoking pack-years: 35.25 Smoking status: Former smoker Second hand tobacco smoke exposure: Yes Alcohol intake: former Alcohol use details: Recovering alcoholic. Substance use: current Substance use type
--- NOTE | 2023-01-21 16:16 | PC.NURSE ---
Spoke with [facility]- pt + COVID on 01/14/23- per Dr. Pate isolation ends 01/23/23
--- NOTE | 2023-01-21 16:18 | PM.IMPN ---
Progress Note: A&P Assessment and Plan (1) Altered mental status: Qualifiers: Altered mental status type: delirium Qualified Code(s): R41.0 - Disorientation, unspecified Code(s): R41.82 - Altered mental status, unspecified Status: Acute Assessment and Plan: Patient is normally AOx2 but brought in due to worsening confusion. He is on quite a few psychiatric medications such as Trazodone, Seroquel, Buspar, carbamazepine. CT head showing no acute findings but does show large chronic infarct in the right MCA distribution as well as additional old lacunar infarcts. Labs are unrevealing. Urine is clear. CT of the chest shows emphysema and chronic interstitial changes but no evidence of pneumonia. CT of the abdomen pelvis showed no concerning findings except for probable stones and/or layering debris in the urinary bladder. Brain MRI pending. AMS could be related to urine retention. Will resume home medications. Check B12, TSH (2) COVID-19: Code(s): U07.1 - COVID-19 Status: Acute Assessment and Plan: Patient was diagnosed with COVID on 01/14/2023. He is on room air. He is 7 days out from diagnosis so remdesivir not helpful at this time. Continue isolation through 01/23/2023. (3) Urinary retention with incomplete bladder emptying: Code(s): R33.9 - Retention of urine, unspecified Status: Acute Assessment and Plan: Patient found to have urine retention (>1L). Does not have a history of BPH. BPH but no mention of this on CT scan. Retention related to his medications? Will add Flomax. Routine Rowe care. (4) Vomiting: Qualifiers: Vomiting type: bilious vomiting Nausea presence: with nausea Qualified Code(s): R11.14 - Bilious vomiting Code(s): R11.10 - Vomiting, unspecified Status: Acute Assessment and Plan: Patient is having nausea and vomiting. CT of the abdomen pelvis as above. Symptoms appear to have resolved. Has hx of dysphagia and is on mechanical soft diet Will start diet. (5) Seizure: Code(s): R56.9 - Unspecified convulsions Status: Acute Assessment and Plan: Hx of seizures. Resume home medications. 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 He was recently diagnosed with COVID on 01/14.? Patient is alert but confused. He is unable to provide history. He has been calling out the nurses frequently. Review of Systems Review of Systems: ROS unobtainable: Yes unobtainable due to mental status Exam Narrative: AF 96.9 156/65 79 20 95% ra Gen - NARD Chest -lungs clear anteriorly. CV - RRR S1/S2. Telemetry showing no significant dysrhythmias Abd - Soft, NT/ND, Positive BS - Rowe secured draining clear yellow urine Ext - No pedal edema Neuro - Alert but confused. Hands are in mitts. Psych - calm and interacts with examiner. follows commands Skin - Warm and dry Objective Data Vital Signs Vital Signs: Vital Signs - 24 hr 01/20/23 20:00 01/20/23 20:20 01/20/23 20:31 Temperature 98.0 F Pulse Rate 63 69 Respiratory Rate 19 21 H Blood Pressure 155/91 H 171/98 H Pulse Oximetry 97 98 98 Oxygen Delivery Room Air Room Air 01/20/23 21:16 01/20/23 21:46 01/20/23 22:03 Temperature Pulse Rate 66 72 74 Respiratory Rate 16 17 22 H Blood Pressure 137/94 H 179/90 H 198/93 H Pulse Oximetry 97 98 Oxygen Delivery 01/20/23 23:16 01/20/23 23:31 01/21/23 00:03 Temperature Pulse Rate 68 79 79 Respiratory Rate 12 16 14 Blood Pressure 185/95 H 148/95 H 172/95 H Pulse Oximetry 100 100 100 Oxygen Delivery
[2023-01-21] MEDS: ZONISAMIDE 100 MG CAPSULE PO (17:21)
[2023-01-21] MEDS: carBAMazepine 200 MG TABLET PO (17:21)
[2023-01-21] MEDS: LOSARTAN POTASSIUM 25 MG TABLET PO (17:24)
[2023-01-21] MEDS: busPIRone HCL 10 MG TABLET PO (17:24)
[2023-01-21] MEDS: BACLOFEN 10 MG TABLET PO (17:24)
[2023-01-21] MEDS: ONDANSETRON HCL ODT 4 MG TABLET PO ×2 (17:25→20:28)
[2023-01-21] MEDS: QUEtiapine FUMARATE 100 MG TABLET PO (20:28)
[2023-01-21] MEDS: FAMOTIDINE 20 MG TABLET PO (20:28)
[2023-01-21] MEDS: TAMSULOSIN HCL 0.4 MG CAPSULE PO (20:28)
[2023-01-21] MEDS: traZODone HCL 50 MG TABLET 150 MG PO (20:28)
[2023-01-21] MEDS: FLUoxetine HCL 20 MG CAPSULE 80 MG PO (20:28)
[2023-01-21] MEDS: ATORVASTATIN 40 MG TABLET PO (20:29)
[2023-01-21] MEDS: AMPICILLIN SULB 3 GM/NS 100 ML 3 GM/100 ML VIAL IVPB (20:29)
--- NOTE | 2023-01-21 20:38 | PC.NURSE ---
1200- pt awake - pt interacts calm and seems appropriate - then mood changes can change suddenly and starts hollering -screaming-restless; -Dr. denny informed unpredictable behavior; pt isolation + Coivd; in a room with remote monitoring- bed exit alarm
[2023-01-21] MEDS: FLUTICASONE/SALMETEROL 115-21 MCG INHALER 1 PUFF 2 PUFF INHALATION (21:00)
[2023-01-22] VITALS (11 sets, daily range): BP systolic 98–151; BP diastolic 50–78; PULSE 56–73; RESP 16–28; TEMP 36.1–37.2; O2SAT 97–99
[2023-01-22] MEDS: AMPICILLIN SULB 3 GM/NS 100 ML 3 GM/100 ML VIAL IVPB ×4 (03:30→21:11)
[2023-01-22 05:10] LABS: Anion Gap 8 mmol/L (8-16); Blood Urea Nitrogen 10 mg/dL (9-20); Calcium 8.6 mg/dL (8.4-10.2); Carbon Dioxide 22 mmol/L (22-30); Chloride 110 mmol/L (98-107); Estimated CRCL calculation 94 ml/min; Estimated Glomerular Filt Rate > 60; Glucose 87 mg/dL (65-110); Potassium 3.9 mmol/L (3.4-5.0); Sodium 140 mmol/L (137-145)
[2023-01-22] MEDS: VANCOMYCIN 1,250 MG/NS 250 ML 1,250 MG/250 ML BAG 166.67 MG IVPB ×2 (06:46→18:02)
[2023-01-22] MEDS: QUEtiapine FUMARATE 100 MG TABLET PO ×3 (06:46→21:11)
[2023-01-22] MEDS: SODIUM CHLORIDE 0.9% IV 1,000 ML 125 ML IV CONT ×4 (06:49→17:14)
[2023-01-22 08:09] LABS: MRSA (PCR) NOT DETECTED (NOT DETECTE)
[2023-01-22] MEDS: FLUTICASONE/SALMETEROL 115-21 MCG INHALER 1 PUFF 2 PUFF INHALATION ×2 (08:46→20:53)
[2023-01-22] MEDS: carBAMazepine 200 MG TABLET PO ×3 (08:59→17:15)
[2023-01-22] MEDS: FAMOTIDINE 20 MG TABLET PO ×2 (08:59→17:15)
[2023-01-22] MEDS: ASPIRIN 81 MG ENTERIC TABLET PO (08:59)
[2023-01-22] MEDS: DOCUSATE SODIUM 100 MG CAPSULE PO (08:59)
[2023-01-22] MEDS: busPIRone HCL 10 MG TABLET PO ×3 (08:59→17:15)
[2023-01-22] MEDS: MONTELUKAST SODIUM 10 MG TABLET PO (09:00)
[2023-01-22] MEDS: CLOPIDOGREL BISULFATE 75 MG TABLET PO (09:00)
[2023-01-22] MEDS: BACLOFEN 10 MG TABLET PO ×3 (09:00→17:15)
[2023-01-22] MEDS: ZONISAMIDE 100 MG CAPSULE PO ×2 (09:00→17:15)
[2023-01-22] MEDS: ENOXAPARIN 40 MG/0.4 ML SYRINGE SUB-Q (09:00)
[2023-01-22 10:11] LABS: Folic Acid 11.6 ng/mL (2.76->20)
[2023-01-22 12:25] LABS: Free T4 Free Thyroxine Reflex 0.97 ng/dL (0.78-2.19)
--- NOTE | 2023-01-22 15:01 | PM.IMPN ---
Progress Note: A&P Assessment and Plan (1) COVID-19: Code(s): U07.1 - COVID-19 Status: Acute Assessment and Plan: Check d-dimer, CRP Appears asymptomatic (2) Altered mental status: Qualifiers: Altered mental status type: delirium Qualified Code(s): R41.0 - Disorientation, unspecified Code(s): R41.82 - Altered mental status, unspecified Status: Acute Assessment and Plan: Check TSH, B12 Likely multifactorial consult neurology, consider MRI (3) Urinary retention with incomplete bladder emptying: Code(s): R33.9 - Retention of urine, unspecified Status: Acute Assessment and Plan: Rowe, flomax (4) Vomiting: Qualifiers: Vomiting type: bilious vomiting Nausea presence: with nausea Qualified Code(s): R11.14 - Bilious vomiting Code(s): R11.10 - Vomiting, unspecified Status: Acute Assessment and Plan: Resolved Plan DVT prophylaxis with SCDs GI prophylaxis not indicated Code status full code Subjective Date/time seen: 01/22/23 15:01 Interval history: 62yo male with 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 He was recently diagnosed with COVID on 01/14.? No overnight events noted. No chest pain or shortness of breath. No nausea, vomiting or diarrhea. No fevers or chills. Patient is quite confused still. Review of Systems Review of Systems: ROS unobtainable: Yes unobtainable due to mental status Exam Narrative: General: No acute distress, confused HEENT: Atraumatic, normocephalic, mucous membranes moist CV: Regular rate and rhythm, S1, S2 Lungs: Clear to auscultation bilaterally, no rales or crackles noted, no wheezes, good air entry Abdomen: Soft, nontender, nondistended Extremities: Normal to inspection Skin: No rashes noted, no lesions or wounds seen Objective Data Vital Signs Vital Signs: Vital Signs - 24 hr 01/21/23 17:23 01/21/23 18:00 01/21/23 16:00 Temperature 97.9 F Pulse Rate 84 75 79 Respiratory Rate 20 Blood Pressure 144/75 H Pulse Oximetry 97 Oxygen Delivery Fraction of Inspired Oxygen 11/28/23 20:00 01/21/23 21:00 01/22/23 00:00 Temperature 99.4 F 98.3 F Pulse Rate 81 66 Respiratory Rate 16 18 18 Blood Pressure 130/58 L 125/78 Pulse Oximetry 97 97 Oxygen Delivery Fraction of Inspired Oxygen 01/21/23 20:00 01/22/23 00:00 01/22/23 04:00 Temperature Pulse Rate 73 65 65 Respiratory Rate Blood Pressure Pulse Oximetry Oxygen Delivery Fraction of Inspired Oxygen 01/22/23 05:10 01/22/23 08:00 01/22/23 08:46 Temperature 99 F 98.6 F Pulse Rate 62 60 Respiratory Rate 18 16 Blood Pressure 118/63 98/50 L Pulse Oximetry 99 97 97 Oxygen Delivery Room Air Fraction of Inspired Oxygen 01/22/23 08:46 01/22/23 08:00 01/22/23 08:00 Temperature Pulse Rate 57 L 57 L 68 Respiratory Rate 16 16 Blood Pressure Pulse Oximetry 97 Oxygen Delivery Room Air Fraction of Inspired Oxygen 01/22/23 12:00 01/22/23 13:00 Temperature 97 F L Pulse Rate 56 L 62 Respiratory Rate 28 H Blood Pressure 111/53 L Pulse Oximetry 97 Oxygen Delivery Fraction of Inspired Oxygen Intake/Output Intake/Output: Intake & Output 01/19/23 01/20/23 01/21/23 01/22/23 23:59 23:59 23:59 23:59 Intake Total 1000 2580 2700 Output Total 600 1200 950 Balance 400 1380 1750 Meds/Results Medications: Active Medications Generic Name Dose Route Start Last Admin Trade Name Gabrielq PRN Reason Stop Dose Admin Acetaminophen 325 mg 01/21/23 16:23 Acetaminophen 325 Mg Tablet PO Q6H PRN Pain Aspirin 81 mg 01/22/23 09:00 01/22/23 08:59 Aspirin 81 Mg Enteric Ta
[2023-01-22 17:42] LABS: CRP 5.9 mg/dL (<1.0)
[2023-01-22 18:07] LABS: D Dimer 2.01 ug/mL (<0.48)
--- NOTE | 2023-01-22 18:20 | PC.NURSE ---
This nurse spoke with Sushila Staley Friend stating she is the new a pointed POA now and she will have her Nedra bring up the paper work tomorrow am to U
[2023-01-22 19:53] LABS: Vitamin D 25 Hydroxy 34.4 ng/mL
[2023-01-22] MEDS: ATORVASTATIN 40 MG TABLET PO (21:11)
[2023-01-22] MEDS: TAMSULOSIN HCL 0.4 MG CAPSULE PO (21:11)
[2023-01-22] MEDS: traZODone HCL 50 MG TABLET 150 MG PO (21:11)
[2023-01-22] MEDS: FLUoxetine HCL 20 MG CAPSULE 80 MG PO (21:11)
[2023-01-23] VITALS (12 sets, daily range): BP systolic 120–150; BP diastolic 62–73; PULSE 58–74; RESP 16–24; TEMP 36.4–37.1; O2SAT 93–96
[2023-01-23] MEDS: SODIUM CHLORIDE 0.9% IV 1,000 ML 125 ML IV CONT ×2 (03:32→17:55)
[2023-01-23] MEDS: AMPICILLIN SULB 3 GM/NS 100 ML 3 GM/100 ML VIAL IVPB ×2 (03:32→10:29)
[2023-01-23 05:19] LABS: Total Triiodothyronine (T3) 0.95 NG/ML (0.97-1.69)
[2023-01-23] MEDS: QUEtiapine FUMARATE 100 MG TABLET PO ×3 (06:01→20:37)
[2023-01-23 06:29] LABS: Basophils Absolute Auto 0.1 K/mm3 (0.0-0.1); Basophils Percent Auto 0.5 % (0.2-1.2); Eosinophils Absolute Auto 0.2 K/mm3 (0-0.3); Hematocrit 36.6 % (42.0-52.0); Hemoglobin 12.3 g/dL (14.0-18.0); Immature Granulocyte Absolute 0.04 K/mm3 (0.00-0.031); Immature Granulocyte Percent A 0.4 % (0-0.5); Lymphocytes Absolute Auto 2.73 K/mm3 (0.9-3.2); Lymphocytes Percent Auto 28.9 % (18.3-44.2); Mean Corpuscular HGB Conc 33.6 g/dl (32-36); Mean Corpuscular Hemoglobin 32.1 pg (26-34); Mean Corpuscular Volume 95.6 fl (80-100); Mean Platelet Volume 9.9 fl (7.4-10.4); Monocytes Absolute Auto 1.3 K/mm3 (0.1-0.6); Monocytes Percent Auto 13.3 % (2.6-8.5); Neutrophils Absolute Auto 5.2 K/mm3 (1.3-6.7); Neutrophils Percent Auto 54.9 % (45.5-73.1); Platelet Count Result 288 k/mm3 (150-375); Red Blood Count 3.83 M/mm3 (4.6-6.20); Red Cell Distribution Width 12.2 % (11.5-14.5); White Blood Count 9.5 K/mm3 (4.5-10.0)
[2023-01-23 06:42] LABS: Alanine Aminotransferase 17 U/L (6-50); Albumin Level 3.3 g/dL (3.5-5.1); Alkaline Phosphatase 159 U/L (38-126); Anion Gap 9 mmol/L (8-16); Aspartate Amino Transferase 26 U/L (17-59); Bilirubin,Total 0.5 mg/dL (0.2-1.3); Blood Urea Nitrogen 8 mg/dL (9-20); Calcium 8.5 mg/dL (8.4-10.2); Carbon Dioxide 16 mmol/L (22-30); Chloride 112 mmol/L (98-107); Estimated CRCL calculation 108 ml/min; Estimated Glomerular Filt Rate > 60; Glucose 91 mg/dL (65-110); Potassium 3.6 mmol/L (3.4-5.0); Sodium 137 mmol/L (137-145)
[2023-01-23] MEDS: FLUTICASONE/SALMETEROL 115-21 MCG INHALER 1 PUFF 2 PUFF INHALATION (07:35)
[2023-01-23 07:37] LABS: Vancomycin Trough 13.5 ug/mL (10.0-20.0)
[2023-01-23] MEDS: busPIRone HCL 10 MG TABLET PO ×3 (09:20→18:01)
[2023-01-23] MEDS: BACLOFEN 10 MG TABLET PO ×3 (09:20→17:59)
[2023-01-23] MEDS: CLOPIDOGREL BISULFATE 75 MG TABLET PO (09:21)
[2023-01-23] MEDS: ZONISAMIDE 100 MG CAPSULE PO ×2 (09:21→18:02)
[2023-01-23] MEDS: LOSARTAN POTASSIUM 25 MG TABLET PO (09:21)
[2023-01-23] MEDS: MONTELUKAST SODIUM 10 MG TABLET PO (09:21)
[2023-01-23] MEDS: ASPIRIN 81 MG ENTERIC TABLET PO (09:21)
[2023-01-23] MEDS: carBAMazepine 200 MG TABLET PO ×3 (09:21→18:00)
[2023-01-23] MEDS: DOCUSATE SODIUM 100 MG CAPSULE PO (09:22)
[2023-01-23] MEDS: FAMOTIDINE 20 MG TABLET PO ×2 (09:22→18:00)
[2023-01-23] MEDS: ENOXAPARIN 40 MG/0.4 ML SYRINGE SUB-Q (09:24)
--- NOTE | 2023-01-23 10:37 | PM.IMPN ---
Progress Note: A&P Assessment and Plan (1) COVID-19: Code(s): U07.1 - COVID-19 Status: Acute Assessment and Plan: Check d-dimer, CRP Appears asymptomatic (2) Altered mental status: Qualifiers: Altered mental status type: delirium Qualified Code(s): R41.0 - Disorientation, unspecified Code(s): R41.82 - Altered mental status, unspecified Status: Acute Assessment and Plan: Check TSH, G01--azd, slightly elevated TSH, repeat outpatient in 4-6 weeks Likely multifactorial consult neurology, consider MRI resolved (3) Urinary retention with incomplete bladder emptying: Code(s): R33.9 - Retention of urine, unspecified Status: Acute Assessment and Plan: Rowe, flomax likely etiology to ams, voiding trial tomorrow (4) Vomiting: Qualifiers: Nausea presence: with nausea Vomiting type: bilious vomiting Qualified Code(s): R11.14 - Bilious vomiting Code(s): R11.10 - Vomiting, unspecified Status: Acute Assessment and Plan: Resolved Plan DVT prophylaxis with SCDs GI prophylaxis not indicated Code status full code Subjective Date/time seen: 01/23/23 10:37 Interval history: 62yo male with 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 He was recently diagnosed with COVID on 01/14.? No overnight events noted. No chest pain or shortness of breath. No nausea, vomiting or diarrhea. No fevers or chills. Patient much more alert and oriented. Review of Systems Review of Systems: 12 point review of systems was assessed and was negative except as noted in the HPI Exam Narrative: General: No acute distress, appears to be at baseline mentation HEENT: Atraumatic, normocephalic, mucous membranes moist CV: Regular rate and rhythm, S1, S2 Lungs: Clear to auscultation bilaterally, no rales or crackles noted, no wheezes, good air entry Abdomen: Soft, nontender, nondistended Extremities: Normal to inspection Skin: No rashes noted, no lesions or wounds seen Objective Data Vital Signs Vital Signs: Vital Signs - 24 hr 01/22/23 12:00 01/22/23 13:00 01/22/23 16:00 Temperature 97 F L 97.6 F Pulse Rate 56 L 62 73 Respiratory Rate 28 H 28 H Blood Pressure 111/53 L 110/67 Pulse Oximetry 97 97 Oxygen Delivery Fraction of Inspired Oxygen 01/22/23 16:00 01/22/23 20:39 01/22/23 20:00 Temperature 98.2 F Pulse Rate 62 62 62 Respiratory Rate 16 16 Blood Pressure 151/67 H Pulse Oximetry 98 98 Oxygen Delivery Room Air Fraction of Inspired Oxygen 21 01/22/23 20:00 01/22/23 23:38 01/23/23 00:00 Temperature 97.9 F Pulse Rate 62 66 64 Respiratory Rate 16 Blood Pressure 149/72 H Pulse Oximetry 98 Oxygen Delivery Fraction of Inspired Oxygen 01/23/23 04:00 01/23/23 04:52 01/23/23 07:20 Temperature 98.7 F 98.5 F Pulse Rate 65 66 66 Respiratory Rate 18 18 Blood Pressure 150/73 H 138/65 Pulse Oximetry 95 95 Oxygen Delivery Fraction of Inspired Oxygen 01/23/23 07:35 01/23/23 07:35 Temperature Pulse Rate 72 72 Respiratory Rate 18 18 Blood Pressure Pulse Oximetry 93 Oxygen Delivery Room Air Fraction of Inspired Oxygen Intake/Output Intake/Output: Intake & Output 01/20/23 01/21/23 01/22/23 01/23/23 23:59 23:59 23:59 23:59 Intake Total 1000 2580 6040 1000 Output Total 600 1200 1950 1600 Balance 400 1380 4090 -600 Meds/Results Medications: Active Medications Generic Name Dose Route Start Last Admin Trade Name Gabrielq PRN Reason Stop Dose Admin Acetaminophen 325 mg 01/21/23 16:23 Acetaminophen 325 Mg Tablet PO Q6H PRN Pain Aspirin 81 mg 01/22/23 09:00 01/23/23 09:21 Aspirin 81 Mg Enteric
[2023-01-23] MEDS: CEPHALEXIN 500 MG CAPSULE 1000 MG PO ×3 (12:26→23:19)
[2023-01-23] MEDS: traZODone HCL 50 MG TABLET 150 MG PO (20:36)
[2023-01-23] MEDS: ATORVASTATIN 40 MG TABLET PO (20:37)
[2023-01-23] MEDS: FLUoxetine HCL 20 MG CAPSULE 80 MG PO (20:37)
[2023-01-23] MEDS: TAMSULOSIN HCL 0.4 MG CAPSULE PO (20:37)
[2023-01-23] MEDS: MELATONIN 3 MG TABLET PO (20:41)
[2023-01-24] VITALS: PULSE 58
[2023-01-24 04:00] VITALS: PULSE 54
[2023-01-24] MEDS: CEPHALEXIN 500 MG CAPSULE 1000 MG PO ×2 (05:00→11:18)
[2023-01-24] MEDS: SODIUM CHLORIDE 0.9% IV 1,000 ML 125 ML IV CONT (05:00)
[2023-01-24] MEDS: QUEtiapine FUMARATE 100 MG TABLET PO (05:00)
[2023-01-24 05:24] LABS: Basophils Absolute Auto 0.1 K/mm3 (0.0-0.1); Basophils Percent Auto 0.7 % (0.2-1.2); Eosinophils Absolute Auto 0.3 K/mm3 (0-0.3); Eosinophils Percent Auto 3.7 % (0-4.4); Immature Granulocyte Absolute 0.04 K/mm3 (0.00-0.031); Immature Granulocyte Percent A 0.5 % (0-0.5); Lymphocytes Absolute Auto 2.78 K/mm3 (0.9-3.2); Lymphocytes Percent Auto 36.3 % (18.3-44.2); Mean Corpuscular HGB Conc 33.3 g/dl (32-36); Mean Corpuscular Hemoglobin 31.9 pg (26-34); Mean Corpuscular Volume 95.7 fl (80-100); Mean Platelet Volume 9.7 fl (7.4-10.4); Monocytes Percent Auto 13.5 % (2.6-8.5); Neutrophils Absolute Auto 3.5 K/mm3 (1.3-6.7); Neutrophils Percent Auto 45.3 % (45.5-73.1); Platelet Count Result 280 k/mm3 (150-375); Red Blood Count 3.76 M/mm3 (4.6-6.20); Red Cell Distribution Width 12.1 % (11.5-14.5); White Blood Count 7.7 K/mm3 (4.5-10.0)
[2023-01-24 05:38] LABS: Alanine Aminotransferase 17 U/L (6-50); Albumin Level 3.2 g/dL (3.5-5.1); Alkaline Phosphatase 147 U/L (38-126); Anion Gap 10 mmol/L (8-16); Aspartate Amino Transferase 21 U/L (17-59); Bilirubin,Total 0.4 mg/dL (0.2-1.3); Blood Urea Nitrogen 7 mg/dL (9-20); Calcium 8.8 mg/dL (8.4-10.2); Carbon Dioxide 17 mmol/L (22-30); Chloride 112 mmol/L (98-107); Estimated CRCL calculation 108 ml/min; Estimated Glomerular Filt Rate > 60; Glucose 92 mg/dL (65-110); Potassium 3.8 mmol/L (3.4-5.0); Sodium 139 mmol/L (137-145)
--- NOTE | 2023-01-24 06:34 | PC.NURSE ---
This patient, Blaine Salvador, was transferred to [[id number]] on 01/24/23 at 0625. Personal belongings sent with patient. Report given to [MAEGAN Sun]. Appropriate documentation sent with patient.
[2023-01-24 08:05] VITALS: PULSE 57
--- NOTE | 2023-01-24 09:25 | PM.DS ---
DS: Admitting Diagnosis Discharge Date 01/24/23 Admitting Diagnosis ams DS: Discharge Diagnosis Discharge Diagnosis (1) COVID-19: Code(s): U07.1 - COVID-19 Status: Acute Assessment and Plan: Check d-dimer, CRP Appears asymptomatic (2) Altered mental status: Qualifiers: Altered mental status type: delirium Qualified Code(s): R41.0 - Disorientation, unspecified Code(s): R41.82 - Altered mental status, unspecified Status: Acute Assessment and Plan: Check TSH, T77--rcg, slightly elevated TSH, repeat outpatient in 4-6 weeks Likely multifactorial consult neurology, consider MRI resolved (3) Urinary retention with incomplete bladder emptying: Code(s): R33.9 - Retention of urine, unspecified Status: Acute Assessment and Plan: Rowe, flomax likely etiology to ams, voiding trial tomorrow (4) Vomiting: Qualifiers: Vomiting type: bilious vomiting Nausea presence: with nausea Qualified Code(s): R11.14 - Bilious vomiting Code(s): R11.10 - Vomiting, unspecified Status: Acute Assessment and Plan: Resolved Plan DVT prophylaxis with SCDs GI prophylaxis not indicated Code status full code DS: Summary Hospital Course Hospital Course: 62yo male with 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 He was recently diagnosed with COVID on 01/14.? Blood cultures came back positive for staphylococcus simulans as well as aerococcus viridans. Initiated on keflex 1g q6h for 14 days, repeat blood cultures ordered and pending. Symptoms resolved and patient was discharged in stable condition with close outpatient follow-up. Please see above and med rec for details. Time Spent with Patient Time attestation: Total time spent providing and/or coordinating discharge services: Exam Narrative: General: No acute distress, appears to be at baseline mentation HEENT: Atraumatic, normocephalic, mucous membranes moist CV: Regular rate and rhythm, S1, S2 Lungs: Clear to auscultation bilaterally, no rales or crackles noted, no wheezes, good air entry Abdomen: Soft, nontender, nondistended Extremities: Normal to inspection Skin: No rashes noted, no lesions or wounds seen DS: Data Data Completed and Pending Labs on day of discharge: Labs from last 24 hours 01/24/23 01/24/23 05:14 05:09 WBC 7.7 RBC 3.76 L Hgb 12.0 L Hct 36.0 L MCV 95.7 MCH 31.9 MCHC 33.3 RDW 12.1 Plt Count 280 MPV 9.7 Immature Gran % (Auto) 0.5 Neut % (Auto) 45.3 L Lymph % (Auto) 36.3 [place] % (Auto) 13.5 H Eos % (Auto) 3.7 Baso % (Auto) 0.7 Lymph # (Auto) 2.78 [place] # (Auto) 1.0 H Eos # (Auto) 0.3 Baso # (Auto) 0.1 Abs Immat Gran (auto) 0.04 H Absolute Neuts (auto) 3.5 Absolute Nucleated RBC 0.0 Nucleated RBC % 0.0 Sodium 139 Potassium 3.8 Chloride 112 H Carbon Dioxide 17 L Anion Gap 10 BUN 7 L Creatinine 0.70 Estim Creat Clear Calc 108 Estimated GFR > 60 Glucose 92 Calcium 8.8 Total Bilirubin 0.4 AST 21 ALT 17 Alkaline Phosphatase 147 H C-Reactive Protein Pending Total Protein 7.0 Albumin 3.2 L Preliminary micro results at discharge 01/20/23 22:26 Blood Culture - Preliminary Blood Staphylococcus simulans Aerococcus viridans Discharge Plan Discharge Attending physician on discharge: Paola De La Cruz Consulting providers: Mallika Marcano; Saleem Godinez Discharging Clinician: Paola De La Cruz Patient Disposition: SNF Activity: as tolerated Diet: as tolerated Discharge Instructions: Covid. Stand Alone Forms: General Discharge Information Follow-up/Referrals: Saleem Godinez MD [Physician]
[2023-01-24 09:29] LABS: CRP 2.6 mg/dL (<1.0)
--- NOTE | 2023-01-24 09:32 | PCRCNOTE ---
Window of time for administration has passed. See next scheduled administration.
[2023-01-24] MEDS: DOCUSATE SODIUM 100 MG CAPSULE PO (09:36)
[2023-01-24] MEDS: busPIRone HCL 10 MG TABLET PO (09:36)
[2023-01-24] MEDS: FAMOTIDINE 20 MG TABLET PO (09:36)
[2023-01-24] MEDS: MONTELUKAST SODIUM 10 MG TABLET PO (09:36)
[2023-01-24] MEDS: ASPIRIN 81 MG ENTERIC TABLET PO (09:36)
[2023-01-24] MEDS: ENOXAPARIN 40 MG/0.4 ML SYRINGE SUB-Q (09:36)
[2023-01-24] MEDS: LOSARTAN POTASSIUM 25 MG TABLET PO (09:36)
[2023-01-24] MEDS: CLOPIDOGREL BISULFATE 75 MG TABLET PO (09:36)
[2023-01-24 10:39] LABS: D Dimer 2.04 ug/mL (<0.48)
[2023-01-24] MEDS: carBAMazepine 200 MG TABLET PO (11:15)
[2023-01-24] MEDS: ZONISAMIDE 100 MG CAPSULE PO (11:15)
[2023-01-24] MEDS: BACLOFEN 10 MG TABLET PO (11:15)
[2023-01-24 12:05] VITALS: PULSE 61
--- NOTE | 2023-01-24 12:48 | PC.NURSE ---
Multiple attempts to call report to receiving facility, [facility], with no answer.
== END 2023-01-24 13:32 | DRG 178 ==
LOC: ANHED 01-21 00:34 → ANH3MEDSUR 01-21 00:51 → ANHIMU 01-21 04:58 → ANH3MED 01-24 09:12 → ANHIMU 01-27 15:47
PROVIDERS: Internal Medicine; Admitting Provider Internal Medicine; Emergency Provider Emergency Medicine; Visit Provider Student in an Organized Health Care Education/Training Program
DX: U07.1 COVID-19 (principal); I69.354 Hemiplegia and hemiparesis following cerebral infarction affecting left non-dominant side; R78.81 Bacteremia; I10 Essential (primary) hypertension; G20.A1 Parkinson's disease without dyskinesia, without mention of fluctuations; F10.21 Alcohol dependence, in remission; F12.90 Cannabis use, unspecified, uncomplicated; J44.9 Chronic obstructive pulmonary disease, unspecified; K21.9 Gastro-esophageal reflux disease without esophagitis; F29 Unspecified psychosis not due to a substance or known physiological condition; R33.9 Retention of urine, unspecified; B95.7 Other staphylococcus as the cause of diseases classified elsewhere; R11.14 Bilious vomiting; Z87.891 Personal history of nicotine dependence
CPT/HCPCS: 36415; 70450; 70551; 71045; 71260; 74177; 80048; 80053; 80202; 81003; 82306; 82607; 82746; 83605; 84145; 84439; 84443; 84480; 84484; 85025; 85380; 85610; 85730; 86140; 87040; 87147; 87181; 87186; 87637; 87641; 93005; 94640; 96361; 96365; 96366; 96367; 96372; 96375; 99285; A9270; G0378; J0295; J1650; J2060; J2405; J2550; J3370; J7030; Q9967

== ENCOUNTER 2023-02-10 12:14 | Emergency (ER) | payer MEDICARE, MEDICAID, SELFPAY ==
--- NOTE | ~2023-02-10 | CT_ITS ---
Non-contrast Head CT History: Status post fall COMPARISON: 01/20/2023 Technique: Axial non-contrast imaging of the brain was performed. Dose reduction technique was used on this scan by utilizing automated exposure control and iterative reconstruction technique. The dose -length product (DLP) was 681.00 mGy-cm. Findings: There is no evidence of intracranial hemorrhage, mass lesion, or acute infarct. Large lunchroom worker karson right MCA diffusion is cardiomegaly noted. The ventricles and subarachnoid spaces are normal in size. The calvarium appears normal. The visualized paranasal sinuses and mastoid air cells are nena r. Impression: No acute abnormality seen. Stable large chronic right MCA distribution infarct. Reviewed, dictated and finalized at location . [employer]ATORY DIRECTOR Impression: No acute abnormality seen. Stable large chronic right MCA distribution infarct.
[2023-02-10 12:14] VITALS: BP 150/88; PULSE 55; RESP 16; TEMP 36.4; O2SAT 100
[2023-02-10 13:45] VITALS: BP 161/86; PULSE 55; RESP 16; O2SAT 100
--- NOTE | 2023-02-10 14:14 | ED.FALL ---
HPI - Fall General Chief Complaint: Fall Stated Complaint: FALL History of Present Illness HPI Narrative: fever to the emergency department from a nursing facility after a fall. He states he will of bed hitting his left eye. Unsure if he had loss of consciousness. He was sleeping when he rolled out of bed. States his roommate saw the fall and called for help. Patient denies all other injuries. Steri-Strips were placed by nursing staff prior to arrival. Patient is alert active and very pleasant. Denies neck and back pain Related Data Home Medications Medication Instructions Recorded Confirmed aspirin 81 mg tablet,delayed 81 mg PO DAILY 02/03/20 01/21/23 release (Josue Low Dose Aspirin) atorvastatin 40 mg tablet 40 mg PO QHS 02/03/20 01/21/23 budesonide-formoterol HFA 160 2 puff inhalation Q12H 02/03/20 01/21/23 mcg-4.5 mcg/actuation aerosol inhaler (Symbicort) carbamazepine 200 mg tablet 200 mg PO TIDWM 02/03/20 01/21/23 famotidine 20 mg tablet 20 mg PO BID 02/03/20 01/21/23 fluoxetine 20 mg capsule 80 mg PO HS 02/03/20 01/21/23 losartan 50 mg tablet 25 mg PO DAILY 02/03/20 01/21/23 montelukast 10 mg tablet 10 mg PO DAILY 02/03/20 01/21/23 quetiapine 50 mg tablet 100 mg PO Q8H 02/03/20 01/21/23 zonisamide 100 mg capsule 100 mg PO BID 02/03/20 01/21/23 acetaminophen 325 mg tablet 325 mg PO Q6H PRN Pain 05/22/22 01/21/23 buspirone 10 mg tablet 10 mg PO TID 05/22/22 01/21/23 clopidogrel 75 mg tablet 75 mg PO QAM 05/22/22 01/21/23 docusate sodium 100 mg capsule 100 mg PO DAILY 05/22/22 01/21/23 ergocalciferol (vitamin D2) 50,000 50,000 unit PO WEEKLY 05/22/22 01/21/23 unit tablet melatonin 3 mg tablet 3 mg PO HS PRN Sleep 05/22/22 01/21/23 ondansetron HCl 4 mg tablet 4 mg PO Q6H PRN Nausea 05/22/22 01/21/23 polyethylene glycol 1 ea miscellaneous QAM PRN 05/22/22 01/21/23 Constipation trazodone 150 mg tablet 150 mg PO QHS 05/22/22 01/21/23 Fleet Enema 1 applicator RECTAL DAILY PRN 01/21/23 01/21/23 Constipation baclofen 10 mg tablet 10 mg PO TID 01/21/23 01/21/23 bisacodyl 10 mg RECTAL DAILY PRN Constipation 01/21/23 01/21/23 magnesium citrate 296 ml PO QAM PRN Constipation 01/21/23 01/21/23 magnesium hydroxide 400 mg PO QHS PRN Constipation 01/21/23 01/21/23 Allergies Allergy/AdvReac Type Severity Reaction Status Date / Time mushroom Allergy Severe Anaphylaxis Verified 06/22/22 18:27 hydromorphone Allergy Mild Itching Verified 06/22/22 18:27 tramadol Allergy Unknown SEZIR Verified 06/22/22 18:27 fluticasone AdvReac Other Verified 06/22/22 18:27 [From Advair Diskus] salmeterol AdvReac Other Verified 06/22/22 18:27 [From Advair Diskus] Review of Systems Review of Systems: review of systems negative except what is documented in the [facility] Past Medical History Medical History Anxiety Aortic valve disease Cerebrovascular accident (05/01/22) CTA head and neck showed 10 occlusion of the right distal ICA and M1. He was not a candidate for tPA with concomitant diagnosis of bacteremia and endocarditis. Depression with anxiety Esophagitis History of esophageal dilatation Hyperlipidemia Hypertension Kidney stones Major depressive disorder Parkinson's disease Psychogenic nonepileptic seizure Seizure Skin cancer Valvular heart disease Vitamin D deficiency Surgical History Surgical History History of aortic valve replacement History of appendectomy History of open reduction and internal fixation (ORIF) procedure Repair left ankle fracture. History of spinal surgery Family History Family History Other Unknown family medical history Social History Social History Social History: Surrogate medical decision maker: Angeline Perkins, friend. Code status: Full code. Toyi
[2023-02-10 14:22] VITALS: BP 167/87; PULSE 58; RESP 15; O2SAT 100
--- NOTE | 2023-02-10 14:22 | PC.NURSE ---
Attempted to call report to [facility]. No answer.
[2023-02-10 15:14] VITALS: BP 150/88; PULSE 55; RESP 16; TEMP 36.6; O2SAT 99
== END 2023-02-10 15:26 ==
PROVIDERS: Emergency Provider Emergency Medicine
DX: S09.90XA Unspecified injury of head, initial encounter (principal); F41.9 Anxiety disorder, unspecified; F32.A Depression, unspecified; I10 Essential (primary) hypertension; E78.5 Hyperlipidemia, unspecified; Z87.442 Personal history of urinary calculi; G20.A1 Parkinson's disease without dyskinesia, without mention of fluctuations; W06.XXXA Fall from bed, initial encounter
CPT/HCPCS: 70450; 99284

== ENCOUNTER 2023-03-26 17:01 | Emergency (ER) | payer MEDICARE, MEDICAID, SELFPAY ==
[2023-03-26 17:13] VITALS: BP 126/80; PULSE 70; RESP 20; TEMP 36.5; O2SAT 98
--- NOTE | 2023-03-26 17:17 | ECG_ITS ---
Measurements Intervals Campus Rate: 62 P: 44 UT: 219 QRS: -16 QRSD: 98 T: 69 QT: 423 QTc: 431 Interpretive Statements SINUS RHYTHM WITH FIRST DEGREE AV BLOCK INCOMPLETE RIGHT BUNDLE BRANCH BLOCK ANTEROSEPTAL INFARCT, AGE INDETERMINATE BORDERLINE ST-T WAVE ABNORMALITY- HIGH LATERAL LEADS BASELINE ARTIFACT- I, II, III, AVR, AVL, AVF, V1-V6 ABNORMAL ECG COMPARED TO ECG 01/20/2023 20:26:53 FIRST DEGREE AV BLOCK NOW PRESENT Electronically Signed On 03-26-2023 21:11:11 [employer]MBRE[employer] REPAIRER by Tripp Finnegan D.O.
--- NOTE | 2023-03-26 17:21 | ED.GENADULT ---
HPI - General Adult General Chief complaint: Unspecified <Nanci Mccauley PA-C - Last Filed: 03/26/23 21:14> Stated complaint: sent out by social sciences research scientist for conversion disorder <Nanci Mccauley PA-C - Last Filed: 03/26/23 21:14> Time Seen by Provider: 03/26/23 17:10 <Nanci Mccauley PA-C - Last Filed: 03/26/23 21:14> Focused HPI: This is a 62 year old male that presents to the ER for evaluation of seizure disorder. GENERAL: Well-appearing, well-nourished, and in no acute distress. HEAD: Normocephalic, atraumatic. CHEST: No respiratory distress. HEART: Regular rate NEURO: Alert and oriented x3. Patient screened in triage and initial orders placed. Additional care and disposition to be based upon diagnostic testing and treatment. <Nanci Mccauley PA-C - Last Filed: 03/26/23 21:14> Focused HPI: This is a 62 year old male that presents to the ER for evaluation of seizure disorder. Patient has a known diagnosis of suture nonepileptic seizures and conversion disorder. At this time he is asymptomatic no complaints. No information was provided from the halfway that while was sent. GENERAL: Well-appearing, well-nourished, and in no acute distress. HEAD: Normocephalic, atraumatic. CHEST: No respiratory distress. HEART: Regular rate NEURO: Alert and oriented x3. Patient screened in triage and initial orders placed. Additional care and disposition to be based upon diagnostic testing and treatment. <Guille Dykes MD - Last Filed: 03/26/23 20:10> Source: patient and EMS <Nanci Mccauley PA-C - Last Filed: 03/26/23 21:14> Mode of arrival: EMS <Nanci Mccauley PA-C - Last Filed: 03/26/23 21:14> Limitations: dementia <Nanci Mccauley PA-C - Last Filed: 03/26/23 21:14> Related Data Home medications: Home Medications Medication Instructions Recorded Confirmed aspirin 81 mg tablet,delayed 81 mg PO DAILY 02/03/20 01/21/23 release (Josue Low Dose Aspirin) atorvastatin 40 mg tablet 40 mg PO QHS 02/03/20 01/21/23 budesonide-formoterol HFA 160 2 puff inhalation Q12H 02/03/20 01/21/23 mcg-4.5 mcg/actuation aerosol inhaler (Symbicort) carbamazepine 200 mg tablet 200 mg PO TIDWM 02/03/20 01/21/23 famotidine 20 mg tablet 20 mg PO BID 02/03/20 01/21/23 fluoxetine 20 mg capsule 80 mg PO HS 02/03/20 01/21/23 losartan 50 mg tablet 25 mg PO DAILY 02/03/20 01/21/23 montelukast 10 mg tablet 10 mg PO DAILY 02/03/20 01/21/23 quetiapine 50 mg tablet 100 mg PO Q8H 02/03/20 01/21/23 zonisamide 100 mg capsule 100 mg PO BID 02/03/20 01/21/23 acetaminophen 325 mg tablet 325 mg PO Q6H PRN Pain 05/22/22 01/21/23 buspirone 10 mg tablet 10 mg PO TID 05/22/22 01/21/23 clopidogrel 75 mg tablet 75 mg PO QAM 05/22/22 01/21/23 docusate sodium 100 mg capsule 100 mg PO DAILY 05/22/22 01/21/23 ergocalciferol (vitamin D2) 50,000 50,000 unit PO WEEKLY 05/22/22 01/21/23 unit tablet melatonin 3 mg tablet 3 mg PO HS PRN Sleep 05/22/22 01/21/23 ondansetron HCl 4 mg tablet 4 mg PO Q6H PRN Nausea 05/22/22 01/21/23 polyethylene glycol 1 ea miscellaneous QAM PRN 05/22/22 01/21/23 Constipation trazodone 150 mg tablet 150 mg PO QHS 05/22/22 01/21/23 Fleet Enema 1 applicator RECTAL DAILY PRN 01/21/23 01/21/23 Constipation baclofen 10 mg tablet 10 mg PO TID 01/21/23 01/21/23 bisacodyl 10 mg RECTAL DAILY PRN Constipation 01/21/23 01/21/23 magnesium citrate 296 ml PO QAM PRN Constipation 01/21/23 01/21/23 magnesium hydroxide 400 mg PO QHS PRN Constipation 01/21/23 01/21/23 <Nanci Mccauley PA-C - Last Filed: 03/26/23 21:14> Allergies/adverse reactions: Allergies Allergy/AdvReac Type Severity Reaction Status Date / Time mushroom Allergy Severe Anaphylaxis Verified 06/22/22 18:27 hydromorphone Allergy Mild Itching Verified 06/22/22 18:27 tramadol Allergy Unknown SEZIR Verified 06/22/22 18:27 fluticasone AdvReac Other Verified 06/22/22 18:27 [From Advair Diskus] salmeterol AdvReac Othe
[2023-03-26 17:46] LABS: Glucose Point of Care 88 mg/dl (65-105)
[2023-03-26 18:08] LABS: Basophils Percent Auto 0.5 % (0.2-1.2); Eosinophils Absolute Auto 0.2 K/mm3 (0-0.3); Hematocrit 43.6 % (42.0-52.0); Hemoglobin 14.9 g/dL (14.0-18.0); Immature Granulocyte Absolute 0.02 K/mm3 (0.00-0.031); Immature Granulocyte Percent A 0.2 % (0-0.5); Lymphocytes Absolute Auto 3.17 K/mm3 (0.9-3.2); Mean Corpuscular HGB Conc 34.2 g/dl (32-36); Mean Corpuscular Hemoglobin 32.5 pg (26-34); Mean Platelet Volume 9.6 fl (7.4-10.4); Monocytes Percent Auto 11.9 % (2.6-8.5); Neutrophils Percent Auto 47.4 % (45.5-73.1); Platelet Count Result 231 k/mm3 (150-375); Red Blood Count 4.59 M/mm3 (4.6-6.20); Red Cell Distribution Width 12.6 % (11.5-14.5); White Blood Count 8.3 K/mm3 (4.5-10.0)
[2023-03-26 18:20] LABS: Alanine Aminotransferase 21 U/L (6-50); Albumin Level 4.2 g/dL (3.5-5.1); Alkaline Phosphatase 176 U/L (38-126); Anion Gap 11 mmol/L (8-16); Aspartate Amino Transferase 25 U/L (17-59); Bilirubin,Total 0.4 mg/dL (0.2-1.3); Blood Urea Nitrogen 11 mg/dL (9-20); Calcium 9.1 mg/dL (8.4-10.2); Carbon Dioxide 25 mmol/L (22-30); Chloride 105 mmol/L (98-107); Estimated CRCL calculation 90 ml/min; Estimated Glomerular Filt Rate > 60; Glucose 90 mg/dL (65-110); Magnesium 2.1 mg/dL (1.6-2.3); Sodium 141 mmol/L (137-145)
[2023-03-26 20:18] VITALS: BP 160/81; PULSE 57; RESP 16; O2SAT 98
[2023-03-26 20:51] VITALS: BP 156/84; PULSE 60; RESP 15; O2SAT 98
== END 2023-03-26 20:54 ==
PROVIDERS: Physician Assistant; Emergency Provider Emergency Medicine; PCP Family Medicine
DX: F44.5 Conversion disorder with seizures or convulsions (principal); E78.5 Hyperlipidemia, unspecified; I10 Essential (primary) hypertension; G20.A1 Parkinson's disease without dyskinesia, without mention of fluctuations; I38 Endocarditis, valve unspecified; E55.9 Vitamin D deficiency, unspecified; F41.8 Other specified anxiety disorders; F10.20 Alcohol dependence, uncomplicated; Z95.2 Presence of prosthetic heart valve; Z86.73 Personal history of transient ischemic attack (TIA), and cerebral infarction without residual deficits; Z85.828 Personal history of other malignant neoplasm of skin; Z87.442 Personal history of urinary calculi; Z87.891 Personal history of nicotine dependence; Z79.82 Long term (current) use of aspirin
CPT/HCPCS: 36415; 80053; 82948; 83735; 85025; 93005; 99283

== ENCOUNTER 2023-05-22 18:38 | Emergency (ER) | payer MEDICARE, SELFPAY ==
--- NOTE | ~2023-05-22 | CT_ITS ---
EXAMINATION: CT cervical spine wo con DATE: 05/22/2023 19:39 INDICATION: fall TECHNIQUE: Computed tomography (CT) of the cervical spine was performed without intravenous contrast. Automated exposure control and iterative reconstruction technique were employed. The dose-length pro duct was 247.26 mGy-cm. COMPARISON: 06/06/2022. FINDINGS: Vertebral Body Alignment: Intact. Craniocervical and atlantoaxial alignment: Moderate degenerative change. Alignment intact. Osseous structures/fracture: No evidence of a lytic or blastic process in the visualized spine. No e vidence of acute fracture. Cervical soft tissues: The paraspinal soft tissues planes are maintained. Biapical pleural scarring. Emphysematous changes. Degenerative changes: Moderate degenerative disc disease at C6-7. Severe left neural foraminal narrow ing at C6-7. No severe central canal narrowing. IMPRESSION: No acute fracture or traumatic malalignment in the cervical spine. Reviewed, dictated and finalized at location K.
--- NOTE | ~2023-05-22 | CT_ITS ---
EXAMINATION: CT brain wo con DATE: 05/22/2023 19:39 INDICATION: head injury . TECHNIQUE: Computed tomography (CT) of the head was performed without intravenous contrast. The mA wa s adjusted according to patient size. Iterative reconstruction technique was employed. The dose-lengt h product was 247.26 mGy-cm. COMPARISON: 02/10/2023. FINDINGS: No acute intracranial hemorrhage or extra-axial fluid collection. No hydrocephalus, mass, or herniation. No acute ischemic infarct. Unremarkable dural venous sinus attenuation. No acute osseous abnormality. Partial opacification and aerated secretions in the sphenoid sinuses with surrounding sclerosis, rete ntion cyst/polyp and minimal fluid in the left maxillary sinus, the remaining aerated spaces are nena r. Moderate atrophy and chronic white matter change. Atherosclerotic intracranial calcification. Large a nathan of encephalomalacia in the right MCA territory. Focal old infarcts in the left caudate head and l eft periventricular white matter. IMPRESSION: No acute intracranial process. Acute on chronic sphenoid sinusitis Reviewed, dictated and finalized at location K.
[2023-05-22 18:40] VITALS: BP 127/81; PULSE 73; RESP 12; TEMP 37.3; O2SAT 100
[2023-05-22 19:14] VITALS: BP 141/78; PULSE 72; RESP 16; TEMP 36.6; O2SAT 100
--- NOTE | 2023-05-22 19:24 | ED.FALL ---
HPI - Fall General Chief Complaint: Fall Stated Complaint: FALL, HIT HEAD, ON BLOOD THINNERS Time Seen by Provider: 05/22/23 19:02 History of Present Illness HPI Narrative: Patient is a 62-year-old male who presents to the emergency department this evening after a fall from his bed at his extended care facility. Patient states that he fell from bed and hit his head on the floor. Patient is currently denying any symptoms including headaches, dizziness, lightheadedness and blurry vision. Patient does have left sided motor deficits secondary to a stroke and has very little movement of his left upper lower extremity. Patient is alert and oriented to person, place, time and situation and is currently deny any chest pain or shortness of breath, any nausea, vomiting, abdominal pain, dysuria or hematuria. There are no other modifying, alleviating, or precipitating factors at this time. Related Data Home Medications Medication Instructions Recorded Confirmed aspirin 81 mg tablet,delayed 81 mg PO DAILY 02/03/20 05/22/23 release (Josue Low Dose Aspirin) atorvastatin 40 mg tablet 40 mg PO QHS 02/03/20 05/22/23 budesonide-formoterol HFA 160 2 puff inhalation Q12H 02/03/20 05/22/23 mcg-4.5 mcg/actuation aerosol inhaler (Symbicort) carbamazepine 200 mg tablet 200 mg PO TIDWM 02/03/20 05/22/23 famotidine 20 mg tablet 20 mg PO BID 02/03/20 05/22/23 fluoxetine 20 mg capsule 80 mg PO HS 02/03/20 05/22/23 losartan 50 mg tablet 25 mg PO DAILY 02/03/20 05/22/23 montelukast 10 mg tablet 10 mg PO DAILY 02/03/20 05/22/23 quetiapine 50 mg tablet 100 mg PO Q8H 02/03/20 05/22/23 zonisamide 100 mg capsule 100 mg PO BID 02/03/20 05/22/23 acetaminophen 325 mg tablet 325 mg PO Q6H PRN Pain 05/22/22 05/22/23 buspirone 10 mg tablet 10 mg PO TID 05/22/22 05/22/23 clopidogrel 75 mg tablet 75 mg PO QAM 05/22/22 05/22/23 docusate sodium 100 mg capsule 100 mg PO DAILY 05/22/22 05/22/23 ergocalciferol (vitamin D2) 50,000 50,000 unit PO WEEKLY 05/22/22 05/22/23 unit tablet melatonin 3 mg tablet 3 mg PO HS PRN Sleep 05/22/22 05/22/23 ondansetron HCl 4 mg tablet 4 mg PO Q6H PRN Nausea 05/22/22 05/22/23 polyethylene glycol 1 ea miscellaneous QAM PRN 05/22/22 05/22/23 Constipation trazodone 150 mg tablet 150 mg PO QHS 05/22/22 05/22/23 Fleet Enema 1 applicator RECTAL DAILY PRN 01/21/23 05/22/23 Constipation baclofen 10 mg tablet 10 mg PO TID 01/21/23 05/22/23 bisacodyl 10 mg RECTAL DAILY PRN Constipation 01/21/23 05/22/23 magnesium citrate 296 ml PO QAM PRN Constipation 01/21/23 01/21/23 magnesium hydroxide 400 mg PO QHS PRN Constipation 01/21/23 05/22/23 Allergies Allergy/AdvReac Type Severity Reaction Status Date / Time mushroom Allergy Severe Anaphylaxis Verified 05/22/23 18:58 hydromorphone Allergy Mild Itching Verified 05/22/23 18:58 tramadol Allergy Unknown SEZIR Verified 05/22/23 18:58 fluticasone AdvReac Other Verified 05/22/23 18:58 [From Advair Diskus] salmeterol AdvReac Other Verified 05/22/23 18:58 [From Advair Diskus] Review of Systems Review of Systems: All systems are reviewed and are negative unless stated otherwise in the HPI. [facility] Past Medical History Medical History Anxiety Aortic valve disease Cerebrovascular accident (05/01/22) CTA head and neck showed 10 occlusion of the right distal ICA and M1. He was not a candidate for tPA with concomitant diagnosis of bacteremia and endocarditis. Depression with anxiety Esophagitis History of esophageal dilatation Hyperlipidemia Hypertension Kidney stones Major depressive disorder Parkinson's disease Psychogenic nonepileptic seizure Seizure Skin cancer Valvular heart disease Vitamin D deficiency Surgical History Surgical History History of aortic valve replacement History of appendectomy History of open reduction and internal fixation (ORIF) procedure
[2023-05-22 21:30] VITALS: BP 127/90; PULSE 72; RESP 16; O2SAT 99
== END 2023-05-22 21:51 ==
PROVIDERS: Emergency Provider Emergency Medicine; PCP Family Medicine
DX: S09.90XA Unspecified injury of head, initial encounter (principal); J01.30 Acute sphenoidal sinusitis, unspecified; I10 Essential (primary) hypertension; I35.8 Other nonrheumatic aortic valve disorders; I69.354 Hemiplegia and hemiparesis following cerebral infarction affecting left non-dominant side; E78.5 Hyperlipidemia, unspecified; E55.9 Vitamin D deficiency, unspecified; G20.A1 Parkinson's disease without dyskinesia, without mention of fluctuations; F41.8 Other specified anxiety disorders; F10.20 Alcohol dependence, uncomplicated; Z85.828 Personal history of other malignant neoplasm of skin; Z87.442 Personal history of urinary calculi; Z95.2 Presence of prosthetic heart valve; Z87.891 Personal history of nicotine dependence; Z79.82 Long term (current) use of aspirin; W06.XXXA Fall from bed, initial encounter
CPT/HCPCS: 70450; 72125; 99284

== ENCOUNTER 2023-06-25 16:55 | Inpatient (IN) | payer MEDICARE, MEDICAID, SELFPAY ==
--- NOTE | ~2023-06-25 | XR_ITS ---
EXAMINATION: XR retrograde pyelogram BI DATE: 06/26/2023 15:50 INDICATION: Acute kidney injury. Calculus of ureter. TECHNIQUE: 2 intraoperative fluoroscopic views of the abdomen and pelvis were obtained. I was not pre sent. Fluoroscopy exposure time was 99 seconds. COMPARISON: CT abdomen and pelvis 06/25/2023 FINDINGS: There are bilateral internal ureteral stents in expected positions. IMPRESSION: 1. Bilateral internal ureteral stents in expected positions. Reviewed, dictated and finalized at location E.
--- NOTE | ~2023-06-25 | CT_ITS ---
EXAMINATION: CT abdomen pelvis wo con DATE: 06/25/2023 17:49 INDICATION: Flank pain TECHNIQUE: Computed tomography (CT) of the abdomen and pelvis was performed without intravenous contr ast. Automated exposure control and iterative reconstruction technique were employed. Exam dose: 136 2.00 mGy-cm total exam DLP. COMPARISON: 01/21/2023 CT chest abdomen pelvis FINDINGS: There are prominent emphysematous changes of the lungs. Honeycombing involving particularly the periphery of the lower lungs. Bilateral dependent lower lobe atelectasis. Mild bilateral gynecomastia, left greater than right. Normal heart size. Coronary calcifications. Status post sternotomy and aortic valve replacement. The liver, gallbladder, bile ducts, spleen, pancreas, pancreatic duct and adrenal glands are unremark able on this limited noncontrast examination. There are extensive bilateral renal artery calcifications and probable one or more small bilateral no nobstructing renal calculi. There is moderate bilateral hydronephrosis. There is one or more obstructing calculi in the distal left ureter measuring up to 5.8 mm transverse, 10.8 mm anteroposterior and approximately 10.4 mm in vertical dimension. There is a distal right ureteral obstructing calculus measuring approximately 4.4 x 5.8 mm dimension. There are again multiple calcific densities in the dependent aspect of probable diverticula of the ur inary bladder. There is a Rowe catheter in the urinary bladder. There is thickening of the wall of the urinary susana dder. There is a prominent amount of feces in the colon. No bowel obstruction or intraperitoneal free air. There are mild to moderate anterior wedge compression fracture deformities of T11 and T12. Bilateral hip osteoarthritis. IMPRESSION: Bilateral ureteral obstruction by calculi with moderate bilateral hydroureteronephrosis Emphysema Status post aortic valve replacement Extensive atherosclerosis Multiple calcified small calculi within probable posterior urinary bladder diverticula Compression fracture deformities of T11 and T12 Reviewed, dictated and finalized at Location [facility]. Reviewed, dictated and finalized at location A. IMPRESSION: Bilateral ureteral obstruction by calculi with moderate bilateral hydroureteronephrosis Emphysema Status post aortic valve replacement Extensive atherosclerosis Multiple calcified small calculi within probable posterior urinary bladder dive rticula Compression fracture deformities of T11 and T12
--- NOTE | ~2023-06-25 | XR_ITS ---
EXAMINATION: XR abdomen/kub 1V DATE: 06/30/2023 08:18 INDICATION: Kidney stone. TECHNIQUE: A supine view of the abdomen on 2 radiographs was obtained. COMPARISON: Abdomen radiographs 01/11/2020, CT abdomen and pelvis 06/25/2023 FINDINGS: There are no dilated loops of bowel. There are bilateral internal ureteral stent in expecte d positions. Approximately 3 calcifications overlie the left ureter at L5. A catheter overlies the bl adder. There are vascular calcifications at the hilum of the kidneys. IMPRESSION: 1. Approximately 3 calcifications overlying the left ureter at L5 that may be ureteral stones. 2. Bilateral internal ureteral stents in expected position. Reviewed, dictated and finalized at location A. IMPRESSION: 1. Approximately 3 calcifications overlying the left ureter at L5 that may be u reteral stones. 2. Bilateral internal ureteral stents in expected position.
--- NOTE | ~2023-06-25 | CT_ITS ---
EXAMINATION: CT brain wo con DATE: 06/25/2023 17:49 INDICATION: Seizure TECHNIQUE: Computed tomography (CT) of the head was performed without intravenous contrast. The mA wa s adjusted according to patient size. Iterative reconstruction technique was employed. Exam dose: 13 62.00 mGy-cm total exam DLP. COMPARISON: 05/22/2023 CT brain FINDINGS: There is a large area of encephalomalacia in the right middle cerebral artery territory con sistent with old infarct. Prominent bilateral vertebral artery calcifications, basilar artery and bilateral carotid siphon inte rnal carotid artery calcifications. Chronic left basal ganglia lacunar infarcts. There is nonspecific diminished attenuation of the cerebral white matter, likely due to chronic small vessel ischemic changes. No intracranial mass lesion or hemorrhage. No subdural or epidural hematoma. No fracture or bone destruction of the cranial vault. There is prominent soft tissue thickening within both sphenoid sinuses and left maxillary sinus. IMPRESSION: Large area of encephalomalacia in the right middle cerebral artery distribution consiste nt with old infarct Chronic left basal ganglia lacunar infarcts Cerebral atherosclerosis and chronic small vessel ischemic changes of the cerebral white matter No acute intracranial finding Reviewed, dictated and finalized at Location [facility]. Reviewed, dictated and finalized at location A. IMPRESSION: Large area of encephalomalacia in the right middle cerebral artery distribution consistent with old infarct Chronic left basal ganglia lacunar infarcts Cerebral atherosclerosis and chronic small vessel ischemic changes of the cereb ral white matter No acute intracranial finding
--- NOTE | 2023-06-25 17:04 | ECG_ITS ---
SEE SCANNED COPY FOR CONFIRMED REPORT. MTDD
[2023-06-25 17:15] VITALS: BP 146/85; PULSE 60; RESP 14; O2SAT 97
[2023-06-25 17:20] VITALS: BP 146/85; PULSE 14; RESP 16; TEMP 36.4; O2SAT 98
[2023-06-25 17:27] LABS: Basophils Percent Auto 0.4 % (0.2-1.2); Eosinophils Absolute Auto 0.2 K/mm3 (0-0.3); Eosinophils Percent Auto 1.6 % (0-4.4); Hematocrit 36.1 % (42.0-52.0); Hemoglobin 12.1 g/dL (14.0-18.0); Immature Granulocyte Absolute 0.03 K/mm3 (0.00-0.031); Immature Granulocyte Percent A 0.3 % (0-0.5); Lymphocytes Absolute Auto 1.82 K/mm3 (0.9-3.2); Lymphocytes Percent Auto 17.6 % (18.3-44.2); Mean Corpuscular HGB Conc 33.5 g/dl (32-36); Mean Corpuscular Hemoglobin 32.1 pg (26-34); Mean Corpuscular Volume 95.8 fl (80-100); Mean Platelet Volume 10.4 fl (7.4-10.4); Monocytes Absolute Auto 1.3 K/mm3 (0.1-0.6); Monocytes Percent Auto 12.4 % (2.6-8.5); Neutrophils Percent Auto 67.7 % (45.5-73.1); Platelet Count Result 253 k/mm3 (150-375); Red Blood Count 3.77 M/mm3 (4.6-6.20); Red Cell Distribution Width 12.4 % (11.5-14.5); White Blood Count 10.3 K/mm3 (4.5-10.0)
--- NOTE | 2023-06-25 17:29 | PC.NURSE ---
Shortly after arrival pt appeared to be experiencing a seizure. It first started with eyes and lips twitching and head fixed to right side then began to have light shaking all over. ERP notified and lorazepam given
--- NOTE | 2023-06-25 17:32 | PC.NURSE ---
straight cath first inserted for specimen collection urine noted to be dark brown and with sediment. Total of 400 mls emptied from bladder. Then cotto cath inserted for accurate I&O
[2023-06-25 17:37] LABS: Prothrombin Time 14.2 Seconds (11.1-14.7)
[2023-06-25] MEDS: LORazepam INJ (*CRX) 2 MG/ML VIAL 1 MG IV PUSH (17:50)
[2023-06-25] MEDS: SODIUM CHLORIDE 0.9% IV 1,000 ML 999 ML IV CONT (17:50)
[2023-06-25 18:17] LABS: Appearance Urine Cloudy (Clear); Bacteria Urine None Seen /hpf; Bilirubin Urine Negative (Negative); Blood Urine 3+ (Negative); Color Urine Dark Yellow (Yellow); Glucose Urine UA Negative (Negative); Ketones Urine Negative (Negative); Leukocyte Esterase Ur 1+ LEU/UL (Negative); Need Manual Microscopic Reviewed; Nitrate Urine Negative (Negative); Non Pathogenic Casts 0-2; Protein Urine 2+ mg/dL (Negative); RBC Urine >100 /hpf (0-2); Specific Grav Ur 1.017 (1.001-1.035); Squamous Epithelial Cell Urine None Seen /hpf (Few); Urobilinogen Urine 0.2 mg/dL (<2.0); WBC Urine 0-5 /hpf (0-3); pH Urine 6.5 (5.0-9.0)
[2023-06-25 18:18] LABS: Alanine Aminotransferase 16 U/L (6-50); Albumin Level 3.7 g/dL (3.5-5.1); Alkaline Phosphatase 167 U/L (38-126); Anion Gap 13 mmol/L (4-12); Aspartate Amino Transferase 31 U/L (17-59); Bilirubin,Total 0.6 mg/dL (0.2-1.3); Blood Urea Nitrogen 42 mg/dL (9-20); Calcium 8.9 mg/dL (8.4-10.2); Carbon Dioxide 17 mmol/L (22-30); Chloride 105 mmol/L (98-107); Estimated CRCL calculation 13 ml/min; Estimated Glomerular Filt Rate 10; Glucose 94 mg/dL (65-110); Potassium 4.5 mmol/L (3.4-5.0); Sodium 135 mmol/L (137-145)
[2023-06-25 18:20] LABS: Budding Yeast Urine Present /hpf
[2023-06-25 18:21] LABS: Add Urine Microscopic? YES
[2023-06-25 19:00] VITALS: BP 188/90; PULSE 69; RESP 21; O2SAT 93
--- NOTE | 2023-06-25 19:21 | ED.AMS ---
HPI - Altered Mental Status General Chief Complaint: Altered Mental Status Stated Complaint: AMS Time Seen by Provider: 06/25/23 17:04 Source: EMS Mode of arrival: EMS Limitations: altered mental status History of Present Illness HPI narrative: Patient 62-year-old intermediate resident with a history of CVA nonrheumatic aortic valve disorder dysphagia of conversion disorder with seizures here with the complaints of altered mental status. As per the intermediate patient is A&O x4 for past few days he has been sluggish. Upon arrival to the ER he started having a seizure activity which was self-limiting. Patient had outpatient lab work done which showed elevated creatinine of 4.6. No history of fever or chills MD complaint: altered mental status Severity: moderate Related Data Home Medications Medication Instructions Recorded Confirmed aspirin 81 mg tablet,delayed 81 mg PO DAILY 02/03/20 05/22/23 release (Josue Low Dose Aspirin) atorvastatin 40 mg tablet 40 mg PO QHS 02/03/20 05/22/23 budesonide-formoterol HFA 160 2 puff inhalation Q12H 02/03/20 05/22/23 mcg-4.5 mcg/actuation aerosol inhaler (Symbicort) carbamazepine 200 mg tablet 200 mg PO TIDWM 02/03/20 05/22/23 famotidine 20 mg tablet 20 mg PO BID 02/03/20 05/22/23 fluoxetine 20 mg capsule 80 mg PO HS 02/03/20 05/22/23 losartan 50 mg tablet 25 mg PO DAILY 02/03/20 05/22/23 montelukast 10 mg tablet 10 mg PO DAILY 02/03/20 05/22/23 quetiapine 50 mg tablet 100 mg PO Q8H 02/03/20 05/22/23 zonisamide 100 mg capsule 100 mg PO BID 02/03/20 05/22/23 acetaminophen 325 mg tablet 325 mg PO Q6H PRN Pain 05/22/22 05/22/23 buspirone 10 mg tablet 10 mg PO TID 05/22/22 05/22/23 clopidogrel 75 mg tablet 75 mg PO QAM 05/22/22 05/22/23 docusate sodium 100 mg capsule 100 mg PO DAILY 05/22/22 05/22/23 ergocalciferol (vitamin D2) 50,000 50,000 unit PO WEEKLY 05/22/22 05/22/23 unit tablet melatonin 3 mg tablet 3 mg PO HS PRN Sleep 05/22/22 05/22/23 ondansetron HCl 4 mg tablet 4 mg PO Q6H PRN Nausea 05/22/22 05/22/23 polyethylene glycol 1 ea miscellaneous QAM PRN 05/22/22 05/22/23 Constipation trazodone 150 mg tablet 150 mg PO QHS 05/22/22 05/22/23 Fleet Enema 1 applicator RECTAL DAILY PRN 01/21/23 05/22/23 Constipation baclofen 10 mg tablet 10 mg PO TID 01/21/23 05/22/23 bisacodyl 10 mg RECTAL DAILY PRN Constipation 01/21/23 05/22/23 magnesium citrate 296 ml PO QAM PRN Constipation 01/21/23 01/21/23 magnesium hydroxide 400 mg PO QHS PRN Constipation 01/21/23 05/22/23 Allergies Allergy/AdvReac Type Severity Reaction Status Date / Time mushroom Allergy Severe Anaphylaxis Verified 05/22/23 18:58 hydromorphone Allergy Mild Itching Verified 05/22/23 18:58 tramadol Allergy Unknown SEZIR Verified 05/22/23 18:58 fluticasone AdvReac Other Verified 05/22/23 18:58 [From Advair Diskus] salmeterol AdvReac Other Verified 05/22/23 18:58 [From Advair Diskus] Review of Systems Review of Systems: ROS unobtainable: Yes unobtainable due to medical condition PMFSH Past Medical History Medical History Anxiety Aortic valve disease Cerebrovascular accident (05/01/22) CTA head and neck showed 10 occlusion of the right distal ICA and M1. He was not a candidate for tPA with concomitant diagnosis of bacteremia and endocarditis. Depression with anxiety Esophagitis History of esophageal dilatation Hyperlipidemia Hypertension Kidney stones Major depressive disorder Parkinson's disease Psychogenic nonepileptic seizure Seizure Skin cancer Valvular heart disease Vitamin D deficiency Surgical History Surgical History History of aortic valve replacement History of appendectomy History of open reduction and internal fixation (ORIF) procedure Repair left ankle fracture. History of spinal surgery Family History Family History Other
[2023-06-25 19:30] VITALS: BP 185/89; PULSE 102; RESP 21; O2SAT 93
[2023-06-25] MEDS: SODIUM CHLORIDE 0.9% IV 1,000 ML 125 ML IV CONT (20:04)
--- NOTE | 2023-06-25 20:30 | ADMGEN ---
This patient, Blaine Salvador, was admitted to 3 [facility] Surg Room 304-01. Patient/family oriented to hospital policies and general routines including ID bracelet, bed and alarms, visiting hours, pain management, procedures, bathroom and other care routines, personal items, smoking policy, room service/diet, and visiting hours. Information on how to activate the Rapid Response Team has been discussed. Patient/Family are encouraged to report perceived risks to care and to ask questions if they do not understand what they are told or what they should do.
--- NOTE | 2023-06-25 20:35 | PM.IMHP ---
H&P: HPI History of Present Illness Date/Time: 06/25/23 20:35 Chief Complaint: altered mental status Narrative: This is a 62-year-old male assisted resident with past medical history significant for right middle cerebral artery stroke, left-sided hemiparesis, wheelchair-bound, seizure disorder conversion disorder nonepileptic, Parkinson's disease, coronary artery disease status post coronary artery bypass graft. Patient was brought to the emergency room due to altered mental status been lethargic for the last few days lab work showed a creatinine of 4.6, repeat creatinine in the emergency room showed 5.7 BUN 42, CT of the head showed area of encephalomalacia a CT of abdomen and pelvis was significant for bilateral obstructing ureteral calculi. Patient at the time of my visit is obtunded, lethargic unable to provide any history. EXAMINATION: CT brain wo con DATE: 06/25/2023 17:49 INDICATION: Seizure TECHNIQUE: Computed tomography (CT) of the head was performed without intravenous contrast. The mA was adjusted according to patient size. Iterative reconstruction technique was employed. Exam dose:? 1362.00 mGy-cm total exam DLP.? COMPARISON: 05/22/2023 CT brain FINDINGS: There is a large area of encephalomalacia in the right middle cerebral artery territory consistent with old infarct. Prominent bilateral vertebral artery calcifications, basilar artery and bilateral carotid siphon internal carotid artery calcifications. Chronic left basal ganglia lacunar infarcts. There is nonspecific diminished attenuation of the cerebral white matter, likely due to chronic small vessel ischemic changes. No intracranial mass lesion or hemorrhage. No subdural or epidural hematoma. No fracture or bone destruction of the cranial vault. There is prominent soft tissue thickening within both sphenoid sinuses and left maxillary sinus. IMPRESSION:? Large area of encephalomalacia in the right middle cerebral artery distribution consistent with old infarct Chronic left basal ganglia lacunar infarcts Cerebral atherosclerosis and chronic small vessel ischemic changes of the cerebral white matter No acute intracranial finding EXAMINATION: CT abdomen pelvis wo con DATE: 06/25/2023 17:49 INDICATION: Flank pain TECHNIQUE: Computed tomography (CT) of the abdomen and pelvis was performed without intravenous contrast. Automated exposure control and iterative reconstruction technique were employed. Exam dose:? 1362.00 mGy-cm total exam DLP.? COMPARISON: 01/21/2023 CT chest abdomen pelvis FINDINGS: There are prominent emphysematous changes of the lungs. Honeycombing involving particularly the periphery of the lower lungs. Bilateral dependent lower lobe atelectasis. Mild bilateral gynecomastia, left greater than right. Normal heart size. Coronary calcifications. Status post sternotomy and aortic valve replacement. The liver, gallbladder, bile ducts, spleen, pancreas, pancreatic duct and adrenal glands are unremarkable on this limited noncontrast examination. There are extensive bilateral renal artery calcifications and probable one or more small bilateral nonobstructing renal calculi. There is moderate bilateral hydronephrosis. There is one or more obstructing calculi in the distal left ureter measuring up to 5.8 mm transverse, 10.8 mm anteroposterior and approximately 10.4 mm in vertical dimension. There is a distal right ureteral obstructing calculus measuring approximately 4.4 x 5.8 mm dimension. There are again multiple calcific densities in the dependent aspect of probable diverticula of the urinary bladder.? There is a Rowe catheter in the urinary bladder.? There is thickening of the wall of the urinary bladder.? There is a prominent amount of feces in the colon.? No bowel obstruction or intraperitoneal free air. There are mild to moderate anterior wedge compression fracture deformities of T11 and T12. Bilateral hip osteoarthritis. ? IMPRESSION:? Bilateral ure
[2023-06-25 21:00] VITALS: BP 181/79; PULSE 76; RESP 16; TEMP 36.4; O2SAT 93; BMI 22.4
[2023-06-25] MEDS: hydrALAZINE HCL 20 MG/ML VIAL 10 MG IV PUSH (22:55)
[2023-06-25] MEDS: QUEtiapine FUMARATE 100 MG TABLET PO (22:56)
[2023-06-25] MEDS: traZODone HCL 50 MG TABLET 150 MG PO (22:56)
[2023-06-25] MEDS: ZONISAMIDE 100 MG CAPSULE PO (22:56)
[2023-06-25] MEDS: TAMSULOSIN HCL 0.4 MG CAPSULE PO (22:57)
[2023-06-25] MEDS: ATORVASTATIN 40 MG TABLET PO (23:01)
[2023-06-25] MEDS: FLUoxetine HCL 20 MG CAPSULE 80 MG PO (23:01)
[2023-06-25 23:44] VITALS: BP 124/59; TEMP 36.2
[2023-06-26] VITALS (12 sets, daily range): BP systolic 99–145; BP diastolic 57–81; PULSE 73–120; RESP 8–20; TEMP 36.1–37.3; O2SAT 91–100; BMI 22.4
[2023-06-26] MEDS: SODIUM CHLORIDE 0.9% IV 1,000 ML 125 ML IV CONT ×2 (05:08→18:58)
[2023-06-26 05:36] LABS: Basophils Percent Auto 0.3 % (0.2-1.2); Eosinophils Percent Auto 0.3 % (0-4.4); Hematocrit 36.2 % (42.0-52.0); Hemoglobin 12.2 g/dL (14.0-18.0); Immature Granulocyte Absolute 0.07 K/mm3 (0.00-0.031); Immature Granulocyte Percent A 0.5 % (0-0.5); Lymphocytes Absolute Auto 1.73 K/mm3 (0.9-3.2); Lymphocytes Percent Auto 11.8 % (18.3-44.2); Mean Corpuscular HGB Conc 33.7 g/dl (32-36); Mean Corpuscular Hemoglobin 32.1 pg (26-34); Mean Corpuscular Volume 95.3 fl (80-100); Mean Platelet Volume 10.2 fl (7.4-10.4); Monocytes Percent Auto 13.5 % (2.6-8.5); Neutrophils Absolute Auto 10.8 K/mm3 (1.3-6.7); Neutrophils Percent Auto 73.6 % (45.5-73.1); Platelet Count Result 261 k/mm3 (150-375); Red Cell Distribution Width 12.1 % (11.5-14.5); White Blood Count 14.6 K/mm3 (4.5-10.0)
[2023-06-26 05:43] LABS: Anion Gap 15 mmol/L (4-12); Blood Urea Nitrogen 43 mg/dL (9-20); Calcium 8.7 mg/dL (8.4-10.2); Carbon Dioxide 13 mmol/L (22-30); Chloride 110 mmol/L (98-107); Estimated CRCL calculation 11 ml/min; Estimated Glomerular Filt Rate 8; Glucose 77 mg/dL (65-110); Potassium 4.6 mmol/L (3.4-5.0); Sodium 138 mmol/L (137-145)
--- NOTE | 2023-06-26 06:46 | WPDURCON ---
Assessment and Plan Assessment and plan (1) JEANNETTE (acute kidney injury): Code(s): N17.9 - Acute kidney failure, unspecified Status: Acute (2) Ureterolithiasis: Code(s): N20.1 - Calculus of ureter Status: Acute Assessment and Plan: Plan cystoscopy with bilateral ureteroscopy with laser lithotripsy and stone extraction, possible bilateral retrograde pyelography and bilateral ureteral stent placement Urology Consult Note HPI Date Seen: 06/26/23 Requesting Physician: Antoine Beard MD Primary Care Provider: Ben Hernandez, Consult Narrative Narrative: Blaine Salvador is a 62 year old male who I saw on 1 occasion in 2019 when we identified a 9 mm stone in his left kidney. We recommended left ESWL but he was noncompliant with scheduling. Presents now after having taking a fall from his bed. Evaluation in emergency department revealed acute kidney injury and CT imaging demonstrates bilateral distal ureteral stones causing bilateral ureteral obstruction. There appeared to be perhaps several stones in the distal left ureter and a single stone in the distal right ureter. Additionally he has multiple small bladder stones. He was admitted for supportive care and we will plan cystoscopy with bilateral ureteroscopy with stone extraction. At this point he is difficult to arouse and additional history cannot be obtained. There is no documented history of fevers chills or gross hematuria. Rowe catheter has been placed and he has had little urine output overnight. Review of Systems Review of Systems: ROS unobtainable: Yes unobtainable due to mental status PMFSH Past Medical History Medical History (Updated 06/26/23 @ 00:48 by Antoine Beard MD) Anxiety Aortic valve disease Cerebrovascular accident (05/01/22) CTA head and neck showed 10 occlusion of the right distal ICA and M1. He was not a candidate for tPA with concomitant diagnosis of bacteremia and endocarditis. Depression with anxiety Esophagitis History of esophageal dilatation Hyperlipidemia Hypertension Kidney stones Major depressive disorder Parkinson's disease Psychogenic nonepileptic seizure Seizure Skin cancer Valvular heart disease Vitamin D deficiency Surgical History Surgical History History of aortic valve replacement History of appendectomy History of open reduction and internal fixation (ORIF) procedure Repair left ankle fracture. History of spinal surgery Family History Family History Other Unknown family medical history Social History Social History Social History: Surrogate medical decision maker: Angeline Perkins, friend. Code status: Full code. Smoking packs per day: 0.75 Smoking cigarettes per day: 15.0 Years smoked: 47 Smoking pack-years: 35.25 Smoking status: Unknown if ever smoked Second hand tobacco smoke exposure: Yes Alcohol intake: never Alcohol use details: Recovering alcoholic. Substance use: unknown Substance use type: marijuana Other substance usage details: Smokes marijuana nightly for sleep. Former crack cocaine user. Do You Feel Safe in your Home?: Yes Lack of Transportation: YES Lack of Food: Never True Current Housing: I Have Housing Concerned About Future Housing: No Difficulty Paying Gas/Electric Bills: No Difficulty Paying for Meds: No Currently Unemployed: No Education: Don't Know Difficulty w/ Childcare or Family Care: No Additional living arrangements comments: Prior to his stroke he was living with his lace stripper in [place]. Additional occupation/education comments: Disabled. Previously worked for [employer]. Spiritual care concerns: No Meds Home Medications and Allergies Home Medications Medication Instructions Recorded Confirmed Type a
--- NOTE | 2023-06-26 06:50 | WPDHPUPDATE1 ---
History and Physical Update Update Date/Time: 06/26/23 06:50 History and Physical has been reviewed, including an updated exam of the patient. There are NO changes in the patient's condition. Risks, benefits, and alternatives have been discussed and questions answered. Patient agrees to proceed with procedure.
[2023-06-26] MEDS: FLUTICASONE/SALMETEROL 115-21 MCG INHALER 1 PUFF 2 PUFF INHALATION (08:25)
--- NOTE | 2023-06-26 08:45 | WPDHPUPDATE1 ---
History and Physical Update Update Date/Time: 06/26/23 08:45 History and Physical has been reviewed, including an updated exam of the patient. There are NO changes in the patient's condition. Risks, benefits, and alternatives have been discussed and questions answered. Patient agrees to proceed with procedure.
--- NOTE | 2023-06-26 08:50 | PM.IMPN ---
Progress Note: A&P Assessment and Plan (1) JEANNETTE (acute kidney injury): Code(s): N17.9 - Acute kidney failure, unspecified Status: Acute Assessment and Plan: 06/25/23: admit to med surg likely secondary to obstructive uropathy secondary to nephrolithiasis receiving IV fluids Rowe in place urology consult renal ultrasound in a.m. 06/26/23: Plan for cystoscopy with bilateral ureteral stent placement Urology following Plan for renal ultrasound today Creatinine this morning was 6.7, EGFR 8 (2) Altered mental status: Qualifiers: Altered mental status type: delirium Qualified Code(s): R41.0 - Disorientation, unspecified Code(s): R41.82 - Altered mental status, unspecified Status: Acute Assessment and Plan: 06/25/23: likely secondary to endocrine metabolic encephalopathy CT of the head reviewed supportive care 06/26/23: metabolic encephalopathy likely secondary to acute UTI, obstructing stones, bilateral hydroureteronephrosis Continue neuro checks Patient is agitated, restless and confused Dose of Haldol given Patient has sitter at bedside (3) Hematuria: Qualifiers: Hematuria type: gross Qualified Code(s): R31.0 - Gross hematuria Code(s): R31.9 - Hematuria, unspecified Status: Acute Assessment and Plan: 06/25/23: Rowe in place 06/26/23: Catheter in place UA showing 2+ protein, 3+ urine blood, 1+ leukocytes, greater than 100 urine RBC, with yeast present Urine culture obtained and pending Blood cultures were obtained and are pending (4) Ureterolithiasis: Code(s): N20.1 - Calculus of ureter Status: Acute Assessment and Plan: 06/25/23: urology consult 06/26/23: Urology following Plan for cystoscopy with bilateral ureteral stent placement (5) Parkinsons disease: Code(s): G20 - Parkinson's disease Status: Acute Assessment and Plan: 06/25/23: continue home meds as needed 06/26/23: no change to current treatment plan (6) Psychogenic nonepileptic seizure: Code(s): F44.5 - Conversion disorder with seizures or convulsions Status: Acute Assessment and Plan: 06/25/23: continue home meds as needed 06/26/23: Continue Zonisamide Time Spent With Patient Time with patient: Greater than 35 minutes Subjective Date/time seen: 06/26/23 08:50 Interval history: This is a 62-year-old male with significant past medical history of 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 Workup in the hospital included a head CT which shown a large area of encephalomalacia in the right middle cerebral artery consistent with old infarct, chronic left basal ganglia lacunar infarcts, and age-related changes. Abdomen pelvis CT shows bilateral ureteral obstruction by calculi with moderate bilateral hydroureteronephrosis, multiple calcified small calculi within posterior urinary bladder, compression fracture deformities of T11 and T12. Initial labs showed a white blood cell count of 10.3, hemoglobin 12.1, sodium 135, bicarb 17, anion gap 13, creatinine 5.7, EGFR 10, alk-phos 167. UA was also performed which showed 2+ urine protein, 3+ urine blood, 1+ leukocyte, greater than 100 urine RBCs, and urine yeast was present. Blood in urine cultures were obtained and are pending. EKG was also obtained which showed normal sinus rhythm with 1st degree AV block and a right bundle branch block, QTC 428. Patient received 1 L of normal saline and Rocephin while in the ED. Urology was consulted. On examination today patient is alert, restless, confused, and agitated. Patient was given a one time dose of Haldol. Labs today reveal white blood cell count of 14.6, hemoglobin 12.2, bicarb 13, anion gap 15, creatinine 6.7, EGFR 8. Plan today for cystoscopy with bilateral ureters copy with laser lithotripsy
[2023-06-26] MEDS: ZONISAMIDE 100 MG CAPSULE PO (08:56)
[2023-06-26] MEDS: MONTELUKAST SODIUM 10 MG TABLET PO (08:56)
[2023-06-26] MEDS: PANTOPRAZOLE 40 MG TABLET PO (08:56)
[2023-06-26] MEDS: carBAMazepine 200 MG TABLET PO (08:56)
[2023-06-26] MEDS: BACLOFEN 10 MG TABLET PO (08:57)
[2023-06-26] MEDS: CLOPIDOGREL BISULFATE 75 MG TABLET PO (08:57)
[2023-06-26] MEDS: DOCUSATE SODIUM 100 MG CAPSULE PO (08:57)
[2023-06-26] MEDS: busPIRone HCL 10 MG TABLET PO (08:57)
[2023-06-26] MEDS: MORPHINE SULFATE (*CRX) 2 MG/ML INJ IV PUSH ×2 (09:22→18:34)
--- NOTE | 2023-06-26 13:50 | WPDANESEPPF ---
Anes - Initial Pre Proc Eval Procedure: Operation Date: 06/26/23 13:00 Proposed Procedures p Cystoscopy,Bilateral Ureteroscopy,Laser Lithotripsy,Stone Extraction - David Seth MD Date/Time: 06/26/23 13:50 Surgeon: Antoine Beard MD Pre Op Diagnosis: JEANNETTE,Hemiplegia,Ureterolithiasis Patient Data Age: 62 Gender: M Height: 1.85 m Weight: 77.2 kg Last Vital Signs Temp 97.6 F 06/26/23 12:00 Pulse 73 06/26/23 12:00 Resp 20 06/26/23 12:00 BP 99/81 L 06/26/23 12:00 Pulse Ox 98 06/26/23 12:00 O2 Del Method Room Air 06/26/23 08:28 Allergies Allergy/AdvReac Type Severity Reaction Status Date / Time mushroom Allergy Severe Anaphylaxis Verified 05/22/23 18:58 hydromorphone Allergy Mild Itching Verified 05/22/23 18:58 tramadol Allergy Unknown SEZIR Verified 05/22/23 18:58 fluticasone AdvReac Other Verified 05/22/23 18:58 [From Advair Diskus] salmeterol AdvReac Other Verified 05/22/23 18:58 [From Advair Diskus] Home Medications Medication Instructions Recorded Confirmed Type aspirin 81 mg tablet,delayed 81 mg PO DAILY 02/03/20 06/25/23 History release (Josue Low Dose Aspirin) atorvastatin 40 mg tablet 40 mg PO QHS 02/03/20 06/25/23 History budesonide-formoterol HFA 160 2 puff inhalation Q12H 02/03/20 06/25/23 History mcg-4.5 mcg/actuation aerosol inhaler (Symbicort) carbamazepine 200 mg tablet 200 mg PO TIDWM 02/03/20 06/25/23 History famotidine 20 mg tablet 20 mg PO BID 02/03/20 06/25/23 History fluoxetine 20 mg capsule 80 mg PO HS 02/03/20 06/25/23 History losartan 50 mg tablet 25 mg PO DAILY 02/03/20 06/25/23 History montelukast 10 mg tablet 10 mg PO DAILY 02/03/20 06/25/23 History quetiapine 50 mg tablet 100 mg PO Q8H 02/03/20 06/25/23 History zonisamide 100 mg capsule 100 mg PO BID 02/03/20 06/25/23 History acetaminophen 325 mg tablet 650 mg PO Q6H PRN Pain 05/22/22 06/25/23 History buspirone 10 mg tablet 10 mg PO TID 05/22/22 06/25/23 History clopidogrel 75 mg tablet 75 mg PO QAM 05/22/22 06/25/23 History docusate sodium 100 mg capsule 100 mg PO DAILY 05/22/22 06/25/23 History ergocalciferol (vitamin D2) 50,000 50,000 unit PO WEEKLY 05/22/22 06/25/23 History unit tablet melatonin 3 mg tablet 5 mg PO HS PRN Sleep 05/22/22 06/25/23 History ondansetron HCl 4 mg tablet 4 mg PO Q6H PRN Nausea 05/22/22 06/25/23 History polyethylene glycol 1 ea miscellaneous QAM PRN 05/22/22 06/25/23 History Constipation trazodone 150 mg tablet 150 mg PO QHS 05/22/22 06/25/23 History Fleet Enema 1 applicator RECTAL DAILY PRN 01/21/23 06/25/23 History Constipation baclofen 10 mg tablet 10 mg PO TID 01/21/23 06/25/23 History bisacodyl 10 mg RECTAL DAILY PRN Constipation 01/21/23 06/25/23 History magnesium citrate 296 ml PO QAM PRN Constipation 01/21/23 06/25/23 History magnesium hydroxide 400 mg PO QHS PRN Constipation 01/21/23 06/25/23 History tamsulosin 0.4 mg capsule 0.4 mg PO HS 1 month #30 caps 01/24/23 06/25/23 Rx pantoprazole 40 mg tablet,delayed 40 mg PO DAILY 06/25/23 06/25/23 History release (Protonix) Laboratory Tests 06/25/23 06/26/23 06/26/23 17:15 05:00 05:01 WBC 10.3 H K/mm3 14.6 H K/mm3 (4.5-10.0) (4.5-10.0) RBC 3.77 L M/mm3 3.80 L M/mm3 (4.6-6.20) (4.6-6.20) Hgb 12.1 L g/dL 12.2 L g/dL (14.0-18.0) (14.0-18.0) Hct 36.1 L % 36.2 L % (42.0-52.0) (42.0-52.0) MCV 95.8 fl 95.3 fl (80-100) (80-100) MCH 32.1 pg 32.1 pg (26-34) (26-34) MCHC 33.5 g/dl 33.7 g/dl (32-36) (32-36) RDW 12.4 % 12.1 % (11.5-14.5) (11.5-14.5) Plt Count 253 k/mm3 261 k/mm3 (150-375) (150-375) MPV 10.4 fl 10.2 fl (7.4-10.4) (7.4-10.4) Immature Gran % (Auto) 0.3 % 0.5 % (0-0.5) (0-0.5) Neut % (Auto) 67.7 % 73.6 H % (45.5-73.1) (45.5-73.1) Lymph % (Auto) 17.6 L % 11.8 L % (18.3-44.2) (18.3-44.2) [place] % (Auto) 12.4 H % 13.5 H % (
[2023-06-26] MEDS: LACTATED RINGERS 1,000 ML 30 ML IV CONT (14:17)
--- NOTE | 2023-06-26 16:17 | W.PM.PROC2 ---
Procedure Note - Detailed Date of Procedure 06/26/23 Pre-op Diagnosis JEANNETTE,Hemiplegia,Bilateral obstructing ureteral stones Post-op Diagnosis Same Procedure Performed Cystoscopy, bilateral ureteroscopy with laser lithotripsy, stone extraction bilateral ureteral stent placement Surgeon David Seth MD Anesthesia General Description of Procedure patient is brought to the operative suite was prepped draped in routine sterile fashion while dorsal lithotomy position after the uneventful induction of a general LMA anesthetic. Cystoscopy was undertaken a 19 F rigid cystoscope. He has significant lateral lobe enlargement of the prostate. Bladder shows a very large posterior wall diverticulum with a wide-mouth. . The bladder mucosa appears to be normal without hyperemia. There was no obvious intravesical foreign body or neoplasm. This posterior wall diverticulum comes close to the trigone making identification of ureteral orifices a little challenging. Ultimately I was able to find each. A 0.035 in glidewire was advanced into each ureteral orifice. The distal ureters are dilated with an 8 F 10 F dilator. Bilateral ureteroscopy was undertaken with a short tapered semi-rigid ureteral scope. On the right he has a 5 mm stone which I had the fracture using a 200 micron holmium laser fiber. All fragments removed and a 4.8 F double-J ureteral stent was appropriately positioned. On the left he has a larger stone that required more extensive laser lithotripsy. Ultimately I got it broken up the largest of the pieces were removed. Similar size stent was placed on the left. Scopes wire was removed and an 18 F urethral catheter was placed to drainage Urine Output 60 Drains Yes Packing No Pathology Yes Complications No immediate complications Condition Stable
[2023-06-26] MEDS: fentaNYL CITRATE INJ (*CRX) 100 MCG/2 ML VIAL 25 MCG IV PUSH ×3 (16:40→16:53)
[2023-06-26] MEDS: HALOPERIDOL LACTATE 5 MG/ML VIAL IV PUSH (19:29)
[2023-06-27] VITALS: BP 136/73; PULSE 71; RESP 18; TEMP 36.6; O2SAT 95
[2023-06-27] MEDS: MORPHINE SULFATE (*CRX) 2 MG/ML INJ IV PUSH ×4 (01:10→19:58)
[2023-06-27] MEDS: SODIUM CHLORIDE 0.9% IV 1,000 ML 125 ML IV CONT (01:38)
[2023-06-27 04:00] VITALS: BP 144/78; PULSE 82; RESP 18; TEMP 36.6; O2SAT 92
[2023-06-27 05:59] LABS: Hematocrit 37.8 % (42.0-52.0); Hemoglobin 12.2 g/dL (14.0-18.0); Mean Corpuscular HGB Conc 32.3 g/dl (32-36); Mean Corpuscular Hemoglobin 32.2 pg (26-34); Mean Corpuscular Volume 99.7 fl (80-100); Mean Platelet Volume 10.3 fl (7.4-10.4); Platelet Count Result 264 k/mm3 (150-375); Red Blood Count 3.79 M/mm3 (4.6-6.20); Red Cell Distribution Width 12.7 % (11.5-14.5); White Blood Count 14.5 K/mm3 (4.5-10.0)
[2023-06-27 06:27] LABS: Anion Gap 18 mmol/L (4-12); Blood Urea Nitrogen 47 mg/dL (9-20); Calcium 9.2 mg/dL (8.4-10.2); Carbon Dioxide 11 mmol/L (22-30); Chloride 115 mmol/L (98-107); Estimated CRCL calculation 12 ml/min; Estimated Glomerular Filt Rate 9; Glucose 51 mg/dL (65-110); Potassium 4.7 mmol/L (3.4-5.0); Sodium 144 mmol/L (137-145)
[2023-06-27] MEDS: DEXTROSE 50% 25 GM/50 ML SYRINGE IV PUSH (06:46)
--- NOTE | 2023-06-27 06:58 | WPDUROPN2 ---
Progress Note: A&P Assessment and Plan (1) JEANNETTE (acute kidney injury): Code(s): N17.9 - Acute kidney failure, unspecified Status: Acute (2) Hematuria: Qualifiers: Hematuria type: gross Qualified Code(s): R31.0 - Gross hematuria Code(s): R31.9 - Hematuria, unspecified Status: Acute (3) Ureterolithiasis: Code(s): N20.1 - Calculus of ureter Status: Acute Assessment and Plan: POD #1 bilateral ureteroscopy with stone extraction and stent placement Urine output has improved dramatically but serum creatinine marginally Subjective Subjective Date/Time Seen: 06/27/23 06:58 Interval history: Sleeping, mental status reportedly unchanged Review of Systems Review of Systems: ROS unobtainable: Yes unobtainable due to mental status Exam Const: General: no acute distress Resp: Effort & Inspection: normal respiratory effort GI: Inspection: non-distended GI Palp: No abdominal tenderness and No Guarding due to palpation present (GI) Auscultation: normal bowel sounds Urinary Catheter: Urinary Catheter: urine pink Objective Data Vital Signs Vital Signs: Vital Signs - 24 hr 06/26/23 07:55 06/26/23 08:28 06/26/23 08:00 Temperature 98.3 F Pulse Rate 81 Respiratory Rate 20 Blood Pressure 121/71 Pulse Oximetry 97 98 Oxygen Delivery Room Air Room Air Oxygen Flow Rate 06/26/23 12:00 06/26/23 13:30 06/26/23 16:00 Temperature 97.6 F 99.1 F 97.0 F L Pulse Rate 73 86 76 Respiratory Rate 20 14 8 L Blood Pressure 99/81 L 145/75 H 126/60 Pulse Oximetry 98 98 100 Oxygen Delivery Room Air Simple Face Mask Oxygen Flow Rate 6 06/26/23 16:30 06/26/23 16:45 06/26/23 16:55 Temperature Pulse Rate 75 84 79 Respiratory Rate 12 14 14 Blood Pressure 118/65 137/71 136/65 Pulse Oximetry 99 94 93 Oxygen Delivery Room Air Room Air Room Air Oxygen Flow Rate 06/26/23 16:15 06/26/23 17:00 06/26/23 20:20 Temperature 96.9 F L 98.5 F Pulse Rate 74 75 75 Respiratory Rate 12 18 18 Blood Pressure 120/61 108/62 100/57 L Pulse Oximetry 99 100 91 Oxygen Delivery Simple Face Mask Oxygen Flow Rate 6 06/26/23 20:00 06/27/23 00:00 06/27/23 04:00 Temperature 98 F 98 F Pulse Rate 71 82 Respiratory Rate 18 18 Blood Pressure 136/73 144/78 H Pulse Oximetry 95 92 Oxygen Delivery Room Air Oxygen Flow Rate Intake/Output Intake/Output: Intake & Output 06/24/23 06/25/23 06/26/23 06/27/23 23:59 23:59 23:59 23:59 Intake Total 1050 2321.5 953.3 Output Total 116 339 0648 Balance 650 1716.5 -1296.7 Meds/Results Medications: Active Medications Generic Name Dose Route Start Last Admin Trade Name Freq PRN Reason Stop Dose Admin Acetaminophen 650 mg 06/25/23 19:30 Acetaminophen 325 Mg Tablet PO Q4H PRN Mild Pain (1-3) or Fever Atorvastatin Calcium 40 mg 06/25/23 21:55 06/26/23 23:29 Atorvastatin 40 Mg Tablet PO Not Given QHS KELL Baclofen 10 mg 06/26/23 09:00 06/26/23 18:58 Baclofen 10 Mg Tablet PO Not Given TID KELL Bisacodyl 10 mg 06/25/23 21:57 Bisacodyl 10 Mg Suppository RECTAL DAILY PRN Constipation Buspirone HCl 10 mg 06/26/23 09:00 06/26/23 18:58 Buspirone Hcl 10 Mg Tablet PO Not Given TID KELL Carbamazepine 200 mg 06/26/23 08:00 06/26/23 18:58 Carbamazepine 200 Mg Tablet PO Not Given TIDWM KELL Clopidogrel Bisulfate 75 mg 06/26/23 09:00 06/26/23 08:57 Clopidogrel Bisulfate 75 Mg Tablet PO 75 mg QAM KELL Administration Docusate Sodium 100 mg 06/26/23 09:00 06/26/23 08:57 Docusate Sodium 100 Mg Capsule PO 100 mg DAILY KELL Administration Fluoxetine HCl 80 mg 06/25/23 21:55 06/26/23 23:29 Fluoxetine Hcl 20 Mg Capsule PO Not Given HS KELL Sodium Chloride 1,000 mls @ 125 mls/hr 06/25/23 19:30 06/27/23 01:38 Normal Saline Iv IV CONT 125 mls/hr .Q8H KELL Administration Magnesium Citrate 300 ml 0
[2023-06-27 07:04] LABS: Glucose Point of Care 154 mg/dl (65-105)
--- NOTE | 2023-06-27 07:19 | WPDANESPN ---
Anes - Prog Note Post-Op Date/Time: 06/27/23 07:19 Cardiovascular status: normal Respiratory status: normal Airway patency: other (O2 NC) Mental status: other (confused. Sitter at bedside) Vital Signs: Last Vital Signs Temp 98 F 06/27/23 04:00 Pulse 82 06/27/23 04:00 Resp 18 06/27/23 04:00 BP 144/78 H 06/27/23 04:00 Pulse Ox 92 06/27/23 04:00 O2 Del Method Room Air 06/26/23 20:00 O2 Flow Rate 6 06/26/23 16:15 Pain Score (VAS): 0 unable to assess due to confused I/O: Intake & Output 06/26/23 06/26/23 06/27/23 15:59 23:59 07:59 Intake Total 1000 321.5 953.3 Output Total 545 2250 Balance 1000 -223.5 -1296.7 Laboratory Tests 06/27/23 05:21 06/27/23 05:21 06/27/23 06/27/23 05:21 07:00 WBC 14.5 H RBC 3.79 L Hgb 12.2 L Hct 37.8 L MCV 99.7 MCH 32.2 MCHC 32.3 RDW 12.7 Plt Count 264 MPV 10.3 Sodium 144 Potassium 4.7 Chloride 115 H Carbon Dioxide 11 L Anion Gap 18 H BUN 47 H Creatinine 6.50 H Estim Creat Clear Calc 12 Estimated GFR 9 L Glucose 51 L* POC Capillary Glucose 154 H Calcium 9.2 Microbiology 06/25/23 17:15 Urine Catheterized Urine Culture - Final 06/25/23 23:49 Blood Blood Culture - Preliminary 06/25/23 23:39 Blood Blood Culture - Preliminary Patient Feedback: Patient satisfied with anesthetic care.
--- NOTE | 2023-06-27 07:29 | P.PNIM_ITS ---
Progress Note: A&P Assessment and Plan (1) JEANNETTE (acute kidney injury): Code(s): N17.9 - Acute kidney failure, unspecified Status: Acute Assessment and Plan: 06/25/23: admit to [facility] surg likely secondary to obstructive uropathy secondary to nephrolithiasis receiving IV fluids Rowe in place urology consult renal ultrasound in a.m. 06/26/23: * Plan for cystoscopy with bilateral ureteral stent placement * Urology following * Plan for renal ultrasound today * Creatinine this morning was 6.7, EGFR 8 06/27/23: * Patient is postop day 1 from cystoscopy with bilateral ureteral stent placement * Urology following * Creatinine this morning was 6.5, EGFR was 9 * Continue to trend labs * Urine culture was negative on final read, blood cultures are showing no growth on preliminary read (2) Altered mental status: Qualifiers: Altered mental status type: delirium Qualified Code(s): R41.0 - Disorientation, unspecified Code(s): R41.82 - Altered mental status, unspecified Status: Acute Assessment and Plan: 06/25/23: likely secondary to endocrine metabolic encephalopathy CT of the head reviewed supportive care 06/26/23: * metabolic encephalopathy likely secondary to acute UTI, obstructing stones, bilateral hydroureteronephrosis * Continue neuro checks * Patient is agitated, restless and confused * Dose of Haldol given * Patient has sitter at bedside 06/27/23: * Patient is still confused today * Sitter is still at the bedside * Continue neuro checks * We will repeat urine and blood cultures today (3) Hematuria: Qualifiers: Hematuria type: gross Qualified Code(s): R31.0 - Gross hematuria Code(s): R31.9 - Hematuria, unspecified Status: Acute Assessment and Plan: 06/25/23: Rowe in place 06/26/23: * Catheter in place * UA showing 2+ protein, 3+ urine blood, 1+ leukocytes, greater than 100 urine RBC, with yeast present * Urine culture obtained and pending * Blood cultures were obtained and are pending 06/27/23: * Rowe catheter remains place, urine red with sediment * Urine culture showing no growth on final read, we will repeat urine culture today * Blood cultures are showing no growth on preliminary read (4) Ureterolithiasis: Code(s): N20.1 - Calculus of ureter Status: Acute Assessment and Plan: 06/25/23: urology consult 06/26/23: * Urology following * Plan for cystoscopy with bilateral ureteral stent placement 06/27/23: * Urology following * Patient is postop day 1 from cystoscopy with bilateral ureteral stent placement * Creatinine today is 6.5 (5) Parkinsons disease: Code(s): G20 - Parkinson's disease Status: Acute Assessment and Plan: 06/25/23: continue home meds as needed 06/26/23: * no change to current treatment plan (6) Psychogenic nonepileptic seizure: Code(s): F44.5 - Conversion disorder with seizures or convulsions Status: Acute Assessment and Plan: 06/25/23: continue home meds as needed 06/26/23: * Continue Zonisamide 06/27/23: * No change to current treatment plan Time Spent With Patient Time with patient: 25 - 35 minutes Subjective Date/time seen: 06/27/23 07:29 Interval history: 06/26/23: This is a 62-year-old male with significant past medical history of 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
--- NOTE | 2023-06-27 07:29 | PM.IMPN ---
Progress Note: A&P Assessment and Plan (1) JEANNETTE (acute kidney injury): Code(s): N17.9 - Acute kidney failure, unspecified Status: Acute Assessment and Plan: 06/25/23: admit to [facility] surg likely secondary to obstructive uropathy secondary to nephrolithiasis receiving IV fluids Rowe in place urology consult renal ultrasound in a.m. 06/26/23: Plan for cystoscopy with bilateral ureteral stent placement Urology following Plan for renal ultrasound today Creatinine this morning was 6.7, EGFR 8 06/27/23: Patient is postop day 1 from cystoscopy with bilateral ureteral stent placement Urology following Creatinine this morning was 6.5, EGFR was 9 Continue to trend labs Urine culture was negative on final read, blood cultures are showing no growth on preliminary read (2) Altered mental status: Qualifiers: Altered mental status type: delirium Qualified Code(s): R41.0 - Disorientation, unspecified Code(s): R41.82 - Altered mental status, unspecified Status: Acute Assessment and Plan: 06/25/23: likely secondary to endocrine metabolic encephalopathy CT of the head reviewed supportive care 06/26/23: metabolic encephalopathy likely secondary to acute UTI, obstructing stones, bilateral hydroureteronephrosis Continue neuro checks Patient is agitated, restless and confused Dose of Haldol given Patient has sitter at bedside 06/27/23: Patient is still confused today Sitter is still at the bedside Continue neuro checks We will repeat urine and blood cultures today (3) Hematuria: Qualifiers: Hematuria type: gross Qualified Code(s): R31.0 - Gross hematuria Code(s): R31.9 - Hematuria, unspecified Status: Acute Assessment and Plan: 06/25/23: Rowe in place 06/26/23: Catheter in place UA showing 2+ protein, 3+ urine blood, 1+ leukocytes, greater than 100 urine RBC, with yeast present Urine culture obtained and pending Blood cultures were obtained and are pending 06/27/23: Rowe catheter remains place, urine red with sediment Urine culture showing no growth on final read, we will repeat urine culture today Blood cultures are showing no growth on preliminary read (4) Ureterolithiasis: Code(s): N20.1 - Calculus of ureter Status: Acute Assessment and Plan: 06/25/23: urology consult 06/26/23: Urology following Plan for cystoscopy with bilateral ureteral stent placement 06/27/23: Urology following Patient is postop day 1 from cystoscopy with bilateral ureteral stent placement Creatinine today is 6.5 (5) Parkinsons disease: Code(s): G20 - Parkinson's disease Status: Acute Assessment and Plan: 06/25/23: continue home meds as needed 06/26/23: no change to current treatment plan (6) Psychogenic nonepileptic seizure: Code(s): F44.5 - Conversion disorder with seizures or convulsions Status: Acute Assessment and Plan: 06/25/23: continue home meds as needed 06/26/23: Continue Zonisamide 06/27/23: No change to current treatment plan Time Spent With Patient Time with patient: 25 - 35 minutes Subjective Date/time seen: 06/27/23 07:29 Interval history: 06/26/23: This is a 62-year-old male with significant past medical history of 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 Workup in the hospital included a head CT which shown a large area of encephalomalacia in the right middle cerebral artery consistent with old infarct, chronic left basal ganglia lacunar infarcts, and age-related changes. Abdomen pelvis CT shows bilateral ureteral obstruction by calculi with moderate bilateral hydroureteronephrosis, multiple calcified small calculi within posterior urinary bladder, compression fracture deformities of T11 and T12. Initial labs showed a white blood cell count of 1
[2023-06-27] MEDS: ZONISAMIDE 100 MG CAPSULE PO (07:55)
[2023-06-27] MEDS: carBAMazepine 200 MG TABLET PO (07:55)
[2023-06-27 07:59] LABS: Glucose Point of Care 79 mg/dl (65-105)
[2023-06-27 08:00] VITALS: BP 110/55; PULSE 78; RESP 20; TEMP 36.6; O2SAT 100
[2023-06-27] MEDS: DEXTROSE 5%/0.9% SOD CHL 1,000 ML 125 ML IV CONT ×2 (08:13→16:42)
[2023-06-27 11:55] LABS: Glucose Point of Care 76 mg/dl (65-105)
[2023-06-27 12:00] VITALS: BP 146/54; PULSE 89; RESP 20; TEMP 37.5; O2SAT 97
[2023-06-27] MEDS: levETIRAcetam 500MG/NACL 100ML 500 MG/100 ML BAG 400 MG IVPB ×2 (12:21→20:00)
[2023-06-27 16:00] VITALS: BP 137/60; PULSE 76; RESP 20; TEMP 36.7; O2SAT 99
[2023-06-27 17:11] LABS: Anion Gap 14 mmol/L (4-12); Blood Urea Nitrogen 37 mg/dL (9-20); Calcium 9.2 mg/dL (8.4-10.2); Carbon Dioxide 14 mmol/L (22-30); Chloride 121 mmol/L (98-107); Estimated CRCL calculation 19 ml/min; Estimated Glomerular Filt Rate 15; Glucose 89 mg/dL (65-110); Potassium 4.1 mmol/L (3.4-5.0); Sodium 149 mmol/L (137-145)
[2023-06-27] MEDS: SODIUM BICARBONATE 8.4% 50 MEQ in DEXTROSE 5% 1,000 ML 1,000 ML 125 MEQ IV CONT (18:09)
[2023-06-27 18:17] LABS: Glucose Point of Care 98 mg/dl (65-105)
[2023-06-27 20:00] VITALS: BP 147/65; PULSE 73; RESP 22; TEMP 36.6; O2SAT 97
[2023-06-27] MEDS: traZODone HCL 50 MG TABLET 150 MG PO (22:00)
[2023-06-27] MEDS: QUEtiapine FUMARATE 100 MG TABLET PO (22:31)
[2023-06-28] VITALS: BP 114/54; PULSE 61; RESP 18; TEMP 36.4; O2SAT 94
[2023-06-28 00:34] LABS: Glucose Point of Care 130 mg/dl (65-105)
[2023-06-28] MEDS: SODIUM BICARBONATE 8.4% 50 MEQ in DEXTROSE 5% 1,000 ML 1,000 ML 125 MEQ IV CONT ×3 (02:26→22:00)
[2023-06-28 04:00] VITALS: BP 118/51; PULSE 56; RESP 20; TEMP 36.6; O2SAT 95
[2023-06-28 06:13] LABS: Hematocrit 31.6 % (42.0-52.0); Hemoglobin 10.6 g/dL (14.0-18.0); Mean Corpuscular HGB Conc 33.5 g/dl (32-36); Mean Corpuscular Hemoglobin 32.2 pg (26-34); Mean Platelet Volume 9.6 fl (7.4-10.4); Platelet Count Result 226 k/mm3 (150-375); Red Blood Count 3.29 M/mm3 (4.6-6.20); Red Cell Distribution Width 12.4 % (11.5-14.5); White Blood Count 12.4 K/mm3 (4.5-10.0)
[2023-06-28 06:18] LABS: Glucose Point of Care 117 mg/dl (65-105)
[2023-06-28] MEDS: QUEtiapine FUMARATE 100 MG TABLET PO ×3 (06:41→21:23)
[2023-06-28 06:47] LABS: Anion Gap 9 mmol/L (4-12); Blood Urea Nitrogen 25 mg/dL (9-20); Calcium 8.7 mg/dL (8.4-10.2); Carbon Dioxide 19 mmol/L (22-30); Chloride 117 mmol/L (98-107); Estimated CRCL calculation 30 ml/min; Estimated Glomerular Filt Rate 26; Glucose 117 mg/dL (65-110); Potassium 3.2 mmol/L (3.4-5.0); Sodium 145 mmol/L (137-145)
--- NOTE | 2023-06-28 07:43 | P.PNIM_ITS ---
Progress Note: A&P Assessment and Plan (1) JEANNETTE (acute kidney injury): Code(s): N17.9 - Acute kidney failure, unspecified Status: Acute Assessment and Plan: 06/25/23: admit to [facility] surg likely secondary to obstructive uropathy secondary to nephrolithiasis receiving IV fluids Rowe in place urology consult renal ultrasound in a.m. 06/26/23: * Plan for cystoscopy with bilateral ureteral stent placement * Urology following * Plan for renal ultrasound today * Creatinine this morning was 6.7, EGFR 8 06/27/23: * Patient is postop day 1 from cystoscopy with bilateral ureteral stent placement * Urology following * Creatinine this morning was 6.5, EGFR was 9 * Continue to trend labs * Urine culture was negative on final read, blood cultures are showing no growth on preliminary read 06/28/23: * Patient is postop day 2 from cystoscopy with bilateral ureteral stent placement * Urology is following * Creatinine this morning is 2.5, EGFR is 26 * Patient currently on bicarb infusion and we will continue for 1 more day * Continue to trend labs * 2nd set of Blood and urine cultures are pending (2) Altered mental status: Qualifiers: Altered mental status type: delirium Qualified Code(s): R41.0 - Disorientation, unspecified Code(s): R41.82 - Altered mental status, unspecified Status: Acute Assessment and Plan: 06/25/23: likely secondary to endocrine metabolic encephalopathy CT of the head reviewed supportive care 06/26/23: * metabolic encephalopathy likely secondary to acute UTI, obstructing stones, bilateral hydroureteronephrosis * Continue neuro checks * Patient is agitated, restless and confused * Dose of Haldol given * Patient has sitter at bedside 06/27/23: * Patient is still confused today * Sitter is still at the bedside * Continue neuro checks * We will repeat urine and blood cultures today 06/28/23: * Continue neuro checks * Continue sitter at the bedside * Continue with Mitten restraints * Urine and blood cultures are pending (3) Hematuria: Qualifiers: Hematuria type: gross Qualified Code(s): R31.0 - Gross hematuria Code(s): R31.9 - Hematuria, unspecified Status: Acute Assessment and Plan: 06/25/23: Rowe in place 06/26/23: * Catheter in place * UA showing 2+ protein, 3+ urine blood, 1+ leukocytes, greater than 100 urine RBC, with yeast present * Urine culture obtained and pending * Blood cultures were obtained and are pending 06/27/23: * Rowe catheter remains place, urine red with sediment * Urine culture showing no growth on final read, we will repeat urine culture today * Blood cultures are showing no growth on preliminary read 06/28/23: * 2nd set of urine and blood cultures are pending * Continue with Rocephin * Rowe catheter in place draining dark antonio urine (4) Ureterolithiasis: Code(s): N20.1 - Calculus of ureter Status: Acute Assessment and Plan: 06/25/23: urology consult 06/26/23: * Urology following * Plan for cystoscopy with bilateral ureteral stent placement 06/27/23: * Urology following * Patient is postop day 1 from cystoscopy with bilateral ureteral stent placement * Creatinine today is 6.5 06/28/23: * Urology following * Patient is postop day 2 from cystoscopy and bilateral ureteral stent placement * Creatinine today is down to 2.5 (5) Parkinsons disease: Code(s): G20 - Parkinson's disease Status: Acu
--- NOTE | 2023-06-28 07:43 | PM.IMPN ---
Progress Note: A&P Assessment and Plan (1) JEANNETTE (acute kidney injury): Code(s): N17.9 - Acute kidney failure, unspecified Status: Acute Assessment and Plan: 06/25/23: admit to med surg likely secondary to obstructive uropathy secondary to nephrolithiasis receiving IV fluids Rowe in place urology consult renal ultrasound in a.m. 06/26/23: Plan for cystoscopy with bilateral ureteral stent placement Urology following Plan for renal ultrasound today Creatinine this morning was 6.7, EGFR 8 06/27/23: Patient is postop day 1 from cystoscopy with bilateral ureteral stent placement Urology following Creatinine this morning was 6.5, EGFR was 9 Continue to trend labs Urine culture was negative on final read, blood cultures are showing no growth on preliminary read 06/28/23: Patient is postop day 2 from cystoscopy with bilateral ureteral stent placement Urology is following Creatinine this morning is 2.5, EGFR is 26 Patient currently on bicarb infusion and we will continue for 1 more day Continue to trend labs 2nd set of Blood and urine cultures are pending (2) Altered mental status: Qualifiers: Altered mental status type: delirium Qualified Code(s): R41.0 - Disorientation, unspecified Code(s): R41.82 - Altered mental status, unspecified Status: Acute Assessment and Plan: 06/25/23: likely secondary to endocrine metabolic encephalopathy CT of the head reviewed supportive care 06/26/23: metabolic encephalopathy likely secondary to acute UTI, obstructing stones, bilateral hydroureteronephrosis Continue neuro checks Patient is agitated, restless and confused Dose of Haldol given Patient has sitter at bedside 06/27/23: Patient is still confused today Sitter is still at the bedside Continue neuro checks We will repeat urine and blood cultures today 06/28/23: Continue neuro checks Continue sitter at the bedside Continue with Mitten restraints Urine and blood cultures are pending (3) Hematuria: Qualifiers: Hematuria type: gross Qualified Code(s): R31.0 - Gross hematuria Code(s): R31.9 - Hematuria, unspecified Status: Acute Assessment and Plan: 06/25/23: Rowe in place 06/26/23: Catheter in place UA showing 2+ protein, 3+ urine blood, 1+ leukocytes, greater than 100 urine RBC, with yeast present Urine culture obtained and pending Blood cultures were obtained and are pending 06/27/23: Rowe catheter remains place, urine red with sediment Urine culture showing no growth on final read, we will repeat urine culture today Blood cultures are showing no growth on preliminary read 06/28/23: 2nd set of urine and blood cultures are pending Continue with Rocephin Rowe catheter in place draining dark antonio urine (4) Ureterolithiasis: Code(s): N20.1 - Calculus of ureter Status: Acute Assessment and Plan: 06/25/23: urology consult 06/26/23: Urology following Plan for cystoscopy with bilateral ureteral stent placement 06/27/23: Urology following Patient is postop day 1 from cystoscopy with bilateral ureteral stent placement Creatinine today is 6.5 06/28/23: Urology following Patient is postop day 2 from cystoscopy and bilateral ureteral stent placement Creatinine today is down to 2.5 (5) Parkinsons disease: Code(s): G20 - Parkinson's disease Status: Acute Assessment and Plan: 06/25/23: continue home meds as needed 06/26/23: no change to current treatment plan (6) Psychogenic nonepileptic seizure: Code(s): F44.5 - Conversion disorder with seizures or convulsions Status: Acute Assessment and Plan: 06/25/23: continue home meds as needed 06/26/23: Continue Zonisamide 06/27/23: No change to current treatment plan Time Spent With Patient Time with patient: 25 - 35 minutes Subjective Date/time seen: 06/28/23 07:43 Interval history: 06/26/23:
[2023-06-28 08:00] VITALS: BP 145/66; PULSE 59; RESP 16; TEMP 36.4; O2SAT 93
[2023-06-28] MEDS: MONTELUKAST SODIUM 10 MG TABLET PO (08:36)
[2023-06-28] MEDS: busPIRone HCL 10 MG TABLET PO ×3 (08:36→17:48)
[2023-06-28] MEDS: BACLOFEN 10 MG TABLET PO ×3 (08:36→17:48)
[2023-06-28] MEDS: levETIRAcetam 500MG/NACL 100ML 500 MG/100 ML BAG 400 MG IVPB ×2 (08:36→21:23)
[2023-06-28 11:47] LABS: Glucose Point of Care 118 mg/dl (65-105)
--- NOTE | 2023-06-28 11:54 | PCPTNOTE ---
PT called ordering provider to discuss orders. As patient is functioning as baseline and per chart review appears to be a total assist in a senior care setting, skilled PT does not appear appropriate at this time. Ordering provider allows discharge of orders and nursing notified.
[2023-06-28 12:00] VITALS: BP 140/67; PULSE 60; RESP 16; TEMP 36.6; O2SAT 94
[2023-06-28 16:00] VITALS: BP 134/69; PULSE 68; RESP 24; TEMP 36.7; O2SAT 96
[2023-06-28 18:09] LABS: Glucose Point of Care 152 mg/dl (65-105)
[2023-06-28 18:50] LABS: Anion Gap 8 mmol/L (4-12); Blood Urea Nitrogen 18 mg/dL (9-20); Calcium 8.5 mg/dL (8.4-10.2); Carbon Dioxide 24 mmol/L (22-30); Chloride 109 mmol/L (98-107); Estimated CRCL calculation 42 ml/min; Estimated Glomerular Filt Rate 38; Glucose 108 mg/dL (65-110); Potassium 2.8 mmol/L (3.4-5.0); Sodium 141 mmol/L (137-145)
--- NOTE | 2023-06-28 19:13 | PC.NURSE ---
On 06/28/23, the CODING QUALITY ANALYST, Pratima, provided care and completed [facility]. I have reviewed the CODING QUALITY ANALYST's documentation and agree with the findings.
[2023-06-28 20:00] VITALS: BP 129/69; PULSE 73; RESP 18; TEMP 37.4; O2SAT 97
[2023-06-28] MEDS: POTASSIUM CHLORIDE 20 MEQ PACKET (FOR LIQUID) 40 MEQ PO (21:19)
[2023-06-28] MEDS: KCL 20 MEQ/SW 100 ML 100 ML 50 MEQ IVPB (21:20)
[2023-06-28] MEDS: traZODone HCL 50 MG TABLET 150 MG PO (21:22)
[2023-06-28] MEDS: MORPHINE SULFATE (*CRX) 2 MG/ML INJ IV PUSH (21:22)
[2023-06-28] MEDS: ATORVASTATIN 40 MG TABLET PO (21:23)
[2023-06-28] MEDS: FLUoxetine HCL 20 MG CAPSULE 80 MG PO (21:23)
[2023-06-28] MEDS: TAMSULOSIN HCL 0.4 MG CAPSULE PO (21:23)
[2023-06-29] VITALS: BP 127/68; PULSE 71; RESP 16; TEMP 37.2; O2SAT 98
[2023-06-29 02:35] LABS: Glucose Point of Care 107 mg/dl (65-105)
[2023-06-29] MEDS: SODIUM CHLORIDE 0.9% IV 500 ML 10 ML (03:41)
[2023-06-29 04:00] VITALS: BP 123/64; PULSE 61; RESP 18; TEMP 37.3; O2SAT 99
[2023-06-29 05:16] LABS: Hematocrit 35.9 % (42.0-52.0); Hemoglobin 11.6 g/dL (14.0-18.0); Mean Corpuscular HGB Conc 32.3 g/dl (32-36); Mean Corpuscular Hemoglobin 32.1 pg (26-34); Mean Corpuscular Volume 99.4 fl (80-100); Mean Platelet Volume 10.5 fl (7.4-10.4); Platelet Count Result 249 k/mm3 (150-375); Red Blood Count 3.61 M/mm3 (4.6-6.20); Red Cell Distribution Width 12.6 % (11.5-14.5); White Blood Count 12.8 K/mm3 (4.5-10.0)
[2023-06-29 05:24] LABS: Anion Gap 14 mmol/L (4-12); Blood Urea Nitrogen 14 mg/dL (9-20); Calcium 8.3 mg/dL (8.4-10.2); Carbon Dioxide 14 mmol/L (22-30); Chloride 113 mmol/L (98-107); Estimated CRCL calculation 53 ml/min; Estimated Glomerular Filt Rate 51; Glucose 90 mg/dL (65-110); Potassium 3.5 mmol/L (3.4-5.0); Sodium 141 mmol/L (137-145)
[2023-06-29] MEDS: QUEtiapine FUMARATE 100 MG TABLET PO ×3 (06:48→21:23)
[2023-06-29] MEDS: SODIUM BICARBONATE 8.4% 50 MEQ in DEXTROSE 5% 1,000 ML 1,000 ML 125 MEQ IV CONT ×2 (07:15→16:29)
[2023-06-29 08:00] VITALS: BP 130/85; PULSE 63; RESP 16; TEMP 36.7; O2SAT 97
[2023-06-29] MEDS: ONDANSETRON INJ 4 MG/2 ML VIAL IV PUSH (08:56)
[2023-06-29] MEDS: busPIRone HCL 10 MG TABLET PO ×3 (09:44→16:32)
[2023-06-29] MEDS: BACLOFEN 10 MG TABLET PO ×3 (09:44→16:32)
[2023-06-29] MEDS: MONTELUKAST SODIUM 10 MG TABLET PO (09:44)
[2023-06-29] MEDS: levETIRAcetam 500MG/NACL 100ML 500 MG/100 ML BAG 400 MG IVPB ×2 (09:45→21:23)
--- NOTE | 2023-06-29 11:38 | P.PNIM_ITS ---
Progress Note: A&P Assessment and Plan (1) JEANNETTE (acute kidney injury): Code(s): N17.9 - Acute kidney failure, unspecified Status: Acute Assessment and Plan: 06/25/23: admit to [facility] surg likely secondary to obstructive uropathy secondary to nephrolithiasis receiving IV fluids Rowe in place urology consult renal ultrasound in a.m. 06/26/23: * Plan for cystoscopy with bilateral ureteral stent placement * Urology following * Plan for renal ultrasound today * Creatinine this morning was 6.7, EGFR 8 06/27/23: * Patient is postop day 1 from cystoscopy with bilateral ureteral stent placement * Urology following * Creatinine this morning was 6.5, EGFR was 9 * Continue to trend labs * Urine culture was negative on final read, blood cultures are showing no growth on preliminary read 06/28/23: * Patient is postop day 2 from cystoscopy with bilateral ureteral stent placement * Urology is following * Creatinine this morning is 2.5, EGFR is 26 * Patient currently on bicarb infusion and we will continue for 1 more day * Continue to trend labs * 2nd set of Blood and urine cultures are pending 06/29/23: * Patient is postop day 3 from cystoscopy with bilateral ureteral stent placement * Urology is following * Creatinine continues to improve and is down to 1.4 and estimated GFR is 51 * Continue to trend labs * Continue bicarb drip, bicarb level 14 * 2nd set of blood and urine cultures are showing no growth * Antibiotics were discontinued (2) Altered mental status: Qualifiers: Altered mental status type: delirium Qualified Code(s): R41.0 - Disorientation, unspecified Code(s): R41.82 - Altered mental status, unspecified Status: Acute Assessment and Plan: 06/25/23: likely secondary to endocrine metabolic encephalopathy CT of the head reviewed supportive care 06/26/23: * metabolic encephalopathy likely secondary to acute UTI, obstructing stones, bilateral hydroureteronephrosis * Continue neuro checks * Patient is agitated, restless and confused * Dose of Haldol given * Patient has sitter at bedside 06/27/23: * Patient is still confused today * Sitter is still at the bedside * Continue neuro checks * We will repeat urine and blood cultures today 06/28/23: * Continue neuro checks * Continue sitter at the bedside * Continue with Mitten restraints * Urine and blood cultures are pending 06/29/23: * Continue neuro checks * Urine and blood cultures are showing no growth (3) Hematuria: Qualifiers: Hematuria type: gross Qualified Code(s): R31.0 - Gross hematuria Code(s): R31.9 - Hematuria, unspecified Status: Acute Assessment and Plan: 06/25/23: Rowe in place 06/26/23: * Catheter in place * UA showing 2+ protein, 3+ urine blood, 1+ leukocytes, greater than 100 urine RBC, with yeast present * Urine culture obtained and pending * Blood cultures were obtained and are pending 06/27/23: * Rowe catheter remains place, urine red with sediment * Urine culture showing no growth on final read, we will repeat urine culture today * Blood cultures are showing no growth on preliminary read 06/28/23: * 2nd set of urine and blood cultures are pending * Continue with Rocephin * Rowe catheter in place draining dark antonio urine 06/29/23: * 2nd set of urine and blood cultures are showing no growth * Antibiotics discontinued * (4) Ureterolithiasis: Code(s): N20.1 - Calculus of ureter Status:
--- NOTE | 2023-06-29 11:38 | PM.IMPN ---
Progress Note: A&P Assessment and Plan (1) JEANNETTE (acute kidney injury): Code(s): N17.9 - Acute kidney failure, unspecified Status: Acute Assessment and Plan: 06/25/23: admit to med surg likely secondary to obstructive uropathy secondary to nephrolithiasis receiving IV fluids Rowe in place urology consult renal ultrasound in a.m. 06/26/23: Plan for cystoscopy with bilateral ureteral stent placement Urology following Plan for renal ultrasound today Creatinine this morning was 6.7, EGFR 8 06/27/23: Patient is postop day 1 from cystoscopy with bilateral ureteral stent placement Urology following Creatinine this morning was 6.5, EGFR was 9 Continue to trend labs Urine culture was negative on final read, blood cultures are showing no growth on preliminary read 06/28/23: Patient is postop day 2 from cystoscopy with bilateral ureteral stent placement Urology is following Creatinine this morning is 2.5, EGFR is 26 Patient currently on bicarb infusion and we will continue for 1 more day Continue to trend labs 2nd set of Blood and urine cultures are pending 06/29/23: Patient is postop day 3 from cystoscopy with bilateral ureteral stent placement Urology is following Creatinine continues to improve and is down to 1.4 and estimated GFR is 51 Continue to trend labs Continue bicarb drip, bicarb level 14 2nd set of blood and urine cultures are showing no growth Antibiotics were discontinued (2) Altered mental status: Qualifiers: Altered mental status type: delirium Qualified Code(s): R41.0 - Disorientation, unspecified Code(s): R41.82 - Altered mental status, unspecified Status: Acute Assessment and Plan: 06/25/23: likely secondary to endocrine metabolic encephalopathy CT of the head reviewed supportive care 06/26/23: metabolic encephalopathy likely secondary to acute UTI, obstructing stones, bilateral hydroureteronephrosis Continue neuro checks Patient is agitated, restless and confused Dose of Haldol given Patient has sitter at bedside 06/27/23: Patient is still confused today Sitter is still at the bedside Continue neuro checks We will repeat urine and blood cultures today 06/28/23: Continue neuro checks Continue sitter at the bedside Continue with Mitten restraints Urine and blood cultures are pending 06/29/23: Continue neuro checks Urine and blood cultures are showing no growth (3) Hematuria: Qualifiers: Hematuria type: gross Qualified Code(s): R31.0 - Gross hematuria Code(s): R31.9 - Hematuria, unspecified Status: Acute Assessment and Plan: 06/25/23: Rowe in place 06/26/23: Catheter in place UA showing 2+ protein, 3+ urine blood, 1+ leukocytes, greater than 100 urine RBC, with yeast present Urine culture obtained and pending Blood cultures were obtained and are pending 06/27/23: Rowe catheter remains place, urine red with sediment Urine culture showing no growth on final read, we will repeat urine culture today Blood cultures are showing no growth on preliminary read 06/28/23: 2nd set of urine and blood cultures are pending Continue with Rocephin Rowe catheter in place draining dark antonio urine 06/29/23: 2nd set of urine and blood cultures are showing no growth Antibiotics discontinued (4) Ureterolithiasis: Code(s): N20.1 - Calculus of ureter Status: Acute Assessment and Plan: 06/25/23: urology consult 06/26/23: Urology following Plan for cystoscopy with bilateral ureteral stent placement 06/27/23: Urology following Patient is postop day 1 from cystoscopy with bilateral ureteral stent placement Creatinine today is 6.5 06/28/23: Urology following Patient is postop day 2 from cystoscopy and bilateral ureteral stent placement Creatinine today is down to 2.5 06/29/23: Urology following Patient postop day 3 from cystoscopy and bilateral ureteral stent
[2023-06-29 12:00] VITALS: BP 145/72; PULSE 72; RESP 16; TEMP 36.6; O2SAT 97
[2023-06-29] MEDS: DICLOFENAC SODIUM 1% 100 GM GEL (*BKC) 1 APPLIC TOPICAL ×3 (13:00→21:44)
[2023-06-29 14:00] LABS: Glucose Point of Care 280 mg/dl (65-105)
--- NOTE | 2023-06-29 15:36 | PC.NURSE ---
On 06/29/23, the MARKETING RESEARCH ANALYST, Pratima, provided care and completed [facility] documentation on this patient. I have reviewed the MARKETING RESEARCH ANALYST's documentation and agree with the findings.
[2023-06-29 16:00] VITALS: BP 135/72; PULSE 78; RESP 16; TEMP 36.4; O2SAT 97
[2023-06-29] MEDS: MORPHINE SULFATE (*CRX) 2 MG/ML INJ IV PUSH (16:26)
[2023-06-29 17:22] LABS: Anion Gap 7 mmol/L (4-12); Blood Urea Nitrogen 11 mg/dL (9-20); Calcium 8.1 mg/dL (8.4-10.2); Carbon Dioxide 23 mmol/L (22-30); Chloride 108 mmol/L (98-107); Estimated CRCL calculation 67 ml/min; Estimated Glomerular Filt Rate > 60; Glucose 126 mg/dL (65-110); Potassium 3.1 mmol/L (3.4-5.0); Sodium 138 mmol/L (137-145)
[2023-06-29 19:09] LABS: Glucose Point of Care 130 mg/dl (65-105)
[2023-06-29 20:00] VITALS: BP 128/67; PULSE 66; RESP 14; TEMP 36.5; O2SAT 94
[2023-06-29] MEDS: FLUoxetine HCL 20 MG CAPSULE 80 MG PO (21:23)
[2023-06-29] MEDS: TAMSULOSIN HCL 0.4 MG CAPSULE PO (21:23)
[2023-06-29] MEDS: ATORVASTATIN 40 MG TABLET PO (21:23)
[2023-06-29] MEDS: traZODone HCL 50 MG TABLET 150 MG PO (21:23)
[2023-06-30 03:14] VITALS: BP 113/61; PULSE 63; RESP 16; TEMP 36.5; O2SAT 94
[2023-06-30 04:34] LABS: Glucose Point of Care 103 mg/dl (65-105)
[2023-06-30] MEDS: QUEtiapine FUMARATE 100 MG TABLET PO ×2 (06:09→13:07)
--- NOTE | 2023-06-30 06:11 | WPDUROPN2 ---
Progress Note: A&P Assessment and Plan (1) Ureterolithiasis: Code(s): N20.1 - Calculus of ureter Status: Acute Assessment and Plan: Bilateral ureteral stents need to be removed 10-14 days / I'll arrange. Subjective Subjective Date/Time Seen: 06/30/23 06:11 Interval history: Mental status and renal function much improved over weekend Review of Systems Cardiovascular: Cardiovascular: Denies chest pain, Denies lightheadedness, Denies palpitations and Denies dyspnea Respiratory: Respiratory: Denies dyspnea Gastrointestinal: Gastrointestinal: Denies diarrhea, Denies nausea and Denies vomiting Genitourinary: Genitourinary: Denies hematuria and Denies dysuria Endocrine: Endocrine: Denies palpitations Exam Const: General: no acute distress Resp: Effort & Inspection: normal respiratory effort GI: Inspection: non-distended GI Palp: No abdominal tenderness and No Guarding due to palpation present (GI) Auscultation: normal bowel sounds Objective Data Vital Signs Vital Signs: Vital Signs - 24 hr 06/29/23 08:00 06/29/23 09:35 06/29/23 12:00 Temperature 98.1 F 97.8 F Pulse Rate 63 72 Respiratory Rate 16 16 Blood Pressure 130/85 145/72 H Pulse Oximetry 97 97 Oxygen Delivery Room Air 06/29/23 16:00 06/29/23 20:00 06/30/23 03:14 Temperature 97.6 F 97.7 F 97.7 F Pulse Rate 78 66 63 Respiratory Rate 16 14 16 Blood Pressure 135/72 128/67 113/61 Pulse Oximetry 97 94 94 Oxygen Delivery Intake/Output Intake/Output: Intake & Output 06/27/23 06/28/23 06/29/23 06/30/23 23:59 23:59 23:59 23:59 Intake Total 2153.3 4704.2 3040 Output Total 5732 1834 7105 1950 [facility] -[id number] 2104.2 -935 -1950 Meds/Results Medications: Active Medications Generic Name Dose Route Start Last Admin Trade Name Freq PRN Reason Stop Dose Admin Acetaminophen 650 mg 06/25/23 19:30 Acetaminophen 325 Mg Tablet PO Q4H PRN Mild Pain (1-3) or Fever Atorvastatin Calcium 40 mg 06/25/23 21:55 06/29/23 21:23 Atorvastatin 40 Mg Tablet PO 40 mg QHS KELL Administration Baclofen 10 mg 06/26/23 09:00 06/29/23 16:32 Baclofen 10 Mg Tablet PO 10 mg TID KELL Administration Bisacodyl 10 mg 06/25/23 21:57 Bisacodyl 10 Mg Suppository RECTAL DAILY PRN Constipation Buspirone HCl 10 mg 06/26/23 09:00 06/29/23 16:32 Buspirone Hcl 10 Mg Tablet PO 10 mg TID KELL Administration Carbamazepine 200 mg 06/26/23 08:00 06/27/23 11:17 Carbamazepine 200 Mg Tablet PO Not Given TIDWM KELL Clopidogrel Bisulfate 75 mg 06/26/23 09:00 06/27/23 08:05 Clopidogrel Bisulfate 75 Mg Tablet PO Not Given QAM KELL Dextrose 12.5 gm 06/27/23 15:34 Dextrose 50% 25 Gm/50 Ml Syringe IV PUSH PRN PRN Hypoglycemia Protocol Diclofenac Sodium 1 applic 06/29/23 13:00 06/29/23 21:44 Diclofenac Sodium 1% 100 Gm Gel (*Bkc) TOPICAL 1 applic QID KELL Administration Docusate Sodium 100 mg 06/26/23 09:00 06/29/23 09:45 Docusate Sodium 100 Mg Capsule PO Not Given DAILY KELL Fluoxetine HCl 80 mg 06/25/23 21:55 06/29/23 21:23 Fluoxetine Hcl 20 Mg Capsule PO 80 mg HS [facility] Administration Glucagon 1 mg 06/27/23 15:34 Glucagon For Inj 1 Mg Vial IM PRN PRN Hypoglycemia Protocol Glucose 15 gm 06/27/23 15:34 Glucose Oral Gel 15 Gm Of Glucse In 37.5 Gm Tube PO PRN PRN Hypoglycemia Protocol Levetiracetam 500 mg in 100 mls @ 400 mls/hr 06/27/23 12:10 06/29/23 21:23 Keppra Iv IVPB 400 mls/hr Q12HR KELL Administration Dextrose 1,000 mls @ 100 mls/hr 06/27/23 15:34 Dextrose 5% 1,000 Ml IVPB PRN PRN Hypoglycemia Protocol Sodium Bicarbonate 50 meq/ 1,050 mls @ 125 mls/hr 06/27/23 17:30 06/29/23 16:29 Dextrose IV CONT 125 mls/hr .Q8H24M KELL Administration Magnesium Citrate 300 ml 06/25/23 21:57 Magnesium Citrate 300 Ml Btl PO QAM KS
[2023-06-30 06:13] LABS: Hematocrit 34.2 % (42.0-52.0); Hemoglobin 11.2 g/dL (14.0-18.0); Mean Corpuscular HGB Conc 32.7 g/dl (32-36); Mean Corpuscular Hemoglobin 32.4 pg (26-34); Mean Corpuscular Volume 98.8 fl (80-100); Mean Platelet Volume 10.5 fl (7.4-10.4); Platelet Count Result 244 k/mm3 (150-375); Red Blood Count 3.46 M/mm3 (4.6-6.20); Red Cell Distribution Width 12.6 % (11.5-14.5); White Blood Count 10.1 K/mm3 (4.5-10.0)
[2023-06-30 06:22] LABS: Anion Gap 4 mmol/L (4-12); Blood Urea Nitrogen 10 mg/dL (9-20); Calcium 8.3 mg/dL (8.4-10.2); Carbon Dioxide 25 mmol/L (22-30); Chloride 109 mmol/L (98-107); Estimated CRCL calculation 67 ml/min; Estimated Glomerular Filt Rate > 60; Glucose 101 mg/dL (65-110); Potassium 3.1 mmol/L (3.4-5.0); Sodium 138 mmol/L (137-145)
[2023-06-30 07:11] VITALS: BP 124/71; PULSE 71; RESP 24; TEMP 36.9; O2SAT 99
[2023-06-30] MEDS: PANTOPRAZOLE 40 MG TABLET PO (08:17)
[2023-06-30] MEDS: busPIRone HCL 10 MG TABLET PO ×3 (08:17→16:29)
[2023-06-30] MEDS: MONTELUKAST SODIUM 10 MG TABLET PO (08:17)
[2023-06-30] MEDS: levETIRAcetam 500MG/NACL 100ML 500 MG/100 ML BAG 400 MG IVPB (08:17)
[2023-06-30] MEDS: BACLOFEN 10 MG TABLET PO ×3 (08:17→16:30)
[2023-06-30] MEDS: DOCUSATE SODIUM 100 MG CAPSULE PO (08:17)
[2023-06-30] MEDS: POTASSIUM CHLORIDE 20 MEQ PACKET (FOR LIQUID) 40 MEQ PO (10:23)
[2023-06-30] MEDS: DICLOFENAC SODIUM 1% 100 GM GEL (*BKC) 1 APPLIC TOPICAL ×3 (10:24→16:30)
[2023-06-30 11:35] LABS: Glucose Point of Care 282 mg/dl (65-105)
[2023-06-30 12:00] VITALS: BP 121/77; PULSE 70; RESP 20; TEMP 36.7; O2SAT 96
--- NOTE | 2023-06-30 13:25 | PM.DS ---
DS: Admitting Diagnosis Discharge Date 06/30/23 Admitting Diagnosis JEANNETTE AMS Hematuria Ureterolithiasis Parkinson's disease Psychogenic nonepileptic seizure DS: Discharge Diagnosis Discharge Diagnosis (1) JEANNETTE (acute kidney injury): Code(s): N17.9 - Acute kidney failure, unspecified Status: Acute (2) Altered mental status: Qualifiers: Altered mental status type: delirium Qualified Code(s): R41.0 - Disorientation, unspecified Code(s): R41.82 - Altered mental status, unspecified Status: Acute (3) Hematuria: Qualifiers: Hematuria type: gross Qualified Code(s): R31.0 - Gross hematuria Code(s): R31.9 - Hematuria, unspecified Status: Acute (4) Ureterolithiasis: Code(s): N20.1 - Calculus of ureter Status: Acute (5) Parkinsons disease: Code(s): G20 - Parkinson's disease Status: Acute (6) Psychogenic nonepileptic seizure: Code(s): F44.5 - Conversion disorder with seizures or convulsions Status: Acute DS: Summary Hospital Course Reason for hospitalization: JEANNETTE AMS Hematuria Ureterolithiasis Parkinson's disease Psychogenic nonepileptic seizure Hospital Course: 06/26/23: This is a 62-year-old male with significant past medical history of 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 Workup in the hospital included a head CT which shown a large area of encephalomalacia in the right middle cerebral artery consistent with old infarct, chronic left basal ganglia lacunar infarcts, and age-related changes.? Abdomen pelvis CT shows bilateral ureteral obstruction by calculi with moderate bilateral hydroureteronephrosis, multiple calcified small calculi within posterior urinary bladder, compression fracture deformities of T11 and T12.? Initial labs showed a white blood cell count of 10.3, hemoglobin 12.1, sodium 135, bicarb 17, anion gap 13, creatinine 5.7, EGFR 10, alk-phos 167.? UA was also performed which showed 2+ urine protein, 3+ urine blood, 1+ leukocyte, greater than 100 urine RBCs, and urine yeast was present.? Blood in urine cultures were obtained and are pending.? EKG was also obtained which showed normal sinus rhythm with 1st degree AV block and a right bundle branch block, QTC 428.? Patient received 1 L of normal saline and Rocephin while in the ED. Urology was consulted. On examination today patient is alert, restless, confused, and agitated. Patient was given a one time dose of Haldol.? Labs today reveal white blood cell count of 14.6, hemoglobin 12.2, bicarb 13, anion gap 15, creatinine 6.7, EGFR 8.? Plan today for cystoscopy with bilateral ureters copy with laser lithotripsy and stone extraction, possible bilateral retrograde pyelography and bilateral ureteral stent placement with Urology Services. 06/27/23: Labs today show white blood cell count of 14.5, hemoglobin 12.2, bicarb 11, anion gap 18, BUN 47, creatinine 6.5, blood sugar this morning was 51 on the lab this was repeated and was 154, EGFR 9.? Blood cultures are showing no growth on preliminary read.? Urine culture showing no growth on final read.? We will repeat this again today along with blood cultures.? Patient had cystoscopy with bilateral ureteral stent placement yesterday with Urology.? Vital signs are, stable he is afebrile, and he is currently air.? On examination today patient is still confused with a sitter at the bedside.? He does have a Rowe in place which is draining red colored urine with sediment. 06/28/23: Patient is more alert and oriented x2 today which is much improved. He has his mitten restraint off and currently on Bicarb infusion. Labs today show white blood cell count 12.4, hemoglobin 10.6, potassium 3.2, bicarb 19, creatinine 2 point EGFR is 26, blood sugars ranging 117-130.? Second set of blood in urine cultures are pending.? Urine culture on 06/25/2023 i
[2023-06-30 16:09] LABS: SARS-CoV-2 RNA PCR Negative (Negative)
[2023-06-30 17:49] LABS: Glucose Point of Care 125 mg/dl (65-105)
--- NOTE | 2023-07-04 11:35 | PC.NURSE ---
Blood cx are negative.
== END 2023-06-30 18:00 | DRG 659 ==
LOC: ANHED 19:30 → ANH3MEDSUR 20:07
PROVIDERS: Urology; Admitting Provider Internal Medicine; Emergency Provider Family Medicine; PCP Family Medicine; Visit Provider Nurse Practitioner Acute Care
PROC: 0TC78ZZ Extirpation of Matter from Left Ureter, Via Natural or Artificial Opening Endoscopic (ICD-10-PCS; CPT 52352; principal; 2023-06-26 13:00)
DX: N13.2 Hydronephrosis with renal and ureteral calculous obstruction (principal); G93.41 Metabolic encephalopathy; I69.354 Hemiplegia and hemiparesis following cerebral infarction affecting left non-dominant side; N17.9 Acute kidney failure, unspecified; R31.0 Gross hematuria; E55.9 Vitamin D deficiency, unspecified; E78.5 Hyperlipidemia, unspecified; F44.5 Conversion disorder with seizures or convulsions; F41.8 Other specified anxiety disorders; F12.90 Cannabis use, unspecified, uncomplicated; G20.A1 Parkinson's disease without dyskinesia, without mention of fluctuations; I10 Essential (primary) hypertension; I35.9 Nonrheumatic aortic valve disorder, unspecified; I25.10 Atherosclerotic heart disease of native coronary artery without angina pectoris; I44.0 Atrioventricular block, first degree; J43.9 Emphysema, unspecified; R33.9 Retention of urine, unspecified; Z79.82 Long term (current) use of aspirin; Z79.02 Long term (current) use of antithrombotics/antiplatelets; Z95.1 Presence of aortocoronary bypass graft; Z99.3 Dependence on wheelchair; Z95.4 Presence of other heart-valve replacement; Z90.49 Acquired absence of other specified parts of digestive tract; Z87.891 Personal history of nicotine dependence
CPT/HCPCS: 36415; 70450; 74018; 74176; 74420; 80048; 80053; 81001; 82365; 82948; 85025; 85027; 85610; 87040; 87086; 87635; 88300; 93005; 94640; 96361; 96365; 96375; 99285; A9270; C1769; C2617; J0360; J0696; J1596; J1630; J1953; J2060; J2270; J2371; J2405; J2704; J3010; J3480; J7030; J7040; J7042; J7070; J7120

== ENCOUNTER 2023-07-05 12:25 | Observation (INO) | payer MEDICARE, MEDICAID, SELFPAY ==
[2023-07-05] VITALS (30 sets, daily range): BP systolic 97–129; BP diastolic 53–75; PULSE 51–63; RESP 10–19; TEMP 36.3–37; O2SAT 98–100
--- NOTE | ~2023-07-05 | CT_ITS ---
EXAMINATION: CTA chest PE protocol DATE: 07/05/2023 15:47 INDICATION: chest pain TECHNIQUE: Computed tomography angiography (CTA) of the chest was performed with 100 mL Omnipaque-350 intravenous contrast timed to evaluate the pulmonary arteries. Coronal maximum intensity projection 3D-reconstructions were created by the technologist. The dose-length product (DLP) was 763.33 mGy-cm. Automated exposure control and iterative reconstruction technique were employed. COMPARISON: X-ray chest same date; CT cap 01/21/2023. FINDINGS: Lung parenchyma and airways: Severe emphysematous change. Dependent atelectasis.. Pleura: Unremarkable. Thoracic inlet, axillae and chest wall: Bilateral symmetric gynecomastia. Thoracic aorta: No significant dilation. No dissection. Mediastinum: Normal. Heart and pericardium: Aortic valve replacement.. Coronary artery calcifications: . Upper abdomen: No significant finding. Bones: New mild superior endplate deformity at T11. Chronic stable mild superior endplate deformity a t T12. Pulmonary arteries: Study quality: Motion artifact limits evaluation of the subsegmental bilateral lo wer lobe vessels. No pulmonary emboli detected. IMPRESSION: Motion artifact limits evaluation of the subsegmental left lower lobe arteries bilaterally. No CT alexandra dence of acute pulmonary embolus in the remaining pulmonary arteries. New mild superior plate deformity at T11, correlate for pain/tenderness. Otherwise, no process detected in the chest. Reviewed, dictated and finalized at location K. IMPRESSION: Motion artifact limits evaluation of the subsegmental left lower lobe arteries bilaterally. No CT evidence of acute pulmonary embolus in the remaining pulmona ry arteries. New mild superior plate deformity at T11, correlate for pain/tenderness. Otherwise, no process detected in the chest.
--- NOTE | ~2023-07-05 | XR_ITS ---
XR chest 1V portable DATE: 07/05/2023 13:29 INDICATION: Chest pain for one are, sharp, substernal, left-sided TECHNIQUE: Portable upright AP chest on 07/05/2023 at 1324 hours COMPARISON: 01/21/2023 CT chest abdomen pelvis 01/20/2023 portable AP chest FINDINGS: Status post sternotomy and coronary artery bypass graft surgery. Normal heart size. No estiven r or mediastinal enlargement. Chronic interstitial changes are noted particularly in the lower lung zones, left greater than right. Emphysematous changes are evident. No pulmonary consolidation, pleural effusion, pulmonary vascular congestion or pneumothorax. Osteopenia. IMPRESSION: Status post CABG Chronic interstitial changes particularly in the lower lung zones Emphysema Reviewed, dictated and finalized at location A.
--- NOTE | 2023-07-05 12:20 | ED.CHESTPAIN ---
HPI - Chest Pain General Chief Complaint: Chest Pain Stated Complaint: CHEST PAIN Source: patient History of Present Illness HPI narrative: 62 years old white male came from group home by ambulance complaining of left chest / central sharp pain started while lying down in bed within 1 hour prior to arrival to the emergency room. 10/03, denies any radiation of pain, shortness of breath, back pain, nausea or vomiting. History of hypertension, hyperlipidemia, coronary artery disease, CABG 2 years ago, CVA 1 year ago with left hemiplegia, currently on aspirin. Patient denies aggravating or relieving factors. Patient smokes cigarettes, does not drink or use drugs Related Data Home Medications Medication Instructions Recorded Confirmed aspirin 81 mg tablet,delayed 81 mg PO DAILY 02/03/20 06/25/23 release (Josue Low Dose Aspirin) atorvastatin 40 mg tablet 40 mg PO QHS 02/03/20 06/25/23 budesonide-formoterol HFA 160 2 puff inhalation Q12H 02/03/20 06/25/23 mcg-4.5 mcg/actuation aerosol inhaler (Symbicort) carbamazepine 200 mg tablet 200 mg PO TIDWM 02/03/20 06/25/23 famotidine 20 mg tablet 20 mg PO BID 02/03/20 06/25/23 fluoxetine 20 mg capsule 80 mg PO HS 02/03/20 06/25/23 losartan 50 mg tablet 25 mg PO DAILY 02/03/20 06/25/23 montelukast 10 mg tablet 10 mg PO DAILY 02/03/20 06/25/23 quetiapine 50 mg tablet 100 mg PO Q8H 02/03/20 06/25/23 zonisamide 100 mg capsule 100 mg PO BID 02/03/20 06/25/23 acetaminophen 325 mg tablet 650 mg PO Q6H PRN Pain 05/22/22 06/25/23 buspirone 10 mg tablet 10 mg PO TID 05/22/22 06/25/23 clopidogrel 75 mg tablet 75 mg PO QAM 05/22/22 06/25/23 docusate sodium 100 mg capsule 100 mg PO DAILY 05/22/22 06/25/23 ergocalciferol (vitamin D2) 50,000 50,000 unit PO WEEKLY 05/22/22 06/25/23 unit tablet melatonin 3 mg tablet 5 mg PO HS PRN Sleep 05/22/22 06/25/23 ondansetron HCl 4 mg tablet 4 mg PO Q6H PRN Nausea 05/22/22 06/25/23 polyethylene glycol 1 ea miscellaneous QAM PRN 05/22/22 06/25/23 Constipation trazodone 150 mg tablet 150 mg PO QHS 05/22/22 06/25/23 Fleet Enema 1 applicator RECTAL DAILY PRN 01/21/23 06/25/23 Constipation baclofen 10 mg tablet 10 mg PO TID 01/21/23 06/25/23 bisacodyl 10 mg RECTAL DAILY PRN Constipation 01/21/23 06/25/23 magnesium citrate 296 ml PO QAM PRN Constipation 01/21/23 06/25/23 magnesium hydroxide 400 mg PO QHS PRN Constipation 01/21/23 06/25/23 pantoprazole 40 mg tablet,delayed 40 mg PO DAILY 06/25/23 06/25/23 release (Protonix) Allergies Allergy/AdvReac Type Severity Reaction Status Date / Time mushroom Allergy Severe Anaphylaxis Verified 06/26/23 14:24 hydromorphone Allergy Mild Itching Verified 06/26/23 14:24 tramadol Allergy Unknown SEZIR Verified 06/26/23 14:24 fluticasone AdvReac Other Verified 06/26/23 14:24 [From Advair Diskus] salmeterol AdvReac Other Verified 06/26/23 14:24 [From Advair Diskus] Review of Systems Review of Systems: All systems reviewed & are unremarkable except as noted in HPI and below PMFSH Past Medical History Medical History Anxiety Aortic valve disease Cerebrovascular accident (05/01/22) CTA head and neck showed 10 occlusion of the right distal ICA and M1. He was not a candidate for tPA with concomitant diagnosis of bacteremia and endocarditis. Depression with anxiety Esophagitis History of esophageal dilatation Hyperlipidemia Hypertension Kidney stones Major depressive disorder Parkinson's disease Psychogenic nonepileptic seizure Seizure Skin cancer Valvular heart disease Vitamin D deficiency Surgical History Surgical History History of aortic valve replacement History of appendectomy History of open reduction and internal fixation (ORIF) procedure Repair left ankle fracture. History of spinal surgery Family History Family History Other Unkn
--- NOTE | 2023-07-05 12:37 | ECG_ITS ---
SEE SCANNED COPY FOR CONFIRMED REPORT MTDD
[2023-07-05 13:05] LABS: Basophils Absolute Auto 0.1 K/mm3 (0.0-0.1); Basophils Percent Auto 0.7 % (0.2-1.2); Eosinophils Absolute Auto 0.4 K/mm3 (0-0.3); Hematocrit 34.2 % (42.0-52.0); Hemoglobin 11.2 g/dL (14.0-18.0); Immature Granulocyte Absolute 0.05 K/mm3 (0.00-0.031); Immature Granulocyte Percent A 0.6 % (0-0.5); Lymphocytes Absolute Auto 2.24 K/mm3 (0.9-3.2); Lymphocytes Percent Auto 27.8 % (18.3-44.2); Mean Corpuscular HGB Conc 32.7 g/dl (32-36); Mean Corpuscular Hemoglobin 32.2 pg (26-34); Mean Corpuscular Volume 98.3 fl (80-100); Mean Platelet Volume 10.4 fl (7.4-10.4); Monocytes Absolute Auto 0.9 K/mm3 (0.1-0.6); Monocytes Percent Auto 11.7 % (2.6-8.5); Neutrophils Absolute Auto 4.4 K/mm3 (1.3-6.7); Neutrophils Percent Auto 54.2 % (45.5-73.1); Platelet Count Result 460 k/mm3 (150-375); Red Blood Count 3.48 M/mm3 (4.6-6.20); Red Cell Distribution Width 12.5 % (11.5-14.5); White Blood Count 8.1 K/mm3 (4.5-10.0)
[2023-07-05 13:13] LABS: INR 1.1; Prothrombin Time 14.7 Seconds (11.1-14.7)
[2023-07-05 13:14] LABS: Alanine Aminotransferase 25 U/L (6-50); Alkaline Phosphatase 216 U/L (38-126); Anion Gap 8 mmol/L (4-12); Aspartate Amino Transferase 28 U/L (17-59); Bilirubin,Total 0.5 mg/dL (0.2-1.3); Blood Urea Nitrogen 11 mg/dL (9-20); Calcium 9.2 mg/dL (8.4-10.2); Carbon Dioxide 24 mmol/L (22-30); Chloride 105 mmol/L (98-107); Estimated CRCL calculation 59 ml/min; Estimated Glomerular Filt Rate > 60; Glucose 100 mg/dL (65-110); Lipase 162 U/L (23-300); Partial Thromboplastin Time 33.7 Seconds (22.3-36.8); Potassium 3.7 mmol/L (3.4-5.0); Sodium 137 mmol/L (137-145)
[2023-07-05 13:25] LABS: Troponin I < 0.012 ng/mL (0.000-0.034)
[2023-07-05 13:28] LABS: D Dimer 2.42 ug/mL (<0.48)
--- NOTE | 2023-07-05 15:31 | ECG_ITS ---
SEE SCANNED COPY FOR CONFIRMED REPORT MTDD
[2023-07-05 16:07] LABS: Troponin I < 0.012 ng/mL (0.000-0.034)
--- NOTE | 2023-07-05 17:05 | PM.IMHP ---
H&P: HPI History of Present Illness Date/Time: 07/05/23 17:05 Chief Complaint: Chest Pain Narrative: 62 y/o M presents here with chest pain with PMH of CVA w/ w/o residual deficits (2022), esophagitis, esophageal dilation, HLD, HTN, kidney stones, MDD, Parkinson's, psychogenic nonepileptic seizures, CABG, and valvular heart disease. Patient presents here via EMS from [facility] for further evaluation of acute onset chest pain. Patient describes the chest pain as XX, radiating/nonradiating, constant/intermittent and aggravated alleviated by XX. 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 Patient has history of CAD and CABG x # (year). Follows with cardiology? Currently endorsing XX. Denying XX. Initial VS at presentation: 98? F, HR 59, RR 17, 103/63, and 98% on RA. ED workup showed: No leukocytosis, hemoglobin 11.2 (at baseline), platelet count 460, INR 1.1, D-dimer elevated, no significant electrolyte derangements, creatinine 1.2 and GFR >60. Troponin negative x2. Initial EKG showed sinus rhythm with sinus arrhythmia, intraventricular conduction delay, consider type 3 Brugada pattern. Review of Systems Review of Systems: All systems reviewed & are unremarkable except as noted in HPI and below PMFSH Past Medical History Medical History Anxiety Aortic valve disease Cerebrovascular accident (05/01/22) CTA head and neck showed 10 occlusion of the right distal ICA and M1. He was not a candidate for tPA with concomitant diagnosis of bacteremia and endocarditis. Depression with anxiety Esophagitis History of esophageal dilatation Hyperlipidemia Hypertension Kidney stones Major depressive disorder Parkinson's disease Psychogenic nonepileptic seizure Seizure Skin cancer Valvular heart disease Vitamin D deficiency Surgical History Surgical History History of aortic valve replacement History of appendectomy History of open reduction and internal fixation (ORIF) procedure Repair left ankle fracture. History of spinal surgery Family History Family History Other Unknown family medical history Social History Social History Social History: Surrogate medical decision maker: Angeline Peresnn, friend. Code status: Full code. Smoking packs per day: 0.75 Smoking cigarettes per day: 15.0 Years smoked: 47 Smoking pack-years: 35.25 Smoking status: Unknown if ever smoked Second hand tobacco smoke exposure: Yes Alcohol intake: never Alcohol use details: Recovering alcoholic. Substance use: unknown Substance use type: marijuana Other substance usage details: Smokes marijuana nightly for sleep. Former crack cocaine user. Do You Feel Safe in your Home?: Yes Lack of Transportation: YES Lack of Food: Never True Current Housing: I Have Housing Concerned About Future Housing: No Difficulty Paying Gas/Electric Bills: No Difficulty Paying for Meds: No Currently Unemployed: No Education: Don't Know Difficulty w/ Childcare or Family Care: No Additional living arrangements comments: Prior to his stroke he was living with his integrity manager in [place]. Additional occupation/education comments: Disabled. Previously worked for [employer]. Spiritual care concerns: No Meds Home Medications and Allergies Home Medications Medication Instructions Recorded Confirmed Type aspirin 81 mg tablet,delayed 81 mg PO DAILY 02/03/20 06/25/23 History release (Josue Low Dose Aspirin) atorvastatin 40 mg tablet 40 mg PO QHS 02/03/20 06/25/23 History budesonide-formoterol HFA 160 2 puff inhalation Q12H 02/03/20 06/25/23 History mcg-4.5 mcg/actuation aerosol inhaler (Symbicort) carbamazepine 200 mg tablet 200 mg PO TIDWM 02/03/20 06/25/23 History famotidine 20 mg table
--- NOTE | 2023-07-05 17:20 | PC.NURSE ---
PT IS REFUSING TO STAY IN THE HOSPITAL. DR KU WENT IN TO SPEAK WITH HIM AND HE WISHES TO LEAVE THE HOSPITAL AGAINST MEDICAL ADVICE.
--- NOTE | 2023-07-05 17:25 | PC.NURSE ---
PT WAS ADVISED THAT SINCE HE IS LEAVING AGAINST MEDICAL ADVICE THAT HIS INSURANCE COMPANY MAY NOT COVER THE COST OF TRANSPORTATION BACK TO [facility]. UNDERSTANDING VERBALIZED.
--- NOTE | 2023-07-05 18:35 | PC.NURSE ---
ANT WHARTON [phone] IS PT'S POA AND IS HERE TO VISIT PT. PT HAS NOW BEEN TALKED INTO STAYING IN THE HOSPITAL TO DETERMINE WHAT IS WRONG WITH HIM. [facility] CALLED BACK AND STATED THAT THEY COULDN'T ACCEPT THE PT BACK TO THE FACILITY IF HE AMA'S. ANT WILL LET THE PT KNOW.
--- NOTE | 2023-07-05 19:00 | ECG_ITS ---
SEE SCANNED COPY FOR CONFIRMED REPORT MTDD
--- NOTE | 2023-07-05 21:09 | ADMGEN ---
This patient, Blaine Salvador, was admitted to IMU Room 211-01. Patient/family oriented to hospital policies and general routines including ID bracelet, bed and alarms, visiting hours, pain management, procedures, bathroom and other care routines, personal items, smoking policy, room service/diet, and visiting hours. Information on how to activate the Rapid Response Team has been discussed. Patient/Family are encouraged to report perceived risks to care and to ask questions if they do not understand what they are told or what they should do.
[2023-07-05 21:28] LABS: Troponin I < 0.012 ng/mL (0.000-0.034)
[2023-07-06] VITALS (10 sets, daily range): BP systolic 91–109; BP diastolic 58–68; PULSE 60–71; RESP 16; TEMP 36.4–36.5; O2SAT 99–100
--- NOTE | 2023-07-06 01:17 | ADMGEN ---
This patient, Blaine Salvador, was admitted to IMU Room 211-01 on 07/05/23 at 2016. Patient/family oriented to hospital policies and general routines including ID bracelet, bed and alarms, visiting hours, pain management, procedures, bathroom and other care routines, personal items, smoking policy, room service/diet, and visiting hours. Information on how to activate the Rapid Response Team has been discussed. Patient/Family are encouraged to report perceived risks to care and to ask questions if they do not understand what they are told or what they should do.
--- NOTE | 2023-07-06 08:03 | PM.IMHP ---
H&P: HPI History of Present Illness Date/Time: 07/06/23 08:03 [facility] Past Medical History Medical History Anxiety Aortic valve disease Cerebrovascular accident (05/01/22) CTA head and neck showed 10 occlusion of the right distal ICA and M1. He was not a candidate for tPA with concomitant diagnosis of bacteremia and endocarditis. Depression with anxiety Esophagitis History of esophageal dilatation Hyperlipidemia Hypertension Kidney stones Major depressive disorder Parkinson's disease Psychogenic nonepileptic seizure Seizure Skin cancer Valvular heart disease Vitamin D deficiency Surgical History Surgical History History of aortic valve replacement History of appendectomy History of open reduction and internal fixation (ORIF) procedure Repair left ankle fracture. History of spinal surgery Family History Family History (Updated 07/05/23 @ 20:52 by Roberta Johnson RN) Other No pertinent family history Social History Social History Social History: Surrogate medical decision maker: Angeline Perkins, friend. Code status: Full code. Smoking packs per day: 0.25 Smoking cigarettes per day: 5.0 Years smoked: 40 Smoking pack-years: 10.00 Smoking status: Current every day smoker Tobacco type: cigarettes Second hand tobacco smoke exposure: Yes Additional smoking assessment comments: used to be heavy smoker Alcohol intake: former Alcohol use details: Recovering alcoholic. Substance use: former Substance use type: marijuana and crack/cocaine Other substance usage details: Smokes marijuana nightly for sleep. Former crack cocaine user. 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 Additional occupation/education comments: Disabled. Previously worked for [employer] Adhysteria. Spiritual care concerns: No ([place]) Meds Home Medications and Allergies Home Medications Medication Instructions Recorded Confirmed Type aspirin 81 mg tablet,delayed 81 mg PO DAILY 02/03/20 07/05/23 History release (Josue Low Dose Aspirin) atorvastatin 40 mg tablet 40 mg PO QHS 02/03/20 07/05/23 History budesonide-formoterol HFA 160 2 puff inhalation Q12H 02/03/20 07/05/23 History mcg-4.5 mcg/actuation aerosol inhaler (Symbicort) carbamazepine 200 mg tablet 200 mg PO TIDWM 02/03/20 07/05/23 History famotidine 20 mg tablet 20 mg PO BID 02/03/20 07/05/23 History fluoxetine 20 mg capsule 80 mg PO HS 02/03/20 07/05/23 History losartan 50 mg tablet 25 mg PO DAILY 02/03/20 07/05/23 History montelukast 10 mg tablet 10 mg PO DAILY 02/03/20 07/05/23 History quetiapine 50 mg tablet 100 mg PO Q8H 02/03/20 07/05/23 History zonisamide 100 mg capsule 100 mg PO BID 02/03/20 07/05/23 History acetaminophen 325 mg tablet 650 mg PO Q6H PRN Pain 05/22/22 07/05/23 History buspirone 10 mg tablet 10 mg PO TID 05/22/22 07/05/23 History clopidogrel 75 mg tablet 75 mg PO QAM 05/22/22 07/05/23 History docusate sodium 100 mg capsule 100 mg PO DAILY 05/22/22 07/05/23 History ergocalciferol (vitamin D2) 50,000 50,000 unit PO WEEKLY 05/22/22 07/05/23 History unit tablet melatonin 3 mg tablet 5 mg PO HS PRN Sleep 05/22/22 07/05/23 History ondansetron HCl 4 mg tablet 4 mg PO Q6H PRN Nausea 05/22/22 07/05/23 History polyethylene glycol 1 ea miscellaneous QAM PRN 05/22/22 07/05/23 History Constipation trazodone 150 mg tablet 150 mg PO QHS
[2023-07-06] MEDS: ASPIRIN 81 MG ENTERIC TABLET PO (09:54)
[2023-07-06] MEDS: FAMOTIDINE 20 MG TABLET PO (09:55)
[2023-07-06] MEDS: PANTOPRAZOLE 40 MG TABLET PO (09:55)
[2023-07-06] MEDS: busPIRone HCL 10 MG TABLET PO ×2 (09:55→13:55)
[2023-07-06] MEDS: MONTELUKAST SODIUM 10 MG TABLET PO (09:55)
[2023-07-06] MEDS: LOSARTAN POTASSIUM 25 MG TABLET PO (09:55)
[2023-07-06] MEDS: CLOPIDOGREL BISULFATE 75 MG TABLET PO (09:55)
[2023-07-06] MEDS: QUEtiapine FUMARATE 100 MG TABLET PO (09:55)
[2023-07-06] MEDS: BACLOFEN 10 MG TABLET PO ×2 (09:55→13:54)
[2023-07-06] MEDS: DOCUSATE SODIUM 100 MG CAPSULE PO (09:55)
[2023-07-06] MEDS: carBAMazepine 200 MG TABLET PO ×2 (09:56→13:54)
[2023-07-06] MEDS: ZONISAMIDE 100 MG CAPSULE PO (09:56)
--- NOTE | 2023-07-06 10:40 | PM.SD2 ---
Same Day Admit/Disch: HPI History of Present Illness Chief complaint: Chest Pain Narrative: Blaine Salvador is a 62 year old male resident of a local nursing facility status post CVA with left-sided paralysis and contractures also with a history of COPD anxiety depression insomnia seizures, conversion disorder and hyperlipidemia admitted to the hospital after episode of left-sided chest pain nonradiating. Patient had 3- troponins. He did have positive D-dimer but CTA was negative for PE. No lower extremity or upper extremity swelling to suggest DVT. Patient initially wanted to leave against medical advice from the emergency department but his POA informed him he had to stay. Overnight patient had an episode of vomiting at 3:00 a.m. states now that he feels much better no recurrent chest pain no difficulty breathing. Imaging shows significant signs of emphysema no consolidation or large pleural effusion. EKG without ischemic changes. Based on description of pain low likelihood of cardiac cause. Offered to keep patient admitted for another day for Lexiscan stress but he states he would rather return to his nursing facility. If patient returns with recurrent chest pain would recommend stress test. [facility] Past Medical History Medical History Anxiety Aortic valve disease Cerebrovascular accident (05/01/22) CTA head and neck showed 10 occlusion of the right distal ICA and M1. He was not a candidate for tPA with concomitant diagnosis of bacteremia and endocarditis. Depression with anxiety Esophagitis History of esophageal dilatation Hyperlipidemia Hypertension Kidney stones Major depressive disorder Parkinson's disease Psychogenic nonepileptic seizure Seizure Skin cancer Valvular heart disease Vitamin D deficiency Surgical History Surgical History History of aortic valve replacement History of appendectomy History of open reduction and internal fixation (ORIF) procedure Repair left ankle fracture. History of spinal surgery Family History Family History Other No pertinent family history Social History Social History Social History: Surrogate medical decision maker: Angeline Perkins, friend. Code status: Full code. Smoking packs per day: 0.25 Smoking cigarettes per day: 5.0 Years smoked: 40 Smoking pack-years: 10.00 Smoking status: Current every day smoker Tobacco type: cigarettes Second hand tobacco smoke exposure: Yes Additional smoking assessment comments: used to be heavy smoker Alcohol intake: former Alcohol use details: Recovering alcoholic. Substance use: former Substance use type: marijuana and crack/cocaine Other substance usage details: Smokes marijuana nightly for sleep. Former crack cocaine user. 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 Additional occupation/education comments: Disabled. Previously worked for [employer]. 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
[2023-07-06] MEDS: FLUTICASONE/SALMETEROL 115-21 MCG INHALER 1 PUFF 2 PUFF INHALATION (10:43)
== END 2023-07-06 14:30 ==
LOC: ANHED 16:24 → ANHIMU 17:22 → ANHED 18:51 → ANHIMU 20:41
PROVIDERS: Admitting Provider Internal Medicine; Emergency Provider Emergency Medicine; PCP Family Medicine; Visit Provider Internal Medicine
DX: R07.9 Chest pain, unspecified (principal); I10 Essential (primary) hypertension; E78.5 Hyperlipidemia, unspecified; I25.10 Atherosclerotic heart disease of native coronary artery without angina pectoris; I69.359 Hemiplegia and hemiparesis following cerebral infarction affecting unspecified side; Z95.1 Presence of aortocoronary bypass graft; F17.210 Nicotine dependence, cigarettes, uncomplicated; G20.A1 Parkinson's disease without dyskinesia, without mention of fluctuations; E55.9 Vitamin D deficiency, unspecified; F41.8 Other specified anxiety disorders; Z79.82 Long term (current) use of aspirin; Z79.51 Long term (current) use of inhaled steroids; Z79.02 Long term (current) use of antithrombotics/antiplatelets; Z95.4 Presence of other heart-valve replacement; F12.90 Cannabis use, unspecified, uncomplicated; F10.21 Alcohol dependence, in remission; Z53.29 Procedure and treatment not carried out because of patient's decision for other reasons
CPT/HCPCS: 36415; 71045; 71275; 80053; 83690; 84484; 85025; 85380; 85610; 85730; 93005; 94640; 99285; A9270; G0378; Q9967

== ENCOUNTER 2023-07-14 15:06 | Inpatient (IN) | payer MEDICARE, MEDICAID, SELFPAY ==
[2023-07-14] VITALS (26 sets, daily range): BP systolic 60–185; BP diastolic 33–129; PULSE 85–106; RESP 16–25; TEMP 36.4; O2SAT 95–97
--- NOTE | ~2023-07-14 | CT_ITS ---
EXAMINATION: CT abdomen pelvis w con DATE: 07/14/2023 19:06 INDICATION: Leukocytosis, hypotension and diarrhea TECHNIQUE: Computed tomography (CT) of the abdomen and pelvis was performed with 100 mL Omnipaque-350 intravenous contrast. Automated exposure control and iterative reconstruction technique were employe d. The dose-length product was 542.31 mGy-cm. COMPARISON: 06/25/2023 FINDINGS: Mild emphysema. Regular peripheral septal line thickening with honeycombing at the bilateral lung bas es consistent with usual interstitial pneumonia (UIP) pattern chronic interstitial lung disease. Hear t size is normal. Atherosclerotic coronary artery calcification is. No pericardial or pleural effusio n. Median sternotomy wires likely related to prior coronary artery bypass grafting. Prominent calcifi ed nodules in the right hepatic lobe consistent with old granulomatous disease. Spleen,, bilateral ad renal glands and right kidney are normal. Tiny dystrophic pancreatic calcifications consistent with s equela of chronic pancreatitis. There are bilateral internal ureteral stents in expected positions wi th loops formed in the bilateral renal pelvises sees and in the partially decompressed bladder. There are few small calcifications at the bilateral renal estiven likely combination of nonobstructing renal stones and/or atherosclerotic calcifications. There are a couple small stones along the mid left inte rnal ureteral stent the more proximal measuring 3 mm and a second slightly more distal measuring 2 mm . No hydronephrosis. There are geographic regions of decreased parenchymal enhancement throughout the left kidney with some surrounding perinephric stranding consistent with pyelonephritis. Rowe cathet er and some gas within the bladder. There are some diffuse bladder wall thickening and some stranding in the surrounding fat consistent with cystitis. Moderate to large haustral scattered throughout the colon which could be seen with constipation. No dilated bowel to suggest obstruction. No free intrap eritoneal gas or fluid. No pathologically enlarged abdominal or pelvic lymphadenopathy. There is calc ified atherosclerosis of the aorta and many of the other arteries. Likely subacute mild compression f ractures at T11 and T12, unchanged since most recent study but new since 01/21/2023. Bilateral pars i ntra-articular is defects at L5 with callus formation on the right. IMPRESSION: 1. Cystitis and left pyelonephritis. 2. No hydronephrosis post placement of bilateral internal ureteral stents which are in expected posit ion. Bilateral nephrolithiasis with couple 2 and 3 mm stones along side the left ureter. 3. Emphysema with UIP pattern chronic interstitial lung disease at the bilateral lung bases. 4. Moderate to large amount of colonic stool which could be seen with constipation. Reviewed, dictated and finalized at location A. IMPRESSION: 1. Cystitis and left pyelonephritis. 2. No hydronephrosis post placement of bilateral internal ureteral stents which are in expected position. Bilateral nephrolithiasis with couple 2 and 3 mm sto gage along side the left ureter. 3. Emphysema with UIP pattern chronic interstitial lung disease at the bilatera l lung bases. 4. Moderate to large amount of colonic stool which could be seen with constipat ion.
--- NOTE | ~2023-07-14 | XR_ITS ---
EXAMINATION: XR chest 1V portable DATE: 07/14/2023 16:34 INDICATION: Hypotension. TECHNIQUE: A single frontal view of the chest was obtained. COMPARISON: Chest single view 07/05/23, chest CT 07/05/2023 FINDINGS: There are lucencies and interstitial opacities in the lungs, consistent with emphysema and chronic interstitial lung disease. There is mild scarring in left upper lobe. No pleural effusion or pneumothorax. The heart size is normal. There are changes of aortic valve replacement. IMPRESSION: 1. Emphysema and chronic interstitial lung disease. Reviewed, dictated and finalized at location A.
[2023-07-14] MEDS: LACTATED RINGERS 1,000 ML 999 ML IV CONT ×5 (16:08→20:51)
[2023-07-14] MEDS: ONDANSETRON INJ 4 MG/2 ML VIAL IV PUSH (16:08)
[2023-07-14 16:19] LABS: Hematocrit 33.9 % (42.0-52.0); Hemoglobin 11.2 g/dL (14.0-18.0); Mean Corpuscular Hemoglobin 32.2 pg (26-34); Mean Corpuscular Volume 97.4 fl (80-100); Mean Platelet Volume 9.6 fl (7.4-10.4); Platelet Count Result 403 k/mm3 (150-375); Red Blood Count 3.48 M/mm3 (4.6-6.20); Red Cell Distribution Width 12.6 % (11.5-14.5); White Blood Count 22.5 K/mm3 (4.5-10.0)
[2023-07-14 16:36] LABS: Lactic Acid Reflex 4.5 mmol/L (0.7-2.0)
[2023-07-14 17:10] LABS: Alkaline Phosphatase 141 U/L (38-126); Anion Gap 10 mmol/L (4-12); Aspartate Amino Transferase 22 U/L (17-59); Bilirubin,Total 0.9 mg/dL (0.2-1.3); Blood Urea Nitrogen 19 mg/dL (9-20); Calcium 8.3 mg/dL (8.4-10.2); Carbon Dioxide 17 mmol/L (22-30); Chloride 109 mmol/L (98-107); Estimated Glomerular Filt Rate 44; Glucose 79 mg/dL (65-110); Lipase 58 U/L (23-300); Potassium 3.6 mmol/L (3.4-5.0); Sodium 136 mmol/L (137-145)
[2023-07-14 17:22] LABS: Alanine Aminotransferase 22 U/L (6-50)
[2023-07-14 17:37] LABS: Band Neutrophils Percent 12 % (0-6); Lymphocytes Absolute Manual 0.67 K/mm3 (1.1-4.5); Monocytes Absolute Manual 1.35 K/mm3 (0.1-0.90); Monocytes Percent Manual 6 % (3-9); Neutrophils Absolute Manual 20.47 K/mm3 (1.3-6.7); Neutrophils Percent Manual 79 % (46-73); Platelet Estimate Increased (Adequate); Schistocytes None Seen; Total Cells Counted 100
[2023-07-14 17:45] LABS: Appearance Urine Turbid (Clear); Bacteria Urine 4+ /hpf; Bilirubin Urine 1+ (Negative); Blood Urine 3+ (Negative); Color Urine Dark Yellow (Yellow); Glucose Urine UA Negative (Negative); Ketones Urine Negative (Negative); Leukocyte Esterase Ur 3+ LEU/UL (Negative); Need Manual Microscopic Reviewed; Nitrate Urine Positive (Negative); Non Pathogenic Casts >20; Protein Urine 4+ mg/dL (Negative); RBC Urine 51-100 /hpf (0-2); Squamous Epithelial Cell Urine Many /hpf (Few); WBC Urine >100 /hpf (0-3)
[2023-07-14 17:48] LABS: Add Urine Microscopic? YES
--- NOTE | 2023-07-14 18:12 | ED.NAVMDI ---
HPI - Nausea/Vomiting/Diarrhea General Chief complaint: Nausea/Vomiting/Diarrhea Stated complaint: vomiting since 0800 Time Seen by Provider: 07/14/23 15:38 History of Present Illness HPI Narrative: Patient presenting here with altered mental status and with diarrhea. Patient is denying any complaints. Related Data Home Medications Medication Instructions Recorded Confirmed aspirin 81 mg tablet,delayed 81 mg PO DAILY 02/03/20 07/05/23 release (Josue Low Dose Aspirin) atorvastatin 40 mg tablet 40 mg PO QHS 02/03/20 07/05/23 budesonide-formoterol HFA 160 2 puff inhalation Q12H 02/03/20 07/05/23 mcg-4.5 mcg/actuation aerosol inhaler (Symbicort) carbamazepine 200 mg tablet 200 mg PO TIDWM 02/03/20 07/05/23 famotidine 20 mg tablet 20 mg PO BID 02/03/20 07/05/23 fluoxetine 20 mg capsule 80 mg PO HS 02/03/20 07/05/23 losartan 50 mg tablet 25 mg PO DAILY 02/03/20 07/05/23 montelukast 10 mg tablet 10 mg PO DAILY 02/03/20 07/05/23 quetiapine 50 mg tablet 100 mg PO Q8H 02/03/20 07/05/23 zonisamide 100 mg capsule 100 mg PO BID 02/03/20 07/05/23 acetaminophen 325 mg tablet 650 mg PO Q6H PRN Pain 05/22/22 07/05/23 buspirone 10 mg tablet 10 mg PO TID 05/22/22 07/05/23 clopidogrel 75 mg tablet 75 mg PO QAM 05/22/22 07/05/23 docusate sodium 100 mg capsule 100 mg PO DAILY 05/22/22 07/05/23 ergocalciferol (vitamin D2) 50,000 50,000 unit PO WEEKLY 05/22/22 07/05/23 unit tablet melatonin 3 mg tablet 5 mg PO HS PRN Sleep 05/22/22 07/05/23 ondansetron HCl 4 mg tablet 4 mg PO Q6H PRN Nausea 05/22/22 07/05/23 polyethylene glycol 1 ea miscellaneous QAM PRN 05/22/22 07/05/23 Constipation trazodone 150 mg tablet 150 mg PO QHS 05/22/22 07/05/23 baclofen 10 mg tablet 10 mg PO TID 01/21/23 07/05/23 bisacodyl 10 mg RECTAL DAILY PRN Constipation 01/21/23 07/05/23 magnesium citrate 296 ml PO QAM PRN Constipation 01/21/23 07/05/23 magnesium hydroxide 400 mg PO QHS PRN Constipation 01/21/23 07/05/23 pantoprazole 40 mg tablet,delayed 40 mg PO DAILY 06/25/23 07/05/23 release (Protonix) Allergies Allergy/AdvReac Type Severity Reaction Status Date / Time mushroom Allergy Severe Anaphylaxis Verified 07/14/23 16:32 hydromorphone Allergy Mild Itching Verified 07/14/23 16:32 tramadol Allergy Unknown SEZIR Verified 07/14/23 16:32 fluticasone AdvReac Other Verified 07/14/23 16:32 [From Advair Diskus] salmeterol AdvReac Other Verified 07/14/23 16:32 [From Advair Diskus] Review of Systems Review of Systems: All systems reviewed & are unremarkable except as noted in HPI and below PMFSH Past Medical History Medical History Anxiety Aortic valve disease Cerebrovascular accident (05/01/22) CTA head and neck showed 10 occlusion of the right distal ICA and M1. He was not a candidate for tPA with concomitant diagnosis of bacteremia and endocarditis. Depression with anxiety Esophagitis History of esophageal dilatation Hyperlipidemia Hypertension Kidney stones Major depressive disorder Parkinson's disease Psychogenic nonepileptic seizure Seizure Skin cancer Valvular heart disease Vitamin D deficiency Surgical History Surgical History History of aortic valve replacement History of appendectomy History of open reduction and internal fixation (ORIF) procedure Repair left ankle fracture. History of spinal surgery Family History Family History Other No pertinent family history Social History Social History Social History: Surrogate medical decision maker: Angeline Perkins, friend. Code status: Full code. Smoking packs per day: 0.25 Smoking cigarettes per day: 5.0 Years smoked: 40 Smoking pack-years: 10.00 Smoking status: Current every day smoker Tobacco type: cigarettes Second hand tobacco smok
[2023-07-14 19:17] LABS: Reflex Lactic Acid Yes or No Add Lactic
--- NOTE | 2023-07-14 19:17 | PC.NURSE ---
Assumed care of pt from MAEGAN Shetty at this time. Pt resting in bed. Bed alarm applied.
--- NOTE | 2023-07-14 19:51 | PC.NURSE ---
EDP Dr. Mirza MILLER 1,000mL LR at this time.
[2023-07-14] MEDS: HALOPERIDOL LACTATE 5 MG/ML VIAL IM (20:01)
[2023-07-14] MEDS: PIPERACILLN/TAZ 3.375GM/NS50ML 3.375 GM/50 ML BAG IVPB (20:27)
[2023-07-14 20:36] LABS: Lactic Acid 4.1 mmol/L (0.7-2.0)
--- NOTE | 2023-07-14 20:40 | PM.IMHP ---
H&P: HPI History of Present Illness Date/Time: 07/14/23 20:40 Chief Complaint: 1. Lethargy 2. Fatigue 3. AMS 4. Nausea, vomiting, diarrhea Narrative: Vibha Salvador is a 62yo M with a mHx significant for Parkinson's disease, CVA with deficits and contractures, anxiety, dyslipidemia, HTN, GERD. Since undergoing a cystoscopy with bilateral ureteral stent placement 2/2 bilateral ureteral obstruction by calculi with moderate bilateral hydroureteronephrosis, multiple calcified small calculi within posterior urinary bladder, he was discharged and is currently a resident of [facility] where he over the last 1-2 days developed malaise, fatigue and increased somnolence; with no known modifying factors, his intiial symptoms became associated with NBNB emesis, loose non-bloody stools and worsening fatigue. He does not smoke/chew tobacco, drink alcohol or consume recreational drugs; his family Hx is not contributory to the PC. Work-up findings: CTAP: 1. Cystitis and left pyelonephritis. 2. No hydronephrosis post placement of bilateral internal ureteral stents which are in expected position. Bilateral nephrolithiasis with couple 2 and 3 mm stones along side the left ureter. 3. Emphysema with UIP pattern chronic interstitial lung disease at the bilateral lung bases. 4. Moderate to large amount of colonic stool which could be seen with constipation. CXR: 1. Emphysema and chronic interstitial lung disease. WBC 22 HB 11 PLT 403 While in the ED, found to have a UTI with pyelonephritis.? Antibiotics were started.? IV fluids started.?Central line placed; Discussed with urologist after CT showed pyelonephritis with stents in place. Vibha Salvador will be admitted, evaluated for Urosepsis with shock. Review of Systems Review of Systems: ROS unobtainable: Yes unobtainable due to mental status PMFSH Past Medical History Medical History Anxiety Aortic valve disease Cerebrovascular accident (05/01/22) CTA head and neck showed 10 occlusion of the right distal ICA and M1. He was not a candidate for tPA with concomitant diagnosis of bacteremia and endocarditis. Depression with anxiety Esophagitis History of esophageal dilatation Hyperlipidemia Hypertension Kidney stones Major depressive disorder Parkinson's disease Psychogenic nonepileptic seizure Seizure Skin cancer Valvular heart disease Vitamin D deficiency Surgical History Surgical History History of aortic valve replacement History of appendectomy History of open reduction and internal fixation (ORIF) procedure Repair left ankle fracture. History of spinal surgery Family History Family History Other No pertinent family history Social History Social History Social History: Surrogate medical decision maker: Angeline Perkins, friend. Code status: Full code. Smoking packs per day: 0.25 Smoking cigarettes per day: 5.0 Years smoked: 40 Smoking pack-years: 10.00 Smoking status: Current every day smoker Tobacco type: cigarettes Second hand tobacco smoke exposure: Yes Additional smoking assessment comments: used to be heavy smoker Alcohol intake: former Alcohol use details: Recovering alcoholic. Substance use: former Substance use type: marijuana and crack/cocaine Other substance usage details: Smokes marijuana nightly for sleep. Former crack cocaine user. Last use: over 10 years Do You Feel Safe in your Home?: Yes Lack of Transportation: No Lack of Food: Never True Current Housing: I Have Housing Concerned About Future Housing: No Difficulty Paying Gas/Electric Bills: No Difficulty Paying for Meds: No Currently Unemployed: No Education: Bachelor's Degree Difficulty w/ Childcare or Family Care: No
[2023-07-14] MEDS: NOREPINEPHRINE 8 MG/D5W 250 ML 8 MG/250 ML BAG 9.38 MG IV CONT (20:50)
[2023-07-14 23:25] LABS: Lactic Acid Reflex 4.3 mmol/L (0.7-2.0)
[2023-07-14] MEDS: SODIUM CHLORIDE 0.9% IV 1,000 ML 100 ML IV CONT (23:39)
[2023-07-15] VITALS (46 sets, daily range): BP systolic 77–127; BP diastolic 56–90; PULSE 54–93; RESP 18–30; TEMP 36.6–37.4; O2SAT 92–97; BMI 21.6
[2023-07-15] MEDS: ACETAMINOPHEN 325 MG TABLET 650 MG PO (00:55)
[2023-07-15] MEDS: ALBUMIN HUMAN 25% 25 GM/100 ML 100 ML IVPB ×4 (00:57→17:22)
--- NOTE | 2023-07-15 01:04 | ADMGEN ---
This patient, Blaine Salvador, was admitted to Intensive Care Unit-9 on 07/14/23 at 2103. Patient/family oriented to hospital policies and general routines including ID bracelet, bed and alarms, visiting hours, pain management, procedures, bathroom and other care routines, personal items, smoking policy, room service/diet, and visiting hours. Information on how to activate the Rapid Response Team has been discussed. Patient/Family are encouraged to report perceived risks to care and to ask questions if they do not understand what they are told or what they should do.
--- NOTE | 2023-07-15 01:04 | PC.NURSE ---
0015 Dr. Jones notified of lactic acid of 4.3 and fluid administration since arrival to hospital, cheetah results, current BP and levophed dosage. Order for 25% albumin x 4 doses and morning lactic acid level received.
[2023-07-15] MEDS: NOREPINEPHRINE 8 MG/D5W 250 ML 8 MG/250 ML BAG 35.63 MG IV CONT (05:32)
[2023-07-15] MEDS: PIPERACILLN/TAZ 3.375GM/NS50ML 3.375 GM/50 ML BAG IVPB (05:36)
[2023-07-15 05:54] LABS: Hematocrit 26.3 % (42.0-52.0); Hemoglobin 8.7 g/dL (14.0-18.0); Mean Corpuscular HGB Conc 33.1 g/dl (32-36); Mean Corpuscular Hemoglobin 32.6 pg (26-34); Mean Corpuscular Volume 98.5 fl (80-100); Mean Platelet Volume 9.8 fl (7.4-10.4); Platelet Count Result 344 k/mm3 (150-375); Red Blood Count 2.67 M/mm3 (4.6-6.20); Red Cell Distribution Width 12.5 % (11.5-14.5); White Blood Count 29.8 K/mm3 (4.5-10.0)
[2023-07-15 06:08] LABS: Lactic Acid Reflex 2.8 mmol/L (0.7-2.0)
[2023-07-15 06:09] LABS: Alanine Aminotransferase 14 U/L (6-50); Alkaline Phosphatase 105 U/L (38-126); Anion Gap 9 mmol/L (4-12); Aspartate Amino Transferase 35 U/L (17-59); Bilirubin,Total 0.8 mg/dL (0.2-1.3); Blood Urea Nitrogen 22 mg/dL (9-20); Calcium 8.4 mg/dL (8.4-10.2); Carbon Dioxide 19 mmol/L (22-30); Chloride 108 mmol/L (98-107); Estimated CRCL calculation 50 ml/min; Estimated Glomerular Filt Rate 47; Glucose 84 mg/dL (65-110); Potassium 3.8 mmol/L (3.4-5.0); Sodium 136 mmol/L (137-145)
[2023-07-15 07:01] LABS: MRSA (PCR) DETECTED (NOT DETECTE)
[2023-07-15 07:27] LABS: Band Neutrophils Percent 22 % (0-6); Neutrophils Absolute Manual 24.43 K/mm3 (1.3-6.7); Neutrophils Percent Manual 60 % (46-73)
[2023-07-15 07:28] LABS: Lymphocytes Absolute Manual 2.08 K/mm3 (1.1-4.5); Lymphocytes Percent Manual 7 % (18-44); Monocytes Absolute Manual 3.27 K/mm3 (0.1-0.90); Monocytes Percent Manual 11 % (3-9); Platelet Estimate Adequate (Adequate); Schistocytes None Seen
[2023-07-15] MEDS: MEROPENEM 1 GM/NS 100 ML 1 GM/100 ML BAG IVPB ×2 (08:39→16:32)
[2023-07-15] MEDS: VASOPRESSIN INJ 100 UNITS in DEXTROSE 5% 95 ML IV CONT (08:39)
[2023-07-15] MEDS: ZONISAMIDE 100 MG CAPSULE PO ×2 (08:39→20:21)
[2023-07-15] MEDS: HYDROCORTISONE SODIUM SUCCINATE 100 MG/2 ML VIAL IV PUSH ×2 (08:39→16:32)
[2023-07-15] MEDS: CLOPIDOGREL BISULFATE 75 MG TABLET PO (08:41)
[2023-07-15] MEDS: busPIRone HCL 10 MG TABLET PO ×3 (08:41→16:32)
[2023-07-15] MEDS: FAMOTIDINE 20 MG TABLET PO ×2 (08:41→20:21)
[2023-07-15] MEDS: carBAMazepine 200 MG TABLET PO ×3 (08:48→16:32)
[2023-07-15] MEDS: MONTELUKAST SODIUM 10 MG TABLET PO (08:48)
[2023-07-15] MEDS: QUEtiapine FUMARATE 100 MG TABLET PO ×3 (08:48→16:32)
--- NOTE | 2023-07-15 08:49 | WPDCNINT ---
Assessment and Plan Assessment and plan (1) Septic shock: Code(s): A41.9 - Sepsis, unspecified organism; R65.21 - Severe sepsis with septic shock Status: Acute Assessment and Plan: Septic shock secondary to acute pyelonephritis and cystitis CT scan as above Patient has received more than 5 L of fluid. Will decrease further IV fluids and change to IV fluid bicarb Continue Levophed titration. Add vasopressin infusion Continue 25% albumin Add stress dose hydrocortisone Maintain mean arterial pressure Blood and urine cultures have been sent Change antibiotics to meropenem to cover for ESBL and add vancomycin (2) Acute pyelonephritis: Code(s): N10 - Acute pyelonephritis Status: Acute Assessment and Plan: See above (3) JEANNETTE (acute kidney injury): Code(s): N17.9 - Acute kidney failure, unspecified Status: Acute Assessment and Plan: JEANNETTE likely secondary to sepsis and shock CT abdomen pelvis reviewed and does not show any hydronephrosis Stents in place Monitor urine output electrolytes and creatinine Fluids as above Check CK level (4) Ureterolithiasis: Code(s): N20.1 - Calculus of ureter Status: Acute Assessment and Plan: Status post bilateral stenting. Small 2-3 mm stone distal there but there is no hydronephrosis Urology has been consulted (5) Altered mental status: Qualifiers: Altered mental status type: delirium Qualified Code(s): R41.0 - Disorientation, unspecified Code(s): R41.82 - Altered mental status, unspecified Status: Acute Assessment and Plan: Likely secondary to sepsis with improvement in mental status with the night Patient is AO x3 now (6) Constipation: Code(s): K59.00 - Constipation, unspecified Status: Acute Assessment and Plan: CT scan shows stool in colon although history of diarrhea prior to presentation No diarrhea in the ICU will monitor. If no loose bowel movements will start laxatives per (7) Diarrhea: Code(s): R19.7 - Diarrhea, unspecified Status: Acute Assessment and Plan: See above Plan DVT prophylaxis -Lovenox Nutrition -diet ordered Code Status - Full Code Total Critical Care Time - 35 minutes Due to a high probability of clinically significant, life threatening deterioration, the patient required my highest level of preparedness to intervene emergently and I personally spent this critical care time directly and personally managing the patient. This critical care time included obtaining a history; examining the patient; pulse oximetry; ordering and review of studies; arranging urgent treatment with development of a management plan; evaluation of patient's response to treatment; frequent reassessment; and discussions with other providers. It was exclusive of separately billable procedures and treating other patients and teaching time. Please see Assessment and Plan section and the rest of the note for further information on patient assessment and treatment Comber Tender Consult Note Consult date: 07/15/23 Reason for consult: Septic shock HPI: Blaine Salvador is a 62 year old male with past medical history significant of Parkinson's disease, CVA with residual left hemiplegia, anxiety, dyslipidemia, hypertension, GERD who is a resident of [facility]. Patient recently had cystoscopy and bilateral ureteroscopy with laser lithotripsy are and stone extraction along with bilateral ureteral stent placement on 06/25 at [facility]. Patient was sent from [facility] with altered mental status. Patient himself is a poor historian and states that he was sick and does not provide any with a further details. He was also lethargic. Workup in the ER showed patient had UTI, hypotension and elevated lactic acid level. He was diagnosed with sepsis and shock. CT scan showed CTAP: 1. Cystitis and left pyelonephritis. 2. No hydronephrosis post placement of filomena
[2023-07-15 08:51] LABS: Reflex Lactic Acid Yes or No Add Lactic
[2023-07-15] MEDS: SODIUM BICARBONATE 8.4% 150 MEQ in WATER, STERILE FOR INJECTION 950 ML 50 MEQ IV CONT (09:00)
[2023-07-15] MEDS: VANCOMYCIN 2,000 MG/NS 500 ML 2,000 MG/500 ML BAG 250 MG IVPB (09:00)
[2023-07-15 09:25] LABS: Lactic Acid 2.9 mmol/L (0.7-2.0)
[2023-07-15] MEDS: ENOXAPARIN 40 MG/0.4 ML SYRINGE SUB-Q (11:59)
--- NOTE | 2023-07-15 12:25 | PCPTNOTE ---
Pt has a femoral central line limiting safety of participating in skilled therapy. Please re-order therapy when pt is able to safely participate.
--- NOTE | 2023-07-15 15:16 | WPDURCON ---
Assessment and Plan Assessment and plan (1) Septic shock: Code(s): A41.9 - Sepsis, unspecified organism; R65.21 - Severe sepsis with septic shock Status: Acute Assessment and Plan: Secondary to acute pyelonephritis. Requiring pressors. Being managed by primary team. (2) Acute pyelonephritis: Code(s): N10 - Acute pyelonephritis Status: Acute Assessment and Plan: Evident on CT. Continue empiric antibiotics and tailor to culture. Urine and blood cultures pending. (3) Ureterolithiasis: Code(s): N20.1 - Calculus of ureter Status: Acute Assessment and Plan: S/p bilateral ureteroscopy, stone extraction, and bilateral ureteral stent placement on 06/26/23. No indication for urgent urologic intervention at this time. Will determine with Dr. Seth ideal time for stent removal. CT suggests two stones in the distal left ureter alongside the stent. Urology Consult Note HPI Date Seen: 07/15/23 Requesting Physician: Chase Strickland MD Primary Care Provider: Ben Hernandez, Consult Narrative Narrative: Blaine Salvador is a 62 year old male with a history of Parkinsons disease, hemiplegia, and kidney stones who recently underwent bilateral ureteroscoy with stone extraction and bilateral ureteral stent placement on 06/26/23. He is currently admitted for severe sepsis secondary to pyelonephritis and is being seen in consultation in this setting. He is unable to provide much useful history. It is noted that over the past 1-2 days, nursing staff at his facility noted him to be more lethargic then he developed vomiting and diarrhea. He was brought into the ER and on arrival was septic with hypotension, tachycardia, tachypnea, WBC 22.5, creatinine 1.6, lactic 4.5, UA grossly abnormal with leukocytes, nitrates, and white blood cells. CT of the abdomen/pelvis showed cystitis and left pyelonephritis with bilateral ureteral stents in expected position and no hydronephrosis. A central line was placed and he was admitted to ICU. At the time of my evaluation, he is awake and alert. He reports feeling slightly improved. He denies flank pain or back pain. His cotto catheter is draining clear yellow urine. He reports his cotto catheter is chronic and is managed by staff at his facility. WBC has increased to 29.8 though lactic has improved. He remains afebrile and BP has stabilized on pressors. Review of Systems Review of Systems: All systems reviewed & are unremarkable except as noted in HPI and below PMFSH Past Medical History Medical History Anxiety Aortic valve disease Cerebrovascular accident (05/01/22) CTA head and neck showed 10 occlusion of the right distal ICA and M1. He was not a candidate for tPA with concomitant diagnosis of bacteremia and endocarditis. Depression with anxiety Esophagitis History of esophageal dilatation Hyperlipidemia Hypertension Kidney stones Major depressive disorder Parkinson's disease Psychogenic nonepileptic seizure Seizure Skin cancer Valvular heart disease Vitamin D deficiency Surgical History Surgical History History of aortic valve replacement History of appendectomy History of open reduction and internal fixation (ORIF) procedure Repair left ankle fracture. History of spinal surgery Family History Family History Other No pertinent family history Social History Social History Social History: Surrogate medical decision maker: Angeline Perkins, friend. Code status: Full code. Smoking packs per day: 0.25 Smoking cigarettes per day: 5.0 Years smoked: 40 Smoking pack-years: 10.00 Smoking status: Current every day smoker Tobacco type: cigarettes Second hand tobacco smoke exposure: Yes Additional smoking assessment comme
[2023-07-15] MEDS: NOREPINEPHRINE 8 MG/D5W 250 ML 8 MG/250 ML BAG 11.25 MG IV CONT (15:30)
--- NOTE | 2023-07-15 18:32 | PM.IMPN ---
Progress Note: A&P Assessment and Plan (1) Acute pyelonephritis: Code(s): N10 - Acute pyelonephritis Status: Acute (2) Septic shock: Code(s): A41.9 - Sepsis, unspecified organism; R65.21 - Severe sepsis with septic shock Status: Acute (3) Constipation: Code(s): K59.00 - Constipation, unspecified Status: Acute (4) Ureterolithiasis: Code(s): N20.1 - Calculus of ureter Status: Acute (5) Altered mental status: Qualifiers: Altered mental status type: delirium Qualified Code(s): R41.0 - Disorientation, unspecified Code(s): R41.82 - Altered mental status, unspecified Status: Acute (6) JEANNETTE (acute kidney injury): Code(s): N17.9 - Acute kidney failure, unspecified Status: Acute (7) Cerebrovascular accident: Onset Date: 05/01/22 Code(s): I63.9 - Cerebral infarction, unspecified Status: Acute Plan 62-year-old male with past medical history Parkinson's disease, CVA with residual left hemiplegia, depression and anxiety, dyslipidemia, hypertension, GERD, hypertension, seizure disorder on zonisamide. He is a resident of a [facility]. Recently had cystoscopy and bilateral ureteroscopy with laser lithotripsy and stone extraction along with bilateral ureteral stent placement on 06/25 at [facility]. He arrives from the [facility] with altered mental status. [place] ER evaluation demonstrated UTI with hypotension and lactic acidosis. Admitted on 07/14/2023 with septic shock due to acute pyelonephritis. Septic shock -currently on pressors and IV bicarbonate. Received more than 5 L of fluid. Currently on albumin IV PB. Stress dose hydrocortisone added. -pending blood and urine cultures -meropenem vancomycin on board -gas technician managing Acute pyelonephritis Acute kidney injury -secondary to hypovolemia and infection -continue to trend renal function Ureterolithiasis -recent bilateral ureteral stenting. Urology has been consulted Acute toxic encephalopathy -resolved. Continue to monitor closely. Due to urinary tract infection Constipation -CT scan shows: Although patient apparently had diarrhea prior to presentation. -no diarrhea since admission. 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 Hold antihypertensives Seizure disorder -continue zonisamide History of CVA with residual left hemiplegia -at his usual. Continue atorvastatin and Plavix FEN: IV bicarbonate. Heart healthy diet, pureed level for GI prophylaxis: Continue home dose PPI DVT prophylaxis: Lovenox 40 mg subQ daily Lines: Code Status: Full code. Dispo: Guarded condition in ICU Subjective Date/time seen: 07/15/23 18:32 Interval history: No complaints. Denies chest pain or abdominal pain. Review of Systems Review of Systems: All systems reviewed & are unremarkable except as noted in HPI and below (Subjective) Exam Const: General: comfortable and no acute distress Eyes: Pupils: Equal, round and reactive pupils present Neck: Neck: supple Resp: Effort & Inspection: normal respiratory effort Auscultation: clear to auscultation bilaterally Cardio: Rate: regular rate Rhythm: regular rhythm GI: GI Palp: Yes Soft to palpation and No Tenderness to palpation present (GI) Auscultation: normal bowel sounds Extrem: General: no edema Objective Data Vital Signs Vital Signs: Vital Signs - 24 hr 07/14/23 18:38 07/14/23 18:46 07/14/23 19:20 Temperature Pulse Rate 96 95 92 Respiratory Rate 22 H 22 H 24 H Blood Pressure 84/53 L 80/60 L 111/87 Pulse Oximetry 96 96 96 Oxygen Delivery Oxygen Flow Rate 07/14/23 20:50 07/14/23 21:11 07/14/23 21:12 Temperature Pulse Rate 101 H 96 102 H Respiratory Rate 22 H Blood Pressure 88/51 L 81/55 L 175/129 H Pulse Oximetry 96 Oxygen Delivery Oxygen Flow Rate
[2023-07-15] MEDS: FLUoxetine HCL 20 MG CAPSULE 80 MG PO (20:21)
[2023-07-15] MEDS: ATORVASTATIN 40 MG TABLET PO (20:21)
[2023-07-15] MEDS: traZODone HCL 50 MG TABLET 150 MG PO (20:21)
[2023-07-15] MEDS: TAMSULOSIN HCL 0.4 MG CAPSULE PO (20:21)
[2023-07-16] VITALS (30 sets, daily range): BP systolic 82–127; BP diastolic 61–83; PULSE 50–64; RESP 14–22; TEMP 35.9–36.5; O2SAT 93–98
[2023-07-16] MEDS: HYDROCORTISONE SODIUM SUCCINATE 100 MG/2 ML VIAL IV PUSH ×3 (00:01→16:59)
[2023-07-16] MEDS: MEROPENEM 1 GM/NS 100 ML 1 GM/100 ML BAG IVPB ×3 (00:01→17:00)
[2023-07-16] MEDS: SODIUM BICARBONATE 8.4% 150 MEQ in WATER, STERILE FOR INJECTION 950 ML 50 MEQ IV CONT (06:00)
[2023-07-16 06:13] LABS: Hematocrit 22.1 % (42.0-52.0); Hemoglobin 7.4 g/dL (14.0-18.0); Mean Corpuscular HGB Conc 33.5 g/dl (32-36); Mean Corpuscular Hemoglobin 32.5 pg (26-34); Mean Corpuscular Volume 96.9 fl (80-100); Mean Platelet Volume 10.1 fl (7.4-10.4); Platelet Count Result 197 k/mm3 (150-375); Red Blood Count 2.28 M/mm3 (4.6-6.20); Red Cell Distribution Width 12.8 % (11.5-14.5)
[2023-07-16 06:33] LABS: Alanine Aminotransferase 44 U/L (6-50); Albumin Level 3.2 g/dL (3.5-5.1); Alkaline Phosphatase 80 U/L (38-126); Anion Gap 9 mmol/L (4-12); Aspartate Amino Transferase 89 U/L (17-59); Bilirubin,Total 0.7 mg/dL (0.2-1.3); Blood Urea Nitrogen 23 mg/dL (9-20); Calcium 8.1 mg/dL (8.4-10.2); Carbon Dioxide 22 mmol/L (22-30); Chloride 105 mmol/L (98-107); Estimated CRCL calculation 68 ml/min; Estimated Glomerular Filt Rate > 60; Glucose 113 mg/dL (65-110); Magnesium 1.6 mg/dL (1.6-2.3); Potassium 3.4 mmol/L (3.4-5.0); Sodium 136 mmol/L (137-145)
[2023-07-16 06:37] LABS: Band Neutrophils Percent 6 % (0-6); Lymphocytes Absolute Manual 0.88 K/mm3 (1.1-4.5); Lymphocytes Percent Manual 4 % (18-44); Monocytes Absolute Manual 1.32 K/mm3 (0.1-0.90); Monocytes Percent Manual 6 % (3-9); Neutrophils Percent Manual 84 % (46-73); Platelet Estimate Adequate (Adequate); Schistocytes None Seen
--- NOTE | 2023-07-16 08:14 | WPDINTPN ---
Progress Note: A&P Assessment and Plan (1) Septic shock: Code(s): A41.9 - Sepsis, unspecified organism; R65.21 - Severe sepsis with septic shock Status: Acute Assessment and Plan: Septic shock secondary to acute pyelonephritis and cystitis. Gram-negative bacteremia CT scan as above Patient has received adequate amount of IV fluids. Hold further IV fluids Continue Levophed titration. vasopressin infusion has been weaned off Received 25% albumin Continue stress dose hydrocortisone Maintain mean arterial pressure Blood cultures are growing Gram-negative rods. Urine culture is growing Pseudomonas with pending susceptibilities Continue meropenem. Discontinue vancomycin (2) Acute pyelonephritis: Code(s): N10 - Acute pyelonephritis Status: Acute Assessment and Plan: See above (3) JEANNETTE (acute kidney injury): Code(s): N17.9 - Acute kidney failure, unspecified Status: Acute Assessment and Plan: JEANNETTE likely secondary to sepsis and shock CT abdomen pelvis reviewed and does not show any hydronephrosis Stents in place Creatinine improving and down to 1.1 Monitor urine output electrolytes and creatinine Fluids as above (4) Ureterolithiasis: Code(s): N20.1 - Calculus of ureter Status: Acute Assessment and Plan: Status post bilateral stenting. Small 2-3 mm stone distal there but there is no hydronephrosis Urology has been consulted (5) Altered mental status: Qualifiers: Altered mental status type: delirium Qualified Code(s): R41.0 - Disorientation, unspecified Code(s): R41.82 - Altered mental status, unspecified Status: Acute Assessment and Plan: Likely secondary to sepsis with improvement in mental status with the night Patient is AO x3 now (6) Constipation: Code(s): K59.00 - Constipation, unspecified Status: Acute Assessment and Plan: CT scan shows stool in colon although history of diarrhea prior to presentation No diarrhea in the ICU Will start laxatives (7) Diarrhea: Code(s): R19.7 - Diarrhea, unspecified Status: Acute Assessment and Plan: See above (8) Electrolyte abnormality: Code(s): E87.8 - Other disorders of electrolyte and fluid balance, not elsewhere classified Status: Acute Assessment and Plan: Magnesium calcium and potassium replacement ordered (9) Anemia: Code(s): D64.9 - Anemia, unspecified Status: Acute Assessment and Plan: Hemoglobin has been gradually trending down since admission. This could be secondary to dilution patient has received significant IV fluids. No obvious signs of. No hematoma or swelling at the site of femoral central venous catheter insertion Hold Lovenox PPI IV q.12 hours Check iron B12 and folic acid Monitor hemoglobin Transfuse if needed Plan DVT prophylaxis -Lovenox Nutrition -diet ordered Code Status - Full Code Incentive spirometry Total Critical Care Time - 30 minutes Due to a high probability of clinically significant, life threatening deterioration, the patient required my highest level of preparedness to intervene emergently and I personally spent this critical care time directly and personally managing the patient. This critical care time included obtaining a history; examining the patient; pulse oximetry; ordering and review of studies; arranging urgent treatment with development of a management plan; evaluation of patient's response to treatment; frequent reassessment; and discussions with other providers. It was exclusive of separately billable procedures and treating other patients and teaching time. Please see Assessment and Plan section and the rest of the note for further information on patient assessment and treatment Subjective Date/time seen: 07/16/23 Overnight events reviewed. Afebrile Improved urine output. Tolerating p.o. diet Continues to be on vasopressors but vasop
[2023-07-16] MEDS: carBAMazepine 200 MG TABLET PO ×3 (08:16→16:58)
[2023-07-16] MEDS: busPIRone HCL 10 MG TABLET PO ×3 (08:16→16:59)
[2023-07-16] MEDS: MONTELUKAST SODIUM 10 MG TABLET PO (08:16)
[2023-07-16] MEDS: MIDODRINE HCL 2.5 MG TABLET 5 MG PO ×3 (08:16→16:59)
[2023-07-16] MEDS: CLOPIDOGREL BISULFATE 75 MG TABLET PO (08:17)
[2023-07-16] MEDS: POTASSIUM CHLORIDE 20 MEQ PACKET (FOR LIQUID) 40 MEQ PO (08:17)
[2023-07-16] MEDS: ZONISAMIDE 100 MG CAPSULE PO ×2 (08:17→20:17)
[2023-07-16] MEDS: QUEtiapine FUMARATE 100 MG TABLET PO ×3 (08:17→16:58)
[2023-07-16] MEDS: CALCIUM GLUC 2,000 MG/NS 100ML 2,000 MG/100 ML BAG 100 MG IVPB (08:22)
[2023-07-16] MEDS: MAGNESIUM SULF 2 GM/WATER 50ML 2 GM/50 ML BAG IVPB (08:23)
[2023-07-16] MEDS: PANTOPRAZOLE SODIUM IV 40 MG VIAL IV PUSH ×2 (08:24→20:16)
[2023-07-16 09:44] LABS: Immature Reticulocyte Fraction 13.8 % (3.0-15.9); Reticulocyte Hemoglobin Conten 31.6 pg (28.2-36.6); Reticulocyte Percent 1.22 % (0.7-4.3); Reticulocytes Absolute 0.03 10^6/uL (0.02-0.10)
[2023-07-16 10:49] LABS: Iron 33 ug/dL (49-181)
--- NOTE | 2023-07-16 10:56 | PM.IMPN ---
Progress Note: A&P Assessment and Plan (1) Septic shock: Code(s): A41.9 - Sepsis, unspecified organism; R65.21 - Severe sepsis with septic shock Status: Acute Assessment and Plan: Septic shock secondary to acute pyelonephritis, bactermeia and cystitis. Patient has received adequate amount of IV fluids. Hold further IV fluids Continue Levophed titration. vasopressin infusion has been weaned off Received 25% albumin Continue stress dose hydrocortisone Maintain mean arterial pressure MRSA positive. CXR showing ILD and emphysema. Blood cultures are growing Pseudomonas with pending susceptibilities Urine culture is growing Pseudomonas with pending susceptibilities WBC trending down. No fevers Continue meropenem. Discontinue vancomycin (2) Acute pyelonephritis: Code(s): N10 - Acute pyelonephritis Status: Acute Assessment and Plan: See above (3) JEANNETTE (acute kidney injury): Code(s): N17.9 - Acute kidney failure, unspecified Status: Acute Assessment and Plan: JEANNETTE likely secondary to sepsis and shock CT abdomen pelvis does not show any hydronephrosis but does show cysitis and left pyelonephritis. Tiny stones noted along the left ureter. Stents in place Creatinine improving and down to 1.1 Monitor urine output electrolytes and creatinine (4) Ureterolithiasis: Code(s): N20.1 - Calculus of ureter Status: Acute Assessment and Plan: Status post bilateral stenting. Small 2-3 mm stone noted along the left ureter but there is no hydronephrosis Urology following and appreciate thier input (5) Altered mental status: Qualifiers: Altered mental status type: delirium Qualified Code(s): R41.0 - Disorientation, unspecified Code(s): R41.82 - Altered mental status, unspecified Status: Acute Assessment and Plan: Likely secondary to sepsis with improvement in mental status Resolved (6) Constipation: Code(s): K59.00 - Constipation, unspecified Status: Acute Assessment and Plan: CT scan shows stool in colon although history of diarrhea prior to presentation No diarrhea in the ICU and suspect he was leaking around hard stool Colace started (7) Diarrhea: Code(s): R19.7 - Diarrhea, unspecified Status: Acute Assessment and Plan: See above (8) Electrolyte abnormality: Code(s): E87.8 - Other disorders of electrolyte and fluid balance, not elsewhere classified Status: Acute Assessment and Plan: Magnesium calcium and potassium replacement ordered (9) Anemia: Code(s): D64.9 - Anemia, unspecified Status: Acute Assessment and Plan: Hemoglobin was 11.2 on admission and has dropped quickly to 7.4 today. Consider secondary to dilution since patient has received significant IV fluids. No obvious signs of bleeding, hematoma. Lovenox held Contineu PPI IV q.12 hours Check iron B12 and folic acid Monitor hemoglobin Transfuse if needed Plan DVT prophylaxis -Lovenox on hold; SCDs Code Status - Full Code Subjective Date/time seen: 07/16/23 10:56 Interval history: 62yo male with hx of CVA and left hemiplegia, seizure, Parkinson, HTN and AV replacement here for lethargy and found to have septic shock froma urinary source. Assuming care. Ijeoma reviewed. Slept well last night. He is wheel chair bound. No CP or SOB. No n/v. Has not walked for over a year. Exam Narrative: AF 97.0 111/80 54 20 96% 2L Gen - NARD Chest bibasilar crackles, nml RR CV - RRR S1/S2. Tele showing no significant dysrhythmias Abd - Soft, NT/ND, Positive BS -Rowe secured draining clear yellow urine. Ext - No pedal edema. Left femoral central line in place. Neuro - Alert and oriented. Left hemiplegia Psych - Nml mood and affect Skin - Warm and dry Objective Data Vital Signs Vital Signs: Vital Signs - 24 hr 07/15/23 11:0
[2023-07-16 11:03] LABS: Percent Iron Saturation 24 % (20-50)
[2023-07-16 11:56] LABS: Folic Acid 3.6 ng/mL (2.76->20)
[2023-07-16] MEDS: DOCUSATE SODIUM LIQ 100 MG/10 ML UDC PO ×2 (12:08→20:16)
[2023-07-16 12:47] LABS: Transferrin < 80 mg/dL (206-381)
--- NOTE | 2023-07-16 13:12 | WPDUROPN2 ---
Progress Note: A&P Assessment and Plan (1) Septic shock: Code(s): A41.9 - Sepsis, unspecified organism; R65.21 - Severe sepsis with septic shock Status: Acute Assessment and Plan: Secondary to acute pyelonephritis. Requiring pressors. Being managed by primary team. Urine and blood cultures with growth of Pseudomonas, continue empiric antibiotics while awaiting sensitivities. (2) Acute pyelonephritis: Code(s): N10 - Acute pyelonephritis Status: Acute Assessment and Plan: Evident on CT. Continue empiric antibiotics and tailor to culture as above (3) Ureterolithiasis: Code(s): N20.1 - Calculus of ureter Status: Acute Assessment and Plan: S/p bilateral ureteroscopy, stone extraction, and bilateral ureteral stent placement on 06/26/23. No indication for urgent urologic intervention at this time. Plan for stent removal sometime next week. CT suggests two stones in the distal left ureter alongside the stent. Subjective Subjective Date/Time Seen: 07/16/23 13:12 Interval history: Blaine is feeling better today. He is sitting up in bed. He reports no concerns. Denies nausea, vomiting, fever, or chills. Reports no issues with cotto catheter which is draining clear yellow urine. WBC with slight improvement today at 22.0. Creatinine stable at 1.1. Remains afebrile. Review of Systems Review of Systems: All systems reviewed & are unremarkable except as noted in HPI and below Exam Narrative: General: Awake, alert, comfortable, no acute distress HEENT: Normocephalic, atraumatic, sclerae anicteric Respiratory: Normal respiratory effort, no accessory muscle use Abdomen: Nondistended, soft, nontender : Cotto catheter draining clear yellow urine Skin: Normal coloration, warm and dry Neurologic: No focal neuro deficits noted Psychiatric: Appropriate mood and affect, judgment and insight intact Objective Data Vital Signs Vital Signs: Vital Signs - 24 hr 07/15/23 13:30 07/15/23 14:00 07/15/23 14:00 Temperature Pulse Rate 65 65 65 Respiratory Rate 22 H Blood Pressure 106/70 99/63 L Pulse Oximetry 94 Oxygen Delivery Oxygen Flow Rate 07/15/23 15:30 07/15/23 15:30 07/15/23 13:45 Temperature Pulse Rate 63 63 66 Respiratory Rate Blood Pressure 92/64 L 92/64 L 101/62 Pulse Oximetry Oxygen Delivery Oxygen Flow Rate 07/15/23 14:45 07/15/23 16:48 07/15/23 16:00 Temperature Pulse Rate 65 59 L 65 Respiratory Rate Blood Pressure 103/60 100/64 Pulse Oximetry Oxygen Delivery Oxygen Flow Rate 07/15/23 16:00 07/15/23 16:00 07/15/23 17:05 Temperature 97.9 F Pulse Rate 65 65 64 Respiratory Rate 23 H 23 H Blood Pressure 90/58 L 108/65 Pulse Oximetry 94 94 Oxygen Delivery Room Air Oxygen Flow Rate 07/15/23 18:00 07/15/23 18:00 07/15/23 18:17 Temperature Pulse Rate 62 62 63 Respiratory Rate 21 H Blood Pressure 95/62 L 95/62 L Pulse Oximetry 95 Oxygen Delivery Oxygen Flow Rate 07/15/23 19:00 07/15/23 20:00 07/15/23 20:31 Temperature 98.2 F Pulse Rate 62 63 65 Respiratory Rate 22 H Blood Pressure 100/68 98/67 L 106/74 Pulse Oximetry 95 Oxygen Delivery Oxygen Flow Rate 07/15/23 21:04 07/15/23 20:00 07/15/23 20:00 Temperature Pulse Rate 60 58 L Respiratory Rate Blood Pressure 86/67 L Pulse Oximetry Oxygen Delivery Room Air Oxygen Flow Rate 07/15/23 22:38 07/15/23 22:00 07/15/23 22:00 Temperature Pulse Rate 54 L 57 L 57 L Respiratory Rate 19 Blood Pressure 111/70 95/68 L Pulse Oximetry 93 Oxygen Delivery Oxygen Flow Rate 07/16/23 00:05 07/16/23 00:00 07/16/23 00:00 Temperature 97.0 F L Pulse Rate 62 57 L 61 Respiratory Rate 20 Blood Pressure 97/66 L 97/66 L Pulse Oximetry 93 Oxygen Delivery Oxygen Flow Rate 07/16/23 00:00 07/16/23 01:02 07/16/23 01:31 Temperature Pul
[2023-07-16 18:26] LABS: Hematocrit 25.1 % (42.0-52.0); Hemoglobin 8.5 g/dL (14.0-18.0); Mean Corpuscular HGB Conc 33.9 g/dl (32-36); Mean Corpuscular Hemoglobin 32.3 pg (26-34); Mean Corpuscular Volume 95.4 fl (80-100); Mean Platelet Volume 10.5 fl (7.4-10.4); Platelet Count Result 222 k/mm3 (150-375); Red Blood Count 2.63 M/mm3 (4.6-6.20); Red Cell Distribution Width 12.9 % (11.5-14.5); White Blood Count 27.3 K/mm3 (4.5-10.0)
[2023-07-16] MEDS: FLUoxetine HCL 20 MG CAPSULE 80 MG PO (20:17)
[2023-07-16] MEDS: TAMSULOSIN HCL 0.4 MG CAPSULE PO (20:17)
[2023-07-16] MEDS: traZODone HCL 50 MG TABLET 150 MG PO (20:17)
[2023-07-16] MEDS: ATORVASTATIN 40 MG TABLET PO (20:17)
[2023-07-17] VITALS (16 sets, daily range): BP systolic 88–109; BP diastolic 60–74; PULSE 54–63; RESP 16–23; TEMP 36.2–36.6; O2SAT 93–98
[2023-07-17] MEDS: HYDROCORTISONE SODIUM SUCCINATE 100 MG/2 ML VIAL IV PUSH ×3 (00:16→16:01)
[2023-07-17] MEDS: MEROPENEM 1 GM/NS 100 ML 1 GM/100 ML BAG IVPB ×3 (00:18→16:48)
[2023-07-17 05:09] LABS: Basophils Percent Auto 0.1 % (0.2-1.2); Hematocrit 25.3 % (42.0-52.0); Hemoglobin 8.7 g/dL (14.0-18.0); Immature Granulocyte Absolute 0.34 K/mm3 (0.00-0.031); Immature Granulocyte Percent A 1.6 % (0-0.5); Lymphocytes Absolute Auto 0.69 K/mm3 (0.9-3.2); Lymphocytes Percent Auto 3.1 % (18.3-44.2); Mean Corpuscular HGB Conc 34.4 g/dl (32-36); Mean Corpuscular Hemoglobin 32.7 pg (26-34); Mean Corpuscular Volume 95.1 fl (80-100); Mean Platelet Volume 10.3 fl (7.4-10.4); Monocytes Absolute Auto 0.7 K/mm3 (0.1-0.6); Monocytes Percent Auto 3.3 % (2.6-8.5); Neutrophils Absolute Auto 20.1 K/mm3 (1.3-6.7); Neutrophils Percent Auto 91.9 % (45.5-73.1); Platelet Count Result 197 k/mm3 (150-375); Red Blood Count 2.66 M/mm3 (4.6-6.20); Red Cell Distribution Width 12.8 % (11.5-14.5); White Blood Count 21.9 K/mm3 (4.5-10.0)
[2023-07-17 05:17] LABS: Alanine Aminotransferase 42 U/L (6-50); Albumin Level 3.1 g/dL (3.5-5.1); Alkaline Phosphatase 94 U/L (38-126); Anion Gap 9 mmol/L (4-12); Aspartate Amino Transferase 50 U/L (17-59); Bilirubin,Total 0.5 mg/dL (0.2-1.3); Blood Urea Nitrogen 25 mg/dL (9-20); Calcium 8.5 mg/dL (8.4-10.2); Carbon Dioxide 21 mmol/L (22-30); Chloride 109 mmol/L (98-107); Estimated CRCL calculation 78 ml/min; Estimated Glomerular Filt Rate > 60; Glucose 121 mg/dL (65-110); Magnesium 2.1 mg/dL (1.6-2.3); Sodium 139 mmol/L (137-145)
[2023-07-17] MEDS: ZONISAMIDE 100 MG CAPSULE PO ×2 (08:06→20:09)
[2023-07-17] MEDS: MIDODRINE HCL 2.5 MG TABLET 5 MG PO ×3 (08:06→16:00)
[2023-07-17] MEDS: carBAMazepine 200 MG TABLET PO ×3 (08:07→16:00)
[2023-07-17] MEDS: MONTELUKAST SODIUM 10 MG TABLET PO (08:07)
[2023-07-17] MEDS: QUEtiapine FUMARATE 100 MG TABLET PO ×3 (08:07→16:00)
[2023-07-17] MEDS: busPIRone HCL 10 MG TABLET PO ×3 (08:07→16:00)
[2023-07-17] MEDS: DOCUSATE SODIUM LIQ 100 MG/10 ML UDC PO (08:07)
[2023-07-17] MEDS: CLOPIDOGREL BISULFATE 75 MG TABLET PO (08:07)
[2023-07-17] MEDS: PANTOPRAZOLE SODIUM IV 40 MG VIAL IV PUSH ×2 (08:10→20:01)
[2023-07-17] MEDS: ENOXAPARIN 40 MG/0.4 ML SYRINGE SUB-Q (08:10)
[2023-07-17] MEDS: POTASSIUM BICARBONATE 25 MEQ TABEF 50 MEQ PO ×2 (08:17→15:57)
--- NOTE | 2023-07-17 08:32 | WPDINTPN ---
Progress Note: A&P Assessment and Plan (1) Septic shock: Code(s): A41.9 - Sepsis, unspecified organism; R65.21 - Severe sepsis with septic shock Status: Acute Assessment and Plan: Septic shock secondary to acute pyelonephritis and cystitis. Pseudomonas bacteremia CT scan as above Patient has received adequate amount of IV fluids. Hold further IV fluids Off vasopressors Received 25% albumin Continue stress dose hydrocortisone Maintain mean arterial pressure Urine and blood cultures are growing Pseudomonas with pending susceptibilities Continue meropenem. Discontinued vancomycin (2) Acute pyelonephritis: Code(s): N10 - Acute pyelonephritis Status: Acute Assessment and Plan: See above (3) JEANNETTE (acute kidney injury): Code(s): N17.9 - Acute kidney failure, unspecified Status: Acute Assessment and Plan: JEANNETTE likely secondary to sepsis and shock CT abdomen pelvis reviewed and does not show any hydronephrosis Stents in place Creatinine improving and down to 1.0 Monitor urine output electrolytes and creatinine Fluids as above (4) Ureterolithiasis: Code(s): N20.1 - Calculus of ureter Status: Acute Assessment and Plan: Status post bilateral stenting. Small 2-3 mm stone distal there but there is no hydronephrosis Urology has been consulted (5) Altered mental status: Qualifiers: Altered mental status type: delirium Qualified Code(s): R41.0 - Disorientation, unspecified Code(s): R41.82 - Altered mental status, unspecified Status: Acute Assessment and Plan: Likely secondary to sepsis with improvement in mental status with the night Patient is AO x3 now (6) Constipation: Code(s): K59.00 - Constipation, unspecified Status: Acute Assessment and Plan: CT scan shows stool in colon although history of diarrhea prior to presentation No diarrhea in the ICU Continue laxatives (7) Diarrhea: Code(s): R19.7 - Diarrhea, unspecified Status: Acute Assessment and Plan: See above (8) Electrolyte abnormality: Code(s): E87.8 - Other disorders of electrolyte and fluid balance, not elsewhere classified Status: Acute Assessment and Plan: Magnesium calcium and potassium replacement ordered (9) Anemia: Code(s): D64.9 - Anemia, unspecified Status: Acute Assessment and Plan: Hemoglobin has been gradually trending down since admission. This could be secondary to dilution patient has received significant IV fluids. No obvious signs of. No hematoma or swelling at the site of femoral central venous catheter insertion Hemoglobin stable. Will resume Lovenox for DVT prophylaxis Continue PPI IV q.12 hours Normal B12 and folic acid Iron panel suggest anemia of chronic disease Monitor hemoglobin Transfuse if needed Plan DVT prophylaxis -Lovenox Nutrition -diet ordered Code Status - Full Code Incentive spirometry PT OT consult Transfer out of ICU today Subjective Date/time seen: 07/17/23 Overnight events reviewed. Afebrile Improved urine output.? Tolerating p.o. diet off vasopressors Other Vitals acceptable He is much more awake this morning states that he feels fine and denies any complaints.? He is hungry and would like to get his breakfast.? Patient denies fever, chest pain, shortness of breath, cough, nausea vomiting, abdominal pain,, diarrhea, headache or constipation..? All other systems were reviewed and were negative Review of Systems Review of Systems: ROS unobtainable: Yes unobtainable due to medical condition and unobtainable due to mental status Exam Narrative: General: Pt is alert awake and in NAD Lungs/Chest: Trachea central Clear BS B/L, No crackles or wheezing. Cardiac: RRR. Normal S1 S2. No murmurs Circulation: Pedal pulses are intact and symmetrical. Abdomen: Normal bowel sounds.. Soft. NT. ND. Extremities: No clubbing, cyanosis
--- NOTE | 2023-07-17 10:12 | PM.IMPN ---
Progress Note: A&P Assessment and Plan (1) Septic shock: Code(s): A41.9 - Sepsis, unspecified organism; R65.21 - Severe sepsis with septic shock Status: Acute Assessment and Plan: Septic shock secondary to acute pyelonephritis, bactermeia and cystitis. Patient has received adequate amount of IV fluids. Hold further IV fluids Continue Levophed titration. vasopressin infusion has been weaned off Received 25% albumin Continue stress dose hydrocortisone Maintain mean arterial pressure MRSA positive. CXR showing ILD and emphysema. Blood cultures are growing Pseudomonas that is pansensitive Urine culture is growing Pseudomonas that is pansensitive. Vanco stopped UCx also growing Enterococcus. WBC about the same. No fevers. BP better but still soft so continue Midodrine and Solu-Cortef Continue meropenem. Add back Vanco until Enterococcus sensitivites are known BCx repeated (2) Acute pyelonephritis: Code(s): N10 - Acute pyelonephritis Status: Acute Assessment and Plan: Chronic Rowe that has been changed out since admission. Complicated UTI/pyelonephritis See above (3) JEANNETTE (acute kidney injury): Code(s): N17.9 - Acute kidney failure, unspecified Status: Acute Assessment and Plan: JEANNETTE likely secondary to sepsis and shock CT abdomen pelvis does not show any hydronephrosis but does show cysitis and left pyelonephritis. Tiny stones noted along the left ureter. Stents in place Creatinine improving and down to 1 Monitor urine output, electrolytes and creatinine (4) Ureterolithiasis: Code(s): N20.1 - Calculus of ureter Status: Acute Assessment and Plan: Status post bilateral stenting. Patient had a cystoscopy, bilateral ureteroscopy with laser lithotripsy, stone extraction bilateral ureteral stent placement on 06/26/23. CT this admission notes small 2-3 mm stone noted along the left ureter but there is no hydronephrosis Urology following and appreciate their input (5) Altered mental status: Qualifiers: Altered mental status type: delirium Qualified Code(s): R41.0 - Disorientation, unspecified Code(s): R41.82 - Altered mental status, unspecified Status: Acute Assessment and Plan: Likely secondary to sepsis with improvement in mental status Resolved (6) Constipation: Code(s): K59.00 - Constipation, unspecified Status: Acute Assessment and Plan: CT scan shows stool in colon although history of diarrhea prior to presentation No diarrhea in the ICU and suspect he was leaking around hard stool Colace started. +BMs (7) Diarrhea: Code(s): R19.7 - Diarrhea, unspecified Status: Acute Assessment and Plan: See above (8) Electrolyte abnormality: Code(s): E87.8 - Other disorders of electrolyte and fluid balance, not elsewhere classified Status: Acute Assessment and Plan: Potassium low and replacement ordered Follow (9) Anemia: Code(s): D64.9 - Anemia, unspecified Status: Acute Assessment and Plan: Hemoglobin was 11.2 on admission and has dropped to 7.4 Consider secondary to dilution since patient has received significant IV fluids. No obvious signs of bleeding, hematoma. Lovenox held Iron studies noted. B12/folate normal range Hgb better at 8.7 Continue PPI Monitor hemoglobin Transfuse if needed Plan DVT prophylaxis -Lovenox on hold; SCDs Code Status - Full Code Subjective Date/time seen: 07/17/23 10:12 Interval history: 62yo male with hx of CVA and left hemiplegia, seizure, Parkinson, HTN and AV replacement here for lethargy and found to have septic shock froma urinary source. Levophed has been weaned off. He denies chest pain or shortness of breath. No nausea or vomiting. Did have a bowel movement. His cough is nonproductive. States the Rowe is chronic. Exam Narrative: AF 97.5 1
--- NOTE | 2023-07-17 15:38 | WPDUROPN2 ---
Progress Note: A&P Assessment and Plan (1) Septic shock: Code(s): A41.9 - Sepsis, unspecified organism; R65.21 - Severe sepsis with septic shock Status: Acute Assessment and Plan: Secondary to acute pyelonephritis. Being managed by primary team. Urine and blood cultures with growth of Pseudomonas as well as enterococcus in urine. Continue antibiotics tailored to culture (2) Acute pyelonephritis: Code(s): N10 - Acute pyelonephritis Status: Acute Assessment and Plan: Evident on CT. Continue empiric antibiotics based on culture as above (3) Ureterolithiasis: Code(s): N20.1 - Calculus of ureter Status: Acute Assessment and Plan: S/p bilateral ureteroscopy, stone extraction, and bilateral ureteral stent placement on 06/26/23. No indication for urgent urologic intervention at this time. Plan for stent removal sometime next week pending improvement in clinical status. CT suggests two stones in the distal left ureter alongside the stent. Subjective Subjective Date/Time Seen: 07/17/23 15:38 Interval history: Blaine is doing well today. Reports no complaints. No issues with cotto catheter. Draining clear yellow urine. No back or flank pain. No N/V/F/C Review of Systems Review of Systems: All systems reviewed & are unremarkable except as noted in HPI and below Exam Narrative: General: Awake, alert, comfortable, no acute distress HEENT: Normocephalic, atraumatic, sclerae anicteric Respiratory: Normal respiratory effort, no accessory muscle use Abdomen: Nondistended, soft, nontender : Cotto catheter draining clear yellow urine Skin: Normal coloration, warm and dry Neurologic: No focal neuro deficits noted Psychiatric: Appropriate mood and affect, judgment and insight intact Objective Data Vital Signs Vital Signs: Vital Signs - 24 hr 07/16/23 16:00 07/16/23 16:00 07/16/23 16:00 Temperature 96.8 F L Pulse Rate 51 L 52 L 54 L Respiratory Rate 16 Blood Pressure 102/70 102/70 Pulse Oximetry 97 Oxygen Delivery Oxygen Flow Rate 07/16/23 16:00 07/16/23 18:00 07/16/23 18:00 Temperature 97.4 F L Pulse Rate 54 L 53 L 53 L Respiratory Rate 16 16 Blood Pressure 108/73 108/73 Pulse Oximetry 97 96 Oxygen Delivery Nasal Cannula Oxygen Flow Rate 2 07/16/23 18:00 07/16/23 17:00 07/16/23 20:00 Temperature 97.0 F L Pulse Rate 53 L 52 L 53 L Respiratory Rate 18 14 Blood Pressure 110/71 Pulse Oximetry 96 97 Oxygen Delivery Room Air Oxygen Flow Rate 07/16/23 20:15 07/16/23 21:06 07/16/23 20:00 Temperature Pulse Rate 53 L 54 L 53 L Respiratory Rate Blood Pressure 109/78 117/76 Pulse Oximetry Oxygen Delivery Oxygen Flow Rate 07/16/23 20:00 07/16/23 22:00 07/16/23 22:00 Temperature Pulse Rate 54 L 54 L Respiratory Rate 20 Blood Pressure 107/74 Pulse Oximetry 97 Oxygen Delivery Room Air Oxygen Flow Rate 07/16/23 22:25 07/17/23 00:00 07/17/23 00:12 Temperature 97.4 F L Pulse Rate 54 L 55 L 55 L Respiratory Rate 21 H Blood Pressure 107/74 92/68 L 92/68 L Pulse Oximetry 95 Oxygen Delivery Oxygen Flow Rate 07/17/23 00:00 07/17/23 00:00 07/17/23 02:00 Temperature Pulse Rate 59 L 54 L Respiratory Rate Blood Pressure Pulse Oximetry 95 Oxygen Delivery Nasal Cannula Oxygen Flow Rate 2 07/17/23 02:00 07/17/23 00:00 07/17/23 02:00 Temperature Pulse Rate 54 L 55 L 54 L Respiratory Rate 19 Blood Pressure 88/62 L 92/68 L 88/62 L Pulse Oximetry 94 Oxygen Delivery Oxygen Flow Rate 07/17/23 04:03 07/16/23 20:52 07/17/23 04:00 Temperature 97.2 F L Pulse Rate 56 L 55 L Respiratory Rate 21 H Blood Pressure 109/74 109/74 Pulse Oximetry 94 95 Oxygen Delivery Nasal Cannula Oxygen Flow Rate 2 07/17/23 04:00 07/17/23 04:00 07/17/23 06:00 Temperature Pulse Rate 55 L 57 L Respiratory Rate
--- NOTE | 2023-07-17 17:38 | PC.NURSE ---
This patient, Blaine Salvador, was transferred to [facility] on 07/17/23 at 1730. Personal belongings sent with patient. Report given to Jessika. Appropriate documentation sent with patient.
[2023-07-17] MEDS: VANCOMYCIN 1,500 MG/NS 500 ML 1,500 MG/500 ML BAG 250 MG IVPB (20:01)
[2023-07-17] MEDS: traZODone HCL 50 MG TABLET 150 MG PO (20:09)
[2023-07-17] MEDS: ATORVASTATIN 40 MG TABLET PO (20:09)
[2023-07-17] MEDS: FLUoxetine HCL 20 MG CAPSULE 80 MG PO (20:10)
[2023-07-17] MEDS: TAMSULOSIN HCL 0.4 MG CAPSULE PO (20:10)
[2023-07-18] VITALS (16 sets, daily range): BP systolic 103–125; BP diastolic 55–78; PULSE 56–67; RESP 16–18; TEMP 36–36.9; O2SAT 95–97
[2023-07-18] MEDS: HYDROCORTISONE SODIUM SUCCINATE 100 MG/2 ML VIAL IV PUSH ×2 (00:49→09:23)
[2023-07-18] MEDS: MEROPENEM 1 GM/NS 100 ML 1 GM/100 ML BAG IVPB ×2 (00:49→09:22)
[2023-07-18 05:01] LABS: Basophils Percent Auto 0.1 % (0.2-1.2); Hematocrit 26.5 % (42.0-52.0); Hemoglobin 8.8 g/dL (14.0-18.0); Immature Granulocyte Absolute 0.16 K/mm3 (0.00-0.031); Immature Granulocyte Percent A 0.9 % (0-0.5); Lymphocytes Absolute Auto 1.06 K/mm3 (0.9-3.2); Lymphocytes Percent Auto 6.2 % (18.3-44.2); Mean Corpuscular HGB Conc 33.2 g/dl (32-36); Mean Corpuscular Volume 96.4 fl (80-100); Mean Platelet Volume 11.3 fl (7.4-10.4); Monocytes Absolute Auto 0.7 K/mm3 (0.1-0.6); Monocytes Percent Auto 4.3 % (2.6-8.5); Neutrophils Absolute Auto 15.1 K/mm3 (1.3-6.7); Neutrophils Percent Auto 88.5 % (45.5-73.1); Nucleated Red Blood Cells Perc 0.1 % (0.0-0.2); Platelet Count Result 218 k/mm3 (150-375); Red Blood Count 2.75 M/mm3 (4.6-6.20); Red Cell Distribution Width 12.6 % (11.5-14.5); White Blood Count 17.1 K/mm3 (4.5-10.0)
[2023-07-18 05:07] LABS: Alanine Aminotransferase 35 U/L (6-50); Albumin Level 2.9 g/dL (3.5-5.1); Alkaline Phosphatase 111 U/L (38-126); Anion Gap 6 mmol/L (4-12); Aspartate Amino Transferase 36 U/L (17-59); Bilirubin,Total 0.4 mg/dL (0.2-1.3); Blood Urea Nitrogen 21 mg/dL (9-20); Calcium 8.4 mg/dL (8.4-10.2); Carbon Dioxide 24 mmol/L (22-30); Chloride 109 mmol/L (98-107); Estimated CRCL calculation 78 ml/min; Estimated Glomerular Filt Rate > 60; Glucose 95 mg/dL (65-110); Potassium 3.8 mmol/L (3.4-5.0); Sodium 139 mmol/L (137-145)
--- NOTE | 2023-07-18 08:57 | PCOTNOTE ---
Pt. dependent at baseline, currently consistent with prior level of function. Spoke with hospitalist, Dr. Pate, who is agreeable to cancelation of therapy kin.
[2023-07-18] MEDS: MIDODRINE HCL 2.5 MG TABLET 5 MG PO ×3 (09:22→18:31)
[2023-07-18] MEDS: QUEtiapine FUMARATE 100 MG TABLET PO ×3 (09:22→18:31)
[2023-07-18] MEDS: carBAMazepine 200 MG TABLET PO ×3 (09:23→18:31)
[2023-07-18] MEDS: MONTELUKAST SODIUM 10 MG TABLET PO (09:23)
[2023-07-18] MEDS: ENOXAPARIN 40 MG/0.4 ML SYRINGE SUB-Q (09:23)
[2023-07-18] MEDS: PANTOPRAZOLE SODIUM IV 40 MG VIAL IV PUSH ×2 (09:23→21:57)
[2023-07-18] MEDS: ZONISAMIDE 100 MG CAPSULE PO ×2 (09:23→21:58)
[2023-07-18] MEDS: busPIRone HCL 10 MG TABLET PO ×3 (09:23→18:31)
[2023-07-18] MEDS: CLOPIDOGREL BISULFATE 75 MG TABLET PO (09:23)
--- NOTE | 2023-07-18 12:11 | WPDUROPN2 ---
Progress Note: A&P Assessment and Plan (1) Septic shock: Code(s): A41.9 - Sepsis, unspecified organism; R65.21 - Severe sepsis with septic shock Status: Acute Assessment and Plan: Secondary to acute pyelonephritis. Being managed by primary team. Urine and blood cultures with growth of Pseudomonas as well as enterococcus in urine. Continue antibiotics tailored to culture (2) Acute pyelonephritis: Code(s): N10 - Acute pyelonephritis Status: Acute Assessment and Plan: Evident on CT. Continue empiric antibiotics based on culture as above (3) Ureterolithiasis: Code(s): N20.1 - Calculus of ureter Status: Acute Assessment and Plan: S/p bilateral ureteroscopy, stone extraction, and bilateral ureteral stent placement on 06/26/23. No indication for urgent urologic intervention at this time. Will attempt to plan inpatient stent removal for 07/22/23 if patient remains admitted. Subjective Subjective Date/Time Seen: 07/18/23 12:11 Interval history: Doing well today. No acute events overnight. Downgraded to IMU. Offers no complaints. No issues with Rowe catheter which is draining clear yellow urine. Denies bladder spasms are stent discomfort. Review of Systems Review of Systems: All systems reviewed & are unremarkable except as noted in HPI and below Exam Narrative: General: Awake, alert, comfortable, no acute distress HEENT: Normocephalic, atraumatic, sclerae anicteric Respiratory: Normal respiratory effort, no accessory muscle use Abdomen: Nondistended, soft, nontender : Rowe catheter draining clear yellow urine Skin: Normal coloration, warm and dry Neurologic: No focal neuro deficits noted Psychiatric: Appropriate mood and affect, judgment and insight intact Objective Data Vital Signs Vital Signs: Vital Signs - 24 hr 07/17/23 14:00 07/17/23 14:00 07/17/23 16:00 Temperature Pulse Rate 61 61 59 L Respiratory Rate 23 H Blood Pressure 105/72 Pulse Oximetry 98 Oxygen Delivery Fraction of Inspired Oxygen 07/17/23 16:00 07/17/23 16:00 07/17/23 19:35 Temperature 98 F 97.8 F Pulse Rate 59 L 59 L 59 L Respiratory Rate 17 17 16 Blood Pressure 96/72 L 101/60 Pulse Oximetry 96 96 97 Oxygen Delivery Room Air Fraction of Inspired Oxygen 07/17/23 20:00 07/17/23 22:00 07/17/23 20:00 Temperature Pulse Rate 58 L 60 Respiratory Rate Blood Pressure Pulse Oximetry Oxygen Delivery Room Air Fraction of Inspired Oxygen 07/18/23 00:00 07/18/23 00:00 07/18/23 00:00 Temperature 96.8 F L Pulse Rate 56 L 56 L Respiratory Rate 16 Blood Pressure 104/62 Pulse Oximetry 95 Oxygen Delivery Room Air Fraction of Inspired Oxygen 07/18/23 02:00 07/18/23 04:00 07/18/23 04:00 Temperature 97.2 F L Pulse Rate 59 L 57 L Respiratory Rate 16 Blood Pressure 113/67 Pulse Oximetry Oxygen Delivery Room Air Fraction of Inspired Oxygen 07/18/23 04:00 07/17/23 22:02 07/18/23 06:00 Temperature Pulse Rate 58 L 58 L Respiratory Rate Blood Pressure Pulse Oximetry 95 Oxygen Delivery Room Air Fraction of Inspired Oxygen 07/18/23 07:30 07/18/23 08:00 07/18/23 08:07 Temperature 97.5 F L Pulse Rate 60 59 L Respiratory Rate 16 Blood Pressure 109/75 Pulse Oximetry 95 97 Oxygen Delivery Room Air Fraction of Inspired Oxygen 21 07/18/23 08:00 07/18/23 10:00 07/18/23 11:43 Temperature 97.5 F L Pulse Rate 62 62 Respiratory Rate 16 Blood Pressure 107/55 L Pulse Oximetry 96 Oxygen Delivery Room Air Fraction of Inspired Oxygen Intake/Output Intake/Output: Intake & Output 07/15/23 07/16/23 07/17/23 07/18/23 23:59 23:59 23:59 23:59 Intake Total 3732.9 2236.9 3617 470 Output Total 2250 1025 1300 1300 Balance 1482.9 1211.9 2567 -490 Meds/Results Medications: Active Medications Generic Name Dose Route Start Last Adm
[2023-07-18] MEDS: AMOXICILLIN 500 MG CAPSULE PO ×2 (13:18→21:59)
--- NOTE | 2023-07-18 17:06 | PM.IMPN ---
Progress Note: A&P Assessment and Plan (1) Septic shock: Code(s): A41.9 - Sepsis, unspecified organism; R65.21 - Severe sepsis with septic shock Status: Acute Assessment and Plan: Patient found to be lethargic and brought in for evaluation. He had septic shock secondary to acute pyelonephritis, bacteremia and cystitis. Patient received adequate amount of IV fluids. He required Levophed and vasopressin infusions. Once more stable, he was able to be weaned off. Also received 25% albumin and stress dose hydrocortisone. MRSA positive. CXR showing ILD and emphysema. Blood cultures are growing Pseudomonas that is pansensitive. Urine culture is growing Pseudomonas that is pansensitive. Vanco was stopped but UCx also grew Enterococcus so Vanco resumed. WBC down to 17K. No fevers. BP better so will wean off Solu-Cortef Repeat BCx NGTD On meropenem and Vanco; sensitivites are known so adjust abx Discussed with PharmD ID and abx adjusted. Removed central line (2) Acute pyelonephritis: Code(s): N10 - Acute pyelonephritis Status: Acute Assessment and Plan: Chronic Rowe that has been changed out since admission. Complicated UTI/pyelonephritis See above (3) JEANNETTE (acute kidney injury): Code(s): N17.9 - Acute kidney failure, unspecified Status: Acute Assessment and Plan: JEANNETTE likely secondary to sepsis and shock CT abdomen pelvis does not show any hydronephrosis but does show cysitis and left pyelonephritis. Tiny stones noted along the left ureter. Stents in place Creatinine improving and down to 1 Monitor urine output, electrolytes and creatinine (4) Ureterolithiasis: Code(s): N20.1 - Calculus of ureter Status: Acute Assessment and Plan: Status post bilateral stenting. Patient had a cystoscopy, bilateral ureteroscopy with laser lithotripsy, stone extraction bilateral ureteral stent placement on 06/26/23. CT this admission notes bilateral internal ureteral stents and small 2-3 mm stone noted along the left ureter but there is no hydronephrosis Urology following and appreciate their input (5) Altered mental status: Qualifiers: Altered mental status type: delirium Qualified Code(s): R41.0 - Disorientation, unspecified Code(s): R41.82 - Altered mental status, unspecified Status: Acute Assessment and Plan: Likely secondary to sepsis with improvement in mental status Resolved (6) Constipation: Code(s): K59.00 - Constipation, unspecified Status: Acute Assessment and Plan: CT scan shows stool in colon although history of diarrhea prior to presentation No diarrhea in the ICU and suspect he was leaking around hard stool Colace started. +BMs (7) Diarrhea: Code(s): R19.7 - Diarrhea, unspecified Status: Acute Assessment and Plan: See above (8) Electrolyte abnormality: Code(s): E87.8 - Other disorders of electrolyte and fluid balance, not elsewhere classified Status: Acute Assessment and Plan: Electrolytes stable Follow (9) Anemia: Code(s): D64.9 - Anemia, unspecified Status: Acute Assessment and Plan: Hemoglobin was 11.2 on admission and has dropped to 7.4 Consider secondary to dilution since patient has received significant IV fluids. No obvious signs of bleeding or hematoma. Lovenox was held but now resumed Iron studies noted. B12/folate normal range Hgb better in the 8 range Continue PPI Monitor hemoglobin Transfuse if needed Plan Dysphagia - patiant back on [facility]. RN concerned about aspiration. ST to see. DVT prophylaxis -Lovenox; SCDs Code Status - Full Code Subjective Date/time seen: 07/18/23 17:06 Interval history: 62yo male with hx of CVA and left hemiplegia, seizure, Parkinson, HTN and AV replacement here for lethargy and found to have septic shock from a urinary source.
[2023-07-18] MEDS: levoFLOXacin 750 MG TABLET PO (18:31)
[2023-07-18] MEDS: ATORVASTATIN 40 MG TABLET PO (21:55)
[2023-07-18] MEDS: HYDROCORTISONE SODIUM SUCCINATE 100 MG/2 ML VIAL 50 MG IV PUSH (21:56)
[2023-07-18] MEDS: traZODone HCL 50 MG TABLET 150 MG PO (21:58)
[2023-07-18] MEDS: TAMSULOSIN HCL 0.4 MG CAPSULE PO (21:58)
[2023-07-18] MEDS: MELATONIN 5 MG TABLET PO (22:01)
[2023-07-18] MEDS: FLUoxetine HCL 20 MG CAPSULE 80 MG PO (22:02)
--- NOTE | 2023-07-18 22:41 | PC.NURSE ---
This patient, Blaine Salvador, was transferred to room 252 on 07/18/23 at 2241. Personal belongings sent with patient. Report given to MAEGAN Mata. Appropriate documentation sent with patient.
--- NOTE | 2023-07-18 23:01 | PC.NURSE ---
pt arrived from IMU at 2245 and orientated to the room. no signs of distress at this time.
[2023-07-19 04:00] VITALS: BP 136/72; PULSE 60; RESP 18; TEMP 36.8; O2SAT 98
[2023-07-19] MEDS: AMOXICILLIN 500 MG CAPSULE PO ×2 (05:45→13:19)
[2023-07-19 05:48] LABS: Basophils Percent Auto 0.3 % (0.2-1.2); Eosinophils Percent Auto 0.1 % (0-4.4); Hematocrit 30.6 % (42.0-52.0); Hemoglobin 9.7 g/dL (14.0-18.0); Immature Granulocyte Absolute 0.26 K/mm3 (0.00-0.031); Immature Granulocyte Percent A 1.9 % (0-0.5); Lymphocytes Absolute Auto 2.17 K/mm3 (0.9-3.2); Lymphocytes Percent Auto 15.8 % (18.3-44.2); Mean Corpuscular HGB Conc 31.7 g/dl (32-36); Mean Corpuscular Hemoglobin 31.7 pg (26-34); Mean Platelet Volume 10.9 fl (7.4-10.4); Monocytes Absolute Auto 1.3 K/mm3 (0.1-0.6); Monocytes Percent Auto 9.5 % (2.6-8.5); Neutrophils Absolute Auto 9.9 K/mm3 (1.3-6.7); Neutrophils Percent Auto 72.4 % (45.5-73.1); Nucleated Red Blood Cells Perc 0.5 % (0.0-0.2); Platelet Count Result 225 k/mm3 (150-375); Red Blood Count 3.06 M/mm3 (4.6-6.20); Red Cell Distribution Width 12.6 % (11.5-14.5); White Blood Count 13.7 K/mm3 (4.5-10.0)
[2023-07-19 06:00] LABS: Alanine Aminotransferase 28 U/L (6-50); Alkaline Phosphatase 129 U/L (38-126); Anion Gap 7 mmol/L (4-12); Aspartate Amino Transferase 22 U/L (17-59); Bilirubin,Total 0.6 mg/dL (0.2-1.3); Blood Urea Nitrogen 17 mg/dL (9-20); Calcium 8.3 mg/dL (8.4-10.2); Carbon Dioxide 21 mmol/L (22-30); Chloride 110 mmol/L (98-107); Estimated CRCL calculation 82 ml/min; Estimated Glomerular Filt Rate > 60; Glucose 81 mg/dL (65-110); Magnesium 1.9 mg/dL (1.6-2.3); Potassium 3.6 mmol/L (3.4-5.0); Sodium 138 mmol/L (137-145)
--- NOTE | 2023-07-19 08:16 | PM.DS ---
DS: Admitting Diagnosis Discharge Date 07/19/23 Admitting Diagnosis Lethargy DS: Discharge Diagnosis Discharge Diagnosis (1) Septic shock: Code(s): A41.9 - Sepsis, unspecified organism; R65.21 - Severe sepsis with septic shock Status: Acute (2) Acute pyelonephritis: Code(s): N10 - Acute pyelonephritis Status: Acute (3) JEANNETTE (acute kidney injury): Code(s): N17.9 - Acute kidney failure, unspecified Status: Acute (4) Ureterolithiasis: Code(s): N20.1 - Calculus of ureter Status: Acute (5) Altered mental status: Qualifiers: Altered mental status type: delirium Qualified Code(s): R41.0 - Disorientation, unspecified Code(s): R41.82 - Altered mental status, unspecified Status: Acute (6) Constipation: Code(s): K59.00 - Constipation, unspecified Status: Acute (7) Diarrhea: Code(s): R19.7 - Diarrhea, unspecified Status: Acute (8) Electrolyte abnormality: Code(s): E87.8 - Other disorders of electrolyte and fluid balance, not elsewhere classified Status: Acute (9) Anemia: Code(s): D64.9 - Anemia, unspecified Status: Acute DS: Summary Hospital Course Reason for hospitalization: 62yo male with hx of CVA and left hemiplegia, seizure, Parkinson, HTN and AV replacement here for lethargy and found to have septic shock from a urinary source. Please see H&P for details. Hospital Course: Patient found to be lethargic and brought in for evaluation. He had septic shock secondary to acute pyelonephritis, bacteremia and cystitis. CXR showing emphysema and chronic ILD. CT Abd/Pelvis showing cystitis, left pyelonephritis, bilateral internal ureteral stents noted with bilateral nephrolithiasis with a couple of 2-3mm stones along the side of the left ureter. Emphysema with UIP pattern of ILD noted and moderate amount of stool. Patient received adequate amount of IV fluids. He required Levophed and vasopressin infusions. Once more stable, he was able to be weaned off pressors. Also received 25% albumin, Midodrine and stress dose hydrocortisone. MRSA positive. Blood cultures are growing Pseudomonas that is pansensitive. Urine culture is growing Pseudomonas that was pansensitive. Vanco was stopped but UCx then grew Enterococcus so Vanco resumed. WBC trended down. No fevers. BP better so able to be weaned off Solu-Cortef. Blood pressure remained low-normal so we continued with Midodrine. Repeat BCx NGTD. Was on meropenem and Vanco. Discussed with PharmD ID and abx adjusted. Patient with complicated UTI/acute pyelonephritis. He has a chronic Rowe that was changed out since admission. Patient with JEANNETTE likely secondary to sepsis and shock. CT abdomen pelvis does not show any hydronephrosis. Stents in place. Creatinine improved to normal. Patient had a cystoscopy, bilateral ureteroscopy with laser lithotripsy, stone extraction bilateral ureteral stent placement prior to admission on 06/26/23.?Urology following and appreciate their input. Patient had altered mental status likely secondary to sepsis with improvement in mental status. His condition improved. He did have a nightmare the night prior to discharge but RN states he was easily calmed. CT scan shows stool in colon although history of diarrhea prior to presentation. No diarrhea here and suspect he was leaking around hard stool possibly. Colace started. +BMs. Hemoglobin was 11.2 on admission and dropped to 7.4. [place] secondary to dilution since patient has received significant IV fluids.? No obvious signs of bleeding or hematoma. Iron studies noted. B12/folate normal range. Hgb stabilized and then improved. Patient was back on his diet from the senior care. RN concerned about aspiration but no issues per Speech Therapy evaluation. They even recommended possibly advancing his diet. Will defer diet advancement to his primary team. Patient overall did well and was able to be discharged on 07/19/23.
[2023-07-19 09:15] VITALS: BP 116/74; PULSE 68; RESP 16; TEMP 36.9; O2SAT 97
[2023-07-19] MEDS: QUEtiapine FUMARATE 100 MG TABLET PO ×2 (09:25→13:19)
[2023-07-19] MEDS: MONTELUKAST SODIUM 10 MG TABLET PO (09:25)
[2023-07-19] MEDS: ASPIRIN 81 MG ENTERIC TABLET PO (09:25)
[2023-07-19] MEDS: carBAMazepine 200 MG TABLET PO ×2 (09:25→13:19)
[2023-07-19] MEDS: ENOXAPARIN 40 MG/0.4 ML SYRINGE SUB-Q (09:25)
[2023-07-19] MEDS: ZONISAMIDE 100 MG CAPSULE PO (09:25)
[2023-07-19] MEDS: busPIRone HCL 10 MG TABLET PO ×2 (09:25→13:19)
[2023-07-19] MEDS: CLOPIDOGREL BISULFATE 75 MG TABLET PO (09:25)
[2023-07-19] MEDS: MIDODRINE HCL 2.5 MG TABLET 5 MG PO ×2 (09:25→13:19)
[2023-07-19] MEDS: PANTOPRAZOLE SODIUM IV 40 MG VIAL IV PUSH (09:25)
[2023-07-19] MEDS: HYDROCORTISONE SODIUM SUCCINATE 100 MG/2 ML VIAL 50 MG IV PUSH (09:26)
[2023-07-19] MEDS: DOCUSATE SODIUM LIQ 100 MG/10 ML UDC PO (10:44)
--- NOTE | 2023-07-19 11:25 | PCSTNOTE ---
Bedside swallowing evaluation completed. Patient seen bedside with head of bed elevated to achieve upright position. Cursory oral peripheral examination reveals mild left sided facial weakness, including labial. However, patient is able to achieve adequate lip closure and seal to drink through straw efficiently. Trials of thin liquids by straw were within normal limits, no signs of aspiration noted. Trials of pureed consistency food by spoon also within normal limits. Trials of solid food (bite of sandwich) required extra time for chewing (likely due to lack of dentition). Recommendations: return to minced moist diet and reevaluation of swallowing after returning to [facility] to determine whether upgrade to soft and bite sized diet texture is appropriate, thin liquids by straw, swallowing precautions as documented (upright position, small bite and sip size, frequent observation during meals). No further speech therapy is recommended at this time. Thank you for this referral.
[2023-07-19 12:00] VITALS: BP 138/74; PULSE 66; RESP 18; TEMP 36.9; O2SAT 96
[2023-07-19 14:05] LABS: SARS-CoV-2 RNA PCR Negative (Negative)
[2023-07-19 15:38] VITALS: BP 115/68; PULSE 72; RESP 20; TEMP 36.8; O2SAT 96
== END 2023-07-19 16:20 | DRG 871 ==
LOC: ANHED 15:47 → ANHICU 20:09 → ANHIMU 07-17 17:53 → ANH2MED 07-18 22:43
PROVIDERS: Internal Medicine; Admitting Provider Internal Medicine; Emergency Provider Emergency Medicine; PCP Family Medicine; Visit Provider Internal Medicine
DX: A41.52 Sepsis due to Pseudomonas (principal); G93.41 Metabolic encephalopathy; R65.21 Severe sepsis with septic shock; N10 Acute pyelonephritis; N17.9 Acute kidney failure, unspecified; N20.1 Calculus of ureter; I69.354 Hemiplegia and hemiparesis following cerebral infarction affecting left non-dominant side; I10 Essential (primary) hypertension; D64.9 Anemia, unspecified; E78.5 Hyperlipidemia, unspecified; E87.8 Other disorders of electrolyte and fluid balance, not elsewhere classified; E55.9 Vitamin D deficiency, unspecified; G20.A1 Parkinson's disease without dyskinesia, without mention of fluctuations; R56.9 Unspecified convulsions; F32.A Depression, unspecified; F41.9 Anxiety disorder, unspecified; F12.90 Cannabis use, unspecified, uncomplicated; F10.21 Alcohol dependence, in remission; F17.210 Nicotine dependence, cigarettes, uncomplicated; Z11.52 Encounter for screening for COVID-19; Z22.322 Carrier or suspected carrier of Methicillin resistant Staphylococcus aureus; Z99.3 Dependence on wheelchair; Z79.02 Long term (current) use of antithrombotics/antiplatelets; Z79.82 Long term (current) use of aspirin; Z87.442 Personal history of urinary calculi; Z95.2 Presence of prosthetic heart valve
CPT/HCPCS: 36415; 36556; 71045; 74177; 80053; 81001; 82607; 82728; 82746; 83540; 83550; 83605; 83690; 83735; 84466; 85025; 85027; 85046; 87040; 87077; 87086; 87088; 87181; 87186; 87635; 87641; 92522; 96361; 96374; 99291; A9270; C1751; C9113; J0613; J1630; J1650; J1720; J2185; J2405; J2543; J3370; J3475; J7030; J7120; P9047; Q9967

== ENCOUNTER 2023-07-21 06:43 | Emergency (ER) | payer MEDICARE, MEDICAID, SELFPAY ==
--- NOTE | ~2023-07-21 | CT_ITS ---
EXAMINATION: CT cervical spine wo con DATE: 07/21/2023 07:28 INDICATION: Neck injury. TECHNIQUE: Computed tomography (CT) of the cervical spine was performed without intravenous contrast. Automated exposure control and iterative reconstruction technique were employed. The dose-length pro duct was 307.23 mGy-cm. COMPARISON: CT cervical spine 05/22/2023 FINDINGS: There is moderate emphysema. There are airspace and groundglass opacities in the upper lobe s, right worse than left. Vertebral body heights are normal. There is severely decreased disc height at C6-C7. The following disc levels are specifically discussed: C2-C3: There is mild right uncovertebral joint osteoarthritis. There is mild bilateral facet joint os teoarthritis. There is no neural foraminal stenosis. There is no central canal stenosis. C3-C4: There is mild bilateral uncovertebral joint osteoarthritis. There is mild bilateral facet join t osteoarthritis. There is no neural foraminal stenosis. There is no central canal stenosis. C4-C5: There is mild bilateral uncovertebral joint osteoarthritis. There is mild bilateral facet join t osteoarthritis. There is no neural foraminal stenosis. There is no central canal stenosis. C5-C6: There is mild bilateral uncovertebral joint osteoarthritis. There is mild bilateral facet join t osteoarthritis. There is no neural foraminal stenosis. There is no central canal stenosis. C6-C7: There is severe bilateral uncovertebral joint osteoarthritis. There is mild bilateral facet esperanza int osteoarthritis. There is mild right and moderate left neural foraminal stenosis. There is mild ce ntral canal stenosis. C7-T1: There is mild bilateral uncovertebral joint osteoarthritis. There is no facet joint osteoarthr itis. There is no neural foraminal stenosis. There is no central canal stenosis. IMPRESSION: 1. No fracture. 2. Severe spondylosis at C5-C6 and mild spondylosis at other levels. 3. Bilateral lung disease, likely pneumonia. Reviewed, dictated and finalized at location E.
--- NOTE | ~2023-07-21 | CT_ITS ---
EXAMINATION: CT thoracic lumbar wo con DATE: 07/21/2023 07:29 INDICATION: Back pain. Fall. TECHNIQUE: Computed tomography (CT) of the thoracic and lumbar spine was performed without intravenou s contrast. Automated exposure control and iterative reconstruction technique were employed. The dose -length product was 1564.50 mGy-cm. COMPARISON: Chest CT 07/05/2023 FINDINGS: CT THORACIC SPINE: There is moderate emphysema. There are patchy airspace and groundglass opacities i n all lobes. There are small pleural effusions. There are changes of aortic valve replacement. There are coronary artery calcifications. There is 12 degrees dextroscoliosis of thoracolumbar spine. There is mild chronic anterior wedging of T6-T9 vertebral bodies. There are chronic compression fractures of T11 and T12. There is mild to moderately decreased disc height from T3-T4 through T11-T12. There i s multilevel facet joint osteoarthritis, severe bilaterally at T3-T4. There is mild neural foraminal stenosis at a few levels bilaterally. At T3-T4, there is moderate left neural foraminal stenosis. No central canal stenosis. CT LUMBAR SPINE: There are bilateral internal ureteral stents in expected positions. There are multip le stones in the bladder measuring up to 8 mm. There is a 3 mm stone in right kidney. There is a 3 mm stone in right renal pelvis. There is 3 mm anterolisthesis of L5 on S1. Vertebral body heights are n ormal. There is moderately decreased disc height at L5-S1. There is a chronic left L5 pars defect. Th e following disc levels are specifically discussed: L1-L2: The disc does not extend beyond the endplate margin. There is mild bilateral facet joint osteo arthritis. There is no neural foraminal stenosis. There is no central canal stenosis. L2-L3: The disc is bulging. There is severe bilateral facet joint osteoarthritis. There is mild bilat eral neural foraminal stenosis. There is mild central canal stenosis. L3-L4: The disc is bulging. There is moderate right and mild left facet joint osteoarthritis. There i s mild bilateral neural foraminal stenosis. There is mild central canal stenosis. L4-L5: The disc is bulging. There is moderate bilateral facet joint osteoarthritis. There is moderate bilateral neural foraminal stenosis. There is mild central canal stenosis. L5-S1: The disc is bulging. There is moderate bilateral facet joint osteoarthritis. There is moderate bilateral neural foraminal stenosis. There is mild central canal stenosis. IMPRESSION: 1. No acute fracture. 2. Moderate thoracic and lumbar spondylosis. 3. Diffuse lung disease, consistent with pneumonia. 4. Moderate emphysema. 5. Small pleural effusions. Reviewed, dictated and finalized at location E.
--- NOTE | ~2023-07-21 | CT_ITS ---
EXAMINATION: CT brain wo con DATE: 07/21/2023 07:28 INDICATION: Confusion. Head injury. TECHNIQUE: Computed tomography (CT) of the head was performed without intravenous contrast. The mA wa s adjusted according to patient size. Iterative reconstruction technique was employed. The dose-lengt h product was 756.67 mGy-cm. COMPARISON: Head CT 06/25/23 FINDINGS: There is an old infarct involving right frontal, temporal, and parietal lobes, right insula , right basal ganglia, right thalamus, and right internal capsule. There are old infarcts in the left basal ganglia. There is an old infarct in left parietal lobe. There are scattered areas of low atten uation in the cerebral white matter, likely chronic small vessel ischemic disease. There is no intrac ranial hemorrhage, acute infarction, or abnormal intracranial mass lesion. There is ex vacuo dilatati on of the lateral ventricles. The orbits are normal. There is mucosal thickening and fluid in the par anasal sinuses. The mastoid air cells are normal. IMPRESSION: 1. Old infarcts in the brain. Reviewed, dictated and finalized at location E.
[2023-07-21 06:38] VITALS: BP 137/92; PULSE 72; RESP 16; TEMP 36.6; O2SAT 98
[2023-07-21 07:00] VITALS: BP 122/69; PULSE 72; RESP 16; O2SAT 99
--- NOTE | 2023-07-21 07:41 | ED.FALL ---
HPI - Fall General Chief Complaint: Fall Stated Complaint: fall Time Seen by Provider: 07/21/23 06:57 History of Present Illness HPI Narrative: Patient is a 62-year-old male who [facility] to an unwitnessed. Patient fell out of bed this morning. Patient does have left-sided deficits due to a history of stroke, left upper extremity worse than left lower extremity. Patient is currently complaining of upper and lower back pain and neck pain. He is answering all my questions appropriately. Per chart review, patient is on aspirin and Plavix, however, Plavix does not appear to have been filled since May 22. No additional symptoms or concerns at this time. Related Data Home Medications Medication Instructions Recorded Confirmed aspirin 81 mg tablet,delayed 81 mg PO DAILY 02/03/20 07/14/23 release (Josue Low Dose Aspirin) atorvastatin 40 mg tablet 40 mg PO QHS 02/03/20 07/14/23 budesonide-formoterol HFA 160 2 puff inhalation BID 02/03/20 07/14/23 mcg-4.5 mcg/actuation aerosol inhaler (Symbicort) carbamazepine 200 mg tablet 200 mg PO TIDWM 02/03/20 07/14/23 famotidine 20 mg tablet 20 mg PO BID 02/03/20 07/14/23 fluoxetine 20 mg capsule 80 mg PO HS 02/03/20 07/14/23 montelukast 10 mg tablet 10 mg PO DAILY 02/03/20 07/14/23 quetiapine 50 mg tablet 100 mg PO TID 02/03/20 07/14/23 zonisamide 100 mg capsule 100 mg PO BID 02/03/20 07/14/23 acetaminophen 325 mg tablet 650 mg PO Q6H PRN Pain (Scale 05/22/22 07/14/23 Score 1-3) buspirone 10 mg tablet 10 mg PO TID 05/22/22 07/14/23 clopidogrel 75 mg tablet 75 mg PO QAM 05/22/22 07/14/23 docusate sodium 100 mg capsule 100 mg PO DAILY 05/22/22 07/14/23 ergocalciferol (vitamin D2) 50,000 50,000 unit PO WEEKLY 05/22/22 07/14/23 unit tablet ondansetron HCl 4 mg tablet 4 mg PO Q6H PRN Nausea 05/22/22 07/14/23 trazodone 150 mg tablet 150 mg PO QHS 05/22/22 07/14/23 baclofen 10 mg tablet 10 mg PO TID 01/21/23 07/14/23 bisacodyl 10 mg RECTAL DAILY PRN Constipation 01/21/23 07/14/23 magnesium citrate 296 ml PO QAM PRN Constipation 01/21/23 07/14/23 magnesium hydroxide 400 mg PO QHS PRN Constipation 01/21/23 07/14/23 pantoprazole 40 mg tablet,delayed 40 mg PO DAILY 06/25/23 07/14/23 release (Protonix) losartan 25 mg tablet 25 mg PO DAILY 07/14/23 07/14/23 melatonin 5 mg tablet 5 mg PO HS PRN Sleep 07/14/23 07/14/23 polyethylene glycol 3350 17 gram 17 g PO DAILY 07/14/23 07/14/23 oral powder packet (Miralax) Allergies Allergy/AdvReac Type Severity Reaction Status Date / Time mushroom Allergy Severe Anaphylaxis Verified 07/21/23 08:43 hydromorphone Allergy Mild Itching Verified 07/21/23 08:43 tramadol Allergy Unknown Seizure Verified 07/21/23 08:43 fluticasone AdvReac Other Verified 07/21/23 08:43 [From Advair Diskus] salmeterol AdvReac Other Verified 07/21/23 08:43 [From Advair Diskus] Review of Systems Review of Systems: All systems are reviewed and are negative unless stated otherwise in the HPI. [facility] Past Medical History Medical History Anxiety Aortic valve disease Cerebrovascular accident (05/01/22) CTA head and neck showed 10 occlusion of the right distal ICA and M1. He was not a candidate for tPA with concomitant diagnosis of bacteremia and endocarditis. Depression with anxiety Esophagitis History of esophageal dilatation Hyperlipidemia Hypertension Kidney stones Major depressive disorder Parkinson's disease Psychogenic nonepileptic seizure Seizure Skin cancer Valvular heart disease Vitamin D deficiency Surgical History Surgical History History of aortic valve replacement History of appendectomy History of open reduction and internal fixation (ORIF) procedure Repair left ankle fracture. History of spinal surgery Family History Family History (Reviewed 07/21/23 @ 07:44 by Gilbert
[2023-07-21 07:45] VITALS: BP 129/75; PULSE 64; RESP 16; O2SAT 97
[2023-07-21 08:32] VITALS: BP 142/64; PULSE 66; RESP 16; O2SAT 99
== END 2023-07-21 09:15 ==
PROVIDERS: Emergency Provider Emergency Medicine; PCP Family Medicine
DX: S09.90XA Unspecified injury of head, initial encounter (principal); J18.9 Pneumonia, unspecified organism; G20.A1 Parkinson's disease without dyskinesia, without mention of fluctuations; I35.8 Other nonrheumatic aortic valve disorders; I10 Essential (primary) hypertension; I69.354 Hemiplegia and hemiparesis following cerebral infarction affecting left non-dominant side; E78.5 Hyperlipidemia, unspecified; E55.9 Vitamin D deficiency, unspecified; F32.9 Major depressive disorder, single episode, unspecified; F41.9 Anxiety disorder, unspecified; F17.210 Nicotine dependence, cigarettes, uncomplicated; Z95.2 Presence of prosthetic heart valve; Z85.828 Personal history of other malignant neoplasm of skin; Z79.82 Long term (current) use of aspirin; Z79.899 Other long term (current) drug therapy; W06.XXXA Fall from bed, initial encounter; M47.812 Spondylosis without myelopathy or radiculopathy, cervical region; M47.814 Spondylosis without myelopathy or radiculopathy, thoracic region; M47.816 Spondylosis without myelopathy or radiculopathy, lumbar region; J43.9 Emphysema, unspecified
CPT/HCPCS: 70450; 72125; 72128; 72131; 99284

== ENCOUNTER 2023-08-27 11:48 | Inpatient (IN) | payer MEDICARE, SELFPAY ==
[2023-08-27] VITALS (11 sets, daily range): BP systolic 93–166; BP diastolic 44–79; PULSE 67–102; RESP 17–27; TEMP 36.3–38.2; O2SAT 95–100; BMI 21.0
--- NOTE | ~2023-08-27 | CT_ITS ---
EXAMINATION: CT abdomen pelvis w con DATE: 08/27/2023 14:15 INDICATION: Abdominal pain TECHNIQUE: Computed tomography (CT) of the abdomen and pelvis was performed with 100 mL Omnipaque-350 intravenous contrast. Automated exposure control and iterative reconstruction technique were employe d. The dose-length product was 686.63 mGy-cm. COMPARISON: CT dated 07/14/2023 FINDINGS: There is peripheral irregular septal line thickening with paraseptal emphysema versus honeycombing at the bilateral lower lungs. Heart size is normal. Atherosclerotic coronary artery calcific location i s unchanged prior previous sternotomy and coronary artery bypass grafting. Aortic valve repair. No pe ricardial effusion. Calcified nodule at the dome of the liver consistent with old granulomatous disea se. Gallbladder, spleen, pancreas and bilateral adrenal glands are normal. There is mild bilateral hydronephrosis with bilateral intraureteral stents in expected position with loops formed in the partially decompressed bladder and in the bilateral renal pelvises. No significan t change in a few small calcification is at the bilateral renal estiven likely representing combination of nonobstructing stones and atherosclerotic calcific a cyst. Previously seen 2 mm stone along the di stal right ureter is no longer visualized and has likely passed. The 3 mm stone at the mid right uret er has advanced and is now positioned along side the catheter within the distal ureter minimally abov e level of the roof the left acetabulum. There is prominent bladder wall thickening with mucosal hype remia and haziness to the immediately adjacent fat suggestive of cystitis. There is an enhancing urot helial thickening at the bilateral renal collecting systems suggestive of possible associated ascendi ng urinary tract infections. There is some persistent high attenuation dependently layering tiny ston es, stone fragments and/or milk of calcium in the bladder. No bowel obstruction. There is calcified atherosclerosis of the aorta and many of the other arteries. No free intraperitoneal gas or fluid. No pathologically enlarged abdominal or pelvic lymphadenopathy . Chronic mild compression fractures at T11 and T12 and moderate spondylosis of the lumbosacral junct ion. Bilateral L5 pars interarticularis defects with callus formation on the right. IMPRESSION: 1. Bilateral internal ureteral stents remain in expected position with advancement of a prior [address] one at the mid left ureter now positioned in the distal left ureter. A second 2 mm left ureteral ston e is no longer visualized and has likely passed. 2. Cystitis and mild enhancement urothelial thickening at the bilateral renal collecting systems whic h could represent associated ascending urinary tract infection. 3. Emphysema with usual interstitial pneumonia (UIP) pattern chronic interstitial lung disease at the bilateral lung bases. Reviewed, dictated and finalized at location B. IMPRESSION: 1. Bilateral internal ureteral stents remain in expected position with advancem ent of a prior 3 mm stone at the mid left ureter now positioned in the distal l eft ureter. A second 2 mm left ureteral stone is no longer visualized and has l ikely passed. 2. Cystitis and mild enhancement urothelial thickening at the bilateral renal c ollecting systems which could represent associated ascending urinary tract infe ction. 3. Emphysema with usual interstitial pneumonia (UIP) pattern chronic interstiti al lung disease at the bilateral lung bases.
[2023-08-27] MEDS: SODIUM CHLORIDE 0.9% IV 1,000 ML 999 ML IV CONT ×2 (12:02→15:06)
[2023-08-27 12:43] LABS: Add Urine Microscopic? YES; Appearance Urine Turbid (Clear); Bacteria Urine 4+ /hpf; Bilirubin Urine Negative (Negative); Blood Urine 3+ (Negative); Color Urine Yellow (Yellow); Glucose Urine UA Negative (Negative); Ketones Urine Negative (Negative); Leukocyte Esterase Ur 3+ LEU/UL (Negative); Need Manual Microscopic Reviewed; Nitrate Urine Negative (Negative); Protein Urine 3+ mg/dL (Negative); RBC Urine >100 /hpf (0-2); Specific Grav Ur 1.011 (1.001-1.035); Squamous Epithelial Cell Urine None Seen /hpf (Few); WBC Urine >100 /hpf (0-3); pH Urine 7.5 (5.0-9.0)
[2023-08-27 13:14] LABS: Basophils Absolute Auto 0.1 K/mm3 (0.0-0.1); Basophils Percent Auto 0.2 % (0.2-1.2); Hematocrit 32.4 % (42.0-52.0); Immature Granulocyte Absolute 0.12 K/mm3 (0.00-0.031); Immature Granulocyte Percent A 0.5 % (0-0.5); Lymphocytes Percent Auto 4.9 % (18.3-44.2); Mean Corpuscular Hemoglobin 31.9 pg (26-34); Mean Corpuscular Volume 93.9 fl (80-100); Mean Platelet Volume 9.6 fl (7.4-10.4); Monocytes Absolute Auto 2.9 K/mm3 (0.1-0.6); Monocytes Percent Auto 11.6 % (2.6-8.5); Neutrophils Absolute Auto 20.2 K/mm3 (1.3-6.7); Neutrophils Percent Auto 82.8 % (45.5-73.1); Platelet Count Result 329 k/mm3 (150-375); Red Blood Count 3.45 M/mm3 (4.6-6.20); Red Cell Distribution Width 13.6 % (11.5-14.5); White Blood Count 24.5 K/mm3 (4.5-10.0)
[2023-08-27 13:27] LABS: Alanine Aminotransferase 13 U/L (6-50); Albumin Level 3.5 g/dL (3.5-5.1); Alkaline Phosphatase 182 U/L (38-126); Anion Gap 8 mmol/L (4-12); Aspartate Amino Transferase 19 U/L (17-59); Bilirubin,Total 0.8 mg/dL (0.2-1.3); Blood Urea Nitrogen 15 mg/dL (9-20); Calcium 8.5 mg/dL (8.4-10.2); Carbon Dioxide 20 mmol/L (22-30); Chloride 110 mmol/L (98-107); Estimated CRCL calculation 61 ml/min; Estimated Glomerular Filt Rate > 60; Glucose 124 mg/dL (65-110); Lactic Acid Reflex 0.9 mmol/L (0.7-2.0); Lipase 25 U/L (23-300); Potassium 3.8 mmol/L (3.4-5.0); Sodium 138 mmol/L (137-145)
--- NOTE | 2023-08-27 14:45 | ED.GENADULT ---
HPI - General Adult General Chief complaint: Nausea/Vomiting/Diarrhea Stated complaint: coffe ground emesis Time Seen by Provider: 08/27/23 13:35 History of Present Illness HPI narrative: Patient is a 62-year-old gentleman who presents emergency department with chief complaint of nausea and vomiting patient may have had some coffee-grounds type emesis patient had a fever and feels very nauseated upon arrival in the emergency department with no further episodes of emesis Related Data Home Medications Medication Instructions Recorded Confirmed aspirin 81 mg tablet,delayed 81 mg PO DAILY 02/03/20 08/05/23 release (Josue Low Dose Aspirin) atorvastatin 40 mg tablet 40 mg PO QHS 02/03/20 08/05/23 budesonide-formoterol HFA 160 2 puff inhalation BID 02/03/20 08/05/23 mcg-4.5 mcg/actuation aerosol inhaler (Symbicort) carbamazepine 200 mg tablet 200 mg PO TIDWM 02/03/20 08/05/23 famotidine 20 mg tablet 20 mg PO BID 02/03/20 08/05/23 fluoxetine 20 mg capsule 80 mg PO HS 02/03/20 08/05/23 montelukast 10 mg tablet 10 mg PO DAILY 02/03/20 08/05/23 quetiapine 50 mg tablet 100 mg PO TID 02/03/20 08/05/23 zonisamide 100 mg capsule 100 mg PO BID 02/03/20 08/05/23 acetaminophen 325 mg tablet 650 mg PO Q6H PRN Pain (Scale 05/22/22 08/05/23 Score 1-3) buspirone 10 mg tablet 10 mg PO TID 05/22/22 08/05/23 clopidogrel 75 mg tablet 75 mg PO QAM 05/22/22 08/05/23 docusate sodium 100 mg capsule 100 mg PO DAILY 05/22/22 08/05/23 ergocalciferol (vitamin D2) 50,000 50,000 unit PO WEEKLY 05/22/22 08/05/23 unit tablet ondansetron HCl 4 mg tablet 4 mg PO Q6H PRN Nausea 05/22/22 08/05/23 trazodone 150 mg tablet 150 mg PO QHS 05/22/22 08/05/23 baclofen 10 mg tablet 10 mg PO TID 01/21/23 08/05/23 bisacodyl 10 mg RECTAL DAILY PRN Constipation 01/21/23 08/05/23 magnesium citrate 296 ml PO QAM PRN Constipation 01/21/23 08/05/23 magnesium hydroxide 400 mg PO QHS PRN Constipation 01/21/23 08/05/23 pantoprazole 40 mg tablet,delayed 40 mg PO DAILY 06/25/23 08/05/23 release (Protonix) melatonin 5 mg tablet 5 mg PO HS PRN Sleep 07/14/23 08/05/23 polyethylene glycol 3350 17 gram 17 g PO DAILY 07/14/23 08/05/23 oral powder packet (Miralax) Allergies Allergy/AdvReac Type Severity Reaction Status Date / Time mushroom Allergy Severe Anaphylaxis Verified 08/05/23 12:54 hydromorphone Allergy Mild Itching Verified 08/05/23 12:54 tramadol Allergy Unknown Seizure Verified 08/05/23 12:54 fluticasone AdvReac Other Verified 08/05/23 12:54 [From Advair Diskus] salmeterol AdvReac Other Verified 08/05/23 12:54 [From Advair Diskus] Review of Systems Review of Systems: A 10 system review of systems was completed on the patient and is negative except for what is stated in the HPI. Nursing and ancillary documentation was reviewed. [facility] Past Medical History Medical History Anxiety Aortic valve disease Cerebrovascular accident (05/01/22) CTA head and neck showed 10 occlusion of the right distal ICA and M1. He was not a candidate for tPA with concomitant diagnosis of bacteremia and endocarditis. Depression with anxiety Esophagitis History of esophageal dilatation Hyperlipidemia Hypertension Kidney stones Major depressive disorder Parkinson's disease Psychogenic nonepileptic seizure Seizure Skin cancer Valvular heart disease Vitamin D deficiency Surgical History Surgical History History of aortic valve replacement History of appendectomy History of open reduction and internal fixation (ORIF) procedure Repair left ankle fracture. History of spinal surgery Family History Family History Other No pertinent family history Social History Social History Social History: Surrogate medical dec
[2023-08-27] MEDS: ONDANSETRON INJ 4 MG/2 ML VIAL IV PUSH (15:05)
--- NOTE | 2023-08-27 15:07 | WPDURCON ---
Assessment and Plan Assessment and plan (1) UTI (urinary tract infection): Code(s): N39.0 - Urinary tract infection, site not specified Status: Acute Assessment and Plan: UA grossly abnormal, consistent with infection. Continue empiric antibiotics while awaiting urine culture results. Tailor accordingly. (2) Ureterolithiasis: Code(s): N20.1 - Calculus of ureter Status: Acute Assessment and Plan: 07/17 underwent emergent bilateral ureteroscopy with stone extraction and bilateral stent placement. Had some fragments remaining in left ureter. Scheduled to undergo bilateral stent removal and left ureteroscopy with possible stone extraction 07/2023 but not able to be completed at that time due to need for cardiac clearance. Will need stent removal/replacement and definitive stone management at some point. Timing dependent on clinical course. Stents in expected position at this time. (3) Sepsis: Code(s): A41.9 - Sepsis, unspecified organism Status: Acute Assessment and Plan: Septic on presentation with low-grade fever and leukocytosis. Lactic acid within normal limits. Blood cultures pending. Continue empiric antibiotics, IV fluids, management per primary team Urology Consult Note HPI Date Seen: 08/27/23 Primary Care Provider: Ben Hernandez, Consult Narrative Narrative: Blaine Salvador is a 62 year old male with a history of Parkinson's disease, CVA, hemiplegia, and kidney stones is known to our service with recent bilateral stones s/p bilateral ureteroscopy, stone extraction, and stent placement on 06/26/2023. Plan was for bilateral stent removal with left ureteroscopy and possible stone extraction on 08/05/2023, though this was not able to be completed as scheduled as patient required cardiac clearance. He now presents to the ER with complaints of nausea and vomiting. On arrival, he was febrile at 100.7? with slightly low BP, additional vital signs stable, WBC markedly elevated at 24.5, creatinine 1.1, UA highly suggestive of infection with leukocytes, RBC, and WBC. Urine culture is pending at this time. A CT of his abdomen/pelvis was completed during admission which showed bilateral internal stents in expected position with now 3 mm distal left ureter stone. The other left ureteral stone fragment from prior imaging appears to have passed. Also demonstrates cystitis and mild urothelial thickening possibly indicative of ascending UTI. At the time of my evaluation, the patient reports he is feeling slightly improved. No further nausea or vomiting. Complains of feeling cold but denies fever or chills. Denies any dysuria or hematuria. A cotto catheter was inserted upon arrival and is draining clear yellow urine. He reports no issues with this. Denies suprapubic pain, flank pain, or back pain. Review of Systems Review of Systems: All systems reviewed & are unremarkable except as noted in HPI and below PMFSH Past Medical History Medical History Anxiety Aortic valve disease Cerebrovascular accident (05/01/22) CTA head and neck showed 10 occlusion of the right distal ICA and M1. He was not a candidate for tPA with concomitant diagnosis of bacteremia and endocarditis. Depression with anxiety Esophagitis History of esophageal dilatation Hyperlipidemia Hypertension Kidney stones Major depressive disorder Parkinson's disease Psychogenic nonepileptic seizure Seizure Skin cancer Valvular heart disease Vitamin D deficiency Surgical History Surgical History History of aortic valve replacement History of appendectomy History of open reduction and internal fixation (ORIF) procedure Repair left ankle fracture. History of spinal surgery Family History Family History Other No pertinent family
[2023-08-27 15:16] LABS: Influenza A QL RT-PCR Negative (Negative); Influenza B QL RT-PCR Negative (Negative); RSV RNA, RT-PCR Negative (Negative); SARS-CoV-2 RNA PCR Negative (Negative)
[2023-08-27] MEDS: SODIUM CHLORIDE 0.9% IV 1,000 ML 125 ML IV CONT (17:14)
--- NOTE | 2023-08-27 20:01 | PM.IMHP ---
H&P: HPI History of Present Illness Date/Time: 08/27/23 20:01 Chief Complaint: Nausea Narrative: 62 y/o M presents here with nausea and changes in urine appearance with PMH of CVA (2022), depression/anxiety, HLD, HTN, Parkinson's, non-epileptic seizures, and valvular heart disease. The patient presents here from [facility] via EMS for further evaluation of nausea, vomiting, fever, and change in urinary appearance. Per EMS report, patient started vomiting around 4:00 a.m. this morning and had a coffee-ground appearance. Was given Zofran x1 with resolution of nausea and vomiting with no episodes since. Per patient it was brownish with coffee ground appearance. Has chronic Rowe in place with change in appearance, now has excessive sedimentation. Last Rowe exchange unknown. Febrile upon arrival at 100.7? F. per chart review, patient was admitted from 07/14/23-07/19/23 for septic shock secondary to acute pyelonephritis, bacteremia, and cystitis. Patient was admitted to the ICU and required Levophed and vasopressin drips. Blood cultures and urine culture grew Pseudomonas. Initial VS at presentation: 100.7? F, HR 88, RR 20, 93/62, and 96% on RA. ED workup showed: WBC 24.5, hemoglobin 11.0, creatinine 1.1 and GFR >60, lactic 0.9 and UA suggestive of UTI. CT of the abdomen pelvis showed the bilateral internal ureteral stents remaining in expected position, advancement of a 3 mm stone in the mid left ureter now positioned in the distal left ureter, cystitis and mild enhancement of urethral thickening at the bilateral renal collecting systems, and emphysema with UIP pattern chronic ILD. Review of Systems Review of Systems: All systems reviewed & are unremarkable except as noted in HPI and below PMFSH Past Medical History Medical History Anxiety Aortic valve disease Cerebrovascular accident (05/01/22) CTA head and neck showed 10 occlusion of the right distal ICA and M1. He was not a candidate for tPA with concomitant diagnosis of bacteremia and endocarditis. Depression with anxiety Esophagitis History of esophageal dilatation Hyperlipidemia Hypertension Kidney stones Major depressive disorder Parkinson's disease Psychogenic nonepileptic seizure Seizure Skin cancer Valvular heart disease Vitamin D deficiency Surgical History Surgical History History of aortic valve replacement History of appendectomy History of open reduction and internal fixation (ORIF) procedure Repair left ankle fracture. History of spinal surgery Family History Family History Other No pertinent family history Social History Social History Social History: Surrogate medical decision maker: Angeline Perkins, friend. Code status: Full code. Smoking packs per day: 0.25 Smoking cigarettes per day: 5.0 Years smoked: 10 Smoking pack-years: 2.50 Smoking status: Former smoker Tobacco type: cigarettes Second hand tobacco smoke exposure: Yes Additional smoking assessment comments: used to be heavy smoker Alcohol intake: former Alcohol use details: Recovering alcoholic. 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 Additional occupation/education comments: Disabled. P
[2023-08-28] VITALS (11 sets, daily range): BP systolic 100–112; BP diastolic 53–60; PULSE 62–83; RESP 18–22; TEMP 36.6–36.8; O2SAT 96–99
[2023-08-28] MEDS: SODIUM CHLORIDE 0.9% IV 1,000 ML 125 ML IV CONT (01:27)
[2023-08-28] MEDS: MAGNESIUM CITRATE 300 ML BTL PO (01:27)
[2023-08-28 05:30] LABS: Basophils Absolute Auto 0.1 K/mm3 (0.0-0.1); Basophils Percent Auto 0.3 % (0.2-1.2); Eosinophils Percent Auto 0.1 % (0-4.4); Hematocrit 26.8 % (42.0-52.0); Hemoglobin 8.7 g/dL (14.0-18.0); Immature Granulocyte Absolute 0.15 K/mm3 (0.00-0.031); Immature Granulocyte Percent A 0.8 % (0-0.5); Lymphocytes Absolute Auto 1.88 K/mm3 (0.9-3.2); Lymphocytes Percent Auto 9.8 % (18.3-44.2); Mean Corpuscular HGB Conc 32.5 g/dl (32-36); Mean Corpuscular Hemoglobin 32.1 pg (26-34); Mean Corpuscular Volume 98.9 fl (80-100); Mean Platelet Volume 9.7 fl (7.4-10.4); Monocytes Absolute Auto 2.5 K/mm3 (0.1-0.6); Monocytes Percent Auto 13.2 % (2.6-8.5); Neutrophils Absolute Auto 14.5 K/mm3 (1.3-6.7); Neutrophils Percent Auto 75.8 % (45.5-73.1); Platelet Count Result 261 k/mm3 (150-375); Red Blood Count 2.71 M/mm3 (4.6-6.20); Red Cell Distribution Width 13.4 % (11.5-14.5); White Blood Count 19.1 K/mm3 (4.5-10.0)
[2023-08-28 05:47] LABS: Alanine Aminotransferase 10 U/L (6-50); Albumin Level 2.6 g/dL (3.5-5.1); Alkaline Phosphatase 127 U/L (38-126); Anion Gap 8 mmol/L (4-12); Aspartate Amino Transferase 21 U/L (17-59); Bilirubin,Total 0.7 mg/dL (0.2-1.3); Blood Urea Nitrogen 11 mg/dL (9-20); Calcium 7.2 mg/dL (8.4-10.2); Carbon Dioxide 18 mmol/L (22-30); Chloride 113 mmol/L (98-107); Estimated CRCL calculation 78 ml/min; Estimated Glomerular Filt Rate > 60; Glucose 96 mg/dL (65-110); Potassium 3.2 mmol/L (3.4-5.0); Sodium 139 mmol/L (137-145)
--- NOTE | 2023-08-28 05:53 | PC.NURSE ---
DOCUMENTATION ON THIS PATIENT COMPLETED BY URBANO ZULUAGA LPN. REVIEWED AND MONITORED BY MYSELF JOANNE ROSE RN
[2023-08-28] MEDS: ONDANSETRON INJ 4 MG/2 ML VIAL IV PUSH (05:56)
[2023-08-28 06:46] LABS: Gastric Negative Control Negative; Gastric Positive Control Positive; Occult Blood Gastric Fluid Negative; pH Gastric Fluid 3 (1-8)
[2023-08-28] MEDS: FLUTICASONE/SALMETEROL 115-21 MCG INHALER 1 PUFF 2 PUFF INHALATION ×2 (07:39→19:59)
[2023-08-28] MEDS: carBAMazepine 200 MG TABLET PO ×3 (08:41→17:24)
[2023-08-28] MEDS: polyethylene glycoL 3350 17 GM POWD.PACK PO (08:41)
[2023-08-28] MEDS: ZONISAMIDE 100 MG CAPSULE PO ×2 (08:41→17:24)
[2023-08-28] MEDS: QUEtiapine FUMARATE 100 MG TABLET PO ×3 (08:41→17:24)
[2023-08-28] MEDS: MONTELUKAST SODIUM 10 MG TABLET PO (08:41)
[2023-08-28] MEDS: MIDODRINE HCL 2.5 MG TABLET 5 MG PO ×3 (08:41→17:24)
[2023-08-28] MEDS: busPIRone HCL 10 MG TABLET PO ×3 (08:41→17:24)
[2023-08-28] MEDS: POTASSIUM CHLORIDE 20 MEQ ER TABLET 40 MEQ PO (08:41)
[2023-08-28] MEDS: DOCUSATE SODIUM 100 MG CAPSULE PO (08:41)
[2023-08-28] MEDS: PANTOPRAZOLE SODIUM IV 40 MG VIAL IV PUSH ×2 (08:41→22:25)
[2023-08-28] MEDS: BACLOFEN 10 MG TABLET PO ×3 (08:41→17:24)
[2023-08-28] MEDS: CEFEPIME 2 GM/NS 50 ML 2 GM/50 ML BAG IVPB ×2 (08:44→22:23)
[2023-08-28] MEDS: VANCOMYCIN 1,500 MG/NS 500 ML 1,500 MG/500 ML BAG 250 MG IVPB (09:54)
--- NOTE | 2023-08-28 10:51 | WPDUROPN2 ---
Progress Note: A&P Assessment and Plan (1) Acute pyelonephritis: Code(s): N10 - Acute pyelonephritis Status: Acute Assessment and Plan: Afebrile and leukocytosis improving Repeat CT shows just one tiny residual stone fragment now in distal left ureter Await culture completion Subjective Subjective Date/Time Seen: 08/28/23 10:51 Interval history: Comfortable, no complaints Review of Systems Review of Systems: All systems reviewed & are unremarkable except as noted in HPI and below Exam Const: General: no acute distress Resp: Effort & Inspection: normal respiratory effort GI: Inspection: non-distended GI Palp: No abdominal tenderness and No Guarding due to palpation present (GI) Auscultation: normal bowel sounds Objective Data Vital Signs Vital Signs: Vital Signs - 24 hr 08/27/23 11:47 08/27/23 12:09 08/27/23 13:46 Temperature 100.7 F H Pulse Rate 88 83 77 Respiratory Rate 20 26 H 24 H Blood Pressure 93/62 L 96/70 L 102/63 Pulse Oximetry 96 96 97 Oxygen Delivery Room Air 08/27/23 13:53 08/27/23 14:46 08/27/23 15:45 Temperature Pulse Rate 76 79 80 Respiratory Rate 25 H 23 H 27 H Blood Pressure 102/63 120/72 139/74 Pulse Oximetry 97 99 Oxygen Delivery 08/27/23 16:30 08/27/23 16:37 08/27/23 17:03 Temperature 97.8 F Pulse Rate 81 67 82 Respiratory Rate 24 H 18 17 Blood Pressure 125/68 166/79 H 119/59 L Pulse Oximetry 99 100 99 Oxygen Delivery 08/27/23 18:00 08/27/23 20:40 08/27/23 20:00 Temperature 97.4 F L Pulse Rate 102 H 79 Respiratory Rate 17 Blood Pressure 104/44 L Pulse Oximetry 95 Oxygen Delivery Room Air 08/27/23 20:00 08/28/23 00:00 08/28/23 04:00 Temperature Pulse Rate 66 69 Respiratory Rate Blood Pressure Pulse Oximetry Oxygen Delivery Room Air 08/28/23 05:22 08/28/23 07:40 08/28/23 08:00 Temperature 98.2 F Pulse Rate 83 62 Respiratory Rate 18 Blood Pressure 100/60 Pulse Oximetry 99 96 Oxygen Delivery Room Air Intake/Output Intake/Output: Intake & Output 08/25/23 08/26/23 08/27/23 08/28/23 23:59 23:59 23:59 23:59 Intake Total 3740 1480 Output Total 600 2350 Balance 3140 -870 Meds/Results Medications: Active Medications Generic Name Dose Route Start Last Admin Trade Name Freq PRN Reason Stop Dose Admin Acetaminophen 650 mg 08/27/23 16:01 Acetaminophen 325 Mg Tablet PO Q4H PRN Mild Pain (1-3) or Fever Atorvastatin Calcium 40 mg 08/28/23 21:00 Atorvastatin 40 Mg Tablet PO QHS KELL Baclofen 10 mg 08/28/23 09:00 08/28/23 08:41 Baclofen 10 Mg Tablet PO 10 mg TID KELL Administration Bisacodyl 10 mg 08/28/23 00:45 Bisacodyl 10 Mg Suppository RECTAL DAILY PRN Constipation Buspirone HCl 10 mg 08/28/23 09:00 08/28/23 08:41 Buspirone Hcl 10 Mg Tablet PO 10 mg TID KELL Administration Carbamazepine 200 mg 08/28/23 08:00 08/28/23 08:41 Carbamazepine 200 Mg Tablet PO 200 mg TIDWM KELL Administration Docusate Sodium 100 mg 08/28/23 09:00 08/28/23 08:41 Docusate Sodium 100 Mg Capsule PO 100 mg DAILY KELL Administration Fluoxetine HCl 80 mg 08/28/23 21:00 Fluoxetine Hcl 20 Mg Capsule PO HS [facility] Sodium Chloride 1,000 mls @ 125 mls/hr 08/27/23 16:05 08/28/23 01:27 Normal Saline Iv IV CONT 125 mls/hr .Q8H KELL Administration Cefepime HCl 2 gm in 50 mls @ 100 mls/hr 08/28/23 09:00 08/28/23 08:44 Maxipime 2 Gm/Ns 50 Ml IVPB 100 mls/hr Q12H KELL Administration Vancomycin HCl 1,500 mg in 500 mls @ 250 mls/hr 08/28/23 10:00 08/28/23 09:54 Vancomycin 1,500 Mg/Ns 500 Ml IVPB 250 mls/hr Q18H KELL Administration Melatonin 5 mg 08/28/23 00:45 Melatonin 5 Mg Tablet PO HS PRN Sleep Midodrine 5 mg 08/28/23 09:00 08/28/23 08:41 Midodrine Hcl 2.5 Mg Tablet PO 5 mg TID KELL Administration Montelukast Sodium 10 mg 08/28/23 0
--- NOTE | 2023-08-28 13:01 | PM.IMPN ---
Progress Note: A&P Assessment and Plan (1) Sepsis: Qualifiers: Sepsis acute organ dysfunction status: without acute organ dysfunction Sepsis type: sepsis due to unspecified organism Qualified Code(s): A41.9 - Sepsis, unspecified organism Code(s): A41.9 - Sepsis, unspecified organism Status: Acute Assessment and Plan: Sepsis with tachycardia, leukocytosis and low grade fever. lacti level okay. No hypotension or hypoxia. Received 30 mL/kg = 2200 , given 2 L bolus in ED. Now on 125 mL/hour. CT A/P showing cystitis and mild enhancement urothelial thickening at the bilateral renal collecting systems which could represent associated ascending urinary tract infection. Started on ceftriaxone on 08/26 after cultures drawn. But prior cultures growing pseudomonas and Enterococcus UCx pending BCx NGTD WBC trending down. Change to Cefepime and Vanco until culture results known . (2) Urinary tract infection: Qualifiers: Urinary tract infection type: acute pyelonephritis Qualified Code(s): N10 - Acute pyelonephritis Code(s): N39.0 - Urinary tract infection, site not specified Status: Acute Assessment and Plan: UA: turbid, 3+ protein, 3+ blood, 3+ leuks, greater than 100 RBC, greater than 100 WBC, no epithelial cells, 4+ bacteria UC pending, obtained on 08/26 Previous micro reviewed with Pseudomonas and Enterococcus species, pansensitive Started on Ceftriaxone on 08/26 but will change to Vanco and Cefepime Rowe exchanged today (08/26) Urology consulted and appreciate their input (3) Ureterolithiasis: Code(s): N20.1 - Calculus of ureter Status: Acute Assessment and Plan: Urology consulted Previously scheduled for uteroscopy and stent removal with possible stone extraction in July of 2023, did not have cardiac clearance prior Will need stent removal / replacement and definitive stone treatment once curent infection has cleared (4) Vomiting: Qualifiers: Nausea presence: with nausea Vomiting type: bilious vomiting Qualified Code(s): R11.14 - Bilious vomiting Code(s): R11.10 - Vomiting, unspecified Status: Acute Assessment and Plan: CT abd/pelvis: no findings to explain current nausea/vomiting but suspect related to the UTI Continue current diet as tolerated. Will stop IV fluids. Continue PPI. Antiemetics availabe Plan Anemia - Hgb dropped fro 11 to 8.7 but probably related to fluid bolus and then maintenance. SLIVF. Monitor for evidence of acute blood loss. GI Prophylaxis: pantoprazole IVP DVT Prophylaxis: SCDs Code Status: full code Subjective Date/time seen: 08/28/23 13:01 Interval history: 62yo male with CVA, depression, HTN, Parkinson's and seizures here for nausea. Patient had nausea and vomiting that was 'pea colored'. Occured after the Mag Citrate. No CPor SOB. No abd pain. had a BM yesteray. Exam Narrative: Tm 100.7 98.2 100/60 65 18 96% ra Gen - NARD Chest - bibasilar carckles. nml RR CV - RRR S1/S2. Tele showing no significant dysrhythmias. Abd - Soft, mild tenderness. +BS - Rowe secured draining clear yellow urine Ext - No pedal edema Psych - Nml mood and affect Skin - Warm and dry Objective Data Vital Signs Vital Signs: Vital Signs - 24 hr 08/27/23 13:46 08/27/23 13:53 08/27/23 14:46 Temperature Pulse Rate 77 76 79 Respiratory Rate 24 H 25 H 23 H Blood Pressure 102/63 102/63 120/72 Pulse Oximetry 97 97 99 Oxygen Delivery 08/27/23 15:45 08/27/23 16:30 08/27/23 16:37 Temperature Pulse Rate 80 81 67 Respiratory Rate 27 H 24 H 18 Blood Pressure 139/74 125/68 166/79 H Pulse Oximetry 99 100 Oxygen Delivery 08/27/23 17:03 08/27/23 18:00 08/27/23 20:40 Temperature 97.8 F 97.4 F L Pulse Rate 82 102 H Respiratory Rate 17 17 Blood Pressure 119/59 L 104/44 L Pulse Oximetry 99 95 Oxygen Delivery Room Air 08/27/23 20:00 08/27/23 20:0
[2023-08-28 20:56] LABS: Hematocrit 25.3 % (42.0-52.0); Hemoglobin 8.4 g/dL (14.0-18.0)
[2023-08-28] MEDS: traZODone HCL 50 MG TABLET 150 MG PO (22:24)
[2023-08-28] MEDS: FLUoxetine HCL 20 MG CAPSULE 80 MG PO (22:24)
[2023-08-28] MEDS: TAMSULOSIN HCL 0.4 MG CAPSULE PO (22:24)
[2023-08-28] MEDS: ATORVASTATIN 40 MG TABLET PO (22:25)
[2023-08-29] VITALS (8 sets, daily range): BP systolic 98–113; BP diastolic 48–55; PULSE 49–63; RESP 18; TEMP 36.3–36.6; O2SAT 97–99
[2023-08-29] MEDS: VANCOMYCIN 1,500 MG/NS 500 ML 1,500 MG/500 ML BAG 250 MG IVPB (04:59)
[2023-08-29 06:27] LABS: Basophils Percent Auto 0.3 % (0.2-1.2); Eosinophils Absolute Auto 0.2 K/mm3 (0-0.3); Eosinophils Percent Auto 1.8 % (0-4.4); Hematocrit 26.8 % (42.0-52.0); Hemoglobin 8.5 g/dL (14.0-18.0); Immature Granulocyte Absolute 0.04 K/mm3 (0.00-0.031); Immature Granulocyte Percent A 0.4 % (0-0.5); Lymphocytes Percent Auto 14.5 % (18.3-44.2); Mean Corpuscular HGB Conc 31.7 g/dl (32-36); Mean Corpuscular Hemoglobin 31.5 pg (26-34); Mean Corpuscular Volume 99.3 fl (80-100); Monocytes Absolute Auto 1.1 K/mm3 (0.1-0.6); Monocytes Percent Auto 12.3 % (2.6-8.5); Neutrophils Absolute Auto 6.3 K/mm3 (1.3-6.7); Neutrophils Percent Auto 70.7 % (45.5-73.1); Platelet Count Result 246 k/mm3 (150-375); Red Cell Distribution Width 13.4 % (11.5-14.5)
[2023-08-29 06:37] LABS: Albumin Level 2.6 g/dL (3.5-5.1); Anion Gap 6 mmol/L (4-12); Blood Urea Nitrogen 9 mg/dL (9-20); Carbon Dioxide 21 mmol/L (22-30); Chloride 114 mmol/L (98-107); Estimated CRCL calculation 78 ml/min; Estimated Glomerular Filt Rate > 60; Glucose 89 mg/dL (65-110); Magnesium 1.8 mg/dL (1.6-2.3); Phosphorus 3.3 mg/dL (2.5-4.5); Potassium 3.4 mmol/L (3.4-5.0); Sodium 141 mmol/L (137-145)
[2023-08-29] MEDS: FLUTICASONE/SALMETEROL 115-21 MCG INHALER 1 PUFF 2 PUFF INHALATION ×2 (08:00→20:01)
[2023-08-29] MEDS: CEFEPIME 2 GM/NS 50 ML 2 GM/50 ML BAG IVPB ×2 (09:11→19:31)
[2023-08-29] MEDS: DOCUSATE SODIUM 100 MG CAPSULE PO (09:12)
[2023-08-29] MEDS: PANTOPRAZOLE SODIUM IV 40 MG VIAL IV PUSH ×2 (09:12→21:24)
[2023-08-29] MEDS: BACLOFEN 10 MG TABLET PO ×3 (09:13→17:41)
[2023-08-29] MEDS: QUEtiapine FUMARATE 100 MG TABLET PO ×3 (09:13→17:41)
[2023-08-29] MEDS: MONTELUKAST SODIUM 10 MG TABLET PO (09:13)
[2023-08-29] MEDS: MIDODRINE HCL 2.5 MG TABLET 5 MG PO ×3 (09:13→17:41)
[2023-08-29] MEDS: carBAMazepine 200 MG TABLET PO ×3 (09:13→17:41)
[2023-08-29] MEDS: busPIRone HCL 10 MG TABLET PO ×3 (09:14→17:41)
[2023-08-29] MEDS: ZONISAMIDE 100 MG CAPSULE PO ×2 (09:14→17:42)
[2023-08-29] MEDS: POTASSIUM CHLORIDE 20 MEQ ER TABLET 40 MEQ PO (09:14)
[2023-08-29] MEDS: polyethylene glycoL 3350 17 GM POWD.PACK PO (09:14)
--- NOTE | 2023-08-29 09:44 | WPDUROPN2 ---
Progress Note: A&P Assessment and Plan (1) Acute pyelonephritis: Code(s): N10 - Acute pyelonephritis Status: Acute Assessment and Plan: Afebrile and leukocytosis resolved Repeat CT shows just one tiny residual stone fragment now in distal left ureter Urine culture with Pseudomonas, susceptibility report pending. Blood cultures with growth of gram negative bacilli Will reschedule cystoscopy with bilateral stent removal and left ureteroscopy with stone extraction pending resolution of infection Subjective Subjective Date/Time Seen: 08/29/23 09:44 Interval history: Blaine is doing well today. reports no concerns. Denies abdominal pain, suprapubic pain or flank pain. No N/V/F/C. Tolerating his diet. No issues with cotto catheter. Review of Systems Review of Systems: All systems reviewed & are unremarkable except as noted in HPI and below Exam Narrative: General: Awake, alert, comfortable, no acute distress HEENT: Normocephalic, atraumatic, sclerae anicteric Respiratory: Normal respiratory effort, no accessory muscle use Abdomen: Nondistended, soft, nontender : Cotto catheter draining clear yellow urine Skin: Normal coloration, warm and dry Neurologic: No focal neuro deficits noted Psychiatric: Appropriate mood and affect, judgment and insight intact Objective Data Vital Signs Vital Signs: Vital Signs - 24 hr 08/28/23 12:00 08/28/23 14:00 08/28/23 16:00 Temperature 97.9 F Pulse Rate 65 63 64 Respiratory Rate 22 H Blood Pressure 108/59 L Pulse Oximetry 97 Oxygen Delivery 08/28/23 20:03 08/28/23 21:08 08/28/23 22:18 Temperature 98.1 F Pulse Rate 63 Respiratory Rate 18 Blood Pressure 112/53 L Pulse Oximetry 97 98 Oxygen Delivery Room Air Room Air 08/29/23 04:30 08/28/23 20:00 08/29/23 00:00 Temperature 97.9 F Pulse Rate 56 L 67 63 Respiratory Rate 18 Blood Pressure 113/51 L Pulse Oximetry 98 Oxygen Delivery 08/29/23 04:00 08/29/23 08:03 Temperature Pulse Rate 58 L Respiratory Rate Blood Pressure Pulse Oximetry 97 Oxygen Delivery Room Air Intake/Output Intake/Output: Intake & Output 08/26/23 08/27/23 08/28/23 08/29/23 23:59 23:59 23:59 23:59 Intake Total 3740 2780 740 Output Total 600 4500 1600 Balance 8111 -3854 -814 Meds/Results Medications: Active Medications Generic Name Dose Route Start Last Admin Trade Name Elsy PRN Reason Stop Dose Admin Acetaminophen 650 mg 08/27/23 16:01 Acetaminophen 325 Mg Tablet PO Q4H PRN Mild Pain (1-3) or Fever Atorvastatin Calcium 40 mg 08/28/23 21:00 08/28/23 22:25 Atorvastatin 40 Mg Tablet PO 40 mg QHS KELL Administration Baclofen 10 mg 08/28/23 09:00 08/29/23 09:13 Baclofen 10 Mg Tablet PO 10 mg TID KELL Administration Bisacodyl 10 mg 08/28/23 00:45 Bisacodyl 10 Mg Suppository RECTAL DAILY PRN Constipation Buspirone HCl 10 mg 08/28/23 09:00 08/29/23 09:14 Buspirone Hcl 10 Mg Tablet PO 10 mg TID KELL Administration Carbamazepine 200 mg 08/28/23 08:00 08/29/23 09:13 Carbamazepine 200 Mg Tablet PO 200 mg TIDWM KELL Administration Docusate Sodium 100 mg 08/28/23 09:00 08/29/23 09:12 Docusate Sodium 100 Mg Capsule PO 100 mg DAILY KELL Administration Fluoxetine HCl 80 mg 08/28/23 21:00 08/28/23 22:24 Fluoxetine Hcl 20 Mg Capsule PO 80 mg HS KELL Administration Vancomycin HCl 1,500 mg in 500 mls @ 250 mls/hr 08/28/23 10:00 08/29/23 06:59 Vancomycin 1,500 Mg/Ns 500 Ml IVPB Infused Q18H KELL Infusion Cefepime HCl 2 gm in 50 mls @ 100 mls/hr 08/29/23 08:00 08/29/23 09:11 Maxipime 2 Gm/Ns 50 Ml IVPB 100 mls/hr Q8H KELL Administration Melatonin 5 mg 08/28/23 00:45 Melatonin 5 Mg Tablet PO HS PRN Sleep Midodrine 5 mg 08/28/23 09:00 08/29/23 09:13 Midodrine Hcl 2.5 Mg Tablet PO 5 mg TID KELL Administration Montelu
[2023-08-29] MEDS: MAGNESIUM SULF 2 GM/WATER 50ML 2 GM/50 ML BAG IVPB (09:48)
--- NOTE | 2023-08-29 12:01 | PM.IMPN ---
Progress Note: A&P Assessment and Plan (1) Sepsis: Qualifiers: Sepsis type: sepsis due to unspecified organism Sepsis acute organ dysfunction status: without acute organ dysfunction Qualified Code(s): A41.9 - Sepsis, unspecified organism Code(s): A41.9 - Sepsis, unspecified organism Status: Acute Assessment and Plan: Septicemia with tachycardia, leukocytosis and low grade fever. Now with positive BCx. Lactic level okay. No hypotension or hypoxia. Received 30 mL/kg = 2200 , given 2 L bolus in ED. Now on 125 mL/hour. CT A/P showing cystitis and mild enhancement urothelial thickening at the bilateral renal collecting systems which could represent associated ascending urinary tract infection. Started on ceftriaxone on 08/26 after cultures drawn but prior cultures growing pseudomonas and Enterococcus so changed to Vanco/Cefepime UCx growing Pseudomonas. BCx growing GNB. WBC normal now. Continue Cefepime; olay to stop Vanco . (2) Urinary tract infection: Qualifiers: Urinary tract infection type: acute pyelonephritis Qualified Code(s): N10 - Acute pyelonephritis Code(s): N39.0 - Urinary tract infection, site not specified Status: Acute Assessment and Plan: UA: turbid, 3+ protein, 3+ blood, 3+ leuks, greater than 100 RBC, greater than 100 WBC, no epithelial cells, 4+ bacteria UC 08/26 growing pseudomonas Previous micro reviewed with Pseudomonas and Enterococcus species, pansensitive Rowe exchanged today (08/26) Urology consulted and appreciate their input Continue cefepime (3) Ureterolithiasis: Code(s): N20.1 - Calculus of ureter Status: Acute Assessment and Plan: Urology consulted Previously scheduled for uteroscopy and stent removal with possible stone extraction in July of 2023, did not have cardiac clearance prior Will need stent removal / replacement and definitive stone treatment once curent infection has cleared (4) Vomiting: Qualifiers: Vomiting type: bilious vomiting Nausea presence: with nausea Qualified Code(s): R11.14 - Bilious vomiting Code(s): R11.10 - Vomiting, unspecified Status: Acute Assessment and Plan: CT abd/pelvis: no findings to explain current nausea/vomiting but suspect related to the UTI and septiemia Symptoms have resolved. Continue current diet as tolerated. Continue PPI. Antiemetics available prn Plan Anemia - Hgb dropped fro 11 to 8.7 but probably related to fluid bolus and then maintenance. SLIVF. Repeat HH stable. Monitor for evidence of acute blood loss. GI Prophylaxis: pantoprazole IVP DVT Prophylaxis: SCDs, Lovenox Code Status: full code Subjective Date/time seen: 08/29/23 12:01 Interval history: 62yo male with CVA, depression, HTN, Parkinson's and seizures here for nausea. Slept poorly last night. No anxiety or pain overnight. No CP or SOB. No furthre n/v. Eating and tolerating it. uses a Francis lift to be out of bed Exam Narrative: AF 97.9 113/51 56 18 97% ra Gen - NARD Chest - clear anteriorly, nml RR CV - RRR S1/S2. Tele showing no significant dysrhythmias. Abd - Soft, NT/ND. +BS - Rowe secured draining clear yellow urine Ext - No pedal edema Neuro - left hemiplegia Psych - Nml mood and affect Skin - Warm and dry Objective Data Vital Signs Vital Signs: Vital Signs - 24 hr 08/28/23 14:00 08/28/23 16:00 08/28/23 20:03 Temperature 97.9 F Pulse Rate 63 64 Respiratory Rate 22 H Blood Pressure 108/59 L Pulse Oximetry 97 97 Oxygen Delivery Room Air 08/28/23 21:08 08/28/23 22:18 08/29/23 04:30 Temperature 98.1 F 97.9 F Pulse Rate 63 56 L Respiratory Rate 18 18 Blood Pressure 112/53 L 113/51 L Pulse Oximetry 98 98 Oxygen Delivery Room Air 08/28/23 20:00 08/29/23 00:00 08/29/23 04:00 Temperature Pulse Rate 67 63 58 L Respiratory Rate Blood Pressure Pulse Oximetry Oxygen Delivery 0
[2023-08-29] MEDS: traZODone HCL 50 MG TABLET 150 MG PO (21:14)
[2023-08-29] MEDS: TAMSULOSIN HCL 0.4 MG CAPSULE PO (21:15)
[2023-08-29] MEDS: FLUoxetine HCL 20 MG CAPSULE 80 MG PO (21:15)
[2023-08-29] MEDS: SALINE LOCK FLUSH 10 ML IV PUSH ×2 (21:15)
[2023-08-29] MEDS: ATORVASTATIN 40 MG TABLET PO (21:15)
[2023-08-30] MEDS: CEFEPIME 2 GM/NS 50 ML 2 GM/50 ML BAG IVPB ×4 (01:43→23:13)
[2023-08-30] MEDS: SALINE LOCK FLUSH 10 ML IV PUSH ×4 (02:23→20:27)
[2023-08-30 04:22] VITALS: BP 132/66; PULSE 73; RESP 18; TEMP 36.6; O2SAT 92
[2023-08-30 06:31] LABS: Hemoglobin 10.6 g/dL (14.0-18.0); Mean Corpuscular HGB Conc 31.2 g/dl (32-36); Mean Corpuscular Volume 99.4 fl (80-100); Mean Platelet Volume 9.9 fl (7.4-10.4); Platelet Count Result 309 k/mm3 (150-375); Red Blood Count 3.42 M/mm3 (4.6-6.20); Red Cell Distribution Width 13.3 % (11.5-14.5); White Blood Count 8.4 K/mm3 (4.5-10.0)
[2023-08-30 06:45] LABS: Albumin Level 3.3 g/dL (3.5-5.1); Anion Gap 5 mmol/L (4-12); Blood Urea Nitrogen 7 mg/dL (9-20); Calcium 8.9 mg/dL (8.4-10.2); Carbon Dioxide 22 mmol/L (22-30); Chloride 111 mmol/L (98-107); Estimated CRCL calculation 87 ml/min; Estimated Glomerular Filt Rate > 60; Glucose 92 mg/dL (65-110); Phosphorus 3.5 mg/dL (2.5-4.5); Potassium 4.2 mmol/L (3.4-5.0); Sodium 138 mmol/L (137-145)
[2023-08-30] MEDS: FLUTICASONE/SALMETEROL 115-21 MCG INHALER 1 PUFF 2 PUFF INHALATION (08:35)
[2023-08-30 08:36] VITALS: O2SAT 100
[2023-08-30] MEDS: carBAMazepine 200 MG TABLET PO ×3 (08:37→16:53)
[2023-08-30] MEDS: busPIRone HCL 10 MG TABLET PO ×3 (08:37→16:53)
[2023-08-30] MEDS: MONTELUKAST SODIUM 10 MG TABLET PO (08:37)
[2023-08-30] MEDS: QUEtiapine FUMARATE 100 MG TABLET PO ×3 (08:37→16:53)
[2023-08-30] MEDS: MIDODRINE HCL 2.5 MG TABLET 5 MG PO ×3 (08:37→16:53)
[2023-08-30] MEDS: BACLOFEN 10 MG TABLET PO ×3 (08:37→16:53)
[2023-08-30] MEDS: DOCUSATE SODIUM 100 MG CAPSULE PO (08:38)
[2023-08-30] MEDS: PANTOPRAZOLE SODIUM IV 40 MG VIAL IV PUSH (08:38)
[2023-08-30] MEDS: ENOXAPARIN 40 MG/0.4 ML SYRINGE SUB-Q (08:38)
[2023-08-30] MEDS: ZONISAMIDE 100 MG CAPSULE PO ×2 (08:38→16:54)
[2023-08-30] MEDS: polyethylene glycoL 3350 17 GM POWD.PACK PO (08:38)
[2023-08-30 14:00] VITALS: BP 108/56; PULSE 63; RESP 20; TEMP 36.9; O2SAT 99
--- NOTE | 2023-08-30 14:07 | PM.IMPN ---
Progress Note: A&P Assessment and Plan (1) Sepsis: Qualifiers: Sepsis acute organ dysfunction status: without acute organ dysfunction Sepsis type: sepsis due to unspecified organism Qualified Code(s): A41.9 - Sepsis, unspecified organism Code(s): A41.9 - Sepsis, unspecified organism Status: Acute Assessment and Plan: Septicemia with tachycardia, leukocytosis and low grade fever. Now with positive BCx. Lactic level okay. No hypotension or hypoxia. Patient received appropriate fluid resuscitation. CT A/P showing cystitis and mild enhancement urothelial thickening at the bilateral renal collecting systems which could represent associated ascending urinary tract infection. Started on ceftriaxone on 08/26 after cultures drawn but prior cultures growing pseudomonas and Enterococcus so changed to Vanco/Cefepime 08/27. Vanco stopped once cultures shown to be growing GNB UCx growing Pseudomonas aeruginosa BCx growing Pseudomonas aeruginosa WBC normal now. Continue Cefepime. Follow up on sensitivities. . (2) Urinary tract infection: Qualifiers: Urinary tract infection type: acute pyelonephritis Qualified Code(s): N10 - Acute pyelonephritis Code(s): N39.0 - Urinary tract infection, site not specified Status: Acute Assessment and Plan: UA: turbid, 3+ protein, 3+ blood, 3+ leuks, greater than 100 RBC, greater than 100 WBC, no epithelial cells, 4+ bacteria UCx 08/26 growing pseudomonas Previous micro reviewed with Pseudomonas and Enterococcus species, pansensitive Rowe exchanged here (08/26) Urology consulted and appreciate their input Continue cefepime (3) Ureterolithiasis: Code(s): N20.1 - Calculus of ureter Status: Acute Assessment and Plan: Patient was previously scheduled for uteroscopy and stent removal with possible stone extraction in July of 2023, did not have cardiac clearance prior Will need stent removal/replacement and definitive stone treatment once current infection has cleared Urology consulted and apprecaite their input. (4) Vomiting: Qualifiers: Nausea presence: with nausea Vomiting type: bilious vomiting Qualified Code(s): R11.14 - Bilious vomiting Code(s): R11.10 - Vomiting, unspecified Status: Acute Assessment and Plan: CT abd/pelvis: no findings to explain current nausea/vomiting but suspect related to the UTI and septiemia Symptoms have resolved. Continue current diet as tolerated. Continue PPI. Antiemetics available prn Plan Anemia - Hgb dropped fro 11 to 8.7 but probably related to fluid bolus and then maintenance. SLIVF. Repeat HH improving. Monitor for evidence of acute blood loss. Hx of CVA with hemiplegia - out of bed to chair. Resume ASA and Plavix. Continue Lipitor GI Prophylaxis: pantoprazole IVP DVT Prophylaxis: SCDs, Lovenox Code Status: full code Subjective Date/time seen: 08/30/23 14:07 Interval history: 62yo male with CVA, depression, HTN, Parkinson's and seizures here for nausea. No problems overnight. No CP or SOB. No n/v. Exam Narrative: AF 97.8 132/66 73 18 100% ra Gen - NARD Chest - CTA bilaterally CV - RRR S1/S2 Abd - Soft, NT/ND. +BS - Rowe secured draining clear yellow urine Ext - No pedal edema Neuro - left hemiplegia Psych - Nml mood and affect Skin - Warm and dry Objective Data Vital Signs Vital Signs: Vital Signs - 24 hr 08/29/23 19:42 08/29/23 21:20 08/30/23 04:22 Temperature 97.7 F 97.8 F Pulse Rate 61 73 Respiratory Rate 18 18 Blood Pressure 98/48 L 132/66 Pulse Oximetry 99 92 Oxygen Delivery Room Air 08/30/23 08:36 08/30/23 08:35 Temperature Pulse Rate Respiratory Rate Blood Pressure Pulse Oximetry 100 Oxygen Delivery Room Air Room Air Intake/Output Intake/Output: Intake & Output 08/27/23 08/28/23 08/29/23 08/30/23 23:59 23:59 23:59 23:59 Intake Total 3740 2780 1530 410 Output Total 6
[2023-08-30] MEDS: FLUoxetine HCL 20 MG CAPSULE 80 MG PO (20:27)
[2023-08-30] MEDS: TAMSULOSIN HCL 0.4 MG CAPSULE PO (20:27)
[2023-08-30] MEDS: traZODone HCL 50 MG TABLET 150 MG PO (20:27)
[2023-08-30] MEDS: ATORVASTATIN 40 MG TABLET PO (20:27)
[2023-08-30 22:00] VITALS: BP 111/60; PULSE 103; RESP 18; O2SAT 90
[2023-08-31 05:55] VITALS: BP 127/71; PULSE 130; RESP 18; TEMP 36.5; O2SAT 90
[2023-08-31] MEDS: SALINE LOCK FLUSH 10 ML IV PUSH ×3 (05:55→23:53)
[2023-08-31] MEDS: CEFEPIME 2 GM/NS 50 ML 2 GM/50 ML BAG IVPB ×3 (07:23→23:54)
[2023-08-31] MEDS: FLUTICASONE/SALMETEROL 115-21 MCG INHALER 1 PUFF 2 PUFF INHALATION ×2 (08:07→21:03)
[2023-08-31] MEDS: carBAMazepine 200 MG TABLET PO ×3 (08:08→16:33)
[2023-08-31] MEDS: DOCUSATE SODIUM 100 MG CAPSULE PO (08:09)
[2023-08-31] MEDS: MIDODRINE HCL 2.5 MG TABLET 5 MG PO ×3 (08:09→16:33)
[2023-08-31] MEDS: busPIRone HCL 10 MG TABLET PO ×3 (08:09→16:33)
[2023-08-31] MEDS: BACLOFEN 10 MG TABLET PO ×3 (08:09→16:33)
[2023-08-31] MEDS: CLOPIDOGREL BISULFATE 75 MG TABLET PO (08:09)
[2023-08-31] MEDS: ASPIRIN 81 MG ENTERIC TABLET PO (08:09)
[2023-08-31] MEDS: ENOXAPARIN 40 MG/0.4 ML SYRINGE SUB-Q (08:09)
[2023-08-31] MEDS: QUEtiapine FUMARATE 100 MG TABLET PO ×3 (08:10→16:33)
[2023-08-31] MEDS: polyethylene glycoL 3350 17 GM POWD.PACK PO (08:10)
[2023-08-31] MEDS: ZONISAMIDE 100 MG CAPSULE PO ×2 (08:10→16:33)
[2023-08-31] MEDS: PANTOPRAZOLE 40 MG TABLET PO (08:10)
[2023-08-31] MEDS: MONTELUKAST SODIUM 10 MG TABLET PO (08:10)
[2023-08-31 14:00] VITALS: BP 120/68; PULSE 100; RESP 19; TEMP 36.6; O2SAT 94
--- NOTE | 2023-08-31 17:21 | PM.IMPN ---
Progress Note: A&P Assessment and Plan (1) Sepsis: Qualifiers: Sepsis type: sepsis due to unspecified organism Sepsis acute organ dysfunction status: without acute organ dysfunction Qualified Code(s): A41.9 - Sepsis, unspecified organism Code(s): A41.9 - Sepsis, unspecified organism Status: Acute Assessment and Plan: Septicemia with tachycardia, leukocytosis and low grade fever. Now with positive BCx. Lactic level okay. No hypotension or hypoxia. Patient received appropriate fluid resuscitation. CT A/P showing cystitis and mild enhancement urothelial thickening at the bilateral renal collecting systems which could represent associated ascending urinary tract infection. Started on ceftriaxone on 08/26 after cultures drawn but prior cultures growing pseudomonas and Enterococcus so changed to Vanco/Cefepime 08/27. Vanco stopped once cultures shown to be growing Pseudomonas UCx growing Pseudomonas aeruginosa BCx 08/26 growing Pseudomonas aeruginosa BCx 08/28 NGTD WBC normal now. Continue Cefepime. Follow up on sensitivities. . (2) Urinary tract infection: Qualifiers: Urinary tract infection type: acute pyelonephritis Qualified Code(s): N10 - Acute pyelonephritis Code(s): N39.0 - Urinary tract infection, site not specified Status: Acute Assessment and Plan: UA: turbid, 3+ protein, 3+ blood, 3+ leuks, greater than 100 RBC, greater than 100 WBC, no epithelial cells, 4+ bacteria UCx 08/26 growing pseudomonas Previous micro reviewed with Pseudomonas and Enterococcus species, pansensitive Rowe exchanged here (08/26) Urology consulted and appreciate their input Continue cefepime (3) Ureterolithiasis: Code(s): N20.1 - Calculus of ureter Status: Acute Assessment and Plan: Patient underwent emergent bilateral ureteroscopy with stone extraction and bilateral stent placement in June. Had some fragments remaining in left ureter. Scheduled to undergo bilateral stent removal and left ureteroscopy with possible stone extraction in July but held due to needing cardiac clearance before the procedure. Patient will need stent removal/replacement and definitive stone management once current infection has cleared Urology consulted and appreciate their input. (4) Vomiting: Qualifiers: Vomiting type: bilious vomiting Nausea presence: with nausea Qualified Code(s): R11.14 - Bilious vomiting Code(s): R11.10 - Vomiting, unspecified Status: Acute Assessment and Plan: CT abd/pelvis: no findings to explain current nausea/vomiting but suspect related to the UTI and septiemia Symptoms have resolved. Continue current diet as tolerated. Continue PPI. Antiemetics available prn Plan Anemia - Hgb dropped fro 11 to 8.7 but probably related to fluid bolus and then maintenance. SLIVF. Repeat HH improving. Monitor for evidence of acute blood loss. Hx of CVA with hemiplegia - out of bed to chair. ASA and Plavix resumed. Continue Lipitor DVT Prophylaxis: SCDs, Lovenox Code Status: full code Subjective Date/time seen: 08/31/23 17:21 Interval history: 62yo male with CVA, depression, HTN, Parkinson's and seizures here for nausea. No complaints. No problems overnight. Denies chest pain or shortness of breath. Exam Narrative: AF 97.8 120/68 100 19 94% ra Gen - NARD Chest -lungs clear anteriorly. Normal respiratory rate CV - RRR S1/S2 Abd - Soft, NT/ND. +BS - Rowe secured draining clear yellow urine Ext - No pedal edema Neuro - left hemiplegia Psych - Nml mood and affect Skin - Warm and dry Objective Data Vital Signs Vital Signs: Vital Signs - 24 hr 08/30/23 22:00 08/31/23 05:55 08/31/23 08:00 Temperature 97.7 F Pulse Rate 103 H 130 H Respiratory Rate 18 18 Blood Pressure 111/60 127/71 Pulse Oximetry 90 90 Oxygen Delivery Room Air 08/31/23 14:00 Temperature 97.8 F Pulse Rate 100 Respiratory Rate
[2023-08-31] MEDS: FLUoxetine HCL 20 MG CAPSULE 80 MG PO (20:25)
[2023-08-31] MEDS: traZODone HCL 50 MG TABLET 150 MG PO (20:26)
[2023-08-31] MEDS: ATORVASTATIN 40 MG TABLET PO (20:26)
[2023-08-31] MEDS: TAMSULOSIN HCL 0.4 MG CAPSULE PO (20:26)
[2023-08-31 20:50] VITALS: BP 135/63; PULSE 67; RESP 14; TEMP 36.2; O2SAT 100
[2023-08-31 21:05] VITALS: PULSE 77
[2023-09-01] MEDS: SALINE LOCK FLUSH 10 ML IV PUSH ×3 (00:25→13:06)
[2023-09-01 05:10] VITALS: BP 126/67; PULSE 62; RESP 14; TEMP 36.3; O2SAT 100
[2023-09-01 06:55] LABS: Basophils Absolute Auto 0.1 K/mm3 (0.0-0.1); Basophils Percent Auto 0.8 % (0.2-1.2); Eosinophils Absolute Auto 0.3 K/mm3 (0-0.3); Eosinophils Percent Auto 5.4 % (0-4.4); Hematocrit 36.2 % (42.0-52.0); Hemoglobin 11.7 g/dL (14.0-18.0); Immature Granulocyte Absolute 0.03 K/mm3 (0.00-0.031); Immature Granulocyte Percent A 0.5 % (0-0.5); Lymphocytes Absolute Auto 1.59 K/mm3 (0.9-3.2); Lymphocytes Percent Auto 25.8 % (18.3-44.2); Mean Corpuscular HGB Conc 32.3 g/dl (32-36); Mean Corpuscular Hemoglobin 31.4 pg (26-34); Mean Corpuscular Volume 97.1 fl (80-100); Mean Platelet Volume 9.8 fl (7.4-10.4); Monocytes Absolute Auto 0.8 K/mm3 (0.1-0.6); Monocytes Percent Auto 12.2 % (2.6-8.5); Neutrophils Absolute Auto 3.4 K/mm3 (1.3-6.7); Neutrophils Percent Auto 55.3 % (45.5-73.1); Platelet Count Result 372 k/mm3 (150-375); Red Blood Count 3.73 M/mm3 (4.6-6.20); Red Cell Distribution Width 13.3 % (11.5-14.5); White Blood Count 6.2 K/mm3 (4.5-10.0)
[2023-09-01 07:06] LABS: Alanine Aminotransferase 14 U/L (6-50); Albumin Level 3.9 g/dL (3.5-5.1); Alkaline Phosphatase 187 U/L (38-126); Anion Gap 10 mmol/L (4-12); Aspartate Amino Transferase 20 U/L (17-59); Bilirubin,Total 0.4 mg/dL (0.2-1.3); Blood Urea Nitrogen 7 mg/dL (9-20); Calcium 9.4 mg/dL (8.4-10.2); Carbon Dioxide 26 mmol/L (22-30); Chloride 104 mmol/L (98-107); Estimated CRCL calculation 78 ml/min; Estimated Glomerular Filt Rate > 60; Glucose 91 mg/dL (65-110); Potassium 4.2 mmol/L (3.4-5.0); Sodium 140 mmol/L (137-145)
[2023-09-01] MEDS: MIDODRINE HCL 2.5 MG TABLET 5 MG PO ×3 (08:46→16:35)
[2023-09-01] MEDS: PANTOPRAZOLE 40 MG TABLET PO (08:46)
[2023-09-01] MEDS: ZONISAMIDE 100 MG CAPSULE PO ×2 (08:47→16:35)
[2023-09-01] MEDS: busPIRone HCL 10 MG TABLET PO ×3 (08:47→16:35)
[2023-09-01] MEDS: MONTELUKAST SODIUM 10 MG TABLET PO (08:47)
[2023-09-01] MEDS: BACLOFEN 10 MG TABLET PO ×3 (08:47→16:35)
[2023-09-01] MEDS: CLOPIDOGREL BISULFATE 75 MG TABLET PO (08:47)
[2023-09-01] MEDS: ASPIRIN 81 MG ENTERIC TABLET PO (08:47)
[2023-09-01] MEDS: QUEtiapine FUMARATE 100 MG TABLET PO ×3 (08:47→16:35)
[2023-09-01] MEDS: ENOXAPARIN 40 MG/0.4 ML SYRINGE SUB-Q (08:48)
[2023-09-01] MEDS: CEFEPIME 2 GM/NS 50 ML 2 GM/50 ML BAG IVPB (08:48)
[2023-09-01] MEDS: carBAMazepine 200 MG TABLET PO ×3 (08:52→16:35)
[2023-09-01] MEDS: FLUTICASONE/SALMETEROL 115-21 MCG INHALER 1 PUFF 2 PUFF INHALATION (09:11)
--- NOTE | 2023-09-01 09:23 | WPDUROPN2 ---
Progress Note: A&P Assessment and Plan (1) Acute pyelonephritis: Code(s): N10 - Acute pyelonephritis Status: Acute Assessment and Plan: Afebrile and leukocytosis resolved Repeat CT shows just one tiny residual stone fragment now in distal left ureter Urine and blood cultures with growth of Pseudomonas. Urine culture susceptibility report still pending. Continues on cefepime. Repeat blood cultures negative to date. Will reschedule cystoscopy with bilateral stent removal and left ureteroscopy with stone extraction as an outpatient pending resolution of infection (2) Sepsis: Qualifiers: Sepsis type: sepsis due to unspecified organism Sepsis acute organ dysfunction status: without acute organ dysfunction Qualified Code(s): A41.9 - Sepsis, unspecified organism Code(s): A41.9 - Sepsis, unspecified organism Status: Acute Subjective Subjective Date/Time Seen: 09/01/23 09:23 Interval history: Blaine is doing well today. Offers no concerns. Rowe catheter draining clear yellow urine. Review of Systems Review of Systems: All systems reviewed & are unremarkable except as noted in HPI and below Exam Narrative: General: Awake, alert, comfortable, no acute distress HEENT: Normocephalic, atraumatic, sclerae anicteric Respiratory: Normal respiratory effort, no accessory muscle use Abdomen: Nondistended, soft, nontender : Rowe catheter draining clear yellow urine Skin: Normal coloration, warm and dry Neurologic: No focal neuro deficits noted Psychiatric: Appropriate mood and affect, judgment and insight intact Objective Data Vital Signs Vital Signs: Vital Signs - 24 hr 08/31/23 14:00 08/31/23 20:50 08/31/23 21:05 Temperature 97.8 F 97.2 F L Pulse Rate 100 67 77 Respiratory Rate 19 14 Blood Pressure 120/68 135/63 Pulse Oximetry 94 100 Oxygen Delivery 09/01/23 05:10 08/31/23 20:20 Temperature 97.4 F L Pulse Rate 62 Respiratory Rate 14 Blood Pressure 126/67 Pulse Oximetry 100 Oxygen Delivery Room Air Intake/Output Intake/Output: Intake & Output 08/29/23 08/30/23 08/31/23 09/01/23 23:59 23:59 23:59 23:59 Intake Total 3481 893 7845 50 Output Total 3850 1975 4900 1200 Wmrtiod -0027 -7880 -3300 -0340 Meds/Results Medications: Active Medications Generic Name Dose Route Start Last Admin Trade Name Elsy PRN Reason Stop Dose Admin Acetaminophen 650 mg 08/27/23 16:01 Acetaminophen 325 Mg Tablet PO Q4H PRN Mild Pain (1-3) or Fever Aspirin 81 mg 08/31/23 09:00 09/01/23 08:47 Aspirin 81 Mg Enteric Tablet PO 81 mg DAILY KELL Administration Atorvastatin Calcium 40 mg 08/28/23 21:00 08/31/23 20:26 Atorvastatin 40 Mg Tablet PO 40 mg QHS KELL Administration Baclofen 10 mg 08/28/23 09:00 09/01/23 08:47 Baclofen 10 Mg Tablet PO 10 mg TID KELL Administration Bisacodyl 10 mg 08/28/23 00:45 Bisacodyl 10 Mg Suppository RECTAL DAILY PRN Constipation Buspirone HCl 10 mg 08/28/23 09:00 09/01/23 08:47 Buspirone Hcl 10 Mg Tablet PO 10 mg TID KELL Administration Carbamazepine 200 mg 08/28/23 08:00 09/01/23 08:52 Carbamazepine 200 Mg Tablet PO 200 mg TIDWM KELL Administration Clopidogrel Bisulfate 75 mg 08/31/23 09:00 09/01/23 08:47 Clopidogrel Bisulfate 75 Mg Tablet PO 75 mg QAM KELL Administration Docusate Sodium 100 mg 08/28/23 09:00 09/01/23 08:50 Docusate Sodium 100 Mg Capsule PO Not Given DAILY KELL Enoxaparin Sodium 40 mg 08/30/23 09:00 09/01/23 08:48 Enoxaparin 40 Mg/0.4 Ml Syringe SUB-Q 40 mg DAILY KELL Administration Fluoxetine HCl 80 mg 08/28/23 21:00 08/31/23 20:25 Fluoxetine Hcl 20 Mg Capsule PO 80 mg HS KELL Administration Cefepime HCl 2 gm in 50 mls @ 100 mls/hr 08/29/23 08:00 09/01/23 08:48 Maxipime 2 Gm/Ns 50 Ml IVPB 100 mls/hr Q8H KELL Administration Melatonin 5 mg 08/28/23 00:
[2023-09-01] MEDS: levoFLOXacin 750 MG TABLET PO (13:00)
--- NOTE | 2023-09-01 14:36 | PM.DS ---
DS: Admitting Diagnosis Discharge Date 09/01/23 Admitting Diagnosis Nausea DS: Discharge Diagnosis Discharge Diagnosis (1) Sepsis: Qualifiers: Sepsis acute organ dysfunction status: without acute organ dysfunction Sepsis type: sepsis due to unspecified organism Qualified Code(s): A41.9 - Sepsis, unspecified organism Code(s): A41.9 - Sepsis, unspecified organism Status: Acute (2) Urinary tract infection: Qualifiers: Urinary tract infection type: acute pyelonephritis Qualified Code(s): N10 - Acute pyelonephritis Code(s): N39.0 - Urinary tract infection, site not specified Status: Acute (3) Ureterolithiasis: Code(s): N20.1 - Calculus of ureter Status: Acute (4) Vomiting: Qualifiers: Nausea presence: with nausea Vomiting type: bilious vomiting Qualified Code(s): R11.14 - Bilious vomiting Code(s): R11.10 - Vomiting, unspecified Status: Acute (5) Anemia: Code(s): D64.9 - Anemia, unspecified Status: Acute DS: Summary Hospital Course Reason for hospitalization: 62yo male with CVA, depression, HTN, Parkinson's and seizures here for nausea. Please see H&P for details. Hospital Course: Septicemia with tachycardia, leukocytosis and low grade fever who developed positive BCx. Lactic level okay. No hypotension or hypoxia. Patient received appropriate fluid resuscitation. CT A/P showing cystitis and mild enhancement urothelial thickening at the bilateral renal collecting systems which could represent associated ascending urinary tract infection. Started on ceftriaxone on 08/26 after cultures drawn but prior cultures growing pseudomonas and Enterococcus so changed to Vanco/Cefepime 08/27. Vanco stopped once cultures shown to be growing Pseudomonas. UCx growing Pseudomonas aeruginosa and BCx 08/26 growing Pseudomonas aeruginosa both were antonio-sensitive. Repeat BCx 08/28 NGTD .WBC normal now. Rowe exchanged here (08/26). Urology consulted and appreciate their input. Patient underwent emergent bilateral ureteroscopy with stone extraction and bilateral stent placement in June. Had some fragments remaining in left ureter. Scheduled to undergo bilateral stent removal and left ureteroscopy with possible stone extraction in July but held due to needing cardiac clearance before the procedure. Patient will need stent removal/replacement and definitive stone management once current infection has cleared. CT abd/pelvis: no findings to explain the nausea/vomiting but suspect related to the UTI and septicemia. Symptoms have resolved. Hgb dropped fro 11 to 8.7 but probably related to fluid bolus and then maintenance. Repeat HH improved off IV fluids. Monitor for evidence of acute blood loss. He has a hx of CVA with hemiplegia. We continued ASA, Plavix and Lipitor. EKG showing QTc 467. He overall did well and was able to be discharged on 09/01/23 Status at Discharge Cognitive/behavioral status at discharge: stable Time Spent with Patient Time attestation: Total time spent providing and/or coordinating discharge services: 35 minutes Time spent: Greater than 30 minutes Exam Narrative: AF 97.4 126/67 62 14 100% ra Gen - NARD Chest -lungs clear anteriorly. Normal respiratory rate CV - RRR S1/S2 Abd - Soft, NT/ND. +BS - Rowe secured draining clear yellow urine Ext - No pedal edema Neuro - left hemiplegia Psych - Nml mood and affect Skin - Warm and dry DS: Data Data Completed and Pending Labs on day of discharge: Labs from last 24 hours 09/01/23 06:45 WBC 6.2 RBC 3.73 L Hgb 11.7 L Hct 36.2 L MCV 97.1 MCH 31.4 MCHC 32.3 RDW 13.3 Plt Count 372 MPV 9.8 Immature Gran % (Auto) 0.5 Neut % (Auto) 55.3 Lymph % (Auto) 25.8 [facility] % (Auto) 12.2 H Eos % (Auto) 5.4 H Baso % (Auto) 0.8 Lymph # (Auto) 1.59 [facility] # (Auto) 0.8 H Eos # (Auto) 0.3 Baso # (Auto) 0.1 Abs Immat Gran (auto) 0.03 Absolute Neuts (auto)
--- NOTE | 2023-09-01 14:47 | ECG_ITS ---
Test Date: 2023-09-01 15:04:06 Measurements Intervals Orient Rate: 67 P: 9 OR: 158 QRS: 12 QRSD: 108 T: 68 QT: 442 QTc: 467 Interpretive Statements SINUS RHYTHM INCOMPLETE RIGHT BUNDLE BRANCH BLOCK BASELINE ARTIFACT- I, II, III, AVR, AVL, AVF, V1-V6 BORDERLINE ECG No previous ECG available for comparison Electronically Signed On 09-01-2023 15:06:34 CDT by Tripp Finnegan D.O.
[2023-09-01 14:54] VITALS: BP 135/71; PULSE 63; RESP 20; TEMP 36.8; O2SAT 100
[2023-09-01 17:18] LABS: SARS-CoV-2 RNA PCR Negative (Negative)
== END 2023-09-01 19:25 | DRG 872 ==
LOC: ANHED 15:44 → ANH2MED 16:44
PROVIDERS: Internal Medicine; Student in an Organized Health Care Education/Training Program; Admitting Provider Family Medicine; Emergency Provider Emergency Medicine; PCP Family Medicine; Visit Provider Family Medicine
DX: A41.52 Sepsis due to Pseudomonas (principal); I69.354 Hemiplegia and hemiparesis following cerebral infarction affecting left non-dominant side; N10 Acute pyelonephritis; N20.1 Calculus of ureter; Z87.891 Personal history of nicotine dependence; Z20.822 Contact with and (suspected) exposure to COVID-19; Z11.52 Encounter for screening for COVID-19; B96.5 Pseudomonas (aeruginosa) (mallei) (pseudomallei) as the cause of diseases classified elsewhere; D64.9 Anemia, unspecified; E78.5 Hyperlipidemia, unspecified; E55.9 Vitamin D deficiency, unspecified; F41.9 Anxiety disorder, unspecified; F32.A Depression, unspecified; G20.A1 Parkinson's disease without dyskinesia, without mention of fluctuations; I10 Essential (primary) hypertension; J43.9 Emphysema, unspecified; R11.14 Bilious vomiting; Z79.82 Long term (current) use of aspirin; Z79.02 Long term (current) use of antithrombotics/antiplatelets; Z85.828 Personal history of other malignant neoplasm of skin; Z95.4 Presence of other heart-valve replacement; Z90.49 Acquired absence of other specified parts of digestive tract; Z87.442 Personal history of urinary calculi; Z96.0 Presence of urogenital implants
CPT/HCPCS: 36415; 36569; 74177; 80053; 80069; 81001; 82271; 83605; 83690; 83735; 83986; 85014; 85018; 85025; 85027; 87040; 87077; 87086; 87088; 87186; 87635; 87637; 93005; 94640; 96361; 96366; 96367; 96376; 99285; A9270; C1751; G0378; J0692; J0696; J1650; J2405; J2470; J3370; J3475; J7030; Q9967

== ENCOUNTER 2023-09-21 18:32 | Emergency (ER) | payer MEDICARE, SELFPAY ==
--- NOTE | ~2023-09-21 | CT_ITS ---
CT abdomen pelvis w con Ordering provider: Robby Marvin APRN History: 62 years Male with . abdomen pain/ cough up blood . Comparison: None. Technique: CT abdomen and pelvis with IV and without oral contrast. Automated exposure control and it erative reconstruction technique were employed. The dose-length product was 706.88 mGy-cm. 100 mL Omn ipaque 350 was given IV. Findings: VISUALIZED LOWER CHEST: Fibrotic changes of the lungs. Postoperative changes in the sternum. UPPER ABDOMINAL ORGANS: Liver: Normal. Gallbladder: Normal. Spleen: Normal. Stomach/duodenum: Fluid seen in the lower esophagus suggestive of reflux esophagitis. Pancreas: Normal. Adrenals: Normal. Kidneys: Hyperdense areas are seen in the papilla which may be contrast or stones. Stone in the right kidney lower pole. Bilateral double-J stent. Stone in the left kidney midpole. PELVIC ORGANS: The bladder is markedly thickened. Rowe's catheter is seen. Evaluation for infection or infiltrative process is advised. Calcifications in the right side of the bladder suggestive of sto gage. BOWEL AND MESENTERY: Colon: Mild sigmoid diverticulosis without diverticulitis. Fecal material is loaded in the colon sugg estive of constipation. Appendix is not demonstrated. Small Bowel: Normal. No obstruction. Peritoneum/mesentery: No free air or free fluid. No mesenteric lymphadenopathy. RETROPERITONEUM: Mild atheromatous disease of the abdominal aorta. No retroperitoneal lymphadenopat hy. Small are aortic lymph nodes. MUSCULOSKELETAL: Superficial soft tissues: The superficial soft tissues are normal. Bones: Age appropriate degenerative changes of the spine. Loss of volume is seen in T12 most likely c hronic IMPRESSION: 1. Fibrotic changes in the lung bases. 2. Bilateral double-J stent with stones in the right kidney lower pole and the left kidney midpole. 3. Multiple stones in the urinary bladder with markedly thickened wall. Further evaluation advised. 4. Constipation. Reviewed, dictated and finalized at location A. IMPRESSION: 1. Fibrotic changes in the lung bases. 2. Bilateral double-J stent with stones in the right kidney lower pole and the left kidney midpole. 3. Multiple stones in the urinary bladder with markedly thickened wall. Furthe r evaluation advised. 4. Constipation.
--- NOTE | ~2023-09-21 | XR_ITS ---
XR chest 1V portable Ordering provider: Robby Marvin APRN History: 62 years Male with . cough up blood . Comparison: July 14, 2023 FINDINGS: MEDIASTINUM: The cardiac silhouette is not enlarged. Postoperative changes in the mediastinum. LUNGS: No infiltrates, effusions or pneumothorax. Bilateral interstitial changes. OTHER: No free air under the diaphragm. IMPRESSION: Bilateral interstitial changes which may indicate pneumonitis. Fibrotic changes are also possible. Reviewed, dictated and finalized at location A.
[2023-09-21 18:34] VITALS: BP 119/79; PULSE 73; RESP 22; TEMP 36.7; O2SAT 100
--- NOTE | 2023-09-21 18:49 | ED.NAVMDI ---
HPI - Nausea/Vomiting/Diarrhea General Chief complaint: Nausea/Vomiting/Diarrhea Stated complaint: vomiting blood Time Seen by Provider: 09/21/23 18:45 Source: patient, EMS and RN notes reviewed Mode of arrival: ambulatory Limitations: no limitations History of Present Illness HPI Narrative: Blaine is a 62-year-old male patient presenting to the emergency room today with complaints of possibility of vomiting up blood. He reports he ate meatloaf and pérez pie at lunchtime and then coughed and vomited up what looked like a blood clot to him and to the nurses at [facility]. He reports that he is having some abdominal discomfort however he has not pooped in a few days. He denies any bloody stools. He denies any fever, chills, body aches. Related Data Home Medications Medication Instructions Recorded Confirmed aspirin 81 mg tablet,delayed 81 mg PO DAILY 02/03/20 08/27/23 release (Josue Low Dose Aspirin) atorvastatin 40 mg tablet 40 mg PO QHS 02/03/20 08/27/23 budesonide-formoterol HFA 160 2 puff inhalation BID 02/03/20 08/27/23 mcg-4.5 mcg/actuation aerosol inhaler (Symbicort) carbamazepine 200 mg tablet 200 mg PO TIDWM 02/03/20 08/27/23 famotidine 20 mg tablet 20 mg PO BID 02/03/20 08/27/23 fluoxetine 20 mg capsule 80 mg PO HS 02/03/20 08/27/23 montelukast 10 mg tablet 10 mg PO DAILY 02/03/20 08/27/23 quetiapine 50 mg tablet 100 mg PO TID 02/03/20 08/27/23 zonisamide 100 mg capsule 100 mg PO BID 02/03/20 08/27/23 acetaminophen 325 mg tablet 650 mg PO Q6H PRN Pain (Scale 05/22/22 08/27/23 Score 1-3) buspirone 10 mg tablet 10 mg PO TID 05/22/22 08/27/23 clopidogrel 75 mg tablet 75 mg PO QAM 05/22/22 08/27/23 docusate sodium 100 mg capsule 100 mg PO DAILY 05/22/22 08/27/23 ergocalciferol (vitamin D2) 50,000 50,000 unit PO WEEKLY 05/22/22 08/27/23 unit tablet ondansetron HCl 4 mg tablet 4 mg PO Q6H PRN Nausea 05/22/22 08/27/23 trazodone 150 mg tablet 150 mg PO QHS 05/22/22 08/27/23 baclofen 10 mg tablet 10 mg PO TID 01/21/23 08/27/23 bisacodyl 10 mg RECTAL DAILY PRN Constipation 01/21/23 08/27/23 magnesium citrate 296 ml PO QAM PRN Constipation 01/21/23 08/27/23 magnesium hydroxide 400 mg PO QHS PRN Constipation 01/21/23 08/27/23 pantoprazole 40 mg tablet,delayed 40 mg PO DAILY 06/25/23 08/27/23 release (Protonix) melatonin 5 mg tablet 5 mg PO HS PRN Sleep 07/14/23 08/27/23 polyethylene glycol 3350 17 gram 17 g PO DAILY 07/14/23 08/27/23 oral powder packet (Miralax) Allergies Allergy/AdvReac Type Severity Reaction Status Date / Time mushroom Allergy Severe Anaphylaxis Verified 08/05/23 12:54 hydromorphone Allergy Mild Itching Verified 08/05/23 12:54 tramadol Allergy Unknown Seizure Verified 08/05/23 12:54 fluticasone AdvReac Other Verified 08/05/23 12:54 [From Advair Diskus] salmeterol AdvReac Other Verified 08/05/23 12:54 [From Advair Diskus] Review of Systems Review of Systems: Pertinent positives per HPI. Patient denies any fever, chills, rash, headache, visual changes, dizziness, cough, runny nose, sore throat, shortness of breath, chest pain, palpitations, nausea, vomiting, diarrhea, constipation, abdominal pain, or any urinary issues. [facility] Past Medical History Medical History Anxiety Aortic valve disease Cerebrovascular accident (05/01/22) CTA head and neck showed 10 occlusion of the right distal ICA and M1. He was not a candidate for tPA with concomitant diagnosis of bacteremia and endocarditis. Depression with anxiety Esophagitis History of esophageal dilatation Hyperlipidemia Hypertension Kidney stones Major depressive disorder Parkinson's disease Psychogenic nonepileptic seizure Seizure Skin cancer Valvular heart disease Vitamin D deficiency Surgical History Surgical History History of aortic valve replacement History of appendectomy History of ope
[2023-09-21] MEDS: ONDANSETRON INJ 4 MG/2 ML VIAL IV PUSH (19:24)
[2023-09-21 19:38] LABS: Alanine Aminotransferase 20 U/L (6-50); Alkaline Phosphatase 226 U/L (38-126); Anion Gap 11 mmol/L (4-12); Aspartate Amino Transferase 28 U/L (17-59); Bilirubin,Total 0.4 mg/dL (0.2-1.3); Blood Urea Nitrogen 16 mg/dL (9-20); Carbon Dioxide 24 mmol/L (22-30); Chloride 101 mmol/L (98-107); Estimated CRCL calculation 80 ml/min; Estimated Glomerular Filt Rate > 60; Glucose 101 mg/dL (65-110); Lipase 57 U/L (23-300); Potassium 4.7 mmol/L (3.4-5.0); Sodium 136 mmol/L (137-145)
[2023-09-21 19:43] LABS: Prothrombin Time 13.1 Seconds (11.1-14.7)
[2023-09-21 19:44] LABS: Partial Thromboplastin Time 28.9 Seconds (22.3-36.8)
[2023-09-21 20:07] LABS: Basophils Percent Auto 0.4 % (0.2-1.2); Eosinophils Absolute Auto 0.2 K/mm3 (0-0.3); Eosinophils Percent Auto 1.6 % (0-4.4); Hematocrit 36.4 % (42.0-52.0); Hemoglobin 12.1 g/dL (14.0-18.0); Immature Granulocyte Absolute 0.04 K/mm3 (0.00-0.031); Immature Granulocyte Percent A 0.4 % (0-0.5); Lymphocytes Percent Auto 22.7 % (18.3-44.2); Mean Corpuscular HGB Conc 33.2 g/dl (32-36); Mean Corpuscular Hemoglobin 31.3 pg (26-34); Mean Corpuscular Volume 94.1 fl (80-100); Mean Platelet Volume 9.5 fl (7.4-10.4); Monocytes Absolute Auto 1.4 K/mm3 (0.1-0.6); Monocytes Percent Auto 13.4 % (2.6-8.5); Neutrophils Absolute Auto 6.5 K/mm3 (1.3-6.7); Neutrophils Percent Auto 61.5 % (45.5-73.1); Platelet Count Result 306 k/mm3 (150-375); Red Blood Count 3.87 M/mm3 (4.6-6.20); Red Cell Distribution Width 13.6 % (11.5-14.5); White Blood Count 10.6 K/mm3 (4.5-10.0)
[2023-09-21 22:14] VITALS: BP 127/87; PULSE 78; RESP 18; O2SAT 98
[2023-09-21 22:17] VITALS: BP 128/88; PULSE 78; RESP 15; O2SAT 97
== END 2023-09-21 22:18 ==
PROVIDERS: General Practice; Emergency Provider Nurse Practitioner Family; PCP Family Medicine
DX: K20.90 Esophagitis, unspecified without bleeding (principal); N21.0 Calculus in bladder; G20.A1 Parkinson's disease without dyskinesia, without mention of fluctuations; I35.8 Other nonrheumatic aortic valve disorders; I10 Essential (primary) hypertension; E78.5 Hyperlipidemia, unspecified; E55.9 Vitamin D deficiency, unspecified; F32.9 Major depressive disorder, single episode, unspecified; F41.9 Anxiety disorder, unspecified; Z95.2 Presence of prosthetic heart valve; Z86.73 Personal history of transient ischemic attack (TIA), and cerebral infarction without residual deficits; Z87.442 Personal history of urinary calculi; Z85.828 Personal history of other malignant neoplasm of skin; Z87.891 Personal history of nicotine dependence; Z79.899 Other long term (current) drug therapy; Z79.82 Long term (current) use of aspirin; Z96.0 Presence of urogenital implants; N20.0 Calculus of kidney; R91.8 Other nonspecific abnormal finding of lung field; K59.00 Constipation, unspecified
CPT/HCPCS: 36415; 71045; 74177; 80053; 83690; 85025; 85610; 85730; 86850; 86900; 86901; 96374; 99284; J2405; Q9967

== ENCOUNTER 2023-09-24 08:38 | Observation (INO) | payer MEDICARE, SELFPAY ==
--- NOTE | ~2023-09-24 | XR_ITS ---
XR chest 2V Ordering provider: Bre Phipps MD History: 62 years Male with . coughing up blood tinged mucous . Comparison: September 21, 2023 FINDINGS: MEDIASTINUM: The cardiac silhouette is not enlarged. Postoperative changes. LUNGS: No effusions or pneumothorax. Opacification the left upper lobe and left perihilar area sugges tive of pneumonia. Follow-up to exclude underlying mass is advised. Prominent markings in the left lo wer lobe area. OTHER: No free air under the diaphragm. IMPRESSION: Pneumonia in the left upper lobe and left perihilar area. Follow-up to resolution is advised. Reviewed, dictated and finalized at location A. IMPRESSION: Pneumonia in the left upper lobe and left perihilar area. Follow-up to resoluti on is advised.
--- NOTE | ~2023-09-24 | CT_ITS ---
EXAMINATION: CTA chest PE protocol DATE: 09/24/2023 12:55 INDICATION: Hemoptysis. TECHNIQUE: Computed tomography angiography (CTA) of the chest was performed with 100 mL Omnipaque-350 intravenous contrast timed to evaluate the pulmonary arteries. Coronal maximum intensity projection 3D-reconstructions were created by the technologist. Automated exposure control and iterative reconst ruction technique were employed. The dose-length product was 521.27 mGy-cm. COMPARISON: Chest CT 07/05/2023 FINDINGS: There is moderate emphysema. There is mild scarring at the lung apices. There is chronic se ptal thickening associated with groundglass opacities in the lungs with a lower lung predominance. Th ere is honeycombing in the inferior lungs bilaterally. There are airspace opacities in left upper lob e, consistent with pneumonia. No pleural effusion. The heart size is normal. There are changes of aor tic valve replacement. There are coronary artery calcifications. No pericardial effusion. There are b ilateral internal ureteral stents. A calcification in the liver is consistent with old granulomatous disease. There is kyphosis of thoracic spine. There is chronic anterior wedging of multiple vertebral bodies. IMPRESSION: 1. Left upper lobe pneumonia. 2. No pulmonary embolus. 3. Diffuse lung disease, likely a combination of emphysema and chronic interstitial lung disease in a pattern of usual interstitial pneumonia (UIP). Reviewed, dictated and finalized at location A. IMPRESSION: 1. Left upper lobe pneumonia. 2. No pulmonary embolus. 3. Diffuse lung disease, likely a combination of emphysema and chronic intersti tial lung disease in a pattern of usual interstitial pneumonia (UIP).
--- NOTE | ~2023-09-24 | XR_ITS ---
EXAMINATION: XR barium swallow modified DATE: 09/25/2023 14:11 INDICATION: Aspiration. TECHNIQUE: The patient was given barium-containing material of multiple consistencies to swallow by t hudson speech pathologist while I performed fluoroscopy. Fluoroscopy exposure time was 2.1 minutes. The n umber of fluoroscopy images saved to the PACS was 1. Dose-area product was 1.131 Gy-cm^2. FINDINGS: With uncontrolled thin liquids via cup, there was silent laryngeal penetration and aspiration during the swallow. With uncontrolled thin liquids via straw with chin tuck, there was silent laryngeal pene tration and aspiration during the swallow. With mildly thick liquids, there was silent laryngeal pene tration and aspiration during the swallow. With moderately thick liquids, there was laryngeal penetra tion during the swallow. IMPRESSION: 1. Aspiration. 2. Please refer to the speech therapy report for recommendations. Reviewed, dictated and finalized at location A.
[2023-09-24 08:36] VITALS: BP 107/73; PULSE 64; RESP 16; TEMP 36.9; O2SAT 95
[2023-09-24 10:11] LABS: Basophils Absolute Auto 0.1 K/mm3 (0.0-0.1); Basophils Percent Auto 0.7 % (0.2-1.2); Eosinophils Absolute Auto 0.1 K/mm3 (0-0.3); Eosinophils Percent Auto 0.9 % (0-4.4); Hematocrit 36.4 % (42.0-52.0); Hemoglobin 11.8 g/dL (14.0-18.0); Immature Granulocyte Absolute 0.02 K/mm3 (0.00-0.031); Immature Granulocyte Percent A 0.2 % (0-0.5); Lymphocytes Percent Auto 20.1 % (18.3-44.2); Mean Corpuscular HGB Conc 32.4 g/dl (32-36); Mean Corpuscular Hemoglobin 30.9 pg (26-34); Mean Corpuscular Volume 95.3 fl (80-100); Mean Platelet Volume 9.8 fl (7.4-10.4); Monocytes Absolute Auto 1.2 K/mm3 (0.1-0.6); Monocytes Percent Auto 13.4 % (2.6-8.5); Neutrophils Absolute Auto 5.8 K/mm3 (1.3-6.7); Neutrophils Percent Auto 64.7 % (45.5-73.1); Platelet Count Result 299 k/mm3 (150-375); Red Blood Count 3.82 M/mm3 (4.6-6.20); Red Cell Distribution Width 13.5 % (11.5-14.5)
[2023-09-24 10:23] LABS: Alanine Aminotransferase 21 U/L (6-50); Albumin Level 3.9 g/dL (3.5-5.1); Alkaline Phosphatase 215 U/L (38-126); Anion Gap 10 mmol/L (4-12); Aspartate Amino Transferase 31 U/L (17-59); Bilirubin,Total 0.5 mg/dL (0.2-1.3); Blood Urea Nitrogen 13 mg/dL (9-20); Calcium 9.4 mg/dL (8.4-10.2); Carbon Dioxide 25 mmol/L (22-30); Chloride 102 mmol/L (98-107); Estimated CRCL calculation 76 ml/min; Estimated Glomerular Filt Rate > 60; Glucose 123 mg/dL (65-110); Potassium 3.6 mmol/L (3.4-5.0); Sodium 137 mmol/L (137-145)
[2023-09-24 10:32] LABS: NT Pro B Type Natriuretic Pept 104 pg/mL (19.9-100)
[2023-09-24 10:36] VITALS: BP 111/74; PULSE 60; RESP 16; O2SAT 97
[2023-09-24 10:37] LABS: Prothrombin Time 13.9 Seconds (11.1-14.7)
[2023-09-24 10:38] LABS: Partial Thromboplastin Time 31.1 Seconds (22.3-36.8)
--- NOTE | 2023-09-24 10:43 | ED.GENADULT ---
HPI - General Adult General Chief complaint: Unspecified Stated complaint: coughed up blood tinged mucous Time Seen by Provider: 09/24/23 09:01 Source: patient and EMS Mode of arrival: EMS History of Present Illness HPI narrative: Patient presents with report of coughing up blood clot versus blood tinged mucus. He has a history of CVA. He does state that he has been coughing recently and was seen on Friday report of coughing and subsequently vomiting up blood which appeared to involve meatloaf. Patient states he does not know if he is on anticoagulation. He denies any shortness of breath or chest pain. Per [facility] documentation he is on aspirin and clopidogrel. Resp meds include montelukast, SYmbicort without clear underlying respiratory condition. Related Data Home Medications Medication Instructions Recorded Confirmed aspirin 81 mg tablet,delayed 81 mg PO DAILY 02/03/20 09/24/23 release (Josue Low Dose Aspirin) atorvastatin 40 mg tablet 40 mg PO QHS 02/03/20 09/24/23 budesonide-formoterol HFA 160 2 puff inhalation BID 02/03/20 09/24/23 mcg-4.5 mcg/actuation aerosol inhaler (Symbicort) carbamazepine 200 mg tablet 200 mg PO TIDWM 02/03/20 09/24/23 famotidine 20 mg tablet 20 mg PO BID 02/03/20 09/24/23 fluoxetine 20 mg capsule 80 mg PO HS 02/03/20 09/24/23 montelukast 10 mg tablet 10 mg PO DAILY 02/03/20 09/24/23 quetiapine 50 mg tablet 100 mg PO TID 02/03/20 09/24/23 zonisamide 100 mg capsule 100 mg PO BID 02/03/20 09/24/23 acetaminophen 325 mg tablet 650 mg PO Q6H PRN Pain (Scale 05/22/22 09/24/23 Score 1-3) buspirone 10 mg tablet 10 mg PO TID 05/22/22 09/24/23 clopidogrel 75 mg tablet 75 mg PO QAM 05/22/22 09/24/23 docusate sodium 100 mg capsule 100 mg PO DAILY 05/22/22 09/24/23 ergocalciferol (vitamin D2) 50,000 50,000 unit PO WEEKLY 05/22/22 09/24/23 unit tablet ondansetron HCl 4 mg tablet 4 mg PO Q6H PRN Nausea 05/22/22 09/24/23 trazodone 150 mg tablet 150 mg PO QHS 05/22/22 09/24/23 baclofen 10 mg tablet 10 mg PO TID 01/21/23 09/24/23 bisacodyl 10 mg RECTAL DAILY PRN Constipation 01/21/23 09/24/23 magnesium citrate 296 ml PO QAM PRN Constipation 01/21/23 09/24/23 magnesium hydroxide 400 mg PO QHS PRN Constipation 01/21/23 09/24/23 pantoprazole 40 mg tablet,delayed 40 mg PO DAILY 06/25/23 09/24/23 release (Protonix) melatonin 5 mg tablet 5 mg PO HS PRN Sleep 07/14/23 09/24/23 polyethylene glycol 3350 17 gram 17 g PO DAILY 07/14/23 09/24/23 oral powder packet (Miralax) Allergies Allergy/AdvReac Type Severity Reaction Status Date / Time mushroom Allergy Severe Anaphylaxis Verified 08/05/23 12:54 hydromorphone Allergy Mild Itching Verified 08/05/23 12:54 tramadol Allergy Unknown Seizure Verified 08/05/23 12:54 fluticasone AdvReac Other Verified 08/05/23 12:54 [From Advair Diskus] salmeterol AdvReac Other Verified 08/05/23 12:54 [From Advair Diskus] [facility] Past Medical History Medical History Aortic valve disease Atherosclerosis of coronary artery Benign prostatic hyperplasia Cerebrovascular accident (05/01/22) CTA head and neck showed occlusion of the right distal ICA and M1. He was not a candidate for tPA with concomitant diagnosis of bacteremia and endocarditis. 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
[2023-09-24 10:48] LABS: D Dimer 1.33 ug/mL (<0.48)
[2023-09-24 10:49] LABS: Influenza A QL RT-PCR Negative (Negative); Influenza B QL RT-PCR Negative (Negative); RSV RNA, RT-PCR Negative (Negative); SARS-CoV-2 RNA PCR Negative (Negative)
[2023-09-24 11:22] LABS: Alveolar/Arterial O2 Gradient 26.2 mmHg; Base Excess ABG -0.6 mEq/l (+/-2.0); Fractional Inspired Oxygen 21 %; HCO3 ABG 23.5 mEq/l (22.0-26.0); Oxygen Content ABG 16.5 %vol (16.0-22.0); Oxyhemoglobin 94.2 % THb (90.0-100.0); PCO2 ABG 36.9 mmHg (35.0-45.0); PO2 ABG 79.3 mmHg (80.0-100.0); PO2 FiO2 Ratio Arterial Blood 3.78 %; Total Hemoglobin 12.4 g/dL (12.0-18.0); pH ABG 7.422 (7.350-7.450)
[2023-09-24 11:23] LABS: Device ROOM AIR; Site Drawn RIGHT BRACHIAL
[2023-09-24] MEDS: AZITHROMYCIN 250 MG TABLET 500 MG PO (13:23)
--- NOTE | 2023-09-24 13:30 | PM.IMHP ---
H&P: HPI History of Present Illness Date/Time: 09/24/23 14:00 Chief Complaint: Coughed up blood. Narrative: This is a 62-year-old male with history of stroke due to embolization from infective endocarditis, epileptic and nonepileptic seizures, coronary artery disease, hypertension, hyperlipidemia, chronic obstructive pulmonary disease, kidney stones, gastroesophageal reflux disease, anxiety, and depression who presented to the emergency department via EMS from [facility] for evaluation after he reportedly coughed up blood. The patient is not the best historian and some of the following history is supplemented via a review his of his electronic medical records. He he was recently admitted to the hospital with sepsis related to urinary tract infection and obstructing ureteral stones and he was discharged back to his facility on 09/01/2023. He was seen in ED 3 days ago due to concerns that he may have vomited up blood however it was felt that it was related to the food he had for lunch. He returns today after coughing up blood-tinged sputum. He does not particularly feel unwell but he does endorse having a productive cough for a few days. He denies fever, chills, sweats, chest pain, pleuritic pain, nausea, vomiting, diarrhea, edema, and calf pain. He also denies dysphagia and concerns for aspiration. He has no known sick contacts. In the ED: He was afebrile on arrival with stable vital signs. Labs were significant for WBC count of 9.0, hemoglobin 11.8, D-dimer 1.33, sodium 137, BUN 13, proBNP 104. He was negative for influenza, RSV, and COVID. Chest x-ray showed pneumonia in the left upper lobe and left perihilar area. Chest CTA was negative for pulmonary embolism and showed the left upper lobe pneumonia and diffuse lung disease, likely combination of emphysema and chronic interstitial lung disease. He received azithromycin and ceftriaxone is being admitted in this setting for further treatment. Review of Systems Review of Systems: 12 systems were reviewed and are negative except for as per HPI. [facility] Past Medical History Medical History Aortic valve disease Atherosclerosis of coronary artery Benign prostatic hyperplasia Cerebrovascular accident (05/01/22) CTA head and neck showed occlusion of the right distal ICA and M1. He was not a candidate for tPA with concomitant diagnosis of bacteremia and endocarditis. 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 History of spinal surgery History of ureter stent Family History Family History Other No pertinent family history Social History Social History (Updated 09/24/23 @ 20:32 by Sara Ni PA-C) Social History: Surrogate medical decision maker: Evaristo Staley, friend. Code status: Full code per long-term documentation Smoking packs per day: 0.25 Smoking cigarettes per day: 5.0 Years smoked: 10 Smoking pack-years: 2.50 Smoking status: Former smoker Tobacco type: cigarettes Second hand tobacco smoke exposure: Yes Additional smoking assessment comments: us
[2023-09-24 13:58] VITALS: BP 142/89; PULSE 68; RESP 16; O2SAT 99
--- NOTE | 2023-09-24 14:00 | PC.NURSE ---
Meal tray ordered
--- NOTE | 2023-09-24 15:53 | ADMGEN ---
This patient, Blaine Salvador, was admitted to Medical Room 256-. Patient/family oriented to hospital policies and general routines including ID bracelet, bed and alarms, visiting hours, pain management, procedures, bathroom and other care routines, personal items, smoking policy, room service/diet, and visiting hours. Information on how to activate the Rapid Response Team has been discussed. Patient/Family are encouraged to report perceived risks to care and to ask questions if they do not understand what they are told or what they should do.
--- NOTE | 2023-09-24 16:29 | ECG_ITS ---
Test Date: 2023-09-24 16:41:31 Measurements Intervals [place] Rate: 68 P: -14 CA: 170 QRS: 31 QRSD: 106 T: 57 QT: 419 QTc: 448 Interpretive Statements SINUS RHYTHM INCOMPLETE RIGHT BUNDLE BRANCH BLOCK BORDERLINE ST-T WAVE ABNORMALITY- HIGH LATERAL LEADS BASELINE ARTIFACT- I, II, III, AVR, AVL, AVF, V1-V6 BORDERLINE ECG Compared to ECG 09/01/2023 15:04:06 NO SIGNIFICANT CHANGE Electronically Signed On 09-24-2023 20:30:04 CDT by Tripp Finnegan D.O.
[2023-09-24 19:54] VITALS: BP 137/75; PULSE 72; RESP 17; TEMP 36.9; O2SAT 97
[2023-09-24] MEDS: FLUoxetine HCL 20 MG CAPSULE 80 MG PO (20:30)
[2023-09-24] MEDS: TAMSULOSIN HCL 0.4 MG CAPSULE PO (20:32)
[2023-09-24] MEDS: ZONISAMIDE 100 MG CAPSULE PO (20:32)
[2023-09-24] MEDS: traZODone HCL 50 MG TABLET 150 MG PO (20:32)
[2023-09-24] MEDS: ATORVASTATIN 40 MG TABLET PO (21:01)
[2023-09-24] MEDS: BACLOFEN 10 MG TABLET PO (22:05)
[2023-09-24] MEDS: QUEtiapine FUMARATE 100 MG TABLET PO (22:05)
[2023-09-24] MEDS: busPIRone HCL 10 MG TABLET PO (22:05)
[2023-09-24] MEDS: MELATONIN 5 MG TABLET PO (22:11)
[2023-09-25] VITALS (7 sets, daily range): BP systolic 125–128; BP diastolic 64–77; PULSE 59–72; RESP 17–18; TEMP 36.4–36.8; O2SAT 97–99; BMI 20.6
--- NOTE | 2023-09-25 05:46 | PC.NURSE ---
reviewed and agreed with all charting and assessment by bina arriaga
[2023-09-25] MEDS: busPIRone HCL 10 MG TABLET PO ×2 (05:58→13:12)
[2023-09-25] MEDS: BACLOFEN 10 MG TABLET PO ×2 (05:58→13:12)
[2023-09-25] MEDS: QUEtiapine FUMARATE 100 MG TABLET PO ×2 (05:58→13:12)
[2023-09-25 06:24] LABS: Hematocrit 34.3 % (42.0-52.0); Hemoglobin 11.2 g/dL (14.0-18.0); Mean Corpuscular HGB Conc 32.7 g/dl (32-36); Mean Corpuscular Hemoglobin 31.2 pg (26-34); Mean Corpuscular Volume 95.5 fl (80-100); Mean Platelet Volume 9.9 fl (7.4-10.4); Platelet Count Result 303 k/mm3 (150-375); Red Blood Count 3.59 M/mm3 (4.6-6.20); Red Cell Distribution Width 13.3 % (11.5-14.5); White Blood Count 8.5 K/mm3 (4.5-10.0)
[2023-09-25 06:47] LABS: Anion Gap 13 mmol/L (4-12); Blood Urea Nitrogen 11 mg/dL (9-20); Calcium 9.2 mg/dL (8.4-10.2); Carbon Dioxide 23 mmol/L (22-30); Chloride 101 mmol/L (98-107); Estimated CRCL calculation 76 ml/min; Estimated Glomerular Filt Rate > 60; Glucose 99 mg/dL (65-110); Magnesium 1.8 mg/dL (1.6-2.3); Potassium 3.6 mmol/L (3.4-5.0); Sodium 137 mmol/L (137-145)
[2023-09-25] MEDS: PANTOPRAZOLE 40 MG TABLET PO (08:16)
[2023-09-25] MEDS: MONTELUKAST SODIUM 10 MG TABLET PO (08:16)
[2023-09-25] MEDS: DOCUSATE SODIUM 100 MG CAPSULE PO (08:16)
[2023-09-25] MEDS: polyethylene glycoL 3350 17 GM POWD.PACK PO (08:16)
[2023-09-25] MEDS: MIDODRINE HCL 2.5 MG TABLET 5 MG PO ×3 (08:16→17:50)
[2023-09-25] MEDS: carBAMazepine 200 MG TABLET PO ×3 (08:16→17:50)
[2023-09-25] MEDS: FAMOTIDINE 20 MG TABLET PO ×2 (08:16→20:27)
[2023-09-25] MEDS: ZONISAMIDE 100 MG CAPSULE PO ×2 (08:17→20:27)
[2023-09-25] MEDS: FLUTICASONE/SALMETEROL 115-21 MCG INHALER 1 PUFF 2 PUFF INHALATION ×3 (08:39→21:54)
--- NOTE | 2023-09-25 13:06 | PCSTNOTE ---
Please refer to the Bedside Swallow Evaluation in the EMR. Please note, silent aspiration cannot be ruled out at bedside. The above pt was seen for a swallow evaluation at bedside. The pt was positioned upright in the bed to achieve optimal position for oral intake. He was alert & able to follow simple commands. He is currently on a regular diet and denies dysphagia. Previous swallow eval during a previous admission revealed ability to tolerate a level 5, minced and moist diet. Cursory oral peripheral examination revealed functional labial and lingual ROM & strength. Oral mucosa is normal; edentulous, has dentures that are not present; He was able to dry swallow on command and exhibited a strong cough and clear vocal quality. He was tested with applesauce, pudding, crumbled cracker in pudding and thin liquids. Oral stage: overall within functional limits but lingual pumping and disturbed A/P lingual movement was exhibited with the pudding trial. No oral residue, leakage, or pocketing was noted. During the pharyngeal stage, swallow reflex appeared prompt & laryngeal elevation adequate; however, inconsistent wet, gurgly vocal quality and throat clearing was exhibited. Recommendation: MBS to further assess swallow ability & determine a safe diet. MBS is scheduled for this afternoon- results and recommendations to follow Thank you for this referral.
[2023-09-25] MEDS: AZITHROMYCIN 500 MG/NS 250 ML 500 MG/250 ML BAG 250 MG IVPB (13:12)
--- NOTE | 2023-09-25 15:11 | PM.IMPN ---
Progress Note: A&P Assessment and Plan (1) Hemoptysis: Code(s): R04.2 - Hemoptysis Status: Acute (2) Left upper lobe pneumonia: Code(s): J18.9 - Pneumonia, unspecified organism Status: Acute (3) Chronic anemia: Code(s): D64.9 - Anemia, unspecified Status: Acute (4) Benign prostatic hyperplasia: Code(s): N40.0 - Benign prostatic hyperplasia without lower urinary tract symptoms Status: Acute (5) Seizure disorder: Code(s): G40.909 - Epilepsy, unspecified, not intractable, without status epilepticus Status: Acute (6) Chronic obstructive pulmonary disease: Code(s): J44.9 - Chronic obstructive pulmonary disease, unspecified Status: Acute (7) Gastroesophageal reflux disease: Code(s): K21.9 - Gastro-esophageal reflux disease without esophagitis Status: Acute (8) Depression with anxiety: Code(s): F41.8 - Other specified anxiety disorders Status: Acute Plan Pneumonia Aspiration Bronchodilators. Chest x-ray left upper lobe pneumonia Speech evaluation Patient failed MBS joint aspiration Remains NPO until speech recommendation incentive spirometry while awake. sputum culture ordered influenza/COVID/RSV negative Azithromycin/Rocephin supplemental oxygen therapy to maintain oxygen 92% on room air Hemoptysis No episodes reported during admission HGB stable ASA and Plavix held for now HX COPD: Stabel resumed inhalers HX BPH: Resumed flomax/chronic indwelling catheter HX Seizures: Resumed home medications HX anxiety: Resumed Fluoxetine HX GERD: Resumed PPI Code status: Full code per patient DVT prophylaxis: SCD's Stress ulcer prophylaxis: Protonix 40 daily PT/OT notes: Return to SNF Disposition: Patient was admitted to the medical unit for aspiration pneumonia patient failed MBS will continue speech therapy and follow further recommendations patient will return to SNF when medically stable. 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 for evaluation after he reportedly coughed up blood. The patient is not the best historian and some of the following history is supplemented via a review his of his electronic medical records. He he was recently admitted to the hospital with sepsis related to urinary tract infection and obstructing ureteral stones and he was discharged back to his facility on 09/01/2023. He was seen in ED 3 days ago due to concerns that he may have vomited up blood however it was felt that it was related to the food he had for lunch. He returns today after coughing up blood-tinged sputum. He does not particularly feel unwell but he does endorse having a productive cough for a few days. He denies fever, chills, sweats, chest pain, pleuritic pain, nausea, vomiting, diarrhea, edema, and calf pain. He also denies dysphagia and concerns for aspiration. He has no known sick contacts. 09/25/2023: Assumed Care Patient is in no acute distress with no complaints. Patient has been afebrile and normal WBC on room air, but CTA showed LT upper lobe PNA. Patient failed MBS showing aspiration speech following for recommendations. Review of Systems Review of Systems: All systems reviewed & are unremarkable except as noted in HPI and below Exam Narrative: Physical Exam: GENERAL: Alert and oriented x 3. Lethargic No acute distress. EYES: EOMI. No scleral icterus. PERRLA. HEENT: Moist mucous membranes. LUNGS: diminished to
--- NOTE | 2023-09-25 16:56 | PCSTNOTE ---
Please refer to the Modified Barium Swallow Evaluation in the EMR. Pt was seated for a lateral view and presented with thin liquids, mild and moderately thick liquids, pudding, mixed consistency, and solids in controlled and uncontrolled amounts. Oral stage symptoms: none. During the pharyngeal stage pt presented with reduced laryngeal elevation and laryngeal closure as evidence by laryngeal penetration and aspiration during the swallow. Aspiration was found to be silent and occurred with thin liquids and moderately thick liquids. Chin tuck position was attempted but was unsuccessful in eliminating aspiration. Esophageal stage was within functional limits. Impression: Moderate dysphagia Recommendations: IDDSI Level 5 (Minced and moist) and IDDSI Level 3 (Moderately thick) ST to continue dysphagia therapy to focus on laryngeal elevation and adduction. Thank you for this referral.
[2023-09-25] MEDS: ATORVASTATIN 40 MG TABLET PO (20:27)
[2023-09-25] MEDS: TAMSULOSIN HCL 0.4 MG CAPSULE PO (20:27)
[2023-09-25] MEDS: FLUoxetine HCL 20 MG CAPSULE 80 MG PO (20:27)
[2023-09-25] MEDS: traZODone HCL 50 MG TABLET 150 MG PO (20:27)
[2023-09-26 05:31] VITALS: BP 123/74; PULSE 59; RESP 18; TEMP 36.9; O2SAT 97
[2023-09-26] MEDS: BACLOFEN 10 MG TABLET PO ×2 (06:10→13:15)
[2023-09-26] MEDS: busPIRone HCL 10 MG TABLET PO ×2 (06:11→13:15)
[2023-09-26] MEDS: QUEtiapine FUMARATE 100 MG TABLET PO ×2 (06:11→13:17)
[2023-09-26] MEDS: FLUTICASONE/SALMETEROL 115-21 MCG INHALER 1 PUFF 2 PUFF INHALATION (07:28)
--- NOTE | 2023-09-26 07:48 | PM.DS ---
DS: Admitting Diagnosis Discharge Date 09/26/2023 Admitting Diagnosis Pneumonia from aspiration DS: Discharge Diagnosis Discharge Diagnosis (1) Hemoptysis: Code(s): R04.2 - Hemoptysis Status: Acute (2) Left upper lobe pneumonia: Code(s): J18.9 - Pneumonia, unspecified organism Status: Acute (3) Chronic anemia: Code(s): D64.9 - Anemia, unspecified Status: Acute (4) Benign prostatic hyperplasia: Code(s): N40.0 - Benign prostatic hyperplasia without lower urinary tract symptoms Status: Acute (5) Seizure disorder: Code(s): G40.909 - Epilepsy, unspecified, not intractable, without status epilepticus Status: Acute (6) Chronic obstructive pulmonary disease: Code(s): J44.9 - Chronic obstructive pulmonary disease, unspecified Status: Acute (7) Gastroesophageal reflux disease: Code(s): K21.9 - Gastro-esophageal reflux disease without esophagitis Status: Acute (8) Depression with anxiety: Code(s): F41.8 - Other specified anxiety disorders Status: Acute Plan Pneumonia Aspiration Bronchodilators. Chest x-ray left upper lobe pneumonia Speech evaluation Patient failed MBS joint aspiration Remains NPO until speech recommendation incentive spirometry while awake. sputum culture ordered influenza/COVID/RSV negative Azithromycin/Rocephin supplemental oxygen therapy to maintain oxygen 92% on room air Hemoptysis No episodes reported during admission HGB stable ASA and Plavix held for now HX COPD: Stabel resumed inhalers HX BPH: Resumed flomax/chronic indwelling catheter HX Seizures: Resumed home medications HX anxiety: Resumed Fluoxetine HX GERD: Resumed PPI Code status: Full code per patient DVT prophylaxis: SCD's Stress ulcer prophylaxis: Protonix 40 daily PT/OT notes: Return to SNF Disposition: Patient was admitted to the medical unit for aspiration pneumonia patient failed MBS will continue speech therapy and follow further recommendations patient will return to SNF when medically stable. 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 The patient is not the best historian and some of the following history is supplemented via a review his of his electronic medical records. He he was recently admitted to the hospital with sepsis related to urinary tract infection and obstructing ureteral stones and he was discharged back to his facility on 09/01/2023. He was seen in ED 3 days ago due to concerns that he may have vomited up blood however it was felt that it was related to the food he had for lunch. He returns today after coughing up blood-tinged sputum. He does not particularly feel unwell but he does endorse having a productive cough for a few days. He denies fever, chills, sweats, chest pain, pleuritic pain, nausea, vomiting, diarrhea, edema, and calf pain. He also denies dysphagia and concerns for aspiration. He has no known sick contacts. 09/25/2023: Assumed Care Patient is in no acute distress with no complaints. Patient has been afebrile and normal WBC on room air, but CTA showed LT upper lobe PNA. Patient failed MBS showing aspiration speech following for recommendations. 09/26/2023: DISCHARGED Patient was upset about diet changes to minced moist due to aspiration, educated on risks and the need for continued speech therapy at SNF. Otherwise patient is in no acute distress, normal WBC and remained afebri
[2023-09-26 09:02] LABS: Hematocrit 35.8 % (42.0-52.0); Hemoglobin 11.4 g/dL (14.0-18.0); Mean Corpuscular HGB Conc 31.8 g/dl (32-36); Mean Corpuscular Hemoglobin 30.6 pg (26-34); Mean Platelet Volume 9.9 fl (7.4-10.4); Platelet Count Result 331 k/mm3 (150-375); Red Blood Count 3.73 M/mm3 (4.6-6.20); Red Cell Distribution Width 13.3 % (11.5-14.5); White Blood Count 7.9 K/mm3 (4.5-10.0)
[2023-09-26 09:05] LABS: Alanine Aminotransferase 23 U/L (6-50); Alkaline Phosphatase 237 U/L (38-126); Anion Gap 12 mmol/L (4-12); Aspartate Amino Transferase 27 U/L (17-59); Bilirubin,Total 0.4 mg/dL (0.2-1.3); Blood Urea Nitrogen 11 mg/dL (9-20); Calcium 9.3 mg/dL (8.4-10.2); Carbon Dioxide 25 mmol/L (22-30); Chloride 101 mmol/L (98-107); Estimated CRCL calculation 69 ml/min; Estimated Glomerular Filt Rate > 60; Glucose 94 mg/dL (65-110); Potassium 4.3 mmol/L (3.4-5.0); Sodium 138 mmol/L (137-145)
[2023-09-26] MEDS: carBAMazepine 200 MG TABLET PO ×2 (09:28→13:15)
[2023-09-26] MEDS: ZONISAMIDE 100 MG CAPSULE PO (09:29)
[2023-09-26] MEDS: polyethylene glycoL 3350 17 GM POWD.PACK PO (09:29)
[2023-09-26] MEDS: MIDODRINE HCL 2.5 MG TABLET 5 MG PO ×2 (09:29→13:15)
[2023-09-26] MEDS: MONTELUKAST SODIUM 10 MG TABLET PO (09:29)
[2023-09-26] MEDS: FAMOTIDINE 20 MG TABLET PO (09:29)
[2023-09-26] MEDS: DOCUSATE SODIUM 100 MG CAPSULE PO (09:29)
[2023-09-26] MEDS: PANTOPRAZOLE 40 MG TABLET PO (09:29)
[2023-09-26] MEDS: AZITHROMYCIN 500 MG/NS 250 ML 500 MG/250 ML BAG 250 MG IVPB (13:51)
[2023-09-26 14:00] VITALS: BP 128/76; PULSE 70; RESP 18; TEMP 37.1; O2SAT 100
[2023-09-29 19:34] LABS: Pneumococcal Antigen Urine NOT DETECTED
[2023-09-30 03:54] LABS: Legionella pneumophila Ag Ur NOT DETECTED
[2023-09-30 18:13] LABS: Mycoplasma IgM Antibody Titer 204 U/mL
== END 2023-09-26 14:30 ==
LOC: ANHED 09:25 → ANH3MEDSUR 14:18 → ANH2MED 15:52
PROVIDERS: Physician Assistant; Admitting Provider Internal Medicine; Emergency Provider Student in an Organized Health Care Education/Training Program; PCP Family Medicine; Visit Provider Nurse Practitioner Family
DX: J18.9 Pneumonia, unspecified organism (principal); R04.2 Hemoptysis; J43.9 Emphysema, unspecified; I10 Essential (primary) hypertension; E78.5 Hyperlipidemia, unspecified; I25.10 Atherosclerotic heart disease of native coronary artery without angina pectoris; N40.0 Benign prostatic hyperplasia without lower urinary tract symptoms; J44.9 Chronic obstructive pulmonary disease, unspecified; D64.9 Anemia, unspecified; I69.354 Hemiplegia and hemiparesis following cerebral infarction affecting left non-dominant side; G20.A1 Parkinson's disease without dyskinesia, without mention of fluctuations; G40.909 Epilepsy, unspecified, not intractable, without status epilepticus; E55.9 Vitamin D deficiency, unspecified; K21.9 Gastro-esophageal reflux disease without esophagitis; Z20.822 Contact with and (suspected) exposure to COVID-19; Z95.4 Presence of other heart-valve replacement; Z79.82 Long term (current) use of aspirin; Z79.51 Long term (current) use of inhaled steroids; Z79.02 Long term (current) use of antithrombotics/antiplatelets; Z87.891 Personal history of nicotine dependence
CPT/HCPCS: 36415; 36600; 71046; 71275; 80048; 80053; 82805; 83735; 83880; 85025; 85027; 85380; 85610; 85730; 86738; 87449; 87637; 87899; 92526; 92610; 92611; 93005; 94640; 96365; 96367; 96376; 99285; A9270; G0378; J0456; J0696; Q9967

== ENCOUNTER 2023-10-22 14:02 | Outpatient (CLI) | payer MEDICARE, SELFPAY ==
--- NOTE | ~2023-10-22 | XR_ITS ---
MODIFIED ESOPHAGRAM HISTORY: Pneumonia. Epileptic seizure related. Conversion disorder. TECHNIQUE: Modified barium esophagram was performed on 10/22/2023. I administered fluoroscopy and perf ormed the exam with speech pathologist. Patient was seated for lateral fluoroscopic imaging for rajwinder stion of thin liquids, pudding, solids and quantified amounts, followed by thin liquids in uncontroll ed amounts. This was recorded on tape. A single fluoroscopic spot image was also recorded. The DAP fo r this procedure was 1.263 Gycm2. The amount of fluoroscopy time used during this procedure was 2.6 m inutes. FINDINGS: Oral stage: Adequate function. Pharyngeal stage: Reduced laryngeal elevation and tongue base retraction. There is vallecular residue . There is laryngeal penetration with single episode of aspiration with thin liquids swallowed throug h a straw. Cervical/esophageal stage: Adequate function. IMPRESSION: Pharyngeal dysphagia with laryngeal penetration and single episode of aspiration of thin liquids when swallowing through a straw. Please correlate with speech pathologist findings and speci fic feeding recommendations. Reviewed, dictated and finalized at location A. IMPRESSION: Pharyngeal dysphagia with laryngeal penetration and single episode of aspiration of thin liquids when swallowing through a straw. Please correlat e with speech pathologist findings and specific feeding recommendations.
--- NOTE | 2023-10-22 16:28 | REHSTMBS ---
Assessment and note entered by Fernanda Webb OBSTETRICS GYNECOLOGY MD Modified Barium Swallow Evaluation ST Clinical Summary MODIFIED BARIUM SWALLOW This patient was seen for a Modified Barium Swallow (MBS) at the request of his physician. Patient reports he had a CVA and has been seen for swallowing issues in the past. He reported that he knows that he failed a MBS in the past and was very eager to pass this test. He states he is currently on a Pureed Diet and thickened liquids but unable to explain anything else about his diet /liquids. He reports he has no dentition at this time but wants to be placed on a Regular Diet. The patient was viewed in the lateral position to the level of C5/ C6. Patient was presented with thin liquid contrast medium per spoon, then per cup and exhibited no signs of aspiration during these presentations. He then was presented with thin liquid per straw and exhibited immediate penetration with aspiration with a cough reflex triggered. He then proceeded to handle pudding mixed with semi-solid contrast medium and a cracker coated with the pudding mixture. He then was presented with additional thin liquid per cup with no penetration noted. Given one more sip of the thin liquid per straw, he exhibited no additional penetration/aspiration. Impairments: Oral Stage: None other than lack of dentition. Pharyngeal Stage: Reduced laryngeal elevation and base of tongue retraction with penetration/ aspiration noted on one presentation of uncontrolled thin liquid per straw. Cricopharyngeal Stage: None. Results suggest patient does remain at risk for aspiration on uncontrolled thin liquids per straw although he did handle sips of liquid per cup with aspiration. He also handled pureed to soft, easy to break-up solids. Patient may remain on the Pureed Diet or can advance to a mechanical soft or chopped diet as with lack of dentition it is unlikely he is able to handle chunks of meat or large bites of bread.
== END 2023-10-22 14:03 | disposition home or self-care (01) ==
PROVIDERS: PCP Family Medicine; Visit Provider Internal Medicine
DX: R13.13 Dysphagia, pharyngeal phase (principal); J18.9 Pneumonia, unspecified organism; F44.5 Conversion disorder with seizures or convulsions
CPT/HCPCS: 92611

== ENCOUNTER 2023-11-17 11:49 | Inpatient (IN) | payer MEDICARE, SELFPAY ==
[2023-11-17] VITALS (28 sets, daily range): BP systolic 68–124; BP diastolic 49–84; PULSE 66–105; RESP 14–36; TEMP 36.1–38.3; O2SAT 92–100
--- NOTE | ~2023-11-17 | XR_ITS ---
XR chest port-a-cath/central Ordering provider: Whitney Salinas MD History: 63 years Male with . LIJ placement . Comparison: November 24, 2023 FINDINGS: MEDIASTINUM: The cardiac silhouette is not enlarged. endotracheal tube is seen with the tip about 3 c m above the greg. Left central line is seen with the tip overlying superior vena cava. A right PICC line is noted with the tip overlying superior vena cava. Nasogastric tubes is noted with the tip in the fundus of the stomach. Postoperative changes in the mediastinum. LUNGS: No effusions or pneumothorax. Opacification in the right mid and lower zone suggestive of pneu monia. Opacification in the left lung base suggestive of pneumonia. Underlying fibrotic changes are p ossible. OTHER: No free air under the diaphragm. IMPRESSION: Bilateral pneumonia. Reviewed, dictated and finalized at location A. IMPRESSION: Bilateral pneumonia.
--- NOTE | ~2023-11-17 | XR_ITS ---
XR abdomen gastric tube rechec INDICATION: Evaluate NG tube position. TECHNIQUE: Limited KUB perform for evaluating NG tube . COMPARISON: No prior studies for comparison. FINDINGS: NG tube tip in the stomach. Visualized bowel gas pattern is unremarkable.There is bibasila r coarse interstitial infiltrates which may reflect edema or chronic interstitial fibrosis. The lungs are hyperinflated which is consistent with, but not diagnostic of chronic obstructive pulmonary dise ase. IMPRESSION: 1: NG tube tip in the stomach. Reviewed, dictated and finalized at location B.
--- NOTE | ~2023-11-17 | XR_ITS ---
XR chest 1V portable 11/23/2023 04:10 Indication: Shortness of breath Procedure: AP portable chest Comparison: Comparison to multiple prior studies sequentially, with oldest reviewed study dated 09/20. Findings: NG tube in the stomach. Status post median sternotomy for CABG. There is a prosthetic heart valve. There are coarse interstitial changes of the mid and lower lungs. The lungs are hyperinflated which is consistent with, but not diagnostic of chronic obstructive pulmonary disease. No pneumothor ax. Impression: 1: Coarse interstitial infiltrates of the mid and lower lungs which may reflect edema and/or intersti tial fibrosis. Reviewed, dictated and finalized at location B. Impression: 1: Coarse interstitial infiltrates of the mid and lower lungs which may reflect edema and/or interstitial fibrosis.
--- NOTE | ~2023-11-17 | XR_ITS ---
EXAM: XR abdomen gastric tube insert DATE: 11/21/2023 20:56 HISTORY: insertion of ng tube . COMPARISON: X-ray chest 11/20/2023. FINDINGS: Moderate bilateral lower lung reticular opacities. Normal bowel gas pattern. NG tube, tip and side port projecting over the stomach. Multiple intact sternotomy wires. Cardiac valve replacemen t. Bilateral ureteral stents. IMPRESSION: NG tube, in good position. Reviewed, dictated and finalized at location K. IMPRESSION: NG tube, in good position.
--- NOTE | ~2023-11-17 | CT_ITS ---
EXAMINATION: CT brain wo con DATE: 11/17/2023 12:59 INDICATION: Altered mental status. TECHNIQUE: Computed tomography (CT) of the head was performed without intravenous contrast. The mA wa s adjusted according to patient size. Iterative reconstruction technique was employed. The dose-lengt h product was 681.00 mGy-cm. COMPARISON: Head CT 07/21/2023 FINDINGS: There are old infarcts in the left basal ganglia and left parietal lobe. There is a large o ld infarct involving right frontal, temporal, and parietal lobes, right insula, right basal ganglia, right internal capsule, and right thalamus. There is no intracranial hemorrhage, acute infarction, or abnormal intracranial mass lesion. There are scattered areas of low attenuation in the cerebral whit e matter, likely chronic small vessel ischemic disease. There is ex vacuo dilatation of the lateral v entricles. There is mucosal thickening in the paranasal sinuses. The orbits are normal. The mastoid a ir cells are normal. IMPRESSION: 1. Old infarcts in the brain. Reviewed, dictated and finalized at location A.
--- NOTE | ~2023-11-17 | XR_ITS ---
XR chest 1V portable 11/23/2023 10:34 Indication: Shortness of breath. Intubation. Procedure: AP portable chest Comparison: 11/23/2023 Findings: Endotracheal tube tip approximately 8.5 cm above the greg, although not well visualized d ue to superimposition of the NG tube and overlying sternal wires.. Status post median sternotomy for CABG. Heart size normal. Bilateral mixed interstitial and airspace disease of the mid and lower lungs , suspicious for edema or pneumonia superimposed on chronic fibrosis. Impression: 1: Bilateral mixed interstitial and airspace disease of the mid and lower lungs, suspicious for edema or pneumonia superimposed on chronic fibrosis. Reviewed, dictated and finalized at location B. Impression: 1: Bilateral mixed interstitial and airspace disease of the mid and lower lungs , suspicious for edema or pneumonia superimposed on chronic fibrosis.
--- NOTE | ~2023-11-17 | XR_ITS ---
Portable chest x-ray Comparison: 11/23/2023 Clinical History: Respiratory failure, Covid Findings: Endotracheal tube, NG tube, and right-sided PICC line essentially unchanged. Extensive rig ht lower lobe and right perihilar consolidation present. Left basilar haziness present. Probable biba silar chronic interstitial changes. Cardiomediastinal silhouette is stable. Bones and soft tissues a re unremarkable. Impression: Stable exam. Stable support tubes. Probable chronic interstitial disease with associated extensive bibasilar and right perihilar consoli dation, and mild haziness left lung base. Findings are suspicious for superimposed pneumonia. Reviewed, dictated and finalized at location M. Impression: Stable exam. Stable support tubes. Probable chronic interstitial disease with associated extensive bibasilar and r ight perihilar consolidation, and mild haziness left lung base. Findings are li spicious for superimposed pneumonia.
--- NOTE | ~2023-11-17 | CT_ITS ---
CT chest abdomen pelvis wo con Ordering provider: Guille Dykes MD History: . Septis, ams, hx of PNA and kidney stones . Comparison: September 24, 2023 Technique: CT chest without IV contrast. CT abdomen and pelvis without oral and IV contrast. Radiation reduction technique utilized.The dose-length product was 743.15 mGy-cm. FINDINGS: The study is limited due to lack of IV contrast. CHEST: --VISUALIZED THORACIC INLET: Normal as visualized. --MEDIASTINUM: Aorta/coronary arteries: Mild atheromatous disease. Ascending aorta measures 4.2 cm. Heart/other: The heart is not enlarged. Lymph nodes: No mediastinal or hilar adenopathy. Multiple small lymph nodes are seen with the largest in the precarinal area measures 1 cm.. --LUNGS: Emphysematous and fibrotic changes. Right lower lobe pneumonia. Left lower lobe pneumonia al so seen. Pleural base nodule in the left upper lobe measuring 1.5 x 1.3 cm. No pneumothorax. --MUSCULOSKELETAL: Soft tissues: , The superficial soft tissues are normal. Bones: Loss of height of T11 and T12 is noted which may be acute or chronic. Age appropriate degenera tive changes of the spine. Postoperative changes. ABDOMEN/PELVIS: --MUSCULOSKELETAL: Bones: Age appropriate degenerative changes of the spine. Small bony fragment seen adjacent to the ri ght acetabulum most likely due to old fracture. Clinical correlation for tenderness in the area is ad vised. Superficial soft tissues: The superficial soft tissues are normal. --UPPER ABDOMINAL ORGANS: Liver: Normal. Gallbladder: Normal. Spleen: Normal. Stomach/duodenum: Small sliding hiatus hernia. Pancreas: Normal. Adrenals: Slightly prominent left adrenal gland. Kidneys: Bilateral double-J stent with hydronephrotic changes. Bilateral renal stones with the larges t in the left kidney measuring 6 mm. Vascular calcifications are also noted. --PELVIC ORGANS: The bladder is underfilled with Rowe's catheter.. No bladder stones. --BOWEL AND MESENTERY: Colon: No evidence of diverticulitis.. Mapping is is not demonstrated. Small Bowel: Normal. No obstruction. Peritoneum/mesentery: No free air or free fluid. No mesenteric lymphadenopathy. --RETROPERITONEUM: Mild atheromatous disease of the abdominal aorta. No retroperitoneal lymphadenop athy. IMPRESSION: CHEST: 1. Bilateral pneumonia. ABDOMEN/PELVIS: 1. Bilateral hydronephrotic changes with bilateral stones and double-J stents. 2. Small bony fragment adjacent to the right acetabulum most likely due to old fracture. 3. Small sliding hiatus hernia Reviewed, dictated and finalized at location A.
--- NOTE | ~2023-11-17 | US_ITS ---
US renal BI 11/21/2023 12:28 Procedure: Realtime transabdominal ultrasound of the kidneys and bladder. Indication: Acute renal insufficiency Comparison: CT dated 11/17/2023 Findings: Renal echotexture is normal bilaterally without contour deforming mass or renal calculus. M oderate bilateral hydronephrosis. The right kidney measures 12.9 cm and left kidney measures 11.7 cm. . There is a Rowe catheter in the bladder. Impression: 1: Moderate bilateral hydronephrosis. Reviewed, dictated and finalized at location B. Impression: 1: Moderate bilateral hydronephrosis.
--- NOTE | ~2023-11-17 | XR_ITS ---
XR chest 1V portable Ordering provider: Whitney Salinas MD History: 63 years Male with . desaturation . Comparison: November 23, 2023 FINDINGS: A right central line, endotracheal tube and nasogastric tube are unchanged. MEDIASTINUM: The cardiac silhouette is not enlarged. Postoperative changes are noted. LUNGS: No effusions or pneumothorax. Opacification in the right lower lobe and to lesser extent left lower lobe is seen suggestive of pneumonia. Underlying fibrotic changes and emphysematous changes not ed. OTHER: No free air under the diaphragm. IMPRESSION: Bilateral basal pneumonia more on the right side which is slightly increased compared to previous maame dy on the right side. Reviewed, dictated and finalized at location A. IMPRESSION: Bilateral basal pneumonia more on the right side which is slightly increased co mpared to previous study on the right side.
--- NOTE | ~2023-11-17 | XR_ITS ---
XR chest PICC line 11/23/2023 11:20 Indication: PICC line placement Procedure: AP portable chest Comparison: Comparison to multiple prior studies sequentially, with oldest reviewed study dated 11/16. Findings: Right subclavian PICC line tip in the SVC. Endotracheal tube position approximately 5.6 cm above the greg. NG tube in the stomach. Stable bilateral mixed interstitial and airspace disease of the mid and lower lungs. Impression: 1: PICC line tip in the SVC. Otherwise, no significant change. Reviewed, dictated and finalized at location B. Impression: 1: PICC line tip in the SVC. Otherwise, no significant change.
--- NOTE | ~2023-11-17 | XR_ITS ---
EXAMINATION: XR chest 1V portable Exam Date/Time: 11/20/2023 15:43 CDT HISTORY: congestion Comparison: 11/17/2023. RESULT: Lines, tubes, and devices: Intact sternotomy wires. Cardiac valve replacement. Lungs and pleura: Persistent 2.5 cm left upper lung nodule. Moderate diffuse reticular opacities. Jensen zy mid and lower right lung groundglass opacity. Stable subsegmental reticulonodular right upper lung and left lower lung opacities. Cardiomediastinal silhouette: Stable. Other: No acute osseous or upper abdominal finding. IMPRESSION: Worsening interstitial edema. Worsening lobar opacities in the right lower lung. Reviewed, dictated and finalized at location K. IMPRESSION: Worsening interstitial edema. Worsening lobar opacities in the right lower lung .
--- NOTE | ~2023-11-17 | CT_ITS ---
CT brain wo con Ordering provider: Whitney Salinas MD History: 63 years Male with . Encephalopathy . Comparison: November 17, 2023 Technique: CT of the head without contrast. Radiation reduction technique utilized. The dose-length product was 756.67 mGy-cm. FINDINGS: BRAIN PARENCHYMA AND CSF SPACES: Mild leukoaraiosis and diffuse cortical atrophy. Mild atheromatous d isease. Encephalomalacia in the right frontal lobe and right temporal lobe. Old lacunar infarct in th e left basal ganglia. No midline shift, mass effect or hemorrhage. The brain parenchyma and CSF spac es are otherwise normal. VISUALIZED PARANASAL SINUSES: Bilateral frontal, ethmoid, sphenoid and maxillary sinus disease. MASTOIDS: Bilateral air cells effusion. BONES: The bones appear intact. SOFT TISSUES: Visualized nasopharynx is normal. Superficial soft tissues are normal. IMPRESSION: No acute intracranial findings. Reviewed, dictated and finalized at location A.
--- NOTE | ~2023-11-17 | XR_ITS ---
Portable chest x-ray Comparison: 11/24/2023 Clinical History: Respiratory failure Findings: Endotracheal tube, NG tube, and bilateral central venous lines are in place. Extensive rig ht basilar perihilar consolidation and present with mild haziness left lung base. Probable underlying COPD and chronic interstitial disease. Cardiomediastinal silhouette is stable, status post aortic v alve replacement. Bones and soft tissues are unremarkable. Impression: Stable right basilar and right perihilar pneumonia, possible additional involvement of the left lung base. Probable underlying COPD/chronic interstitial disease. Support tubes, as above. Reviewed, dictated and finalized at location . Impression: Stable right basilar and right perihilar pneumonia, possible additional involve ment of the left lung base. Probable underlying COPD/chronic interstitial disease. Support tubes, as above.
--- NOTE | ~2023-11-17 | XR_ITS ---
MODIFIED ESOPHAGRAM HISTORY: Aspiration pneumonia. TECHNIQUE: Modified barium esophagram was performed on 11/21/2023. I administered fluoroscopy and perf ormed the exam with speech pathologist. Patient was seated for lateral fluoroscopic imaging for rajwinder stion of thin liquids, pudding, solids and quantified amounts, followed by thin liquids in uncontroll ed amounts. This was recorded on tape. A single fluoroscopic spot image was also recorded. The DAP fo r this procedure was 0.8 Gycm2. The amount of fluoroscopy time used during this procedure was 1.2 min utes. FINDINGS: Oral stage: Unable to be assessed due to patient positioning. Pharyngeal stage: There is reduced laryngeal elevation and tongue base retraction. There is laryngeal penetration and aspiration with both pudding consistency and mildly thickened liquids. Delayed and w eak throat clearance. Cervical/esophageal stage: Adequate function. IMPRESSION: Pharyngeal dysphagia with laryngeal penetration and aspiration. Please correlate with sp eech pathologist findings and specific feeding recommendations. Reviewed, dictated and finalized at location A. IMPRESSION: Pharyngeal dysphagia with laryngeal penetration and aspiration. Pl ease correlate with speech pathologist findings and specific feeding recommenda tions.
--- NOTE | ~2023-11-17 | XR_ITS ---
EXAMINATION: XR chest 1V DATE: 11/17/2023 13:10 INDICATION: Altered mental status. TECHNIQUE: A single frontal view of the chest was obtained. COMPARISON: Chest 2 views 09/24/2023, chest CT 11/17/2023, chest CT 09/24/2023 FINDINGS: There are airspace opacities in the upper lobes and lower lobes, consistent with pneumonia. No pleural effusion or pneumothorax. The heart size is normal. There are changes of aortic valve rep lacement. IMPRESSION: 1. Bilateral pneumonia. Reviewed, dictated and finalized at location A. IMPRESSION: 1. Bilateral pneumonia.
--- NOTE | ~2023-11-17 | CT_ITS ---
CT chest abdomen pelvis wo con Ordering provider: Whitney Salinas MD History: . COVID-19 pneumonia, septic shock . Comparison: None. Technique: CT chest without IV contrast. CT abdomen and pelvis without oral and IV contrast. 698.9 FINDINGS: The study is limited due to lack of IV contrast. CHEST: Nasogastric and endotracheal tubes are noted. Left central line with the tip overlying superior vena cava. --VISUALIZED THORACIC INLET: Normal as visualized. --MEDIASTINUM: Aorta/coronary arteries: Mild atheromatous disease. Heart/other: The heart is not enlarged. Lymph nodes: No mediastinal or hilar adenopathy. --LUNGS: Bilateral lower lobe pneumonia more on the right side which has increased compared to previo us study. Underlying emphysematous and fibrotic changes. Pleural-based nodule is seen in the left upp er lobe anterior wall laterally measuring 1.2 cm. Follow-up advised. Minimal right pleural effusion.. No pneumothorax. --MUSCULOSKELETAL: Soft tissues: The superficial soft tissues are normal. Bones: Age appropriate degenerative changes of the spine. Postoperative changes in the mediastinum an d sternum. ABDOMEN/PELVIS: --MUSCULOSKELETAL: Bones: Age appropriate degenerative changes of the spine. Superficial soft tissues: The superficial soft tissues are normal. --UPPER ABDOMINAL ORGANS: Liver: Focal calcification the right lobe of the liver. Gallbladder: Normal. Spleen: Distended with no definite stones. Stomach/duodenum: Normal. Pancreas: Normal. Adrenals: Normal. Kidneys: Bilateral renal stones versus vascular calcifications are noted. Bilateral double-J stent. M ild bilateral hydronephrotic changes seen. --PELVIC ORGANS: The bladder is underfilled and shows thickened wall. No bladder stones. Rowe's cat heter is seen in the bladder. --BOWEL AND MESENTERY: Colon: No evidence of diverticulitis.. Contrast is seen in the colon. Appendix is not well demonstrat ed. Small Bowel: Slight dilatation the bowel in the left side of the abdomen. Follow-up advised. No obstr uction. Peritoneum/mesentery: No free air. Minimal free fluid in the pelvis. No mesenteric lymphadenopathy. --RETROPERITONEUM: Mild atheromatous disease of the abdominal aorta. No retroperitoneal lymphadenop athy. IMPRESSION: CHEST: 1. Bilateral pneumonia which has increased compared to previous study more on the right side. 2. Small right pleural effusion. Follow-up advised. ABDOMEN/PELVIS: 1. No evidence of appendicitis, diverticulitis or intestinal obstruction. 2. Mild hydronephrotic changes of bilateral which has decreased compared to previous study. Bilatera l double-J stent. 3. Distended gallbladder with no stones. 4. Minimal fluid in the pelvis. 5. Slightly dilated bowel loops in the left side of the abdomen. Follow-up advised. Reviewed, dictated and finalized at location A. IMPRESSION: CHEST: 1. Bilateral pneumonia which has increased compared to previous study more on the right side. 2. Small right pleural effusion. Follow-up advised. ABDOMEN/PELVIS: 1. No evidence of appendicitis, diverticulitis or intestinal obstruction. 2. Mild hydronephrotic changes of bilateral which has decreased compared to pr evious study. Bilateral double-J stent. 3. Distended gallbladder with no stones. 4. Minimal fluid in the pelvis. 5. Slightly dilated bowel loops in the left side of the abdomen. Follow-up adv ised.
--- NOTE | 2023-11-17 12:02 | ECG_ITS ---
Test Date: 2023-11-17 12:06:10 Measurements Intervals [place] Rate: 104 P: 11 NH: 155 QRS: 26 QRSD: 109 T: 76 QT: 390 QTc: 514 Interpretive Statements SINUS TACHYCARDIA INCOMPLETE RIGHT BUNDLE BRANCH BLOCK BORDERLINE ST-T WAVE ABNORMALITY- INF/HIGH LAT LEADS BORDERLINE ECG Compared to ECG 09/24/2023 16:41:31 HEART RATE HAS INCREASED Electronically Signed On 11-17-2023 12:14:19 CDT by Tripp Finnegan D.O.
[2023-11-17 12:28] LABS: Alveolar/Arterial O2 Gradient 108.6 mmHg; Fractional Inspired Oxygen 28 %; HCO3 ABG 18.5 mEq/l (22.0-26.0); Oxygen Content ABG 16.5 %vol (16.0-22.0); Oxygen Saturation ABG 95.4 % (95.0-100.0); Oxyhemoglobin 92.5 % THb (90.0-100.0); PO2 ABG 65.3 mmHg (80.0-100.0); PO2 FiO2 Ratio Arterial Blood 2.33 %; Total Hemoglobin 12.7 g/dL (12.0-18.0)
[2023-11-17 12:29] LABS: PCO2 ABG 21.8 mmHg (35.0-45.0); pH ABG 7.547 (7.350-7.450)
[2023-11-17 12:30] LABS: Device NASAL CANNULA; Modified Allen's Test Pass; Site Drawn RIGHT BRACHIAL
[2023-11-17 12:33] LABS: Basophils Percent Auto 0.2 % (0.2-1.2); Hematocrit 35.8 % (42.0-52.0); Hemoglobin 11.5 g/dL (14.0-18.0); Immature Granulocyte Absolute 0.13 K/mm3 (0.00-0.031); Immature Granulocyte Percent A 0.8 % (0-0.5); Lymphocytes Absolute Auto 0.99 K/mm3 (0.9-3.2); Lymphocytes Percent Auto 6.1 % (18.3-44.2); Mean Corpuscular HGB Conc 32.1 g/dl (32-36); Mean Corpuscular Hemoglobin 28.3 pg (26-34); Mean Platelet Volume 12.2 fl (7.4-10.4); Monocytes Absolute Auto 1.4 K/mm3 (0.1-0.6); Monocytes Percent Auto 8.9 % (2.6-8.5); Neutrophils Absolute Auto 13.6 K/mm3 (1.3-6.7); Nucleated Red Blood Cells Perc 0.1 % (0.0-0.2); Platelet Count Result 423 k/mm3 (150-375); Red Blood Count 4.07 M/mm3 (4.6-6.20); Red Cell Distribution Width 14.9 % (11.5-14.5); White Blood Count 16.1 K/mm3 (4.5-10.0)
[2023-11-17 12:34] LABS: Glucose Point of Care 128 mg/dl (65-105)
[2023-11-17] MEDS: SODIUM CHLORIDE 0.9% IV 3,000 ML 999 ML IV CONT (12:39)
[2023-11-17 12:44] LABS: INR 2.8; Prothrombin Time 29.6 Seconds (11.1-14.7)
[2023-11-17 12:45] LABS: Partial Thromboplastin Time 35.2 Seconds (22.3-36.8)
[2023-11-17 12:50] LABS: Alanine Aminotransferase 42 U/L (6-50); Albumin Level 3.3 g/dL (3.5-5.1); Alkaline Phosphatase 201 U/L (38-126); Anion Gap 20 mmol/L (4-12); Aspartate Amino Transferase 154 U/L (17-59); Bilirubin,Total 1.6 mg/dL (0.2-1.3); Blood Urea Nitrogen 68 mg/dL (9-20); Calcium 8.9 mg/dL (8.4-10.2); Carbon Dioxide 16 mmol/L (22-30); Chloride 117 mmol/L (98-107); Estimated CRCL calculation 23 ml/min; Estimated Glomerular Filt Rate 22; Glucose 132 mg/dL (65-110); Lipase 234 U/L (23-300); Magnesium 2.7 mg/dL (1.6-2.3); Phosphorus 5.8 mg/dL (2.5-4.5); Potassium 3.4 mmol/L (3.4-5.0); Sodium 153 mmol/L (137-145)
[2023-11-17 12:53] LABS: Ethanol < 10 mg/dL (<10)
[2023-11-17 12:59] LABS: NT Pro B Type Natriuretic Pept 3500 pg/mL (19.9-100)
[2023-11-17 13:08] LABS: Influenza A QL RT-PCR Negative (Negative); Influenza B QL RT-PCR Negative (Negative); RSV RNA, RT-PCR Negative (Negative); SARS-CoV-2 RNA PCR Positive (Negative)
[2023-11-17] MEDS: PIPERACILLN/TAZ 3.375GM/NS50ML 3.375 GM/50 ML BAG IVPB (13:26)
[2023-11-17] MEDS: ACETAMINOPHEN 650 MG SUPPOSITORY RECTAL (13:27)
[2023-11-17 13:28] LABS: Troponin I 0.088 ng/mL (0.000-0.034)
[2023-11-17] MEDS: DOXYCYCLINE 100 MG/NS 100 ML 100 MG/100 ML BAG IVPB (13:50)
[2023-11-17 14:08] LABS: Barbiturate Screen Urine Negative (Negative); Benzodiazepines Screen Urine Negative (Negative)
[2023-11-17 14:20] LABS: Bacteria Urine 4+ /hpf; Need Manual Microscopic Reviewed; Non Pathogenic Casts >20; RBC Urine >100 /hpf (0-2); Squamous Epithelial Cell Urine Few /hpf (Few); WBC Urine >100 /hpf (0-3)
[2023-11-17 14:22] LABS: Add Urine Microscopic? YES; Appearance Urine Turbid (Clear); Bilirubin Urine 1+ (Negative); Blood Urine 3+ (Negative); Glucose Urine UA Negative (Negative); Ketones Urine Negative (Negative); Leukocyte Esterase Ur 3+ LEU/UL (Negative); Nitrate Urine Positive (Negative); Protein Urine 3+ mg/dL (Negative); Specific Grav Ur 1.016 (1.001-1.035); pH Urine 7.5 (5.0-9.0)
[2023-11-17 14:24] LABS: Color Urine Dark Yellow (Yellow)
[2023-11-17 14:25] LABS: Amphetamine Screen Urine Negative (Negative); Cannabinoid Screen Urine Negative (Negative); Cocaine Screen Urine Negative (Negative); Methadone Screen Urine Negative (Negative); Opiate Screen Urine Negative (Negative); Phencyclidine Screen Urine Negative (Negative)
--- NOTE | 2023-11-17 15:24 | ED.GENADULT ---
HPI - General Adult General Chief complaint: Altered Mental Status Stated complaint: AMS, COVID+ Time Seen by Provider: 11/17/23 11:58 History of Present Illness HPI narrative: This is a 63-year-old male history of CVA with left-sided paralysis presenting for altered mental status. The patient is A&O x1 and cannot provide any useful information information during the interview. Per EMS the patient is not eating or drinking for the last several days. He has been tested positive for COVID pneumonia. Patient has history of pneumonia. He also has history of septic stones. Goals of care discussed with the patient's brother next night who is POA and he is full code provided he can make a meaningful recovery. Related Data Home Medications Medication Instructions Recorded Confirmed aspirin 81 mg tablet,delayed 81 mg PO DAILY 02/03/20 09/24/23 release (Josue Low Dose Aspirin) atorvastatin 40 mg tablet 40 mg PO QHS 02/03/20 09/24/23 budesonide-formoterol HFA 160 2 puff inhalation BID 02/03/20 09/24/23 mcg-4.5 mcg/actuation aerosol inhaler (Symbicort) carbamazepine 200 mg tablet 200 mg PO TIDWM 02/03/20 09/24/23 famotidine 20 mg tablet 20 mg PO BID 02/03/20 09/24/23 fluoxetine 20 mg capsule 80 mg PO HS 02/03/20 09/24/23 montelukast 10 mg tablet 10 mg PO DAILY 02/03/20 09/24/23 quetiapine 50 mg tablet 100 mg PO TID 02/03/20 09/24/23 zonisamide 100 mg capsule 100 mg PO BID 02/03/20 09/24/23 acetaminophen 325 mg tablet 650 mg PO Q6H PRN Pain (Scale 05/22/22 09/24/23 Score 1-3) buspirone 10 mg tablet 10 mg PO TID 05/22/22 09/24/23 clopidogrel 75 mg tablet 75 mg PO QAM 05/22/22 09/24/23 docusate sodium 100 mg capsule 100 mg PO DAILY 05/22/22 09/24/23 ergocalciferol (vitamin D2) 50,000 50,000 unit PO WEEKLY 05/22/22 09/24/23 unit tablet ondansetron HCl 4 mg tablet 4 mg PO Q6H PRN Nausea 05/22/22 09/24/23 trazodone 150 mg tablet 150 mg PO QHS 05/22/22 09/24/23 baclofen 10 mg tablet 10 mg PO TID 01/21/23 09/24/23 bisacodyl 10 mg RECTAL DAILY PRN Constipation 01/21/23 09/24/23 magnesium citrate 296 ml PO QAM PRN Constipation 01/21/23 09/24/23 magnesium hydroxide 400 mg PO QHS PRN Constipation 01/21/23 09/24/23 pantoprazole 40 mg tablet,delayed 40 mg PO DAILY 06/25/23 09/24/23 release (Protonix) melatonin 5 mg tablet 5 mg PO HS PRN Sleep 07/14/23 09/24/23 polyethylene glycol 3350 17 gram 17 g PO DAILY 07/14/23 09/24/23 oral powder packet (Miralax) Allergies Allergy/AdvReac Type Severity Reaction Status Date / Time mushroom Allergy Severe Anaphylaxis Verified 08/05/23 12:54 hydromorphone Allergy Mild Itching Verified 08/05/23 12:54 tramadol Allergy Unknown Seizure Verified 08/05/23 12:54 fluticasone AdvReac Other Verified 08/05/23 12:54 [From Advair Diskus] salmeterol AdvReac Other Verified 08/05/23 12:54 [From Advair Diskus] PMFSH Past Medical History Medical History Aortic valve disease Atherosclerosis of coronary artery Benign prostatic hyperplasia Cerebrovascular accident (05/01/22) CTA head and neck showed occlusion of the right distal ICA and M1. He was not a candidate for tPA with concomitant diagnosis of bacteremia and endocarditis. 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
[2023-11-17 15:31] LABS: Reflex Lactic Acid Yes or No Add Lactic
--- NOTE | 2023-11-17 15:47 | ECG_ITS ---
Test Date: 2023-11-17 16:00:39 Measurements Intervals [place] Rate: 83 P: 58 IA: 176 QRS: 38 QRSD: 103 T: 89 QT: 394 QTc: 465 Interpretive Statements SINUS RHYTHM INCOMPLETE RIGHT BUNDLE BRANCH BLOCK BORDERLINE ST-T WAVE ABNORMALITY- DIFFUSE LEADS BORDERLINE ECG Compared to ECG 11/17/2023 12:06:10 HEART RATE HAS DECREASED Electronically Signed On 11-17-2023 18:45:15 CDT by Tripp Finnegan D.O.
[2023-11-17] MEDS: VANCOMYCIN 1,750 MG/NS 500 ML 1,750 MG/500 ML BAG 250 MG IVPB (16:07)
[2023-11-17 16:10] LABS: Lactic Acid 1.6 mmol/L (0.7-2.0)
[2023-11-17 16:29] LABS: Troponin I 0.079 ng/mL (0.000-0.034)
[2023-11-17 16:34] LABS: Anion Gap 14 mmol/L (4-12); Blood Urea Nitrogen 70 mg/dL (9-20); Calcium 8.2 mg/dL (8.4-10.2); Carbon Dioxide 18 mmol/L (22-30); Chloride 121 mmol/L (98-107); Estimated CRCL calculation 24 ml/min; Estimated Glomerular Filt Rate 24; Glucose 131 mg/dL (65-110); Sodium 153 mmol/L (137-145)
--- NOTE | 2023-11-17 17:00 | PC.NURSE ---
POA called and given update.
--- NOTE | 2023-11-17 17:18 | ADMGEN ---
This patient, Blaine Salvador, was admitted to IMU Room 202-. Patient/family oriented to hospital policies and general routines including ID bracelet, bed and alarms, visiting hours, pain management, procedures, bathroom and other care routines, personal items, smoking policy, room service/diet, and visiting hours. Information on how to activate the Rapid Response Team has been discussed. Patient/Family are encouraged to report perceived risks to care and to ask questions if they do not understand what they are told or what they should do.
[2023-11-17 18:25] LABS: MRSA (PCR) DETECTED (NOT DETECTE)
--- NOTE | 2023-11-17 18:40 | PM.IMHP ---
H&P: HPI History of Present Illness Date/Time: 11/17/23 20:00 Chief Complaint: Altered mental status. 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 for evaluation of altered mental status. The following history is obtained via a review of his EMR given his confusion. Staff at his [facility] report that he tested positive for COVID several days ago and he has not been eating or drinking for the last 3 to 4 days. He has become increasingly confused and was sent in for evaluation. At the time of my evaluation he is alert but somnolent and he does not answer questions or follow commands. He does not appear to be in distress. In the ED: He has been afebrile since arrival. Blood pressure has been as low as 68/49. Labs were significant for WBC count of 16.1, hemoglobin 11.5, lactic acid 4.0, sodium 153, potassium 4.0, chloride 121, carbon dioxide 18, anion gap 14, BUN 70, creatinine 2.70, total bilirubin 1.6, AST 154, alkaline phosphatase 201, troponin 0.079, proBNP 3500. Urine was positive for 3+ protein, 3+ blood, nitrates, 3+ leukocyte esterase, greater than 100 RBC and WBC, and 4+ bacteria. Urine drug screen was negative. MRSA nasal screening was positive. He tested positive for SARS-CoV-[address] showed old infarcts. CT of the chest, abdomen, and pelvis showed bilateral pneumonia and bilateral hydronephrotic changes with bilateral stones and stents. He was given a 3 L normal saline bolus and doxycycline, Zosyn, and vancomycin. He is being admitted in this setting for further treatment. Review of Systems Review of Systems: Unable to obtain given current clinical condition. [facility] Past Medical History Medical History Aortic valve disease Atherosclerosis of coronary artery Benign prostatic hyperplasia Cerebrovascular accident (05/01/22) CTA head and neck showed occlusion of the right distal ICA and M1. He was not a candidate for tPA with concomitant diagnosis of bacteremia and endocarditis. Chronic anemia Chronic obstructive pulmonary disease Depression with anxiety Dysphagia Speech therapy recommends level 5 (minced and moist) and level 3 (moderately thick) as of 09/2023. 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 History of spinal surgery History of ureter stent Family History Family History Other No pertinent family history Social History Social History (Updated 11/18/23 @ 00:05 by Sara Ni PA-C) Social History: Surrogate decision maker: Evaristo Jimenez ([phone]) Code status: Full code. Smoking packs per day: 0.25 Smoking cigarettes per day: 5.0 Years smoked: 10 Smoking pack-years: 2.50 Smoking status: Former smoker Second hand tobacco smoke exposure: Yes Additional smoking assessment comments: used to be heavy smoker Alcohol intake
[2023-11-17] MEDS: PIPERACILLIN/TAZ 2.25G/NS 50ML 2.25 GM/50 ML BAG IVPB (19:22)
[2023-11-17 19:49] LABS: Anion Gap 13 mmol/L (4-12); Blood Urea Nitrogen 71 mg/dL (9-20); Calcium 8.4 mg/dL (8.4-10.2); Carbon Dioxide 19 mmol/L (22-30); Chloride 119 mmol/L (98-107); Creatine Kinase 576 U/L (55-170); Estimated CRCL calculation 24 ml/min; Estimated Glomerular Filt Rate 24; Glucose 133 mg/dL (65-110); Potassium 3.2 mmol/L (3.4-5.0); Sodium 151 mmol/L (137-145)
[2023-11-17] MEDS: dexAMETHasone 2 MG TABLET 6 MG PO (20:28)
[2023-11-17] MEDS: DEXTROSE 5%/0.45% SOD CHL 1,000 ML 100 ML IV CONT (20:28)
[2023-11-17] MEDS: REMDESIVIR 200 MG/NS 250 ML 200 MG/250 ML BAG 250 MG IVPB (20:28)
[2023-11-17] MEDS: busPIRone HCL 10 MG TABLET PO (20:29)
[2023-11-17] MEDS: carBAMazepine 200 MG TABLET PO (20:29)
[2023-11-17] MEDS: FLUoxetine HCL 20 MG CAPSULE 80 MG PO (20:30)
[2023-11-17] MEDS: FAMOTIDINE 20 MG TABLET PO (20:30)
[2023-11-17] MEDS: TAMSULOSIN HCL 0.4 MG CAPSULE PO (20:30)
[2023-11-17] MEDS: MUPIROCIN 2% OINT 22 GM TUBE 1 APPLIC EACH NARE (20:30)
[2023-11-17] MEDS: KCL 20 MEQ/SW 100 ML 100 ML 50 MEQ IVPB (21:30)
--- NOTE | 2023-11-17 22:50 | PC.NURSE ---
2039: Update given to patient POA/brother Evaristo Barbara.
[2023-11-18] VITALS (27 sets, daily range): BP systolic 102–123; BP diastolic 58–72; PULSE 56–75; RESP 16–22; TEMP 35–36.6; O2SAT 91–100
[2023-11-18] MEDS: DOXYCYCLINE 100 MG/NS 100 ML 100 MG/100 ML BAG IVPB ×3 (00:16→20:44)
[2023-11-18] MEDS: PIPERACILLIN/TAZ 2.25G/NS 50ML 2.25 GM/50 ML BAG IVPB ×4 (00:17→17:15)
[2023-11-18 01:12] LABS: Anion Gap 12 mmol/L (4-12); Blood Urea Nitrogen 70 mg/dL (9-20); Calcium 8.4 mg/dL (8.4-10.2); Carbon Dioxide 19 mmol/L (22-30); Chloride 124 mmol/L (98-107); Estimated CRCL calculation 26 ml/min; Estimated Glomerular Filt Rate 26; Glucose 191 mg/dL (65-110); Potassium 3.4 mmol/L (3.4-5.0); Sodium 155 mmol/L (137-145)
--- NOTE | 2023-11-18 01:44 | ADMGEN ---
0144: This patient, Blaine Salvador, was admitted to IMU Room 202-01. Patient/family oriented to hospital policies and general routines including ID bracelet, bed and alarms, visiting hours, pain management, procedures, bathroom and other care routines, personal items, smoking policy, room service/diet, and visiting hours. Information on how to activate the Rapid Response Team has been discussed. Patient/Family are encouraged to report perceived risks to care and to ask questions if they do not understand what they are told or what they should do.
[2023-11-18] MEDS: DEXTROSE 5% 1,000 ML 1,000 ML 85 ML IV CONT (01:45)
[2023-11-18 05:11] LABS: Hematocrit 33.3 % (42.0-52.0); Hemoglobin 10.7 g/dL (14.0-18.0); Mean Corpuscular HGB Conc 32.1 g/dl (32-36); Mean Corpuscular Hemoglobin 28.5 pg (26-34); Mean Corpuscular Volume 88.6 fl (80-100); Mean Platelet Volume 12.1 fl (7.4-10.4); Platelet Count Result 298 k/mm3 (150-375); Red Blood Count 3.76 M/mm3 (4.6-6.20)
[2023-11-18 05:20] LABS: INR 2.3; Prothrombin Time 25.6 Seconds (11.1-14.7)
[2023-11-18 05:22] LABS: Lactic Acid Reflex 1.5 mmol/L (0.7-2.0)
[2023-11-18 05:23] LABS: Alanine Aminotransferase 31 U/L (6-50); Albumin Level 2.9 g/dL (3.5-5.1); Alkaline Phosphatase 143 U/L (38-126); Anion Gap 13 mmol/L (4-12); Aspartate Amino Transferase 106 U/L (17-59); Blood Urea Nitrogen 68 mg/dL (9-20); Calcium 8.4 mg/dL (8.4-10.2); Carbon Dioxide 19 mmol/L (22-30); Chloride 122 mmol/L (98-107); Estimated CRCL calculation 29 ml/min; Estimated Glomerular Filt Rate 27; Glucose 162 mg/dL (65-110); Magnesium 2.7 mg/dL (1.6-2.3); Potassium 3.5 mmol/L (3.4-5.0); Sodium 154 mmol/L (137-145)
[2023-11-18] MEDS: ACETAMINOPHEN 325 MG TABLET 650 MG PO (05:31)
[2023-11-18] MEDS: carBAMazepine 200 MG TABLET PO ×3 (08:31→17:15)
[2023-11-18] MEDS: FAMOTIDINE 20 MG TABLET PO ×2 (08:32→17:15)
[2023-11-18] MEDS: PANTOPRAZOLE 40 MG TABLET PO (08:32)
[2023-11-18] MEDS: MONTELUKAST SODIUM 10 MG TABLET PO (08:32)
[2023-11-18] MEDS: dexAMETHasone 2 MG TABLET 6 MG PO (08:32)
[2023-11-18] MEDS: busPIRone HCL 10 MG TABLET PO ×3 (08:32→17:15)
[2023-11-18] MEDS: ASPIRIN 81 MG ENTERIC TABLET PO (08:32)
[2023-11-18] MEDS: MUPIROCIN 2% OINT 22 GM TUBE 1 APPLIC EACH NARE ×2 (08:33→20:44)
[2023-11-18] MEDS: polyethylene glycoL 3350 17 GM POWD.PACK PO (08:33)
[2023-11-18] MEDS: CLOPIDOGREL BISULFATE 75 MG TABLET PO (08:33)
[2023-11-18] MEDS: DOCUSATE SODIUM 100 MG CAPSULE PO (08:33)
[2023-11-18] MEDS: MIDODRINE HCL 2.5 MG TABLET 5 MG PO ×3 (08:33→17:15)
--- NOTE | 2023-11-18 08:45 | PM.IMPN ---
Progress Note: A&P Assessment and Plan (1) Sepsis: Code(s): A41.9 - Sepsis, unspecified organism Status: Acute Assessment and Plan: Sepsis as evidenced by hypotension, leukocytosis, lactic acidosis, acute kidney injury, and altered mental status in the setting of infection Which include pneumonia, COVID, and urinary tract infection. Status post 3 L normal saline with stabilization of blood pressures and normalization of lactic acid level. Blood, sputum, and urine cultures have been ordered. Continue vancomycin Zosyn and doxycycline (2) Bilateral pneumonia: Code(s): J18.9 - Pneumonia, unspecified organism Status: Acute Assessment and Plan: Chest CT shows bilateral lower lobe pneumonia secondary to COVID and possible concomitant bacterial pneumonia. Continue doxycycline, piperacillin/tazobactam, and vancomycin (MRSA screen positive). Sputum culture has been ordered. Check Legionella and pneumococcal antigens as well as mycoplasma IgM. (3) COVID: Code(s): U07.1 - COVID-19 Status: Acute Assessment and Plan: Patient is positive for SARS-CoV-2 by PCR as of several days ago per nursing facility. He has been started on remdesivir and dexamethasone. Consider tocilizumab or baricitinib depending on his course. Initiate isolation per protocol. (4) Acute kidney failure: Code(s): N17.9 - Acute kidney failure, unspecified Status: Acute Assessment and Plan: Likely due to a combination of hypoperfusion from hypotension (he has chronic hypotension and is on midodrine), hypovolemia from dehydration and, and possible ATN from sepsis. Rowe catheters in place with no evident obstruction. Baseline creatinine is 1 Continue judicious IV fluid rehydration. Renally dose all medications and avoid nephrotoxic agents. Continue Rowe catheter and monitor strict I/O. (5) Hypernatremia: Code(s): E87.0 - Hyperosmolality and hypernatremia Status: Acute Assessment and Plan: He looks profoundly dry on exam and by labs. Status post 3 L normal saline bolus in the ED. Change fluids to D5 water. Monitor sodium level (6) Elevated troponin: Code(s): R79.89 - Other specified abnormal findings of blood chemistry Status: Acute Assessment and Plan: Troponin was mildly elevated and has remained flat, likely due to a combination of sepsis, hypotension, and COVID. EKG did not show any significant changes compared to prior tracings. Hold on anticoagulation for now. Troponin will be trended to peak. (7) Complicated urinary tract infection: Code(s): N39.0 - Urinary tract infection, site not specified Status: Acute Assessment and Plan: Patient has an indwelling Rowe catheter and bilateral stents in place. CT with bilateral hydronephrotic changes with bilateral stones and double-J stents Continue piperacillin/tazobactam given history of Pseudomonas. Urology consulted. Recent Pseudomonas bacteremia with UTI August 2023 and June 2023 Pseudomonas was pansensitive at that time (8) MRSA colonization: Code(s): Z22.322 - Carrier or suspected carrier of Methicillin resistant Staphylococcus aureus Status: Acute Assessment and Plan: Bactroban to nares b.i.d. for a total of 5 days. (9) Metabolic encephalopathy: Code(s): G93.41 - Metabolic encephalopathy Status: Acute Assessment and Plan: The patient is alert but somnolent and he is not answering questions or following commands. Brain CT did not show any acute findings. Change in mental status is likely due to sepsis, infection, and kidney injury. Continue treatment as detailed above. Neurologic checks q.4 hours. (10) Seizure disorder: Code(s): G40.909 - Epilepsy, unspecified, not intractable, without status epilepticus Status: Acute Assessment and Plan: No reports of recent seizure activity and no observed activity today. Con
[2023-11-18 14:20] LABS: Anion Gap 13 mmol/L (4-12); Blood Urea Nitrogen 67 mg/dL (9-20); Calcium 8.5 mg/dL (8.4-10.2); Carbon Dioxide 18 mmol/L (22-30); Chloride 124 mmol/L (98-107); Estimated CRCL calculation 33 ml/min; Estimated Glomerular Filt Rate 32; Glucose 166 mg/dL (65-110); Potassium 3.2 mmol/L (3.4-5.0); Sodium 155 mmol/L (137-145)
--- NOTE | 2023-11-18 14:52 | WPDURCON ---
Assessment and Plan Assessment and plan (1) Kidney stones: Code(s): N20.0 - Calculus of kidney Status: Acute Assessment and Plan: Bilateral renal stones (largest 6 mm on left) with bilateral ureteral stents in place. Given issues with outpatient follow up, will plan for stone management during admission. Will proceed with cystoscopy, bilateral ureteral stent removal, left ureteroscopy with left stone extraction and possible left stent placement on 11/20/[address] Seth if patient is medically improved (2) Complicated urinary tract infection: Code(s): N39.0 - Urinary tract infection, site not specified Status: Acute Assessment and Plan: UA abnormal, urine culture is pending. Continue broad spectrum antibiotics while awaiting final culture results (3) Acute kidney failure: Code(s): N17.9 - Acute kidney failure, unspecified Status: Acute Assessment and Plan: Likely due to sepsis/hypotension. No evidence of post obstructive etiology and cotto is draining without difficulty. Continue to monitor renal function closely Urology Consult Note HPI Date Seen: 11/18/23 Requesting Physician: Jaime Torres MD Primary Care Provider: Ben Hernandez, Consult Narrative Narrative: Blaine Salvador is a 63 year old male with a history of Parkinson's disease, CVA, hemiplegia, and kidney stones known to our service with recent bilateral stones s/p bilateral ureteroscopy, stone extraction, and bilateral stent placement on 06/26/2023.Plan has been for cystoscopy with bilateral stent removal and left ureteroscopy/stone extraction/left stent replacement. This has not been able to be scheduled and patient has been lost to follow up for this on several occasions. He presented [facility] the ER [facility]17/23 from his [facility] with altered mental status after having tested positive for COVID several days earlier. On arrival he was found to be septic with fever, hypotension, leukocytosis, and elevated lacti acid. His creatinine was elevated to 2.9 and he had multiple electrolyte abnormalities. A CT of his chest/abdomen/pelvis was completed which demonstrated bilateral hydronephrosis with bilateral renal stones (largest measuring 6 mm on the left), and bilateral ureteral stents in expected position. Chronic cotto catheter noted to be in appropriate position. At the time of my evaluation, the patient is resting comfortably. He remains confused and is not able to answer any questions or provide any history. His cotto catheter is draining light pink tinged urine. Review of Systems Review of Systems: ROS unobtainable: Yes unobtainable due to mental status [facility] Past Medical History Medical History (Updated 11/18/23 @ 15:55 by Mary Siddiqui PA-C) Aortic valve disease Atherosclerosis of coronary artery Benign prostatic hyperplasia Cerebrovascular accident (05/01/22) CTA head and neck showed occlusion of the right distal ICA and M1. He was not a candidate for tPA with concomitant diagnosis of bacteremia and endocarditis. Chronic anemia Chronic obstructive pulmonary disease Depression with anxiety Dysphagia Speech therapy recommends level 5 (minced and moist) and level 3 (moderately thick) as of 09/2023. 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
[2023-11-18] MEDS: DEXTROSE 5% 1,000 ML 1,000 ML 125 ML IV CONT (15:56)
[2023-11-18 16:15] LABS: Anion Gap 11 mmol/L (4-12); Blood Urea Nitrogen 63 mg/dL (9-20); Calcium 8.7 mg/dL (8.4-10.2); Carbon Dioxide 19 mmol/L (22-30); Chloride 123 mmol/L (98-107); Estimated CRCL calculation 33 ml/min; Estimated Glomerular Filt Rate 32; Glucose 212 mg/dL (65-110); Potassium 3.3 mmol/L (3.4-5.0); Sodium 153 mmol/L (137-145)
[2023-11-18] MEDS: POTASSIUM CHLORIDE 20 MEQ PACKET (FOR LIQUID) PO (17:15)
[2023-11-18 19:41] LABS: Anion Gap 11 mmol/L (4-12); Blood Urea Nitrogen 60 mg/dL (9-20); Calcium 8.6 mg/dL (8.4-10.2); Carbon Dioxide 18 mmol/L (22-30); Chloride 123 mmol/L (98-107); Estimated CRCL calculation 34 ml/min; Estimated Glomerular Filt Rate 34; Glucose 229 mg/dL (65-110); Potassium 3.2 mmol/L (3.4-5.0); Sodium 152 mmol/L (137-145)
[2023-11-18] MEDS: FLUoxetine HCL 20 MG CAPSULE 80 MG PO (20:44)
[2023-11-18] MEDS: REMDESIVIR 100 MG/NS 250 ML 100 MG/250 ML BAG 250 MG IVPB (20:44)
[2023-11-18] MEDS: TAMSULOSIN HCL 0.4 MG CAPSULE PO (20:44)
[2023-11-19] VITALS (15 sets, daily range): BP systolic 94–123; BP diastolic 60–74; PULSE 62–90; RESP 20–25; TEMP 36–36.6; O2SAT 93–100
[2023-11-19] MEDS: PIPERACILLIN/TAZ 2.25G/NS 50ML 2.25 GM/50 ML BAG IVPB ×5 (00:42→23:45)
[2023-11-19 01:38] LABS: Blood Urea Nitrogen 57 mg/dL (9-20); Calcium 8.5 mg/dL (8.4-10.2); Carbon Dioxide 18 mmol/L (22-30); Chloride 118 mmol/L (98-107); Estimated CRCL calculation 40 ml/min; Estimated Glomerular Filt Rate 41; Glucose 126 mg/dL (65-110)
[2023-11-19 01:53] LABS: Potassium 2.9 mmol/L (3.4-5.0)
[2023-11-19 02:07] LABS: Anion Gap 16 mmol/L (4-12); Sodium 152 mmol/L (137-145)
[2023-11-19] MEDS: DEXTROSE 5% 1,000 ML 1,000 ML 125 ML IV CONT ×2 (04:21→21:57)
[2023-11-19] MEDS: VANCOMYCIN 1,250 MG/NS 250 ML 1,250 MG/250 ML BAG 166.67 MG IVPB (04:22)
[2023-11-19 04:50] LABS: Basophils Percent Auto 0.2 % (0.2-1.2); Hematocrit 34.6 % (42.0-52.0); Hemoglobin 10.6 g/dL (14.0-18.0); Immature Granulocyte Absolute 0.08 K/mm3 (0.00-0.031); Immature Granulocyte Percent A 0.6 % (0-0.5); Lymphocytes Absolute Auto 1.09 K/mm3 (0.9-3.2); Lymphocytes Percent Auto 8.3 % (18.3-44.2); Mean Corpuscular HGB Conc 30.6 g/dl (32-36); Mean Corpuscular Volume 91.5 fl (80-100); Mean Platelet Volume 12.6 fl (7.4-10.4); Monocytes Absolute Auto 0.5 K/mm3 (0.1-0.6); Monocytes Percent Auto 3.6 % (2.6-8.5); Neutrophils Absolute Auto 11.5 K/mm3 (1.3-6.7); Neutrophils Percent Auto 87.3 % (45.5-73.1); Platelet Count Result 270 k/mm3 (150-375); Red Blood Count 3.78 M/mm3 (4.6-6.20); Red Cell Distribution Width 15.3 % (11.5-14.5); White Blood Count 13.1 K/mm3 (4.5-10.0)
[2023-11-19 05:04] LABS: Alanine Aminotransferase 26 U/L (6-50); Albumin Level 2.8 g/dL (3.5-5.1); Alkaline Phosphatase 153 U/L (38-126); Anion Gap 14 mmol/L (4-12); Aspartate Amino Transferase 73 U/L (17-59); Bilirubin,Total 0.8 mg/dL (0.2-1.3); Blood Urea Nitrogen 52 mg/dL (9-20); Calcium 8.7 mg/dL (8.4-10.2); Carbon Dioxide 19 mmol/L (22-30); Chloride 119 mmol/L (98-107); Estimated CRCL calculation 40 ml/min; Estimated Glomerular Filt Rate 41; Glucose 131 mg/dL (65-110); Magnesium 2.4 mg/dL (1.6-2.3); Potassium 2.7 mmol/L (3.4-5.0); Sodium 152 mmol/L (137-145)
[2023-11-19] MEDS: POTASSIUM CHLORIDE INJ 40 MEQ in SODIUM CHLORIDE 0.9% IV 500 ML 130 MEQ IVPB ×2 (05:44→14:49)
[2023-11-19] MEDS: CLOPIDOGREL BISULFATE 75 MG TABLET PO (08:28)
[2023-11-19] MEDS: dexAMETHasone 2 MG TABLET 6 MG PO (08:28)
[2023-11-19] MEDS: busPIRone HCL 10 MG TABLET PO ×3 (08:28→17:30)
[2023-11-19] MEDS: DOCUSATE SODIUM 100 MG CAPSULE PO (08:29)
[2023-11-19] MEDS: carBAMazepine 200 MG TABLET PO ×3 (08:29→17:30)
[2023-11-19] MEDS: MONTELUKAST SODIUM 10 MG TABLET PO (08:29)
[2023-11-19] MEDS: PANTOPRAZOLE 40 MG TABLET PO (08:29)
[2023-11-19] MEDS: FAMOTIDINE 20 MG TABLET PO ×2 (08:29→17:30)
[2023-11-19] MEDS: MIDODRINE HCL 2.5 MG TABLET 5 MG PO ×3 (08:29→17:30)
[2023-11-19] MEDS: polyethylene glycoL 3350 17 GM POWD.PACK PO (08:30)
[2023-11-19] MEDS: ASPIRIN 81 MG ENTERIC TABLET PO (08:30)
[2023-11-19] MEDS: MUPIROCIN 2% OINT 22 GM TUBE 1 APPLIC EACH NARE ×2 (08:30→20:14)
[2023-11-19] MEDS: DOXYCYCLINE 100 MG/NS 100 ML 100 MG/100 ML BAG IVPB (08:31)
--- NOTE | 2023-11-19 09:29 | WPDUROPN2 ---
Progress Note: A&P Assessment and Plan (1) Kidney stones: Code(s): N20.0 - Calculus of kidney Status: Acute Assessment and Plan: Bilateral renal stones (largest 6 mm on left) with bilateral ureteral stents in place. Given issues with outpatient follow up, will plan for stone management during admission. Will proceed with cystoscopy, bilateral ureteral stent removal, left ureteroscopy with left stone extraction and possible left stent placement tomorrow 11/20/[address] Seth (2) Complicated urinary tract infection: Code(s): N39.0 - Urinary tract infection, site not specified Status: Ruled-out Assessment and Plan: Urine culture with mixed ashley, not indicative of infection. Remains on broad-spectrum IV antibiotics as 1 of 2 blood cultures with Gram-negative bacilli isolated, awaiting final report (3) Acute kidney failure: Code(s): N17.9 - Acute kidney failure, unspecified Status: Acute Assessment and Plan: Likely due to sepsis/hypotension. No evidence of post obstructive etiology and cotto is draining without difficulty. Creatinine has improved to 1.7 today. Continue to monitor renal function closely Subjective Subjective Date/Time Seen: 11/19/23 09:29 Interval history: Blaine is doing better today. He is more alert today. He is hard of hearing and remains slightly confused. Not able to answer any questions appropriately or provide any reliable history Review of Systems Review of Systems: ROS unobtainable: Yes unobtainable due to mental status Exam Narrative: General: Awake, resting comfortably, not able to respond to questions HEENT: Normocephalic, atraumatic, sclerae anicteric Respiratory: Normal respiratory effort, no accessory muscle use Abdomen: Nondistended, soft : cotto catheter draining dark urine Skin: Normal coloration, warm and dry Psychiatric: Confused, judgment and insight poor Objective Data Vital Signs Vital Signs: Vital Signs - 24 hr 11/18/23 09:30 11/18/23 10:00 11/18/23 10:30 Temperature 97 F L 97.5 F L Pulse Rate 68 Respiratory Rate Blood Pressure Pulse Oximetry Oxygen Delivery Oxygen Flow Rate 11/18/23 11:00 11/18/23 11:55 11/18/23 12:00 Temperature 97.5 F L 97.4 F L Pulse Rate 74 Respiratory Rate 20 Blood Pressure 112/63 Pulse Oximetry 91 91 Oxygen Delivery Nasal Cannula Oxygen Flow Rate 4 11/18/23 12:00 11/18/23 14:00 11/18/23 16:00 Temperature 97.8 F Pulse Rate 71 67 67 Respiratory Rate 20 Blood Pressure 123/69 Pulse Oximetry 95 Oxygen Delivery Oxygen Flow Rate 11/18/23 16:00 11/18/23 16:00 11/18/23 18:00 Temperature Pulse Rate 69 66 Respiratory Rate Blood Pressure Pulse Oximetry 95 Oxygen Delivery Nasal Cannula Oxygen Flow Rate 4 11/18/23 20:37 11/18/23 20:00 11/18/23 20:00 Temperature 96.8 F L Pulse Rate 75 64 Respiratory Rate 20 Blood Pressure 102/58 L Pulse Oximetry 91 91 Oxygen Delivery Nasal Cannula Oxygen Flow Rate 4 11/18/23 23:57 11/18/23 22:00 11/19/23 00:00 Temperature Pulse Rate 56 L 65 Respiratory Rate Blood Pressure Pulse Oximetry 91 Oxygen Delivery Nasal Cannula Oxygen Flow Rate 4 11/19/23 00:17 11/19/23 02:00 11/19/23 04:00 Temperature 96.8 F L Pulse Rate 63 64 62 Respiratory Rate 20 Blood Pressure 123/71 Pulse Oximetry 98 Oxygen Delivery Oxygen Flow Rate 11/19/23 04:00 11/19/23 05:48 11/19/23 06:00 Temperature 97.3 F L Pulse Rate 90 70 Respiratory Rate 20 Blood Pressure 103/60 Pulse Oximetry 98 100 Oxygen Delivery Room Air Oxygen Flow Rate 11/19/23 08:00 Temperature 97.8 F Pulse Rate 77 Respiratory Rate 25 H Blood Pressure 94/74 L Pulse Oximetry 95 Oxygen Delivery Oxygen Flow Rate Intake/Output Intake/Output: Intake & Output 11/16/23 11/17/23 11/18/23 11/19/23 23:59 23:59 23:59 23:59 Inta
--- NOTE | 2023-11-19 12:42 | PM.IMPN ---
Progress Note: A&P Assessment and Plan (1) Sepsis: Code(s): A41.9 - Sepsis, unspecified organism Status: Acute Assessment and Plan: Sepsis as evidenced by hypotension, leukocytosis, lactic acidosis, acute kidney injury, and altered mental status in the setting of infection Which include pneumonia, COVID, and urinary tract infection. Status post 3 L normal saline with stabilization of blood pressures and normalization of lactic acid level. Vancomycin Zosyn and doxycycline started after cultures obtained. BCx growing providencia in one anaerobic bottle. MRSA nasal swab positive. UCx growing mixed genital ashley. CT Ch/A/P showing bilateral PNA. Providencia can cause PNA especially in [facility] care facilities. Still consider urinary source. WBC up and down related to steroids and infection Adjust abx. Biogram reviewed. Discussed with pharmD ID. (2) Bilateral pneumonia: Code(s): J18.9 - Pneumonia, unspecified organism Status: Acute Assessment and Plan: Chest CT shows bilateral lower lobe pneumonia secondary to COVID and possible concomitant bacterial pneumonia. Sputum culture has been ordered. Legionella and pneumococcal urine antigens ordered Follow (3) COVID: Code(s): U07.1 - COVID-19 Status: Acute Assessment and Plan: Patient is positive for SARS-CoV-2 by PCR as of several days ago per nursing facility. He was started on remdesivir and dexamethasone. Consider tocilizumab or baricitinib depending on his course. Not on oxygen. Complete Remdesivir. If remains off Oxygen tomorrow, will stop Dexa (4) Acute kidney failure: Code(s): N17.9 - Acute kidney failure, unspecified Status: Acute Assessment and Plan: Likely due to a combination of hypoperfusion from hypotension (he has chronic hypotension and is on midodrine), hypovolemia from dehydration and, and possible ATN from sepsis. Rowe catheters in place with no evident obstruction. Baseline creatinine is 1. CT abd showing bilateral double-J stent with hydronephrotic changes and bilateral renal stones with the largest in the left kidney measuring 6 mm. Vascular calcifications are also noted. The bladder is underfilled with Rowe's catheter. No bladder stones. Cr trending down 2.9 ->> 1.5 Continue judicious IV fluid rehydration. Renally dose all medications and avoid nephrotoxic agents. Continue Rowe catheter and monitor strict I/O. (5) Hypernatremia: Code(s): E87.0 - Hyperosmolality and hypernatremia Status: Acute Assessment and Plan: He looks profoundly dry on exam and by labs. Status post 3 L normal saline bolus in the ED. Changed fluids to D5 water due to elevated sodium. Sodium stable low 150's Monitor sodium level (6) Elevated troponin: Code(s): R79.89 - Other specified abnormal findings of blood chemistry Status: Acute Assessment and Plan: Troponin was mildly elevated and has remained flat, likely due to a combination of sepsis, hypotension, and COVID. EKG did not show any significant changes compared to prior tracings. Holding anticoagulation for now. Troponin already treneding down Follow (7) Kidney stones: Code(s): N20.0 - Calculus of kidney Status: Acute Assessment and Plan: Patient has an indwelling Rowe catheter and bilateral stents in place. CT with bilateral hydronephrotic changes with bilateral stones and double-J stents Bilateral renal stones (largest 6 mm on left) with bilateral ureteral stents in place. Urology consulted. Given issues with outpatient follow up, plan for stone management during this admission. Plan to proceed with cystoscopy, bilateral ureteral stent removal, left ureteroscopy with left stone extraction and possible left stent placement tomorrow 11/20/[address] Seth (8) MRSA colonization: Code(s): Z22.322 - Carrier or suspected carrier of Methicillin resistant Staphylococcus aureus
[2023-11-19 12:56] LABS: Anion Gap 10 mmol/L (4-12); Blood Urea Nitrogen 45 mg/dL (9-20); Calcium 8.5 mg/dL (8.4-10.2); Carbon Dioxide 19 mmol/L (22-30); Chloride 123 mmol/L (98-107); Estimated CRCL calculation 45 ml/min; Estimated Glomerular Filt Rate 47; Glucose 123 mg/dL (65-110); Potassium 3.3 mmol/L (3.4-5.0); Sodium 152 mmol/L (137-145)
[2023-11-19 19:58] LABS: Anion Gap 9 mmol/L (4-12); Blood Urea Nitrogen 41 mg/dL (9-20); Calcium 8.7 mg/dL (8.4-10.2); Carbon Dioxide 16 mmol/L (22-30); Chloride 125 mmol/L (98-107); Estimated CRCL calculation 52 ml/min; Estimated Glomerular Filt Rate 56; Glucose 121 mg/dL (65-110); Potassium 4.1 mmol/L (3.4-5.0); Sodium 150 mmol/L (137-145)
[2023-11-19] MEDS: FLUoxetine HCL 20 MG CAPSULE 80 MG PO (20:13)
[2023-11-19] MEDS: TAMSULOSIN HCL 0.4 MG CAPSULE PO (20:14)
[2023-11-19] MEDS: DOXYCYCLINE HYCLATE 100 MG TABLET PO (20:14)
[2023-11-19] MEDS: REMDESIVIR 100 MG/NS 250 ML 100 MG/250 ML BAG 250 MG IVPB (22:02)
--- NOTE | 2023-11-19 22:10 | PC.NURSE ---
2000: Fluids intermittently paused to infuse other IV medications due to lack of vascular access. Skye
--- NOTE | 2023-11-19 22:11 | PC.NURSE ---
2000: Fluids intermittently paused to infuse other essential IV medications due to lack of IV access. RN attempted to obtain additional access without success and limited available veins. Skye Vang NP notified and okayed doing so. RN will contact the vascular access team in the morning to aid in the situation.
[2023-11-20] VITALS (19 sets, daily range): BP systolic 91–108; BP diastolic 55–64; PULSE 68–82; RESP 18–22; TEMP 36.4–37.1; O2SAT 90–94; BMI 20.9
[2023-11-20 00:48] LABS: Legionella pneumophila Ag Ur NOT DETECTED
[2023-11-20 05:24] LABS: Basophils Absolute Auto 0.1 K/mm3 (0.0-0.1); Basophils Percent Auto 0.3 % (0.2-1.2); Hematocrit 33.2 % (42.0-52.0); Hemoglobin 10.4 g/dL (14.0-18.0); Immature Granulocyte Absolute 0.17 K/mm3 (0.00-0.031); Lymphocytes Absolute Auto 1.12 K/mm3 (0.9-3.2); Lymphocytes Percent Auto 6.3 % (18.3-44.2); Mean Corpuscular HGB Conc 31.3 g/dl (32-36); Mean Corpuscular Volume 89.5 fl (80-100); Mean Platelet Volume 12.5 fl (7.4-10.4); Monocytes Absolute Auto 0.4 K/mm3 (0.1-0.6); Monocytes Percent Auto 2.3 % (2.6-8.5); Neutrophils Percent Auto 90.1 % (45.5-73.1); Platelet Count Result 241 k/mm3 (150-375); Red Blood Count 3.71 M/mm3 (4.6-6.20); Red Cell Distribution Width 15.5 % (11.5-14.5); White Blood Count 17.8 K/mm3 (4.5-10.0)
[2023-11-20 05:38] LABS: Alanine Aminotransferase 22 U/L (6-50); Albumin Level 2.6 g/dL (3.5-5.1); Alkaline Phosphatase 144 U/L (38-126); Anion Gap 10 mmol/L (4-12); Aspartate Amino Transferase 53 U/L (17-59); Bilirubin,Total 0.7 mg/dL (0.2-1.3); Blood Urea Nitrogen 37 mg/dL (9-20); Carbon Dioxide 17 mmol/L (22-30); Chloride 124 mmol/L (98-107); Estimated CRCL calculation 47 ml/min; Estimated Glomerular Filt Rate 51; Glucose 112 mg/dL (65-110); Magnesium 2.1 mg/dL (1.6-2.3); Phosphorus 2.2 mg/dL (2.5-4.5); Potassium 3.7 mmol/L (3.4-5.0); Sodium 151 mmol/L (137-145)
[2023-11-20 05:43] LABS: Anisocytosis 1+; Burr Cells 1+; Platelet Estimate Adequate (Adequate); Schistocytes None Seen
[2023-11-20] MEDS: PIPERACILLIN/TAZ 2.25G/NS 50ML 2.25 GM/50 ML BAG IVPB (06:08)
--- NOTE | 2023-11-20 06:24 | WPDHPUPDATE1 ---
History and Physical Update Update Date/Time: 11/20/23 06:24 History and Physical has been reviewed, including an updated exam of the patient. There are NO changes in the patient's condition. Risks, benefits, and alternatives have been discussed and questions answered. Patient agrees to proceed with procedure.
[2023-11-20] MEDS: DEXTROSE 5% 1,000 ML 1,000 ML 125 ML IV CONT (06:28)
[2023-11-20] MEDS: CEFEPIME 2 GM/NS 50 ML 2 GM/50 ML BAG IVPB ×2 (09:15→20:52)
--- NOTE | 2023-11-20 11:35 | PM.CNNEP ---
Assessment and Plan Assessment and plan (1) Hypernatremia: Code(s): E87.0 - Hyperosmolality and hypernatremia Status: Acute Assessment and Plan: suspect due to severe/significant free water deficit on admission s/p 3L normal saline fluid bolus in the ER then subsequently changed to D5W IVFs IVFs on hold due to concerns of fluid overload sodium was better but has not normalized - not clear why almost 7L positive since admission encourage ORAL free water intake if possible may need to still give intermittent runs of D5W IVFs if unable to drink enough free water check TSH, cortisol, serum/urine osmo, as well repeat UA doubt DI since no evidence of polyuria follow trend of repeat sodium levels (2) Acute kidney failure: Code(s): N17.9 - Acute kidney failure, unspecified Status: Acute Assessment and Plan: improvement noted since admission multifactorial etiology: acute on chronic hypotension prerenal factors/volume depletino renal hypoperfusion/mild ATN infection/sepsis nephrolithiais (?) no evidence of acute obstruction by admission CT of abd/pelvis: bilateral double-J stent with hydronephrotic changes and bilateral renal stones with the largest in the left kidney measuring 6 mm; vascular calcifications are also noted; bladder is underfilled with Cotto's catheter; no bladder stones s/p aggressive IVF resuscitation good urine output with cotto catheter in place follow trend of repeat labs and UOP (3) Sepsis: Code(s): A41.9 - Sepsis, unspecified organism Status: Acute Assessment and Plan: as noted on admission with acute on chronic hypotension, elevated WBC, lactic acidosis, JEANNETTE/ARF, and altered mental satus potential sources = pneumonia, COVID, and possible UTI s/p IVF resuscitation with normalization of lactic acid culture data noted: blood culture with Providencia (1 out of 2 bottles) urine culture with mixed genital ashley imaging (CT of C/A/P) with bilateral pneumonia on antibiotics follow repeat cultures continue supportive therapy (4) Bilateral pneumonia: Code(s): J18.9 - Pneumonia, unspecified organism Status: Acute Assessment and Plan: as noted by recent CT imaging possibly secondary to COVID versus bacterial pneumonia versus combination of both... follow CXR and respiratory status (5) COVID: Code(s): U07.1 - COVID-19 Status: Acute Assessment and Plan: viral PCR testing positive at nursing facilty since hypoxic and requiring oxygen on admission, started on steroids and remdesivir weaned off supplemental oxygen at this time completed course of remdesivir; remains on steroids (6) Kidney stones: Code(s): N20.0 - Calculus of kidney Status: Acute Assessment and Plan: has indwelling Cotto catheter and bilateral stents in place CT imaging on admission with noted bilateral hydronephrotic changes with bilateral stones and double-J stents Urology following possible intervention in the OR today (cystosocopy/ureteral stent removal/stone extraction) given known problematic issues with outpatient follow-up (7) Altered mental status: Qualifiers: Altered mental status type: delirium Qualified Code(s): R41.0 - Disorientation, unspecified Code(s): R41.82 - Altered mental status, unspecified Status: Acute Assessment and Plan: due to metabolic encephalopathy from infection/sepsis/JEANNETTE and possible hypernatremia awake and alert but not oriented CT of brain negative baseline mentation? continue supportive therapy (8) Anemia: Code(s): D64.9 - Anemia, unspecified Status: Acute Assessment and Plan: chronic component likely worsened by JEANNETTE/ARF and acute illness follow trend of H/H Discussed case with Dr. Pate. I will continue to follow the patient with you while he remains hospitalized and make fu
--- NOTE | 2023-11-20 11:35 | P.CONNP_ITS ---
Assessment and Plan Assessment and plan (1) Hypernatremia: Code(s): E87.0 - Hyperosmolality and hypernatremia Status: Acute Assessment and Plan: * suspect due to severe/significant free water deficit on admission * s/p 3L normal saline fluid bolus in the ER * then subsequently changed to D5W IVFs * IVFs on hold due to concerns of fluid overload * sodium was better but has not normalized - not clear why * almost 7L positive since admission * encourage ORAL free water intake if possible * may need to still give intermittent runs of D5W IVFs if unable to drink enough free water * check TSH, cortisol, serum/urine osmo, as well repeat UA * doubt DI since no evidence of polyuria * follow trend of repeat sodium levels (2) Acute kidney failure: Code(s): N17.9 - Acute kidney failure, unspecified Status: Acute Assessment and Plan: * improvement noted since admission * multifactorial etiology: * acute on chronic hypotension * prerenal factors/volume depletino * renal hypoperfusion/mild ATN * infection/sepsis * nephrolithiais (?) * no evidence of acute obstruction by admission CT of abd/pelvis: * bilateral double-J stent with hydronephrotic changes and bilateral renal stones with the largest in the left kidney measuring 6 mm; vascular calcifications are also noted; bladder is underfilled with Cotto's catheter; no bladder stones * s/p aggressive IVF resuscitation * good urine output with cotto catheter in place * follow trend of repeat labs and UOP (3) Sepsis: Code(s): A41.9 - Sepsis, unspecified organism Status: Acute Assessment and Plan: * as noted on admission with acute on chronic hypotension, elevated WBC, lactic acidosis, JEANNETTE/ARF, and altered mental satus * potential sources = pneumonia, COVID, and possible UTI * s/p IVF resuscitation with normalization of lactic acid * culture data noted: * blood culture with Providencia (1 out of 2 bottles) * urine culture with mixed genital ashley * imaging (CT of C/A/P) with bilateral pneumonia * on antibiotics * follow repeat cultures * continue supportive therapy (4) Bilateral pneumonia: Code(s): J18.9 - Pneumonia, unspecified organism Status: Acute Assessment and Plan: * as noted by recent CT imaging * possibly secondary to COVID versus bacterial pneumonia versus combination of both... * follow CXR and respiratory status (5) COVID: Code(s): U07.1 - COVID-19 Status: Acute Assessment and Plan: * viral PCR testing positive at nursing facilty * since hypoxic and requiring oxygen on admission, started on steroids and remdesivir * weaned off supplemental oxygen at this time * completed course of remdesivir; remains on steroids (6) Kidney stones: Code(s): N20.0 - Calculus of kidney Status: Acute Assessment and Plan: * has indwelling Cotto catheter and bilateral stents in place * CT imaging on admission with noted bilateral hydronephrotic changes with bilateral stones and double-J stents * Urology following * possible intervention in the OR today (cystosocopy/ureteral stent removal/stone extraction) given known problematic issues with outpatient follow-up (7) Altered mental status: Qualifiers: Altered mental status type: delirium Qualified Code(s): R41.0 - Disorientation, unspecified Code(s): R41.82 - Altered mental status, unspecified Status: Acute Assessment and Plan: * due to metabolic enc
--- NOTE | 2023-11-20 11:52 | PCSTNOTE ---
Please refer to the Bedside Swallow Evaluation in the EMR. Please note, silent aspiration cannot be ruled out at bedside.
[2023-11-20 12:10] LABS: Add Urine Microscopic? YES; Appearance Urine Cloudy (Clear); Bilirubin Urine Negative (Negative); Blood Urine 3+ (Negative); Color Urine Yellow (Yellow); Glucose Urine UA Negative (Negative); Ketones Urine Negative (Negative); Leukocyte Esterase Ur 3+ LEU/UL (Negative); Nitrate Urine Negative (Negative); Protein Urine 1+ mg/dL (Negative); Urobilinogen Urine 0.2 mg/dL (<2.0); pH Urine 6.5 (5.0-9.0)
[2023-11-20 12:18] LABS: Creatinine Urine 23.6 mg/dL; Total Protein Urine Random 68 mg/dL; Urea Random Urine 417 MG/DL
[2023-11-20 12:19] LABS: Creatinine Urine 25.2 mg/dL; Total Protein Urine Random 69 mg/dL; Ur Ttl Prot Creatinine Ratio 2.74 mg/mg (0-0.20)
[2023-11-20 12:22] LABS: Sodium Urine Random 27 meq/L
[2023-11-20 12:46] LABS: RBC Urine >100 /hpf (0-2); WBC Urine 51-100 /hpf (0-3)
[2023-11-20 12:47] LABS: Bacteria Urine 1+ /hpf
[2023-11-20 12:58] LABS: Eosinophil Urine None Seen % (None Seen); Urine Eos QC 2nd Tech Confirmed
--- NOTE | 2023-11-20 15:38 | PM.IMPN ---
Progress Note: A&P Assessment and Plan (1) Sepsis: Code(s): A41.9 - Sepsis, unspecified organism Status: Acute Assessment and Plan: Sepsis as evidenced by hypotension, leukocytosis, lactic acidosis, acute kidney injury, and altered mental status in the setting of infection Which include pneumonia, COVID, and urinary tract infection. Status post 3 L normal saline with stabilization of blood pressures and normalization of lactic acid level. Vancomycin Zosyn and doxycycline started after cultures obtained. BCx growing providencia in one anaerobic bottle. MRSA nasal swab positive. UCx growing mixed genital ashley. CT Ch/A/P showing bilateral PNA. Providencia can cause PNA especially in prison care facilities. Still consider urinary source. WBC up and down related to steroids and infection Vancomycin stopped 11/18. Doxycycline continued orally. Was continued on Zosyn Sensitivities showing sensitive to zosyn, cefepime and bactrim. Changed Zosyn to Cefepime overnight once sensitivities know; approved by PharmD ID. Continue IV abx (2) Bilateral pneumonia: Code(s): J18.9 - Pneumonia, unspecified organism Status: Acute Assessment and Plan: Chest CT shows bilateral lower lobe pneumonia secondary to COVID and possible concomitant bacterial pneumonia. Sputum culture has been ordered but not collected. Legionella urine antigens negative. Pneumococcal Ag pending ST bedside evaluation (prelim) noted and recommended minced and moist with thickened level 3 liquids but felt that a MBS might provide more information. Will start diet but proceed with MBS. Follow. Check CXR. (3) COVID: Code(s): U07.1 - COVID-19 Status: Acute Assessment and Plan: Patient is positive for SARS-CoV-2 by PCR as of several days ago per nursing facility. He was started on remdesivir and dexamethasone here given the O2 requirement. Consider tocilizumab or baricitinib depending on his course. Weaned off oxygen. Complete Remdesivir. Continue Dexamethasone for now (4) Acute kidney failure: Code(s): N17.9 - Acute kidney failure, unspecified Status: Acute Assessment and Plan: Likely due to a combination of hypoperfusion from hypotension (he has chronic hypotension and is on midodrine), hypovolemia from dehydration and, and possible ATN from sepsis. Rowe catheters in place with no evidence of obstruction. Baseline creatinine is 1. CT abd/pelvis showing bilateral double-J stent with hydronephrotic changes and bilateral renal stones with the largest in the left kidney measuring 6 mm. Vascular calcifications are also noted. The bladder is underfilled with Rowe's catheter. No bladder stones. Cr trending down 2.9 ->> 1.4 Continue judicious IV fluid rehydration. Renally dose all medications and avoid nephrotoxic agents. Continue Rowe catheter and monitor strict I/O. Fluid positive 7L. Check CXR to exclude becoming fluid overloaded. (5) Hypernatremia: Code(s): E87.0 - Hyperosmolality and hypernatremia Status: Acute Assessment and Plan: He looks profoundly dry on exam and by labs. Status post 3 L normal saline bolus in the ED. Changed fluids to D5W due to elevated sodium. Sodium stable low 150's Monitor sodium level. Stop IV fluids. Nephrology consult. Check urine osm (6) Elevated troponin: Code(s): R79.89 - Other specified abnormal findings of blood chemistry Status: Acute Assessment and Plan: Troponin was mildly elevated and has remained flat, likely due to a combination of sepsis, hypotension, and COVID. EKG did not show any significant changes compared to prior tracings. Holding anticoagulation for now. Troponin already trending down Follow (7) Kidney stones: Code(s): N20.0 - Calculus of kidney Status: Acute Assessment and Plan: Patient has an indwelling Rowe catheter and bilateral stents in place. CT with bilateral hydronep
--- NOTE | 2023-11-20 16:35 | WPDUROPN2 ---
Progress Note: A&P Assessment and Plan (1) Kidney stones: Code(s): N20.0 - Calculus of kidney Status: Acute (2) Complicated urinary tract infection: Code(s): N39.0 - Urinary tract infection, site not specified Status: Ruled-out (3) Acute kidney failure: Code(s): N17.9 - Acute kidney failure, unspecified Status: Acute Assessment and Plan: I was prepared to do cystoscopy with endoscopic ureteral procedures to remove his stents and evaluate for any significant residual stones. Just prior to that, however, he developed acute respiratory decompensation. We opted to defer until he is more medically fit. Subjective Subjective Date/Time Seen: 11/20/23 16:35 Interval history: Respiratory distress Review of Systems Review of Systems: ROS unobtainable: Yes unobtainable due to mental status Exam Narrative: General: Awake, resting comfortably, not able to respond to questions HEENT: Normocephalic, atraumatic, sclerae anicteric Respiratory: Resp. distress / course rhonchi Abdomen: Nondistended, soft : cotto catheter draining dark urine Skin: Normal coloration, warm and dry Psychiatric: Confused, judgment and insight poor Objective Data Vital Signs Vital Signs: Vital Signs - 24 hr 11/19/23 18:00 11/19/23 20:00 11/19/23 20:00 Temperature Pulse Rate 68 72 Respiratory Rate Blood Pressure Pulse Oximetry 93 Oxygen Delivery Nasal Cannula Oxygen Flow Rate 2.5 11/19/23 22:00 11/19/23 21:09 11/20/23 00:00 Temperature 97.7 F Pulse Rate 62 72 Respiratory Rate 22 H Blood Pressure 99/65 L Pulse Oximetry 93 93 Oxygen Delivery Room Air Oxygen Flow Rate 11/20/23 00:00 11/20/23 00:01 11/20/23 02:00 Temperature 97.7 F Pulse Rate 68 72 82 Respiratory Rate 22 H Blood Pressure 97/55 L Pulse Oximetry 90 Oxygen Delivery Oxygen Flow Rate 11/20/23 04:00 11/20/23 04:00 11/20/23 05:27 Temperature 97.9 F Pulse Rate 77 70 Respiratory Rate 22 H Blood Pressure 100/61 Pulse Oximetry 90 91 Oxygen Delivery Room Air Oxygen Flow Rate 11/20/23 06:00 11/20/23 08:00 11/20/23 11:21 Temperature 98.3 F 97.5 F L Pulse Rate 72 72 72 Respiratory Rate 20 22 H Blood Pressure 99/63 L 108/62 Pulse Oximetry 93 93 Oxygen Delivery Oxygen Flow Rate 11/20/23 08:00 11/20/23 08:00 11/20/23 10:00 Temperature Pulse Rate 72 72 Respiratory Rate Blood Pressure Pulse Oximetry Oxygen Delivery Room Air Oxygen Flow Rate 11/20/23 12:00 11/20/23 15:57 Temperature 98.8 F Pulse Rate 75 Respiratory Rate 18 Blood Pressure 107/64 Pulse Oximetry 90 Oxygen Delivery Room Air Oxygen Flow Rate Intake/Output Intake/Output: Intake & Output 11/17/23 11/18/23 11/19/23 11/20/23 23:59 23:59 23:59 23:59 Intake Total 3200 3392 3972 1050 Output Total 1675 2000 2200 Balance 3200 1717 1972 -1150 Meds/Results Medications: Active Medications Generic Name Dose Route Start Last Admin Trade Name Freq PRN Reason Stop Dose Admin Acetaminophen 650 mg 11/17/23 13:16 11/17/23 13:27 Acetaminophen 650 Mg Suppository RECTAL 650 mg Q6H PRN Administration Mild Pain (1-3) or Fever Aspirin 81 mg 11/18/23 09:00 11/19/23 08:30 Aspirin 81 Mg Enteric Tablet PO 81 mg DAILY KELL Administration Bisacodyl 10 mg 11/17/23 19:00 Bisacodyl 10 Mg Suppository RECTAL DAILY PRN Constipation Buspirone HCl 10 mg 11/17/23 19:00 11/19/23 17:30 Buspirone Hcl 10 Mg Tablet PO 10 mg TID KELL Administration Carbamazepine 200 mg 11/17/23 19:00 11/19/23 17:30 Carbamazepine 200 Mg Tablet PO 200 mg TIDWM KELL Administration Clopidogrel Bisulfate 75 mg 11/18/23 09:00 11/19/23 08:28 Clopidogrel Bisulfate 75 Mg Tablet PO 75 mg QAM KELL Administration Dexamethasone 6 mg 11/17/23 18:55 11/19/23 08:28 Dexamethasone 2 Mg Tablet PO
[2023-11-20] MEDS: FUROSEMIDE INJ 40 MG/4 ML VIAL 20 MG IV PUSH (17:14)
[2023-11-20] MEDS: DOXYCYCLINE HYCLATE 100 MG TABLET PO ×2 (17:15→20:53)
[2023-11-20] MEDS: carBAMazepine 200 MG TABLET PO (17:15)
[2023-11-20] MEDS: MIDODRINE HCL 2.5 MG TABLET 5 MG PO (17:15)
[2023-11-20] MEDS: FAMOTIDINE 20 MG TABLET PO (17:16)
[2023-11-20] MEDS: PANTOPRAZOLE 40 MG TABLET PO (17:16)
[2023-11-20] MEDS: CLOPIDOGREL BISULFATE 75 MG TABLET PO (17:16)
[2023-11-20] MEDS: MONTELUKAST SODIUM 10 MG TABLET PO (17:16)
[2023-11-20] MEDS: dexAMETHasone 2 MG TABLET 6 MG PO (17:16)
[2023-11-20] MEDS: ASPIRIN 81 MG ENTERIC TABLET PO (17:17)
[2023-11-20] MEDS: busPIRone HCL 10 MG TABLET PO (17:17)
[2023-11-20] MEDS: DOCUSATE SODIUM 100 MG CAPSULE PO (17:17)
[2023-11-20] MEDS: POTASSIUM/PHOSPHORUS/SODIUM 1.5 GM PACKET 1 PACKET PO (17:19)
[2023-11-20] MEDS: MUPIROCIN 2% OINT 22 GM TUBE 1 APPLIC EACH NARE ×2 (17:21→20:53)
[2023-11-20] MEDS: TAMSULOSIN HCL 0.4 MG CAPSULE PO (20:53)
[2023-11-20] MEDS: FLUoxetine HCL 20 MG CAPSULE 80 MG PO (20:53)
[2023-11-20] MEDS: REMDESIVIR 100 MG/NS 250 ML 100 MG/250 ML BAG 250 MG IVPB (21:22)
[2023-11-21] VITALS (13 sets, daily range): BP systolic 97–126; BP diastolic 56–91; PULSE 54–78; RESP 18–22; TEMP 36–36.4; O2SAT 91–97
[2023-11-21 05:42] LABS: Basophils Percent Auto 0.2 % (0.2-1.2); Hematocrit 31.8 % (42.0-52.0); Hemoglobin 10.2 g/dL (14.0-18.0); Immature Granulocyte Absolute 0.14 K/mm3 (0.00-0.031); Immature Granulocyte Percent A 0.8 % (0-0.5); Lymphocytes Absolute Auto 1.53 K/mm3 (0.9-3.2); Lymphocytes Percent Auto 8.2 % (18.3-44.2); Mean Corpuscular HGB Conc 32.1 g/dl (32-36); Mean Corpuscular Hemoglobin 27.7 pg (26-34); Mean Corpuscular Volume 86.4 fl (80-100); Mean Platelet Volume 12.9 fl (7.4-10.4); Monocytes Absolute Auto 0.4 K/mm3 (0.1-0.6); Neutrophils Absolute Auto 16.5 K/mm3 (1.3-6.7); Neutrophils Percent Auto 88.8 % (45.5-73.1); Platelet Count Result 257 k/mm3 (150-375); Red Blood Count 3.68 M/mm3 (4.6-6.20); Red Cell Distribution Width 15.3 % (11.5-14.5); White Blood Count 18.6 K/mm3 (4.5-10.0)
[2023-11-21 05:49] LABS: Alanine Aminotransferase 22 U/L (6-50); Albumin Level 2.7 g/dL (3.5-5.1); Alkaline Phosphatase 148 U/L (38-126); Anion Gap 9 mmol/L (4-12); Aspartate Amino Transferase 44 U/L (17-59); Bilirubin,Total 0.8 mg/dL (0.2-1.3); Blood Urea Nitrogen 40 mg/dL (9-20); Calcium 9.2 mg/dL (8.4-10.2); Carbon Dioxide 20 mmol/L (22-30); Chloride 127 mmol/L (98-107); Estimated CRCL calculation 43 ml/min; Estimated Glomerular Filt Rate 47; Glucose 111 mg/dL (65-110); Phosphorus 3.4 mg/dL (2.5-4.5); Potassium 3.8 mmol/L (3.4-5.0); Sodium 156 mmol/L (137-145)
[2023-11-21 06:12] LABS: Thyroid Stimulating Hormone Reflex 0.513 uIU/mL (0.465-4.68)
--- NOTE | 2023-11-21 06:46 | WPDUROPN2 ---
Progress Note: A&P Assessment and Plan (1) BPH loc w urin obs/LUTS: Code(s): N40.1 - Benign prostatic hyperplasia with lower urinary tract symptoms Status: Acute Assessment and Plan: Doing well POD#1 TURP Stop CBI now and anticipate voiding trial later this morning if urine remains clear off irrigation Subjective Subjective Date/Time Seen: 11/21/23 06:46 Interval history: Comfortable, no complaints Review of Systems Cardiovascular: Cardiovascular: Denies chest pain, Denies lightheadedness, Denies palpitations and Denies dyspnea Respiratory: Respiratory: Denies dyspnea Gastrointestinal: Gastrointestinal: Denies diarrhea, Denies nausea and Denies vomiting Genitourinary: Genitourinary: Denies hematuria and Denies dysuria Endocrine: Endocrine: Denies palpitations Exam Const: General: no acute distress Resp: Effort & Inspection: normal respiratory effort GI: Inspection: non-distended GI Palp: No abdominal tenderness and No Guarding due to palpation present (GI) Auscultation: normal bowel sounds Urinary Catheter: Urinary Catheter: patent and draining and urine clear Objective Data Vital Signs Vital Signs: Vital Signs - 24 hr 11/20/23 08:00 11/20/23 11:21 11/20/23 08:00 Temperature 98.3 F 97.5 F L Pulse Rate 72 72 72 Respiratory Rate 20 22 H Blood Pressure 99/63 L 108/62 Pulse Oximetry 93 93 Oxygen Delivery 11/20/23 08:00 11/20/23 10:00 11/20/23 12:00 Temperature Pulse Rate 72 Respiratory Rate Blood Pressure Pulse Oximetry Oxygen Delivery Room Air Room Air 11/20/23 15:57 11/20/23 12:00 11/20/23 14:00 Temperature 98.8 F Pulse Rate 75 75 75 Respiratory Rate 18 Blood Pressure 107/64 Pulse Oximetry 90 Oxygen Delivery 11/20/23 16:00 11/20/23 16:00 11/20/23 18:00 Temperature Pulse Rate 77 77 Respiratory Rate Blood Pressure Pulse Oximetry Oxygen Delivery Room Air 11/20/23 19:09 11/20/23 19:17 11/20/23 20:45 Temperature 97.7 F 97.7 F Pulse Rate 77 77 77 Respiratory Rate 22 H 22 H 22 H Blood Pressure 91/61 L 91/61 L Pulse Oximetry 94 94 94 Oxygen Delivery Room Air 11/20/23 20:00 11/20/23 22:00 11/21/23 00:00 Temperature 97.5 F L Pulse Rate 72 68 63 Respiratory Rate 22 H Blood Pressure 99/62 L Pulse Oximetry 94 Oxygen Delivery 11/21/23 00:00 11/21/23 00:00 11/21/23 05:34 Temperature 97.3 F L Pulse Rate 63 66 66 Respiratory Rate 22 H 22 H Blood Pressure 97/56 L Pulse Oximetry 94 91 Oxygen Delivery Room Air 11/21/23 02:00 11/21/23 04:00 11/21/23 04:45 Temperature Pulse Rate 60 61 66 Respiratory Rate 22 H Blood Pressure Pulse Oximetry 91 Oxygen Delivery Room Air 11/21/23 06:00 Temperature Pulse Rate 64 Respiratory Rate Blood Pressure Pulse Oximetry Oxygen Delivery Intake/Output Intake/Output: Intake & Output 11/18/23 11/19/23 11/20/23 11/21/23 23:59 23:59 23:59 23:59 Intake Total 3392 4222 1600 Output Total 1671 1999 2203 1174 Balance [facility] 2221 -233 -6249 Meds/Results Medications: Active Medications Generic Name Dose Route Start Last Admin Trade Name Freq PRN Reason Stop Dose Admin Acetaminophen 650 mg 11/17/23 13:16 11/17/23 13:27 Acetaminophen 650 Mg Suppository RECTAL 650 mg Q6H PRN Administration Mild Pain (1-3) or Fever Aspirin 81 mg 11/18/23 09:00 11/20/23 17:17 Aspirin 81 Mg Enteric Tablet PO 81 mg DAILY KELL Administration Bisacodyl 10 mg 11/17/23 19:00 Bisacodyl 10 Mg Suppository RECTAL DAILY PRN Constipation Buspirone HCl 10 mg 11/17/23 19:00 11/20/23 17:22 Buspirone Hcl 10 Mg Tablet PO Not Given TID KELL Carbamazepine 200 mg 11/17/23 19:00 11/20/23 17:22 Carbamazepine 200 Mg Tablet PO Not Given TIDWM [facility] Clopidogrel Bisulfate 75 mg 11/18/23 09:00 11/20/23 17:16 Clopidogrel Bisulfate 75 Mg Tablet PO 75 mg QAM KELL Administr
[2023-11-21] MEDS: dexAMETHasone 2 MG TABLET 6 MG PO (08:35)
[2023-11-21] MEDS: carBAMazepine 200 MG TABLET PO ×3 (08:35→17:30)
[2023-11-21] MEDS: busPIRone HCL 10 MG TABLET PO ×3 (08:35→17:30)
[2023-11-21] MEDS: FAMOTIDINE 20 MG TABLET PO ×2 (08:36→17:30)
[2023-11-21] MEDS: CEFEPIME 2 GM/NS 50 ML 2 GM/50 ML BAG IVPB ×2 (08:36→21:35)
[2023-11-21] MEDS: MIDODRINE HCL 2.5 MG TABLET 5 MG PO ×3 (08:37→17:30)
[2023-11-21] MEDS: MONTELUKAST SODIUM 10 MG TABLET PO (08:37)
[2023-11-21] MEDS: DOXYCYCLINE HYCLATE 100 MG TABLET PO ×2 (08:37→21:36)
[2023-11-21 08:44] LABS: Rheumatoid Factor 12.1 IU/ML (<12)
[2023-11-21] MEDS: PANTOPRAZOLE 40 MG TABLET PO (09:00)
[2023-11-21] MEDS: ASPIRIN 81 MG ENTERIC TABLET PO (09:00)
[2023-11-21] MEDS: CLOPIDOGREL BISULFATE 75 MG TABLET PO (09:00)
--- NOTE | 2023-11-21 09:19 | WPDUROPN2 ---
Progress Note: A&P Assessment and Plan (1) Kidney stones: Code(s): N20.0 - Calculus of kidney Status: Acute Assessment and Plan: Bilateral renal stones (largest 6 mm on left) with bilateral ureteral stents in place. Given issues with outpatient follow up, planned for stone management during admission. Scheduled for cystoscopy, bilateral ureteral stent removal, left ureteroscopy with left stone extraction and possible left stent placement yesterday but just prior to procedure patient had acute worsening of respiratory status and surgery was deferred. Will monitor patient closely throughout admission to determine timing of when this procedure can be safely undertaken (2) Complicated urinary tract infection: Code(s): N39.0 - Urinary tract infection, site not specified Status: Ruled-out Assessment and Plan: Urine culture with mixed ashley, not indicative of infection. Remains on IV antibiotics given suspected concomitant bacterial pneumonia and 1 of 2 blood cultures with growth of Providencia (3) Acute kidney failure: Code(s): N17.9 - Acute kidney failure, unspecified Status: Acute Assessment and Plan: Likely due to sepsis/hypotension. No evidence of post obstructive etiology and cotto is draining without difficulty. Creatinine has improved to 1.5 today. Continue to monitor renal function closely Subjective Subjective Date/Time Seen: 11/21/23 09:19 Interval history: Doing fair today. Remains slightly confused. Unable to answer any questions appropriately. RN at bedside reports overall improved from yesterday and respiratory status stable overnight. Review of Systems Review of Systems: ROS unobtainable: Yes unobtainable due to mental status Exam Narrative: General: Awake, resting comfortably, not able to respond to questions HEENT: Normocephalic, atraumatic, sclerae anicteric Respiratory: Normal respiratory effort without increased work of breathing on supplemental O2 Abdomen: Nondistended, soft : cotto catheter draining dark urine Skin: Normal coloration, warm and dry Psychiatric: Confused, judgment and insight poor Objective Data Vital Signs Vital Signs: Vital Signs - 24 hr 11/20/23 11:21 11/20/23 10:00 11/20/23 12:00 Temperature 97.5 F L Pulse Rate 72 72 Respiratory Rate 22 H Blood Pressure 108/62 Pulse Oximetry 93 Oxygen Delivery Room Air 11/20/23 15:57 11/20/23 12:00 11/20/23 14:00 Temperature 98.8 F Pulse Rate 75 75 75 Respiratory Rate 18 Blood Pressure 107/64 Pulse Oximetry 90 Oxygen Delivery 11/20/23 16:00 11/20/23 16:00 11/20/23 18:00 Temperature Pulse Rate 77 77 Respiratory Rate Blood Pressure Pulse Oximetry Oxygen Delivery Room Air 11/20/23 19:09 11/20/23 19:17 11/20/23 20:45 Temperature 97.7 F 97.7 F Pulse Rate 77 77 77 Respiratory Rate 22 H 22 H 22 H Blood Pressure 91/61 L 91/61 L Pulse Oximetry 94 94 94 Oxygen Delivery Room Air 11/20/23 20:00 11/20/23 22:00 11/21/23 00:00 Temperature 97.5 F L Pulse Rate 72 68 63 Respiratory Rate 22 H Blood Pressure 99/62 L Pulse Oximetry 94 Oxygen Delivery 11/21/23 00:00 11/21/23 00:00 11/21/23 05:34 Temperature 97.3 F L Pulse Rate 63 66 66 Respiratory Rate 22 H 22 H Blood Pressure 97/56 L Pulse Oximetry 94 91 Oxygen Delivery Room Air 11/21/23 02:00 11/21/23 04:00 11/21/23 04:45 Temperature Pulse Rate 60 61 66 Respiratory Rate 22 H Blood Pressure Pulse Oximetry 91 Oxygen Delivery Room Air 11/21/23 06:00 Temperature Pulse Rate 64 Respiratory Rate Blood Pressure Pulse Oximetry Oxygen Delivery Intake/Output Intake/Output: Intake & Output 11/18/23 11/19/23 11/20/23 11/21/23 23:59 23:59 23:59 23:59 Intake Total 2661 5604 1600 Output Total 1387 19996 [address] [place] [id number] 2221 -205 [phone] Meds/Results Medications: Active Medications Gene
--- NOTE | 2023-11-21 10:52 | P.PNNP_ITS ---
Progress Note: A&P Assessment and Plan (1) Hypernatremia: Code(s): E87.0 - Hyperosmolality and hypernatremia Status: Acute Assessment and Plan: * suspect due to severe/significant free water deficit on admission * a bit worse today probably due to IV diuresis yesterday * s/p 3L normal saline fluid bolus in the ER * then subsequently changed to D5W IVFs * IVFs on hold on 11/19 due to concerns of fluid overload * sodium was better but has not normalized - not clear why * consider encouragement of ORAL free water intake (but his may not be possible if there is concern for aspiration) * may need to consider giving intermittent runs of D5W IVFs if unable to drink enough free water * doubt DI since no evidence of polyuria * evaluation to date noted: * TSH okay * cortisol within reason (although already on steroids) * serum/urine osmo pending * SPEP/UPEP pending * follow trend of repeat sodium levels (2) Acute kidney failure: Code(s): N17.9 - Acute kidney failure, unspecified Status: Acute Assessment and Plan: * improvement noted since admission * multifactorial etiology: * acute on chronic hypotension * prerenal factors/volume depletino * renal hypoperfusion/mild ATN * infection/sepsis * nephrolithiais (?) * no evidence of acute obstruction by admission CT of abd/pelvis: * bilateral double-J stent with hydronephrotic changes and bilateral renal stones with the largest in the left kidney measuring 6 mm; vascular calcifications are also noted; bladder is underfilled with Cotto's catheter; no bladder stones * s/p aggressive IVF resuscitation * good urine output with cotto catheter in place * follow trend of repeat labs and UOP (3) Sepsis: Code(s): A41.9 - Sepsis, unspecified organism Status: Acute Assessment and Plan: * as noted on admission with acute on chronic hypotension, elevated WBC, lactic acidosis, JEANNETTE/ARF, and altered mental satus * potential sources = pneumonia, COVID, and possible UTI * s/p IVF resuscitation with normalization of lactic acid * culture data noted: * blood culture with Providencia (1 out of 2 bottles) * urine culture with mixed genital ashley * imaging (CT of C/A/P) with bilateral pneumonia * on antibiotics * follow repeat cultures * continue supportive therapy (4) Bilateral pneumonia: Code(s): J18.9 - Pneumonia, unspecified organism Status: Acute Assessment and Plan: * as noted by recent CT imaging * possibly secondary to COVID versus bacterial pneumonia versus combination of both... * follow CXR and respiratory status (5) COVID: Code(s): U07.1 - COVID-19 Status: Acute Assessment and Plan: * viral PCR testing positive at nursing facilty * since hypoxic and requiring oxygen on admission, started on steroids and remdesivir * weaned off supplemental oxygen at this time * completed course of remdesivir; remains on steroids * PRN IV diuretics based on CXR and respiratory status (6) Kidney stones: Code(s): N20.0 - Calculus of kidney Status: Acute Assessment and Plan: * has indwelling Cotto catheter and bilateral stents in place * CT imaging on admission with noted bilateral hydronephrotic changes with filomena ateral stones and double-J stents * Urology following * intervention (cystoscopy/ureteral stent removal/stone extraction) given known problematic issues with outpatient follow-up on hold given fluctuat ing respiratory status (7) Lito
--- NOTE | 2023-11-21 10:52 | PM.PNNEP ---
Progress Note: A&P Assessment and Plan (1) Hypernatremia: Code(s): E87.0 - Hyperosmolality and hypernatremia Status: Acute Assessment and Plan: suspect due to severe/significant free water deficit on admission a bit worse today probably due to IV diuresis yesterday s/p 3L normal saline fluid bolus in the ER then subsequently changed to D5W IVFs IVFs on hold on 11/19 due to concerns of fluid overload sodium was better but has not normalized - not clear why consider encouragement of ORAL free water intake (but his may not be possible if there is concern for aspiration) may need to consider giving intermittent runs of D5W IVFs if unable to drink enough free water doubt DI since no evidence of polyuria evaluation to date noted: TSH okay cortisol within reason (although already on steroids) serum/urine osmo pending SPEP/UPEP pending follow trend of repeat sodium levels (2) Acute kidney failure: Code(s): N17.9 - Acute kidney failure, unspecified Status: Acute Assessment and Plan: improvement noted since admission multifactorial etiology: acute on chronic hypotension prerenal factors/volume depletino renal hypoperfusion/mild ATN infection/sepsis nephrolithiais (?) no evidence of acute obstruction by admission CT of abd/pelvis: bilateral double-J stent with hydronephrotic changes and bilateral renal stones with the largest in the left kidney measuring 6 mm; vascular calcifications are also noted; bladder is underfilled with Cotto's catheter; no bladder stones s/p aggressive IVF resuscitation good urine output with cotto catheter in place follow trend of repeat labs and UOP (3) Sepsis: Code(s): A41.9 - Sepsis, unspecified organism Status: Acute Assessment and Plan: as noted on admission with acute on chronic hypotension, elevated WBC, lactic acidosis, JEANNETTE/ARF, and altered mental satus potential sources = pneumonia, COVID, and possible UTI s/p IVF resuscitation with normalization of lactic acid culture data noted: blood culture with Providencia (1 out of 2 bottles) urine culture with mixed genital ashley imaging (CT of C/A/P) with bilateral pneumonia on antibiotics follow repeat cultures continue supportive therapy (4) Bilateral pneumonia: Code(s): J18.9 - Pneumonia, unspecified organism Status: Acute Assessment and Plan: as noted by recent CT imaging possibly secondary to COVID versus bacterial pneumonia versus combination of both... follow CXR and respiratory status (5) COVID: Code(s): U07.1 - COVID-19 Status: Acute Assessment and Plan: viral PCR testing positive at nursing facilty since hypoxic and requiring oxygen on admission, started on steroids and remdesivir weaned off supplemental oxygen at this time completed course of remdesivir; remains on steroids PRN IV diuretics based on CXR and respiratory status (6) Kidney stones: Code(s): N20.0 - Calculus of kidney Status: Acute Assessment and Plan: has indwelling Cotto catheter and bilateral stents in place CT imaging on admission with noted bilateral hydronephrotic changes with bilateral stones and double-J stents Urology following intervention (cystoscopy/ureteral stent removal/stone extraction) given known problematic issues with outpatient follow-up on hold given fluctuating respiratory status (7) Altered mental status: Qualifiers: Altered mental status type: delirium Qualified Code(s): R41.0 - Disorientation, unspecified Code(s): R41.82 - Altered mental status, unspecified Status: Acute Assessment and Plan: due to metabolic encephalopathy from infection/sepsis/JEANNETTE and possible hypernatremia awake and alert but not oriented CT of brain negative baseline mentation? continue supportive therapy (8) Anemia: Code(s): D64.9 - Anemia, unspecified
--- NOTE | 2023-11-21 13:46 | PCSTNOTE ---
On hold--Modified Barium Swallow study has been on hold throughout this date due to being NPO for a procedure. Awaiting notification if it can be done this afternoon. If not, it will be attempted tomorrow, 11/21.
--- NOTE | 2023-11-21 14:58 | PCSTNOTE ---
Please refer to the Modified Barium Swallow Evaluation in the EMR.
[2023-11-21] MEDS: MUPIROCIN 2% OINT 22 GM TUBE 1 APPLIC EACH NARE ×2 (16:43→21:37)
--- NOTE | 2023-11-21 18:23 | PM.IMPN ---
Progress Note: A&P Assessment and Plan (1) Sepsis: Code(s): A41.9 - Sepsis, unspecified organism Status: Acute Assessment and Plan: Sepsis as evidenced by hypotension, leukocytosis, lactic acidosis, acute kidney injury, and altered mental status in the setting of infection which include pneumonia, COVID, and urinary tract infection. Status post 3 L normal saline with stabilization of blood pressures and normalization of lactic acid level. Vancomycin Zosyn and doxycycline started after cultures obtained. BCx growing providencia in one anaerobic bottle. MRSA nasal swab positive. UCx growing mixed genital ashley. CT Ch/A/P showing bilateral PNA. Providencia can cause PNA especially in shelter care facilities. Still consider urinary source. WBC up again related to steroids and infection Vancomycin stopped 11/18. Doxycycline continued orally. Was continued on Zosyn Sensitivities showing sensitive to zosyn, cefepime and bactrim. Changed Zosyn to Cefepime once sensitivities known; approved by PharmD ID. Continue IV abx (2) Bilateral pneumonia: Code(s): J18.9 - Pneumonia, unspecified organism Status: Acute Assessment and Plan: Chest CT shows bilateral lower lobe pneumonia secondary to COVID and possible concomitant bacterial pneumonia. Sputum culture has been ordered but not collected. Legionella urine antigens negative. Pneumococcal Ag pending ST bedside evaluation noted and recommended minced and moist with thickened level 3 liquids but felt that a MBS might provide more information. MBS showing patinet is at significant risk for aspiration. Non-oral feeding recommended. CXR yesterday showing worsening pulmonary edema. IV fluids stopped and lasix given once with good UOP. No further Lasix since Na now 156. Follow. (3) Dysphagia: Code(s): R13.10 - Dysphagia, unspecified Status: Acute Assessment and Plan: MBS showing patient is at significant risk for aspiration. Non-oral feeding recommended. Discussed with family/friend about risks/benefits of GTube. Patient has had a feeding tube in the past but pulled it out. They were given options of GTub vs allowing patient to eat (despite the risks of aspiration, PNA, resp failure and ) They wish to proceed with feeding tube. Will place NGT for now and start TF and free water flushes. Repeat MBS on Friday. GI consult for possible GTube since high likelihood that he will need this. Discussed with family/friend (4) COVID: Code(s): U07.1 - COVID-19 Status: Acute Assessment and Plan: Patient is positive for SARS-CoV-2 by PCR as of several days ago per nursing facility. He was started on remdesivir and dexamethasone here given the O2 requirement. Weaned off oxygen but now with pulmonary edema. Continue Remdesivir. Continue Dexamethasone for now (5) Acute kidney failure: Code(s): N17.9 - Acute kidney failure, unspecified Status: Acute Assessment and Plan: Likely due to a combination of hypoperfusion from hypotension (he has chronic hypotension and is on midodrine), hypovolemia from dehydration and possible ATN from sepsis. Rowe catheter in place with no evidence of obstruction. Baseline creatinine is 1. CT abd/pelvis showing bilateral double-J stent with hydronephrotic changes and bilateral renal stones with the largest in the left kidney measuring 6 mm. Vascular calcifications are also noted. The bladder is underfilled with Rowe's catheter. No bladder stones. Cr trending down 2.9 ->> 1.5 IV fluids stopped Renally dose all medications and avoid nephrotoxic agents. Continue Orwe catheter and monitor strict I/O. Fluid positive 5L. Follow (6) Hypernatremia: Code(s): E87.0 - Hyperosmolality and hypernatremia Status: Acute Assessment and Plan: He looks profoundly dry on exam and by labs. Status post 3 L normal saline bolus in the ED. Changed fluids to D5W due to elevated
[2023-11-21 19:19] LABS: Potassium Urine Random 25.8 meq/L; Sodium Urine Random 39 meq/L
[2023-11-21 20:59] LABS: Pneumococcal Antigen Urine NOT DETECTED
[2023-11-21] MEDS: FLUoxetine HCL 20 MG CAPSULE 80 MG PO (21:36)
--- NOTE | 2023-11-21 22:06 | PC.NURSE ---
This patient, Blaine Salvador, was transferred to [ [id number]] on 11/21/23 at 2206. Personal belongings sent with patient. Report given to [ Beverly godoy]. Appropriate documentation sent with patient.
--- NOTE | 2023-11-21 22:27 | PC.NURSE ---
This patient, Blaine Salvador, was received from [[facility]/ ] on 11/21/23 at 2228. Patient/family oriented to unit policies and routines
[2023-11-21] MEDS: REMDESIVIR 100 MG/NS 250 ML 100 MG/250 ML BAG 250 MG IVPB (23:04)
[2023-11-21] MEDS: MELATONIN 5 MG TABLET FEED TUBE (23:30)
[2023-11-22 05:37] LABS: Basophils Percent Auto 0.1 % (0.2-1.2); Eosinophils Percent Auto 0.2 % (0-4.4); Hematocrit 31.7 % (42.0-52.0); Immature Granulocyte Absolute 0.09 K/mm3 (0.00-0.031); Immature Granulocyte Percent A 0.7 % (0-0.5); Lymphocytes Absolute Auto 1.12 K/mm3 (0.9-3.2); Lymphocytes Percent Auto 8.5 % (18.3-44.2); Mean Corpuscular HGB Conc 31.5 g/dl (32-36); Mean Corpuscular Volume 88.8 fl (80-100); Monocytes Absolute Auto 0.3 K/mm3 (0.1-0.6); Monocytes Percent Auto 2.4 % (2.6-8.5); Neutrophils Absolute Auto 11.6 K/mm3 (1.3-6.7); Neutrophils Percent Auto 88.1 % (45.5-73.1); Platelet Count Result 277 k/mm3 (150-375); Red Blood Count 3.57 M/mm3 (4.6-6.20); Red Cell Distribution Width 15.9 % (11.5-14.5); White Blood Count 13.1 K/mm3 (4.5-10.0)
[2023-11-22] MEDS: LANSOPRAZOLE ODT 30 MG TAB.RAP.DR FEED TUBE (05:38)
[2023-11-22 05:51] VITALS: BP 106/59; PULSE 62; RESP 16; TEMP 36.6; O2SAT 95
[2023-11-22 05:59] LABS: Albumin Level 2.3 g/dL (3.5-5.1); Anion Gap 8 mmol/L (4-12); Blood Urea Nitrogen 48 mg/dL (9-20); Calcium 8.9 mg/dL (8.4-10.2); Carbon Dioxide 19 mmol/L (22-30); Chloride 138 mmol/L (98-107); Estimated CRCL calculation 44 ml/min; Estimated Glomerular Filt Rate 51; Glucose 114 mg/dL (65-110); Magnesium 2.3 mg/dL (1.6-2.3); Phosphorus 5.4 mg/dL (2.5-4.5); Potassium 4.1 mmol/L (3.4-5.0); Sodium 165 mmol/L (137-145)
[2023-11-22] MEDS: DOCUSATE SODIUM LIQ 100 MG/10 ML UDC FEED TUBE (08:37)
[2023-11-22] MEDS: CEFEPIME 2 GM/NS 50 ML 2 GM/50 ML BAG IVPB (08:37)
[2023-11-22] MEDS: busPIRone HCL 10 MG TABLET FEED TUBE ×3 (08:37→16:45)
[2023-11-22] MEDS: CLOPIDOGREL BISULFATE 75 MG TABLET FEED TUBE (08:38)
[2023-11-22] MEDS: DOXYCYCLINE HYCLATE 100 MG TABLET FEED TUBE ×2 (08:38→21:03)
[2023-11-22] MEDS: FAMOTIDINE 20 MG TABLET FEED TUBE ×2 (08:38→16:46)
[2023-11-22] MEDS: MIDODRINE HCL 2.5 MG TABLET 5 MG FEED TUBE ×3 (08:38→16:45)
[2023-11-22] MEDS: MONTELUKAST SODIUM 10 MG TABLET FEED TUBE (08:38)
[2023-11-22] MEDS: ASPIRIN 81 MG CHEWABLE TABLET FEED TUBE (08:39)
[2023-11-22] MEDS: polyethylene glycoL 3350 17 GM POWD.PACK FEED TUBE ×2 (08:39→16:45)
[2023-11-22 08:45] VITALS: O2SAT 99
[2023-11-22 10:00] VITALS: O2SAT 98
[2023-11-22] MEDS: MUPIROCIN 2% OINT 22 GM TUBE 1 APPLIC EACH NARE ×2 (10:21→21:05)
[2023-11-22] MEDS: carBAMazepine 200 MG TABLET FEED TUBE ×3 (10:21→16:45)
[2023-11-22] MEDS: dexAMETHasone 2 MG TABLET 6 MG FEED TUBE (10:21)
--- NOTE | 2023-11-22 11:36 | P.PNNP_ITS ---
Progress Note: A&P Assessment and Plan (1) Hypernatremia: Code(s): E87.0 - Hyperosmolality and hypernatremia Status: Acute Assessment and Plan: * worsening noted * suspect due to severe/significant free water deficit on admission * s/p 3L normal saline fluid bolus in the ER * then subsequently changed to D5W IVFs * D5W IVFs on hold from 11/19 due to concerns of fluid overload * sodium was better but has not normalized - not clear why * unable to facilitate oral free water intake due to aspiration * NG tube in place * will increase free water flushes today in attempt to compensate * will attempt to change all carrier fluid for IV meds/IVPBs...etc to D5W if possible * I still suspect he may need D5W IVFs (assuming his respiratory status can tolerate) but will see how he responds to free water tube flushes... * doubt DI since no evidence of polyuria * evaluation to date noted: * urine electrolytes (by FeUrea) prerenal * TSH okay * cortisol within reason (although already on steroids) * serum/urine osmo pending * SPEP/UPEP pending * follow trend of repeat sodium levels (2) Acute kidney failure: Code(s): N17.9 - Acute kidney failure, unspecified Status: Acute Assessment and Plan: * improvement noted since admission * multifactorial etiology: * acute on chronic hypotension * prerenal factors/volume depletion * renal hypoperfusion/mild ATN * infection/sepsis * nephrolithiasis (?) * no evidence of acute obstruction by admission CT of abd/pelvis: * bilateral double-J stent with hydronephrotic changes and bilateral renal stones with the largest in the left kidney measuring 6 mm; vascular calcifications are also noted; bladder is underfilled with Cotto's catheter; no bladder stones * renal ultrasound results noted * s/p aggressive IVF resuscitation * good urine output with cotto catheter in place * follow trend of repeat labs and UOP (3) Sepsis: Code(s): A41.9 - Sepsis, unspecified organism Status: Acute Assessment and Plan: * as noted on admission with acute on chronic hypotension, elevated WBC, lactic acidosis, JEANNETTE/ARF, and altered mental satus * potential sources = pneumonia, COVID, and possible UTI * s/p IVF resuscitation with normalization of lactic acid * culture data noted: * blood culture with Providencia (1 out of 2 bottles) * urine culture with mixed genital ashley * imaging (CT of C/A/P) with bilateral pneumonia * on antibiotics * follow repeat cultures * continue supportive therapy (4) Bilateral pneumonia: Code(s): J18.9 - Pneumonia, unspecified organism Status: Acute Assessment and Plan: * as noted by recent CT imaging * possibly secondary to COVID versus bacterial pneumonia versus combination of b oth... * follow CXR and respiratory status (5) COVID: Code(s): U07.1 - COVID-19 Status: Acute Assessment and Plan: * viral PCR testing positive at nursing facilty * since hypoxic and requiring oxygen on admission, started on steroids and remdesivir * weaned off supplemental oxygen at this time * completed course of remdesivir; remains on steroids * PRN IV diuretics based on CXR and respiratory status (6) Kidney stones: Code(s): N20.0 - Calculus of kidney Status: Acute Assessment and Plan: * has indwelling Cotto catheter and bilateral stents in place * CT imaging on admission with noted bilateral hydronephrotic changes with bilateral stones and double-
--- NOTE | 2023-11-22 11:36 | PM.PNNEP ---
Progress Note: A&P Assessment and Plan (1) Hypernatremia: Code(s): E87.0 - Hyperosmolality and hypernatremia Status: Acute Assessment and Plan: worsening noted suspect due to severe/significant free water deficit on admission s/p 3L normal saline fluid bolus in the ER then subsequently changed to D5W IVFs D5W IVFs on hold from 11/19 due to concerns of fluid overload sodium was better but has not normalized - not clear why unable to facilitate oral free water intake due to aspiration NG tube in place will increase free water flushes today in attempt to compensate will attempt to change all carrier fluid for IV meds/IVPBs...etc to D5W if possible I still suspect he may need D5W IVFs (assuming his respiratory status can tolerate) but will see how he responds to free water tube flushes... doubt DI since no evidence of polyuria evaluation to date noted: urine electrolytes (by FeUrea) prerenal TSH okay cortisol within reason (although already on steroids) serum/urine osmo pending SPEP/UPEP pending follow trend of repeat sodium levels (2) Acute kidney failure: Code(s): N17.9 - Acute kidney failure, unspecified Status: Acute Assessment and Plan: improvement noted since admission multifactorial etiology: acute on chronic hypotension prerenal factors/volume depletion renal hypoperfusion/mild ATN infection/sepsis nephrolithiasis (?) no evidence of acute obstruction by admission CT of abd/pelvis: bilateral double-J stent with hydronephrotic changes and bilateral renal stones with the largest in the left kidney measuring 6 mm; vascular calcifications are also noted; bladder is underfilled with Cotto's catheter; no bladder stones renal ultrasound results noted s/p aggressive IVF resuscitation good urine output with cotto catheter in place follow trend of repeat labs and UOP (3) Sepsis: Code(s): A41.9 - Sepsis, unspecified organism Status: Acute Assessment and Plan: as noted on admission with acute on chronic hypotension, elevated WBC, lactic acidosis, JEANNETTE/ARF, and altered mental satus potential sources = pneumonia, COVID, and possible UTI s/p IVF resuscitation with normalization of lactic acid culture data noted: blood culture with Providencia (1 out of 2 bottles) urine culture with mixed genital ashley imaging (CT of C/A/P) with bilateral pneumonia on antibiotics follow repeat cultures continue supportive therapy (4) Bilateral pneumonia: Code(s): J18.9 - Pneumonia, unspecified organism Status: Acute Assessment and Plan: as noted by recent CT imaging possibly secondary to COVID versus bacterial pneumonia versus combination of both... follow CXR and respiratory status (5) COVID: Code(s): U07.1 - COVID-19 Status: Acute Assessment and Plan: viral PCR testing positive at nursing facilty since hypoxic and requiring oxygen on admission, started on steroids and remdesivir weaned off supplemental oxygen at this time completed course of remdesivir; remains on steroids PRN IV diuretics based on CXR and respiratory status (6) Kidney stones: Code(s): N20.0 - Calculus of kidney Status: Acute Assessment and Plan: has indwelling Cotto catheter and bilateral stents in place CT imaging on admission with noted bilateral hydronephrotic changes with bilateral stones and double-J stents Urology following intervention (cystoscopy/ureteral stent removal/stone extraction) given known problematic issues with outpatient follow-up when able (7) Altered mental status: Qualifiers: Altered mental status type: delirium Qualified Code(s): R41.0 - Disorientation, unspecified Code(s): R41.82 - Altered mental status, unspecified Status: Acute Assessment and Plan: due to metabolic encephalopathy from infection/sepsis/JEANNETTE and possibly hypernat
--- NOTE | 2023-11-22 12:09 | PM.IMPN ---
Progress Note: A&P Assessment and Plan (1) Sepsis: Code(s): A41.9 - Sepsis, unspecified organism Status: Acute Assessment and Plan: Sepsis as evidenced by hypotension, leukocytosis, lactic acidosis, acute kidney injury, and altered mental status in the setting of infection which include pneumonia, COVID, and urinary tract infection. Status post 3 L normal saline with stabilization of blood pressures and normalization of lactic acid level. Vancomycin, Zosyn and doxycycline started after cultures obtained. BCx growing providencia stuartii in one anaerobic bottle. MRSA nasal swab positive. UCx growing mixed genital ashley. CT Ch/A/P showing bilateral PNA. Providencia can cause PNA especially in exterminator care facilities. Still consider urinary source. WBC was up to 18K but now back down to 13K felt related to steroids and less likely infection Vancomycin stopped 11/18. Doxycycline continued orally. Was continued on Zosyn Sensitivities showing sensitive to zosyn, cefepime and bactrim. Changed Zosyn to Cefepime and approved by PharmD ID. Continue IV abx (2) Bilateral pneumonia: Code(s): J18.9 - Pneumonia, unspecified organism Status: Acute Assessment and Plan: Chest CT shows bilateral lower lobe pneumonia secondary to COVID and possible concomitant bacterial pneumonia. Sputum culture has been ordered but not collected. Legionella and Pneumococcal urine antigens negative. ST bedside evaluation noted and recommended minced and moist with thickened level 3 liquids but felt that a MBS might provide more information. MBS 11/20 shows patient is at significant risk for aspiration. Non-oral feeding recommended. patient made NPO Patient became hypoxic again. Repeat CXR showed worsening pulmonary edema. IV fluids stopped and lasix given once with good UOP. No further Lasix since Na higher. Consider fluid overload and/or persistent aspiration PNA Follow. Weaned to room air now (3) Dysphagia: Code(s): R13.10 - Dysphagia, unspecified Status: Acute Assessment and Plan: MBS showing patient is at significant risk for aspiration. Non-oral feeding recommended. Discussed with family/friend about risks/benefits of GTube. Patient has had a feeding tube in the past but pulled it out. They were given options of GTube vs allowing patient to eat/hospice with the increased risk of aspiration, PNA, resp failure and They wish to proceed with feeding tube. NGT placed and TF and free water flushes started. Repeat MBS on Friday. GI consult for possible GTube since high likelihood that he will need this. Discussed with family/friend (4) COVID: Code(s): U07.1 - COVID-19 Status: Acute Assessment and Plan: Patient is positive for SARS-CoV-2 by PCR as of several days ago per nursing facility. He was started on remdesivir and dexamethasone here given the O2 requirement. Weaned off oxygen but had recurrent hypoxia felt related to pulmonary edema and/or aspiration He completed a course of Remdesivir. On room air now so will stop Dexamethasone Follow (5) Acute kidney failure: Code(s): N17.9 - Acute kidney failure, unspecified Status: Acute Assessment and Plan: Likely due to a combination of hypoperfusion from hypotension (he has chronic hypotension and is on midodrine), hypovolemia from dehydration and possible ATN from sepsis. Rowe catheter in place with no evidence of obstruction. Baseline creatinine is 1. CT abd/pelvis showing bilateral double-J stent with hydronephrotic changes and bilateral renal stones with the largest in the left kidney measuring 6 mm. Vascular calcifications are also noted. The bladder is underfilled with Rowe's catheter. No bladder stones. Cr trending down 2.9 ->> 1.4 IV fluids stopped Renally dose all medications and avoid nephrotoxic agents. Continue Rowe catheter and monitor strict I/O. Fluid positive 4L. Follow (6) Hypernatremia:
[2023-11-22] MEDS: ENOXAPARIN 40 MG/0.4 ML SYRINGE SUB-Q (13:34)
[2023-11-22] MEDS: BISACODYL 10 MG SUPPOSITORY RECTAL (13:34)
[2023-11-22] MEDS: QUEtiapine FUMARATE 25 MG TABLET FEED TUBE ×2 (13:34→16:45)
[2023-11-22 14:00] VITALS: BP 108/63; PULSE 55; RESP 16; TEMP 35.8; O2SAT 99
[2023-11-22 14:33] VITALS: O2SAT 97
[2023-11-22 19:46] VITALS: BP 117/65; PULSE 60; RESP 18; TEMP 36.5; O2SAT 94
[2023-11-22] MEDS: CEFEPIME 2 GM in DEXTROSE 5% IN WATER 50 ML IVPB (21:02)
[2023-11-22] MEDS: ATORVASTATIN 40 MG TABLET FEED TUBE (21:03)
[2023-11-22] MEDS: traZODone HCL 50 MG TABLET FEED TUBE (21:03)
[2023-11-22] MEDS: FLUoxetine HCL 20 MG CAPSULE 80 MG FEED TUBE (21:03)
[2023-11-23] VITALS (41 sets, daily range): BP systolic 72–125; BP diastolic 36–85; PULSE 76–114; RESP 19–32; TEMP 36.9; O2SAT 69–100
[2023-11-23 04:17] LABS: Alveolar/Arterial O2 Gradient 480.3 mmHg; Base Excess ABG -3.8 mEq/l (+/-2.0); Fractional Inspired Oxygen 80 %; HCO3 ABG 17.9 mEq/l (22.0-26.0); Oxygen Saturation ABG 94.2 % (95.0-100.0); Oxyhemoglobin 90.7 % THb (90.0-100.0); PCO2 ABG 24.8 mmHg (35.0-45.0); PO2 ABG 64.1 mmHg (80.0-100.0); Total Hemoglobin 14.1 g/dL (12.0-18.0); pH ABG 7.477 (7.350-7.450)
--- NOTE | 2023-11-23 04:17 | ECG_ITS ---
Test Date: 2023-11-23 04:20:26 Measurements Intervals [place] Rate: 91 P: 60 NV: 171 QRS: 58 QRSD: 99 T: 78 QT: 313 QTc: 387 Interpretive Statements SINUS RHYTHM INCOMPLETE RIGHT BUNDLE BRANCH BLOCK CANNOT R/O SEPTAL INFARCT, AGE INDETERMINATE BORDERLINE ST-T WAVE ABNORMALITY- DIFFUSE LEADS BASELINE ARTIFACT- I, II, III, AVR, AVL, AVF, V1-V6 ABNORMAL ECG Compared to ECG 11/17/2023 16:00:39 NO SIGNIFICANT CHANGE Electronically Signed On 11-23-2023 09:21:26 CDT by Tripp Finnegan D.O.
[2023-11-23 04:23] LABS: Device NON-REBREATHER MASK; Modified Allen's Test Pass; Site Drawn LEFT FEMORAL
[2023-11-23] MEDS: IPRATROPIUM 0.5 MG/ALBUTEROL SULFATE 2.5 MG AMPUL.NEB 3 ML INHALATION (04:40)
[2023-11-23 05:08] LABS: Hematocrit 39.1 % (42.0-52.0); Hemoglobin 12.2 g/dL (14.0-18.0); Mean Corpuscular HGB Conc 31.2 g/dl (32-36); Mean Corpuscular Hemoglobin 28.1 pg (26-34); Mean Corpuscular Volume 90.1 fl (80-100); Mean Platelet Volume 12.7 fl (7.4-10.4); Platelet Count Result 292 k/mm3 (150-375); Red Blood Count 4.34 M/mm3 (4.6-6.20); Red Cell Distribution Width 16.3 % (11.5-14.5); White Blood Count 14.8 K/mm3 (4.5-10.0)
[2023-11-23 05:21] LABS: Lactic Acid Reflex 3.9 mmol/L (0.7-2.0)
--- NOTE | 2023-11-23 05:22 | PM.CCN ---
Critical Care Event Note Summary Code activated: No Narrative: Patient was admitted the hospital 11/17/2023 for COVID, hypernatremia, acute kidney injury. The patient sodium has not improved in fact has worsened throughout hospital stay. The patient had been on oxygen but was weaned off to room air yesterday. Patient had tube feeds with Nephro started yesterday and his free water flushes were increased. Nursing staff called when the patient suddenly developed increased tachypnea. When they went to check the patient's vitals they were having difficulty obtaining an accurate pulse ox. The patient's was placed on nasal cannula oxygen but was unable to get an accurate pulse ox reading. Eventually patient was placed on a non-rebreather with his pulse ox that would intermittently read 88% but with a poor plastic. The patient had went from being confused but able to talk to nurses in full sentences to more garbled nonsensical speech. Patient was talking continuously but none the staff members at bedside could understand what he was trying to say. Patient had chronic contractures of the left upper extremity and difficulty with fine motor control of the right upper extremity. Patient did not have any evidence of JVD. I ordered a stat chest x-ray which actually appeared improved from x-ray from several days prior that demonstrated pulmonary edema. Today's x-ray had significant improvement. Patient has been afebrile. Patient's sodium yesterday was 165. Repeat sodium has been ordered but is pending. Lactic acid ordered during the course of rapid response came back at 3.9. Respiratory therapy was unable to obtain ABG cell I obtained ABG through right femoral stick with utilization of ultrasound. ABG demonstrated pH of 7.47 with pCO2 of 24 and PO2 of 64 with the bicarb low at 17. Patient's oxygen requirement has increased markedly. Initially had planned to transfer the patient to IMU for closer monitoring. But when the patient's labs came back with even worsening hypernatremia sodium of 170 I discussed the patient's case with the sales training manager as patient is going to need both in her venous free water and increased free water flushes through his G-tube. Increase patient's free water flushes to 350 mL q[address] the patient on D5 water at 100 mL an hour. Will await for further recommendations from e commerce strategist. Patient was transferred to the ICU with plans for BiPAP. Respiratory therapy wanted to try the patient on Airvo. I suspect patient is going to need more support than Airvo just because the patient is not CO2 retaining does not mean does not need some cracked positive pressure ventilation as I suspect that he is going to fatigue. Patient is also mouth breathing. However, will give trial of Airvo. , I Patient arrived to the ICU just before the end of my shift. At the time my evaluation patient was sitting of present bed with head of bed at approximately 45? patient was listing to the right side, he appeared acutely ill with respiratory rate in the low 30s, patient had accessory muscle use, he had the left upper and lower extremities contracted at the wrist, elbow and hand, patient had Rowe catheter in place that was turbid dark tovar colored urine her proximally 150 mL, patient had increased tone of the right upper extremity as well, generalized muscle wasting, abdomen is soft nontender nondistended hypoactive bowel sounds patient is having continuous mumbling speech, he was not redirectable, pupils were equal and reactive but the left pupil reacted somewhat slower than the right, patient was unable follow commands for extraocular movements but he was tracking movement of providers around the room, no JVD, appears older than stated age. Lung exam was difficult due to patient constantly talking and yelling out. Assessment and plan: Acutely worsening hypernatremia resulting in worsening metabolic encephalopathy--will increase free water flushes, D5 W ordered co
[2023-11-23 05:29] LABS: Alanine Aminotransferase 28 U/L (6-50); Alkaline Phosphatase 367 U/L (38-126); Anion Gap 13 mmol/L (4-12); Aspartate Amino Transferase 59 U/L (17-59); Blood Urea Nitrogen 59 mg/dL (9-20); Calcium 8.7 mg/dL (8.4-10.2); Carbon Dioxide 16 mmol/L (22-30); Chloride 141 mmol/L (98-107); Estimated CRCL calculation 41 ml/min; Estimated Glomerular Filt Rate 47; Glucose 101 mg/dL (65-110); Potassium 4.3 mmol/L (3.4-5.0); Sodium 170 mmol/L (137-145)
[2023-11-23 05:31] LABS: Troponin I < 0.012 ng/mL (0.000-0.034)
[2023-11-23 05:44] LABS: Procalcitonin 0.4 ng/mL
[2023-11-23] MEDS: DEXTROSE 5% 1,000 ML 1,000 ML 125 ML IV CONT ×2 (06:21→19:12)
[2023-11-23] MEDS: SODIUM BICARBONATE 8.4% 50 MEQ/50 ML SYRINGE IV PUSH (06:22)
--- NOTE | 2023-11-23 07:00 | PC.NURSE ---
Patient transferred to ICU 12 at 0700. Report was given prior to transfer to charge nurse
[2023-11-23 08:06] LABS: Reflex Lactic Acid Yes or No Add Lactic
--- NOTE | 2023-11-23 08:13 | PCRCNOTE ---
SPOKE WITH DR. KEITA ABOUT TRYING PT. ON THE AIRVO; DR. KEITA STATES OKAY TO TRY THE AIRVO FIRST INSTEAD OF PUTTING ON BIPAP AT THIS TIME. DR. SHULTZ AND Tanja PINEDA AWARE.
[2023-11-23 08:51] LABS: Lactic Acid 2.6 mmol/L (0.7-2.0)
[2023-11-23] MEDS: MIDAZOLAM HCL (*CRX) 2 MG/2 ML VIAL 4 MG IV PUSH (10:10)
[2023-11-23] MEDS: SUCCINYLCHOLINE CHLORIDE 20 MG/ML 10 ML VIAL 100 MG IV PUSH (10:12)
[2023-11-23] MEDS: ETOMIDATE 20 MG/10 ML AMPUL IV PUSH (10:12)
--- NOTE | 2023-11-23 10:25 | WPDPROCEDUR ---
Procedures Intubation Intubation Date: 11/23/23 Intubation Time: 10:10 A pre-procedural Time-Out was completed immediately before starting the procedure and confirmed: Patient Identification, Site, Procedure, Patient Position and the Availability of Requisite Equipment: Yes Sedative: etomidate Mg given: 20 Paralytic: succinylcholine Mg given: 100 Laryngoscope: fiber optic video scope ET tube size: cuffed Tube secured depth (cm): 25 Tube secured location: lips Tube placement confirmation: visualized tube passing through cords, equal breath sounds bilaterally, no breath sounds over epigastrium and confirmation by capnometry Patient tolerated procedure: well Intubation complications: none
[2023-11-23] MEDS: MIDAZOLAM 100MG/NS 100ML(*CRX) 100 MG/100 ML BAG IV CONT (11:00)
[2023-11-23] MEDS: FENTANYL 2,500MCG/NS250ML(*CRX 2,500 MCG/250 ML BAG IV CONT (11:00)
[2023-11-23] MEDS: ENOXAPARIN 40 MG/0.4 ML SYRINGE SUB-Q (11:10)
[2023-11-23 11:40] LABS: Alveolar/Arterial O2 Gradient 573.5 mmHg; Base Excess ABG -9.5 mEq/l (+/-2.0); Fractional Inspired Oxygen 100 %; HCO3 ABG 18.3 mEq/l (22.0-26.0); Oxygen Saturation ABG 95.3 % (95.0-100.0); Oxyhemoglobin 93.2 % THb (90.0-100.0); PCO2 ABG 47.5 mmHg (35.0-45.0); PO2 FiO2 Ratio Arterial Blood 0.92 %; Total Hemoglobin 12.1 g/dL (12.0-18.0)
[2023-11-23 11:42] LABS: Arterial Blood Gas Vent Mode CMV; Arterial Blood Gas Ventilator rate 20 /MIN; Device VENTILATOR; Modified Allen's Test Pass; Site Drawn RIGHT RADIAL; pH ABG 7.203 (7.350-7.450)
[2023-11-23 11:43] LABS: Arterial Blood Gas PEEP 10 cmH2O; Arterial Blood Gas Tidal Volume 400 ml
--- NOTE | 2023-11-23 11:56 | WPDCNINT ---
Assessment and Plan Assessment and plan (1) Acute hypoxic respiratory failure: Code(s): J96.01 - Acute respiratory failure with hypoxia Status: Acute Assessment and Plan: Acute respiratory failure likely related to bilateral pneumonia, questionable COVID pneumonia -worsening encephalopathy, increased oxygen requirements, was placed on high-flow therapy, continue desaturate -11/23/2023 intubated in the ICU -currently on CMV mode of ventilation peep of 5 -currently on hydrocortisone -status post remdesivir for 5 days (checked with pharmacy) -post intubation ABGs reviewed, -sedated with fentanyl and Versed, maintain RASS of 0 to -2, daily SBT and SAT -will obtain CT chest to get a better idea of the lung architecture and parenchyma (2) Bilateral pneumonia: Code(s): J18.9 - Pneumonia, unspecified organism Status: Acute Assessment and Plan: Bilateral interstitial changes in the mid and lower lungs bilaterally, most likely infiltrates secondary to pneumonia or interstitial fibrosis. -could also be related to aspiration given his altered mental status encephalopathy -continue cefepime, metronidazole, will add vancomycin -continue antibiotics -obtain sputum culture (3) COVID-19: Code(s): U07.1 - COVID-19 Status: Acute Assessment and Plan: status post 5 days of Remdesivir -currently on hydrocortisone (4) Hypernatremia: Code(s): E87.0 - Hyperosmolality and hypernatremia Status: Acute Assessment and Plan: Hypernatremia, likely due to dehydration, and free water deficit -nephrology following and managing -increased free water flushes via NG tube -patient on D5 water -TSH levels normal -cortisol within normal limit (patient was on steroids) -unlikely DI as patient is not dumping a lot of urine, discussed with Nephrology (5) Septic shock: Code(s): A41.9 - Sepsis, unspecified organism; R65.21 - Severe sepsis with septic shock Status: Acute Assessment and Plan: Septic shock likely related to pneumonia -patient on Levophed, will maintain mean arterial pressures greater than 65 mmHg are systolic blood pressure greater than 100 at all times - Patient is on metronidazole, cefepime. Will add vancomycin -blood, urine, (6) JEANNETTE (acute kidney injury): Code(s): N17.9 - Acute kidney failure, unspecified Status: Acute Assessment and Plan: Acute kidney injury likely multifactorial, related to hypotensive, shock, infection, hypovolemia, kidney stones -continue IV fluids -appreciate nephrology following the patient -patient continues to make urine, -continue to monitor urine output, renal function electrolytes -creatinine is improved since admission, (7) Kidney stones: Code(s): N20.0 - Calculus of kidney Status: Acute Assessment and Plan: Patient has history of kidney stones bilaterally with bilateral ureteral stents -urology has been following the patient, each time they were planning to do a cystoscopy with removal of the ureteral stents, patient had some respiratory distress and the procedures were deferred (8) Seizure disorder: Code(s): G40.909 - Epilepsy, unspecified, not intractable, without status epilepticus Status: Acute Assessment and Plan: Continue carbamazepine (9) Metabolic encephalopathy: Code(s): G93.41 - Metabolic encephalopathy Status: Acute Assessment and Plan: Metabolic encephalopathy is related to severe hypernatremia, acute kidney injury/uremia, septic shock, hypotension, hypoxia -continue to mind is underlying issues -CT head on admission on 11/17/2023 showed old infarcts in the brain -repeat CT brain Plan DVT prophylaxis: Lovenox Stress ulcer prophylaxis: Lansoprazole Nutrition: NPO Code Status: Full code Critical Care Time Spent: 53 minutes Due to a high probability of clinically significant, life threatening deterioration, the patient requir
[2023-11-23 12:17] LABS: Anion Gap 11 mmol/L (4-12); Blood Urea Nitrogen 58 mg/dL (9-20); Calcium 8.4 mg/dL (8.4-10.2); Carbon Dioxide 22 mmol/L (22-30); Chloride 137 mmol/L (98-107); Estimated CRCL calculation 35 ml/min; Estimated Glomerular Filt Rate 38; Glucose 136 mg/dL (65-110); Potassium 3.9 mmol/L (3.4-5.0); Sodium 170 mmol/L (137-145)
--- NOTE | 2023-11-23 12:33 | P.PNNP_ITS ---
Progress Note: A&P Assessment and Plan (1) Hypernatremia: Code(s): E87.0 - Hyperosmolality and hypernatremia Status: Acute Assessment and Plan: * worsening noted by AM and recent labs * suspect due to severe/significant free water deficit on admission * s/p 3L normal saline fluid bolus in the ER * then subsequently changed to D5W IVFs * D5W IVFs was on hold from 11/19 due to concerns of fluid overload * sodium was better but has not normalized - not clear why * unable to facilitate oral free water intake due to aspiration * NG tube in place * titrate free water flushes today in attempt to compensate * will attempt to change all carrier fluid for IV meds/IVPBs...etc to D5W if possible * restarted on D5W IVFs at this time * doubt DI since no evidence of polyuria * evaluation to date noted: * urine electrolytes (by FeUrea) prerenal * TSH okay * cortisol within reason (although already on steroids) * serum/urine osmo pending * SPEP/UPEP pending * follow trend of repeat sodium levels (2) Acute kidney failure: Code(s): N17.9 - Acute kidney failure, unspecified Status: Acute Assessment and Plan: * improvement noted since admission * multifactorial etiology: * acute on chronic hypotension * prerenal factors/volume depletion * renal hypoperfusion/mild ATN * infection/sepsis * nephrolithiasis (?) * no evidence of acute obstruction by admission CT of abd/pelvis: * bilateral double-J stent with hydronephrotic changes and bilateral renal stones with the largest in the left kidney measuring 6 mm; vascular calcifications are also noted; bladder is underfilled with Cotto's catheter; no bladder stones * renal ultrasound results noted * s/p aggressive IVF resuscitation * good urine output with cotto catheter in place * follow trend of repeat labs and UOP (3) Septic shock: Code(s): A41.9 - Sepsis, unspecified organism; R65.21 - Severe sepsis with septic shock Status: Acute Assessment and Plan: * as noted on admission with acute on chronic hypotension, elevated WBC, lactic acidosis, JEANNETTE/ARF, and altered mental status * potential sources = pneumonia, COVID, and possible UTI * s/p IVF resuscitation with normalization of lactic acid * culture data noted: * blood culture with Providencia (1 out of 2 bottles) * urine culture with mixed genital ashley * imaging (CT of C/A/P) with bilateral pneumonia * on antibiotics * on vasopressor therapy now * follow repeat cultures * continue supportive therapy (4) Bilateral pneumonia: Code(s): J18.9 - Pneumonia, unspecified organism Status: Acute Assessment and Plan: * as noted by recent CT imaging * possibly secondary to COVID versus bacterial pneumonia versus combination of both... * follow CXR and respiratory status * repeat CT scan of chest ordered (5) COVID: Code(s): U07.1 - COVID-19 Status: Acute Assessment and Plan: * viral PCR testing positive at nursing facilty * since hypoxic and requiring oxygen on admission, started on steroids and remdesivir * was weaned off supplemental oxygen until recently * completed course of remdesivir; remains on steroids * PRN IV diuretics based on CXR and respiratory status (6) Kidney stones: Code(s): N20.0 - Calculus of kidney Status: Acute Assessment and Plan: * has indwelling Cotto catheter and bilateral stents in place * CT imaging on admission with noted bilateral hydronephrotic changes with
--- NOTE | 2023-11-23 12:33 | PM.PNNEP ---
Progress Note: A&P Assessment and Plan (1) Hypernatremia: Code(s): E87.0 - Hyperosmolality and hypernatremia Status: Acute Assessment and Plan: worsening noted by AM and recent labs suspect due to severe/significant free water deficit on admission s/p 3L normal saline fluid bolus in the ER then subsequently changed to D5W IVFs D5W IVFs was on hold from 11/19 due to concerns of fluid overload sodium was better but has not normalized - not clear why unable to facilitate oral free water intake due to aspiration NG tube in place titrate free water flushes today in attempt to compensate will attempt to change all carrier fluid for IV meds/IVPBs...etc to D5W if possible restarted on D5W IVFs at this time doubt DI since no evidence of polyuria evaluation to date noted: urine electrolytes (by FeUrea) prerenal TSH okay cortisol within reason (although already on steroids) serum/urine osmo pending SPEP/UPEP pending follow trend of repeat sodium levels (2) Acute kidney failure: Code(s): N17.9 - Acute kidney failure, unspecified Status: Acute Assessment and Plan: improvement noted since admission multifactorial etiology: acute on chronic hypotension prerenal factors/volume depletion renal hypoperfusion/mild ATN infection/sepsis nephrolithiasis (?) no evidence of acute obstruction by admission CT of abd/pelvis: bilateral double-J stent with hydronephrotic changes and bilateral renal stones with the largest in the left kidney measuring 6 mm; vascular calcifications are also noted; bladder is underfilled with Cotto's catheter; no bladder stones renal ultrasound results noted s/p aggressive IVF resuscitation good urine output with cotto catheter in place follow trend of repeat labs and UOP (3) Septic shock: Code(s): A41.9 - Sepsis, unspecified organism; R65.21 - Severe sepsis with septic shock Status: Acute Assessment and Plan: as noted on admission with acute on chronic hypotension, elevated WBC, lactic acidosis, JEANNETTE/ARF, and altered mental status potential sources = pneumonia, COVID, and possible UTI s/p IVF resuscitation with normalization of lactic acid culture data noted: blood culture with Providencia (1 out of 2 bottles) urine culture with mixed genital ashley imaging (CT of C/A/P) with bilateral pneumonia on antibiotics on vasopressor therapy now follow repeat cultures continue supportive therapy (4) Bilateral pneumonia: Code(s): J18.9 - Pneumonia, unspecified organism Status: Acute Assessment and Plan: as noted by recent CT imaging possibly secondary to COVID versus bacterial pneumonia versus combination of both... follow CXR and respiratory status repeat CT scan of chest ordered (5) COVID: Code(s): U07.1 - COVID-19 Status: Acute Assessment and Plan: viral PCR testing positive at nursing facilty since hypoxic and requiring oxygen on admission, started on steroids and remdesivir was weaned off supplemental oxygen until recently completed course of remdesivir; remains on steroids PRN IV diuretics based on CXR and respiratory status (6) Kidney stones: Code(s): N20.0 - Calculus of kidney Status: Acute Assessment and Plan: has indwelling Cotto catheter and bilateral stents in place CT imaging on admission with noted bilateral hydronephrotic changes with bilateral stones and double-J stents Urology following intervention (cystoscopy/ureteral stent removal/stone extraction) given known problematic issues with outpatient follow-up when able (7) Altered mental status: Qualifiers: Altered mental status type: delirium Qualified Code(s): R41.0 - Disorientation, unspecified Code(s): R41.82 - Altered mental status, unspecified Status: Acute Assessment and Plan: due to metabolic encephalopathy from infection/sep
[2023-11-23] MEDS: NOREPINEPHRINE 8 MG/D5W 250 ML 8 MG/250 ML BAG 41.25 MG IV CONT (15:09)
[2023-11-23] MEDS: MIDAZOLAM HCL (*CRX) 2 MG/2 ML VIAL IV PUSH (15:10)
[2023-11-23] MEDS: ROCURONIUM BROMIDE 50 MG/5 ML VIAL IV PUSH (15:53)
--- NOTE | 2023-11-23 16:24 | P.PCNBED_ITS ---
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
[2023-11-23] MEDS: VASOPRESSIN INJ 100 UNITS in DEXTROSE 5% 95 ML IV CONT (16:25)
[2023-11-23 16:29] LABS: Base Excess ABG -11.6 mEq/l (+/-2.0); Fractional Inspired Oxygen 100 %; HCO3 ABG 17.3 mEq/l (22.0-26.0); Oxygen Content ABG 15.6 %vol (16.0-22.0); Oxygen Saturation ABG 91.6 % (95.0-100.0); Oxyhemoglobin 89.9 % THb (90.0-100.0); PCO2 ABG 51.4 mmHg (35.0-45.0); PO2 ABG 78.6 mmHg (80.0-100.0); PO2 FiO2 Ratio Arterial Blood 0.79 %; Total Hemoglobin 12.3 g/dL (12.0-18.0)
[2023-11-23 16:30] LABS: Device VENTILATOR; Site Drawn RIGHT FEMORAL; pH ABG 7.144 (7.350-7.450)
[2023-11-23 16:31] LABS: Arterial Blood Gas Vent Mode CMV; Arterial Blood Gas Ventilator rate 24 /MIN
[2023-11-23 16:32] LABS: Arterial Blood Gas PEEP 12 cmH2O; Arterial Blood Gas Tidal Volume 450 ml
[2023-11-23] MEDS: CISATRACURIUM BESYLATE 200 MG in DEXTROSE 5% 80 ML 5.99 ML IV CONT (16:43)
--- NOTE | 2023-11-23 17:09 | PM.IMPN ---
Progress Note: A&P Assessment and Plan (1) Acute hypoxic respiratory failure: Code(s): J96.01 - Acute respiratory failure with hypoxia Status: Acute Assessment and Plan: Patient this morning had sudden onset tachypnea. It was difficult to obtain SpO2 but felt to be low. ABG 7.48/64 NRB mask. CXR this morning showing coarse interstitial infiltrates mid and lower lungs. His mental status worsened and he developed acute respiratory failure likely related to bilateral pneumonia probably from aspiration. He was placed on high-flow therapy but he continued to deteriorate so he was intubated this morning. ABG has progressively worsened despite intubation with A-a gradient of 583. Plan for proning for possible ARDS. Discuss with applications manager. Continue sedation. (2) Bilateral pneumonia: Code(s): J18.9 - Pneumonia, unspecified organism Status: Acute Assessment and Plan: Chest CT shows bilateral lower lobe pneumonia secondary to COVID and possible concomitant bacterial pneumonia. Sputum culture has been ordered but not collected. Legionella and Pneumococcal urine antigens negative. ST bedside evaluation noted and recommended minced and moist with thickened level 3 liquids but felt that a MBS might provide more information. MBS 11/20 shows patient is at significant risk for aspiration. Non-oral feeding recommended. patient made NPO Patient became hypoxic again. Repeat CXR showed worsening pulmonary edema. IV fluids stopped and lasix given once with good UOP. No further Lasix since Na higher. He was weaned to room air Patient's condtion deteriorated this morning abruptly. Consider aspiration possible from emesis or reflux. CXR as above. Possibly ARDS Abx broadened. Patient to be proned. Continue mechanical ventialtion (3) Sepsis: Code(s): A41.9 - Sepsis, unspecified organism Status: Acute Assessment and Plan: Sepsis as evidenced by hypotension, leukocytosis, lactic acidosis, acute kidney injury, and altered mental status in the setting of infection which include pneumonia, COVID, and urinary tract infection. Status post 3 L normal saline with stabilization of blood pressures and normalization of lactic acid level. Vancomycin, Zosyn and doxycycline started after cultures obtained. BCx growing providencia stuartii in one anaerobic bottle. MRSA nasal swab positive. UCx growing mixed genital ashley. CT Ch/A/P showing bilateral PNA. Providencia can cause PNA especially in fpc care facilities. Still consider urinary source. WBC was up to 18K but now back down to 13K felt related to steroids and less likely infection Vancomycin stopped 11/18. Doxycycline continued orally. Was continued on Zosyn Sensitivities showing sensitive to zosyn, cefepime and bactrim. Changed Zosyn to Cefepime As above. Will repeat BCx. Continue Cefepime; Vanco and Flagyl added. Continue IV abx and stress dose steroids. (4) Dysphagia: Code(s): R13.10 - Dysphagia, unspecified Status: Acute Assessment and Plan: MBS showing patient is at significant risk for aspiration. Non-oral feeding recommended. Discussed with family/friend about risks/benefits of GTube. Patient has had a feeding tube in the past but pulled it out. They were given options of GTube vs allowing patient to eat/hospice with the increased risk of aspiration, PNA, resp failure and They wish to proceed with feeding tube. NGT placed and TF and free water flushes started. Plan for GTube placement when more stable. (5) COVID: Code(s): U07.1 - COVID-19 Status: Acute Assessment and Plan: Patient is positive for SARS-CoV-2 by PCR as of several days ago per nursing facility. He was started on remdesivir and dexamethasone here given the O2 requirement. Weaned off oxygen but had recurrent hypoxia felt related to pulmonary edema and/or aspiration He completed a course of Remdesivir. On room air now so we
[2023-11-23 17:45] LABS: Anion Gap 14 mmol/L (4-12); Blood Urea Nitrogen 65 mg/dL (9-20); Calcium 8.3 mg/dL (8.4-10.2); Carbon Dioxide 17 mmol/L (22-30); Chloride 137 mmol/L (98-107); Estimated CRCL calculation 34 ml/min; Estimated Glomerular Filt Rate 36; Glucose 136 mg/dL (65-110); Potassium 4.6 mmol/L (3.4-5.0); Sodium 168 mmol/L (137-145)
[2023-11-23] MEDS: SODIUM BICARBONATE 8.4% 50 MEQ/50 ML SYRINGE 100 MEQ IV PUSH (18:05)
[2023-11-23] MEDS: SODIUM CHLORIDE 0.9% IV 1,000 ML 999 ML IV CONT (18:14)
[2023-11-23] MEDS: EPINEPHrine INJ 1 MG in DEXTROSE 5% IN WATER 250 ML 15.06 MG IV CONT (18:35)
[2023-11-23] MEDS: CENTRAL LINE FLUSH 10 ML IV PUSH ×2 (18:44→22:15)
[2023-11-23] MEDS: NOREPINEPHRINE 8 MG/D5W 250 ML 8 MG/250 ML BAG 56.25 MG IV CONT (18:46)
[2023-11-23] MEDS: VANCOMYCIN 1,750 MG/NS 500 ML 1,750 MG/500 ML BAG 250 MG IVPB (18:53)
[2023-11-23] MEDS: metroNIDAZOLE 500 MG/ISO 100ML 500 MG/100 ML BAG 100 MG IVPB (18:54)
[2023-11-23] MEDS: HYDROCORTISONE SODIUM SUCCINATE 100 MG/2 ML VIAL IV PUSH ×2 (18:56→22:15)
[2023-11-23 20:19] LABS: Alveolar/Arterial O2 Gradient 547.5 mmHg; Base Excess ABG -8.6 mEq/l (+/-2.0); Fractional Inspired Oxygen 100 %; HCO3 ABG 18.2 mEq/l (22.0-26.0); Oxygen Content ABG 15.8 %vol (16.0-22.0); Oxygen Saturation ABG 97.9 % (95.0-100.0); Oxyhemoglobin 97.3 % THb (90.0-100.0); PCO2 ABG 42.8 mmHg (35.0-45.0); PO2 ABG 122.7 mmHg (80.0-100.0); PO2 FiO2 Ratio Arterial Blood 1.23 %; Total Hemoglobin 11.4 g/dL (12.0-18.0)
[2023-11-23 20:21] LABS: Site Drawn ARTLINE; pH ABG 7.247 (7.350-7.450)
[2023-11-23 20:22] LABS: Device VENTILATOR; Modified Allen's Test Pass
[2023-11-23 20:23] LABS: Arterial Blood Gas PEEP 12 cmH2O; Arterial Blood Gas Tidal Volume 500 ml; Arterial Blood Gas Vent Mode CMV; Arterial Blood Gas Ventilator rate 28 /MIN
[2023-11-23 20:55] LABS: Anion Gap 14 mmol/L (4-12); Blood Urea Nitrogen 62 mg/dL (9-20); Calcium 7.5 mg/dL (8.4-10.2); Carbon Dioxide 18 mmol/L (22-30); Chloride 135 mmol/L (98-107); Estimated CRCL calculation 34 ml/min; Estimated Glomerular Filt Rate 36; Glucose 173 mg/dL (65-110); Potassium 3.7 mmol/L (3.4-5.0); Sodium 167 mmol/L (137-145)
[2023-11-23] MEDS: CEFEPIME 2 GM in DEXTROSE 5% IN WATER 50 ML IVPB (22:14)
[2023-11-23] MEDS: MINERAL OIL/WHITE PETROLATUM OINTMENT 1 APPLIC EACH EYE (22:14)
[2023-11-23] MEDS: DOXYCYCLINE HYCLATE 100 MG TABLET FEED TUBE (22:14)
[2023-11-23] MEDS: ATORVASTATIN 40 MG TABLET FEED TUBE (22:14)
[2023-11-23 22:16] LABS: Add Urine Microscopic? YES; Appearance Urine Cloudy (Clear); Bacteria Urine None Seen /hpf; Bilirubin Urine Negative (Negative); Blood Urine 3+ (Negative); Color Urine Dark Yellow (Yellow); Glucose Urine UA Negative (Negative); Granular Casts Urine Present /lpf; Ketones Urine Negative (Negative); Leukocyte Esterase Ur 3+ LEU/UL (Negative); Need Manual Microscopic Reviewed; Nitrate Urine Negative (Negative); Protein Urine 2+ mg/dL (Negative); RBC Urine >100 /hpf (0-2); Specific Grav Ur 1.014 (1.001-1.035); Squamous Epithelial Cell Urine Occasional /hpf (Few); WBC Clumps Urine Present /HPF; WBC Urine 21-50 /hpf (0-3); pH Urine 5.5 (5.0-9.0)
[2023-11-23] MEDS: NOREPINEPHRINE 8 MG/D5W 250 ML 8 MG/250 ML BAG 52.5 MG IV CONT (23:15)
[2023-11-24] VITALS (78 sets, daily range): BP systolic 92–123; BP diastolic 53–84; PULSE 66–93; RESP 28; TEMP 33.5–37.2; O2SAT 89–100
[2023-11-24] LABS: MRSA (PCR) DETECTED (NOT DETECTE)
[2023-11-24] MEDS: metroNIDAZOLE 500 MG/ISO 100ML 500 MG/100 ML BAG 100 MG IVPB ×3 (00:25→18:14)
[2023-11-24 02:29] LABS: Anion Gap 13 mmol/L (4-12); Blood Urea Nitrogen 58 mg/dL (9-20); Carbon Dioxide 17 mmol/L (22-30); Chloride 125 mmol/L (98-107); Estimated CRCL calculation 35 ml/min; Estimated Glomerular Filt Rate 38; Glucose 373 mg/dL (65-110); Potassium 3.3 mmol/L (3.4-5.0); Sodium 155 mmol/L (137-145)
[2023-11-24] MEDS: EPINEPHrine INJ 1 MG in DEXTROSE 5% IN WATER 250 ML 15.06 MG IV CONT (03:00)
[2023-11-24 03:54] LABS: Basophils Percent Auto 0.2 % (0.2-1.2); Eosinophils Percent Auto 0.1 % (0-4.4); Hematocrit 41.5 % (42.0-52.0); Hemoglobin 11.9 g/dL (14.0-18.0); Immature Granulocyte Absolute 0.13 K/mm3 (0.00-0.031); Immature Granulocyte Percent A 0.8 % (0-0.5); Immature Platelet Fraction Pct 9.9 % (0.9-11.2); Lymphocytes Absolute Auto 1.29 K/mm3 (0.9-3.2); Lymphocytes Percent Auto 7.6 % (18.3-44.2); Mean Corpuscular HGB Conc 28.7 g/dl (32-36); Mean Corpuscular Hemoglobin 27.7 pg (26-34); Mean Corpuscular Volume 96.7 fl (80-100); Mean Platelet Volume 13.3 fl (7.4-10.4); Monocytes Absolute Auto 0.3 K/mm3 (0.1-0.6); Monocytes Percent Auto 1.7 % (2.6-8.5); Neutrophils Absolute Auto 15.2 K/mm3 (1.3-6.7); Neutrophils Percent Auto 89.6 % (45.5-73.1); Nucleated Red Blood Cells Perc 0.5 % (0.0-0.2); Platelet Count Result 209 k/mm3 (150-375); Red Blood Count 4.29 M/mm3 (4.6-6.20); Red Cell Distribution Width 17.4 % (11.5-14.5); White Blood Count 16.9 K/mm3 (4.5-10.0)
[2023-11-24 04:19] LABS: Anisocytosis 1+; Burr Cells 1+; Large Platelets Present; Platelet Clumps Present; Platelet Estimate Adequate (Adequate); Schistocytes None Seen
[2023-11-24 04:24] LABS: Lactic Acid Reflex 6.2 mmol/L (0.7-2.0)
[2023-11-24 04:25] LABS: Alanine Aminotransferase 20 U/L (6-50); Albumin Level 2.5 g/dL (3.5-5.1); Alkaline Phosphatase 217 U/L (38-126); Anion Gap 14 mmol/L (4-12); Aspartate Amino Transferase 33 U/L (17-59); Bilirubin,Total 1.5 mg/dL (0.2-1.3); Blood Urea Nitrogen 60 mg/dL (9-20); Calcium 7.6 mg/dL (8.4-10.2); Carbon Dioxide 15 mmol/L (22-30); Chloride 133 mmol/L (98-107); Estimated CRCL calculation 35 ml/min; Estimated Glomerular Filt Rate 38; Glucose 174 mg/dL (65-110); Magnesium 2.2 mg/dL (1.6-2.3); Phosphorus 7.8 mg/dL (2.5-4.5); Potassium 3.8 mmol/L (3.4-5.0); Sodium 162 mmol/L (137-145)
[2023-11-24] MEDS: NOREPINEPHRINE 8 MG/D5W 250 ML 8 MG/250 ML BAG 37.5 MG IV CONT ×2 (04:40→11:38)
[2023-11-24] MEDS: SODIUM BICARBONATE 8.4% 50 MEQ/50 ML SYRINGE 100 MEQ IV PUSH (05:02)
[2023-11-24 05:12] LABS: PCO2 ABG 51.9 mmHg (35.0-45.0); pH ABG 7.183 (7.350-7.450)
[2023-11-24 05:13] LABS: Alveolar/Arterial O2 Gradient 587.8 mmHg; Base Excess ABG -9.2 mEq/l (+/-2.0); HCO3 ABG 19.1 mEq/l (22.0-26.0); Oxygen Saturation ABG 90.7 % (95.0-100.0); PO2 ABG 73.3 mmHg (80.0-100.0); Total Hemoglobin 11.8 g/dL (12.0-18.0)
[2023-11-24 05:14] LABS: Device VENTILATOR; Modified Allen's Test Pass; Oxygen Content ABG 15.1 %vol (16.0-22.0); Oxyhemoglobin 90.9 % THb (90.0-100.0); PO2 FiO2 Ratio Arterial Blood 0.73 %; Site Drawn ARTLINE
[2023-11-24 05:15] LABS: Arterial Blood Gas PEEP 12 cmH2O; Arterial Blood Gas Tidal Volume 500 ml; Arterial Blood Gas Vent Mode CMV; Arterial Blood Gas Ventilator rate 28 /MIN
[2023-11-24] MEDS: LANSOPRAZOLE ODT 30 MG TAB.RAP.DR FEED TUBE (06:24)
[2023-11-24] MEDS: HYDROCORTISONE SODIUM SUCCINATE 100 MG/2 ML VIAL IV PUSH ×3 (06:24→21:20)
[2023-11-24] MEDS: CENTRAL LINE FLUSH 10 ML IV PUSH ×4 (06:24→21:22)
[2023-11-24 06:42] LABS: Reflex Lactic Acid Yes or No Add Lactic
--- NOTE | 2023-11-24 08:23 | WPDGICN ---
Assessment and Plan Assessment and plan Plan 1) 2) 3) The patient will follow up in the office in [ ] months or sooner if needed. The patients follow up office visit will be determined at time of endoscopy. This report may have been done utilizing a voice recognition system. Attempts have been made to correct errors. However, there may be uncorrected grammatical, spelling, and recognition errors present. GI Consult Note Consult date/time: 11/24/23 08:23 HPI: Blaine Salvador is a 63 year old male Review of Systems Constitutional: Constitutional: Reports as per HPI ENT: Reports as per HPI Cardiovascular: Cardiovascular: Reports as per HPI, Denies chest pain and Denies dyspnea Respiratory: Respiratory: Denies cough and Denies dyspnea Gastrointestinal: Gastrointestinal: Reports as per HPI Musculoskeletal: Musculoskeletal: Reports as per HPI Integumentary/Breasts: Skin/Breast: Reports as per HPI Psychiatric: Psychiatric: Reports as per HPI Endocrine: Endocrine: Reports no additional endocrine complaints Hematologic/Lymphatic: Hematologic/Lymphatic: Reports no additional hematologic/lymphatic complaints [facility] Past Medical History Medical History (Updated 11/23/23 @ 15:06 by Whitney Salinas MD) Aortic valve disease Atherosclerosis of coronary artery Benign prostatic hyperplasia Cerebrovascular accident (05/01/22) CTA head and neck showed occlusion of the right distal ICA and M1. He was not a candidate for tPA with concomitant diagnosis of bacteremia and endocarditis. Chronic anemia Chronic obstructive pulmonary disease Depression with anxiety Dysphagia Speech therapy recommends level 5 (minced and moist) and level 3 (moderately thick) as of 09/2023. 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 History of spinal surgery History of ureter stent Family History Family History Other No pertinent family history Social History Social History (Updated 11/18/23 @ 00:05 by Sara Ni PA-C) Social History: Surrogate decision maker: Evaristo Jimenez ([phone]) Code status: Full code. Smoking packs per day: 0.25 Smoking cigarettes per day: 5.0 Years smoked: 10 Smoking pack-years: 2.50 Smoking status: Former smoker Second hand tobacco smoke exposure: Yes Additional smoking assessment comments: used to be heavy smoker Alcohol intake: never Alcohol use details: Recovering alcoholic. Substance use: never Substance use type: does not use Last use: over 10 years Do You Feel Safe in your Home?: Yes Lack of Transportation: No Lack of Food: Never True Current Housing: I Have Housing Concerned About Future Housing: No Difficulty Paying Gas/Electric Bills: No Difficulty Paying for Meds: No Currently Unemployed: No Education: Don't Know Difficulty w/ Childcare or Family Care: No Living arrangements: prison Additional living arrangements comments: [facility]. Prior to his stroke he was living with his voip network engineer in [place]. Additional occupation/education comments: Disabled. Previously worked for [employer]. Spiritual care concerns: No
[2023-11-24 08:24] LABS: Anion Gap 10 mmol/L (4-12); Blood Urea Nitrogen 62 mg/dL (9-20); Calcium 7.3 mg/dL (8.4-10.2); Carbon Dioxide 23 mmol/L (22-30); Chloride 130 mmol/L (98-107); Estimated CRCL calculation 35 ml/min; Estimated Glomerular Filt Rate 36; Glucose 118 mg/dL (65-110); Potassium 4.3 mmol/L (3.4-5.0); Sodium 163 mmol/L (137-145)
[2023-11-24 08:25] LABS: Lactic Acid 4.1 mmol/L (0.7-2.0)
--- NOTE | 2023-11-24 08:56 | PCSTNOTE ---
Patient is being discharged from direct Speech Therapy at this time due to change in medical status. May consider re-evaluation when patient's status improves.
--- NOTE | 2023-11-24 10:08 | P.PCNBED_ITS ---
Procedures Central Line Placement Left IJ: Central Line Date: 11/24/23 Central Line Time: 09:25 Discussed w/ the patient/family/POA,the placement of a central venous catheter, including its clinical necessity/indication & associated potential risks, benifits and alternatives.: Yes The patient/family/POA understand(s) and acknowledge(s) the need to proceed with central venous catheter insertion as an important element of the patient's clinical management.: Yes Consent: I have discussed with the patient and/or surrogate, the non-emergent placement of a central venous catheter, including its clinical necessity/indication and associated potential risks and complications. The patient and/or surrogate understand(s) and acknowledge(s) the need to proceed with central venous catheter insertion as an important element of the patient's clinical management. Time Out Performed: Yes Patient Position: supine Patient placed on monitor/pulse ox: Yes Provider Prep: mask, sterile gown, sterile gloves, Max. sterile barrier precautions, cap and hand hygiene with conventional soap/water or alcohol based hand rub Central line prep: 2% Chlorhexidine scrub Local anesthesia used: lidocaine 1% Amount of anesthesia used (ml): 2 Sterile US Technique with sterile gel/sterile probe covers: Yes Central line lumen inserted: triple [place]er: 7 Length (cm): 20 Depth of Insertion (cm): 20 Post Procedure: sutured in place, good blood return, all ports aspirated, flushed, capped, transparent dressing, hemostatic product, antimicrobial product, securement product and aseptic technique maintained throughout procedure Post procedure x-ray: tip of catheter in good position and no pneumothorax seen Patient tolerated procedure: well Complications: none Arterial Line Size (Gauge): 14
--- NOTE | 2023-11-24 10:28 | P.PNNP_ITS ---
Progress Note: A&P Assessment and Plan (1) Hypernatremia: Code(s): E87.0 - Hyperosmolality and hypernatremia Status: Acute Assessment and Plan: * some imprvement in the last 24 hours * suspect due to severe/significant free water deficit on admission * s/p 3L normal saline fluid bolus in the ER * then subsequently changed to D5W IVFs * D5W IVFs was on hold from 11/19 due to concerns of fluid overload * sodium was better but has not normalized - not clear why * unable to facilitate oral free water intake due to aspiration risk * NG tube in place * titrate free water flushes in attempt to compensate * will attempt to change all carrier fluid for IV meds/IVPBs...etc to D5W if possible * will consider restarting D5W IVFs depending on trend of sodium * doubt DI since no evidence of polyuria * evaluation to date noted: * urine electrolytes (by FeUrea) prerenal * TSH okay * cortisol within reason (although already on steroids) * serum/urine osmo pending * SPEP/UPEP pending * follow trend of repeat sodium levels (2) Acute kidney failure: Code(s): N17.9 - Acute kidney failure, unspecified Status: Acute Assessment and Plan: * initial improvement noted from admission * however, some worsening noted since 11/22 -- likely related to hypoxia and hypotension/altered hemodynamics * multifactorial etiology: * acute on chronic hypotension * prerenal factors/volume depletion * renal hypoperfusion/mild ATN * infection/sepsis * nephrolithiasis (?) * no evidence of acute obstruction by admission CT of abd/pelvis: * bilateral double-J stent with hydronephrotic changes and bilateral renal stones with the largest in the left kidney measuring 6 mm; vascular calcifications are also noted; bladder is underfilled with Cotto's catheter; no bladder stones * renal ultrasound results noted * s/p aggressive IVF resuscitation * good urine output with cotto catheter in place * follow trend of repeat labs and UOP (3) Acute hypoxic respiratory failure: Code(s): J96.01 - Acute respiratory failure with hypoxia Status: Acute Assessment and Plan: * related to bilateral pneumonia and questionable COVID pneumonia * intubated and on mechanical ventilation on 11/22 * given ARDS picture, prone positioning initiated * repeat CT of chest once more stable * continue ventilator support (4) Septic shock: Code(s): A41.9 - Sepsis, unspecified organism; R65.21 - Severe sepsis with septic shock Status: Acute Assessment and Plan: * as noted on admission with acute on chronic hypotension, elevated WBC, lactic acidosis, JEANNETTE/ARF, and altered mental status * potential sources = pneumonia, COVID, and possible UTI * s/p IVF resuscitation with normalization of lactic acid * culture data noted: * blood culture with Providencia (1 out of 2 bottles) * urine culture with mixed genital ashlye * imaging (CT of C/A/P) with bilateral pneumonia * on antibiotics * on vasopressor therapy * follow repeat cultures * continue supportive therapy (5) Bilateral pneumonia: Code(s): J18.9 - Pneumonia, unspecified organism Status: Acute Assessment and Plan: * as noted by previous CT imaging * possibly secondary to COVID versus bacterial pneumonia versus combination of both... * follow CXR and respiratory status * on ventilator support (6) COVID: Code(s): U07.1 - COVID-19 Status: Acute Assessment and Plan: * viral PCR testing pos
--- NOTE | 2023-11-24 10:28 | PM.PNNEP ---
Progress Note: A&P Assessment and Plan (1) Hypernatremia: Code(s): E87.0 - Hyperosmolality and hypernatremia Status: Acute Assessment and Plan: some imprvement in the last 24 hours suspect due to severe/significant free water deficit on admission s/p 3L normal saline fluid bolus in the ER then subsequently changed to D5W IVFs D5W IVFs was on hold from 11/19 due to concerns of fluid overload sodium was better but has not normalized - not clear why unable to facilitate oral free water intake due to aspiration risk NG tube in place titrate free water flushes in attempt to compensate will attempt to change all carrier fluid for IV meds/IVPBs...etc to D5W if possible will consider restarting D5W IVFs depending on trend of sodium doubt DI since no evidence of polyuria evaluation to date noted: urine electrolytes (by FeUrea) prerenal TSH okay cortisol within reason (although already on steroids) serum/urine osmo pending SPEP/UPEP pending follow trend of repeat sodium levels (2) Acute kidney failure: Code(s): N17.9 - Acute kidney failure, unspecified Status: Acute Assessment and Plan: initial improvement noted from admission however, some worsening noted since 11/22 -- likely related to hypoxia and hypotension/altered hemodynamics multifactorial etiology: acute on chronic hypotension prerenal factors/volume depletion renal hypoperfusion/mild ATN infection/sepsis nephrolithiasis (?) no evidence of acute obstruction by admission CT of abd/pelvis: bilateral double-J stent with hydronephrotic changes and bilateral renal stones with the largest in the left kidney measuring 6 mm; vascular calcifications are also noted; bladder is underfilled with Cotto's catheter; no bladder stones renal ultrasound results noted s/p aggressive IVF resuscitation good urine output with cotto catheter in place follow trend of repeat labs and UOP (3) Acute hypoxic respiratory failure: Code(s): J96.01 - Acute respiratory failure with hypoxia Status: Acute Assessment and Plan: related to bilateral pneumonia and questionable COVID pneumonia intubated and on mechanical ventilation on 11/22 given ARDS picture, prone positioning initiated repeat CT of chest once more stable continue ventilator support (4) Septic shock: Code(s): A41.9 - Sepsis, unspecified organism; R65.21 - Severe sepsis with septic shock Status: Acute Assessment and Plan: as noted on admission with acute on chronic hypotension, elevated WBC, lactic acidosis, JEANNETTE/ARF, and altered mental status potential sources = pneumonia, COVID, and possible UTI s/p IVF resuscitation with normalization of lactic acid culture data noted: blood culture with Providencia (1 out of 2 bottles) urine culture with mixed genital ashley imaging (CT of C/A/P) with bilateral pneumonia on antibiotics on vasopressor therapy follow repeat cultures continue supportive therapy (5) Bilateral pneumonia: Code(s): J18.9 - Pneumonia, unspecified organism Status: Acute Assessment and Plan: as noted by previous CT imaging possibly secondary to COVID versus bacterial pneumonia versus combination of both... follow CXR and respiratory status on ventilator support (6) COVID: Code(s): U07.1 - COVID-19 Status: Acute Assessment and Plan: viral PCR testing positive at nursing facilty since hypoxic and requiring oxygen on admission, started on steroids and remdesivir was weaned off supplemental oxygen until recently now on ventilator support completed course of remdesivir; remains on steroids and started on baricitinib follow CXR and respiratory status (7) Kidney stones: Code(s): N20.0 - Calculus of kidney Status: Acute Assessment and Plan: has indwelling Cotto catheter and bilateral stents in place CT imaging on admi
[2023-11-24] MEDS: MINERAL OIL/WHITE PETROLATUM OINTMENT 1 APPLIC EACH EYE ×2 (10:54→21:21)
[2023-11-24] MEDS: ASPIRIN 81 MG CHEWABLE TABLET FEED TUBE (10:54)
[2023-11-24] MEDS: carBAMazepine 200 MG TABLET FEED TUBE ×3 (10:54→18:14)
[2023-11-24] MEDS: MIDODRINE HCL 2.5 MG TABLET 5 MG FEED TUBE (10:54)
[2023-11-24] MEDS: CLOPIDOGREL BISULFATE 75 MG TABLET FEED TUBE (10:54)
[2023-11-24] MEDS: BARICITINIB 2 MG TABLET FEED TUBE (10:54)
[2023-11-24] MEDS: ENOXAPARIN 40 MG/0.4 ML SYRINGE SUB-Q (10:56)
[2023-11-24] MEDS: CEFEPIME 2 GM in DEXTROSE 5% IN WATER 50 ML IVPB ×2 (10:56→20:00)
[2023-11-24] MEDS: ALBUMIN HUMAN 25% 25 GM/100 ML 100 ML IVPB ×3 (10:56→19:58)
--- NOTE | 2023-11-24 11:04 | PCFNICU ---
ICU Rounding Note: Pt current nutrition is NPO. Nutrition recommendation: NPO currently. Agree with orders. When tube feeding is started, recommend Nepro @ goal rate 40ml/h: 1584 kcal, 71 g protein, 640 ml free water, Add Prosource TF once per day for total 1664 kcal, 91 g protein, 640 ml free water. Last recorded weight is 70.2 kg. Bowel Motility: +1 BM 11/23/23 Labs Reviewed: Hgb 11.9, Hct 41.5, Alb 2.5, Na 163, BUN 62, Cre 1.9 Meds Noted: Pressors: Levophed, Vasopressin, Epinephrine. Sedation with fentanyl, versed, Nimbex. Cefepime, Flagyl, Vancomycin Skin: No pressure injuries. Additional Notes: Pt became hypoxic and was intubated yesterday 11/23/23. NPO today due to multiple pressors. MAP 69. Tube feeding recommendations as above when tube feeding is started. Following daily in ICU rounds. Monitor for diet orders, intake, tolerance, wt, labs. Follow up in 3 days. .
[2023-11-24] MEDS: CISATRACURIUM BESYLATE 200 MG in DEXTROSE 5% 80 ML IV CONT (11:45)
[2023-11-24] MEDS: DEXTROSE 5% 1,000 ML 1,000 ML 100 ML IV CONT ×2 (12:03→21:21)
--- NOTE | 2023-11-24 12:03 | WPDINTPN ---
Progress Note: A&P Assessment and Plan (1) Septic shock: Code(s): A41.9 - Sepsis, unspecified organism; R65.21 - Severe sepsis with septic shock Status: Acute Assessment and Plan: Septic shock likely related to pneumonia -fluid management per Nephrology due to severe hyponatremia -patient on Levophed, vasopressin and epinephrine, will maintain mean arterial pressures greater than 65 mmHg or systolic blood pressure greater than 100 at all times - Patient is on metronidazole, cefepime and vancomycin -11/22: Blood culture obtained and pending -11/22: Urine culture obtained and pending -11/22: Sputum culture obtained and pending -patient on stress dose steroids (2) Acute hypoxic respiratory failure: Code(s): J96.01 - Acute respiratory failure with hypoxia Status: Acute Assessment and Plan: Acute respiratory failure likely related to bilateral pneumonia, questionable COVID pneumonia -worsening encephalopathy, increased oxygen requirements, was placed on high-flow therapy, continue desaturate -11/23/2023 intubated in the ICU -currently on CMV mode of ventilation peep of 12, 100% FiO2 -P/F ratio is 73, which puts him and severe ARDS according to [place] criteria -currently on hydrocortisone -started him on baricitinib -status post remdesivir for 5 days (checked with pharmacy) -ABGs and chest x-ray reviewed, will obtain repeat blood gases now that he is in prone position -sedated with fentanyl and Versed, maintain RASS of 0 to -2, -Nimbex for neuromuscular blockade -will obtain CT chest scan when patient is more stable (3) Bilateral pneumonia: Code(s): J18.9 - Pneumonia, unspecified organism Status: Acute Assessment and Plan: Bilateral interstitial changes in the mid and lower lungs bilaterally, most likely infiltrates secondary to pneumonia or interstitial fibrosis. -could also be related to aspiration given his altered mental status encephalopathy -continue cefepime, metronidazole, and vancomycin -continue antibiotics -obtain sputum culture (4) COVID-19: Code(s): U07.1 - COVID-19 Status: Acute Assessment and Plan: status post 5 days of Remdesivir -currently on hydrocortisone -started on baricitinib (11/23) (5) Hypernatremia: Code(s): E87.0 - Hyperosmolality and hypernatremia Status: Acute Assessment and Plan: Hypernatremia, likely due to dehydration, and free water deficit -nephrology following and managing -currently on free water flushes via NG tube and on D5 water infusion -and albumin for intravascular volume expansion -TSH levels normal -cortisol within normal limit (patient was on steroids) -unlikely DI as patient is not dumping a lot of urine, discussed with Nephrology, urine studies are pending (6) JEANNETTE (acute kidney injury): Code(s): N17.9 - Acute kidney failure, unspecified Status: Acute Assessment and Plan: Acute kidney injury likely multifactorial, related to hypotensive, shock, infection, hypovolemia, kidney stones -continue IV fluids -appreciate nephrology following the patient -patient continues to make urine, -continue to monitor urine output, renal function electrolytes -creatinine is improved since admission 1.8 this morning, is stable (7) Kidney stones: Code(s): N20.0 - Calculus of kidney Status: Acute Assessment and Plan: Patient has history of kidney stones bilaterally with bilateral ureteral stents -urology has been following the patient, each time they were planning to do a cystoscopy with removal of the ureteral stents, patient had some respiratory distress and the procedures were deferred (8) Seizure disorder: Code(s): G40.909 - Epilepsy, unspecified, not intractable, without status epilepticus Status: Acute Assessment and Plan: Continue carbamazepine, -carbamazepine levels are pending (9) Metabolic encephalopathy: Code(s): G93.41 - Metabolic
[2023-11-24 12:22] LABS: Anion Gap 16 mmol/L (4-12); Blood Urea Nitrogen 60 mg/dL (9-20); Calcium 6.8 mg/dL (8.4-10.2); Carbon Dioxide 19 mmol/L (22-30); Chloride 126 mmol/L (98-107); Estimated CRCL calculation 37 ml/min; Estimated Glomerular Filt Rate 38; Glucose 166 mg/dL (65-110); Potassium 4.2 mmol/L (3.4-5.0); Sodium 161 mmol/L (137-145)
[2023-11-24 12:33] LABS: Osmolality, Urine 251 mOsm/kg (50-1200)
[2023-11-24 12:57] LABS: CRP 34.6 mg/dL (<1.0)
[2023-11-24 13:11] LABS: Alveolar/Arterial O2 Gradient 411.2 mmHg; Base Excess ABG -3.5 mEq/l (+/-2.0); Fractional Inspired Oxygen 100 %; HCO3 ABG 21.5 mEq/l (22.0-26.0); Oxygen Saturation ABG 99.6 % (95.0-100.0); PCO2 ABG 39.2 mmHg (35.0-45.0); PO2 ABG 262.6 mmHg (80.0-100.0); PO2 FiO2 Ratio Arterial Blood 2.63 %; pH ABG 7.358 (7.350-7.450)
[2023-11-24 13:13] LABS: Device VENTILATOR; Modified Allen's Test Pass; Site Drawn RIGHT RADIAL
[2023-11-24 13:15] LABS: Arterial Blood Gas PEEP 12 cmH2O; Arterial Blood Gas Tidal Volume 500 ml; Arterial Blood Gas Vent Mode CMV; Arterial Blood Gas Ventilator rate 28 /MIN
[2023-11-24 15:10] LABS: Lactic Acid Reflex 3.4 mmol/L (0.7-2.0)
[2023-11-24] MEDS: MIDAZOLAM 100MG/NS 100ML(*CRX) 100 MG/100 ML BAG IV CONT (16:12)
[2023-11-24 16:45] LABS: Anion Gap 9 mmol/L (4-12); Blood Urea Nitrogen 62 mg/dL (9-20); Calcium 7.1 mg/dL (8.4-10.2); Carbon Dioxide 24 mmol/L (22-30); Chloride 126 mmol/L (98-107); Estimated CRCL calculation 39 ml/min; Estimated Glomerular Filt Rate 41; Glucose 213 mg/dL (65-110); Potassium 3.9 mmol/L (3.4-5.0); Sodium 159 mmol/L (137-145)
--- NOTE | 2023-11-24 17:12 | PC.NURSE ---
Notified Dr. Terrazas of sodium results of 159. Pt is receiving 50ml/hr of free water flushes since 1430, and D5 @ 100ml/hr. No changes to medications at this time. New order to call Dr. Terrazas with 1999 BMP results.
--- NOTE | 2023-11-24 18:00 | PM.IMPN ---
Progress Note: A&P Assessment and Plan (1) Septic shock: Code(s): A41.9 - Sepsis, unspecified organism; R65.21 - Severe sepsis with septic shock Status: Acute Assessment and Plan: Sepsis as evidenced by hypotension, leukocytosis, lactic acidosis, acute kidney injury, and altered mental status in the setting of infection which include pneumonia, COVID, and urinary tract infection on admission. Status post 3 L normal saline with stabilization of blood pressures and normalization of lactic acid level. Vancomycin, Zosyn and doxycycline started after cultures obtained. BCx growing providencia stuartii in one anaerobic bottle. MRSA nasal swab positive. UCx growing mixed genital ashley. CT Ch/A/P showing bilateral PNA. Providencia can cause PNA especially in [facility] care facilities. WBC was up to 18K but now back down to 13K felt related to steroids and less likely infection. Vancomycin stopped 11/18. Doxycycline continued orally. Changed Zosyn to Cefepime. Condition worsened on 11/22. WBC up to 17K. CXR showing bilateral PNA. Repeat BCx/UCx and sputum Cx pending. Abx advanced to Cefepime, Vanco and Flagyl Developed septic shosk and pressors started with Epi, SCRAP METAL COLLECTOR and Levophed. Able to come off of SCRAP METAL COLLECTOR and Epi today. Patient paralyzed. Stress does steroids and Albumin started. Charisma Huger for hypothermia. Continue current care plan (2) Acute hypoxic respiratory failure: Code(s): J96.01 - Acute respiratory failure with hypoxia Status: Acute Assessment and Plan: Patient developed sudden onset tachypnea in the early childhood special educator of 11/22. It was difficult to obtain SpO2 but felt to be low. ABG 7.48//64 NRB mask. CXR showed coarse interstitial infiltrates mid and lower lungs. His mental status worsened and he developed acute respiratory failure likely related to bilateral pneumonia probably from aspiration. He was placed on high-flow therapy but he continued to deteriorate so he was intubated 11/22. ABG progressively worsened despite intubation with A-a gradient of 583 consistent with ARDS. Patient paralyzed. Appreciate market reporter input. Continue sedation. (3) Bilateral pneumonia: Code(s): J18.9 - Pneumonia, unspecified organism Status: Acute Assessment and Plan: Chest CT shows bilateral lower lobe pneumonia secondary to COVID and possible concomitant bacterial pneumonia. Legionella and Pneumococcal urine antigens negative. ST bedside evaluation noted and recommended minced and moist with thickened level 3 liquids but felt that a MBS might provide more information. MBS 11/20 shows patient is at significant risk for aspiration. Non-oral feeding recommended. After discussing with surrogate decision makers, patient made NPO, NGT placed and TF started with plan for possible GTube. Patient's condition deteriorated abruptly on 11/22. Consider aspiration possibly from emesis or reflux. CXR as above. Possibly ARDS Abx broadened. Patient paralyzed Continue mechanical ventilation (4) Dysphagia: Code(s): R13.10 - Dysphagia, unspecified Status: Acute Assessment and Plan: MBS showing patient is at significant risk for aspiration. Non-oral feeding recommended. Discussed with family/friend about risks/benefits of GTube. Patient has had a feeding tube in the past but pulled it out. They were given options of GTube vs allowing patient to eat/hospice with the increased risk of aspiration, PNA, resp failure and . They wish to proceed with feeding tube so NGT placed and TF and free water flushes started. Plan for GTube placement when more stable. (5) COVID: Code(s): U07.1 - COVID-19 Status: Acute Assessment and Plan: Patient is positive for SARS-CoV-2 by PCR as of several days ago per nursing facility. He was started on remdesivir and dexamethasone here given the O2 requirement. Weaned off oxygen but had recurrent hypoxia felt related to pulmonary edema and/or aspiration.
[2023-11-24] MEDS: FENTANYL 2,500MCG/NS250ML(*CRX 2,500 MCG/250 ML BAG 7.5 MCG IV CONT (18:21)
[2023-11-24 20:24] LABS: Anion Gap 10 mmol/L (4-12); Blood Urea Nitrogen 60 mg/dL (9-20); Carbon Dioxide 24 mmol/L (22-30); Chloride 123 mmol/L (98-107); Estimated CRCL calculation 39 ml/min; Estimated Glomerular Filt Rate 41; Glucose 230 mg/dL (65-110); Potassium 3.5 mmol/L (3.4-5.0); Sodium 157 mmol/L (137-145)
[2023-11-24] MEDS: PANTOPRAZOLE SODIUM IV 40 MG VIAL IV PUSH (21:20)
[2023-11-24 22:18] LABS: Carbamazepine Tegretol 12.8 mcg/mL (4.0-12.0)
[2023-11-25] VITALS (24 sets, daily range): BP systolic 88–134; BP diastolic 45–80; PULSE 58–82; RESP 6–28; TEMP 35.5–37.8; O2SAT 72–98
--- NOTE | 2023-11-25 | ECHO_ITS ---
Patient Info Name: Blaine Salvador Age: 63 years : 1960 Gender: Male Ht: 72 in Wt: 146 lbs BSA: 1.82 m2 HR: 64 bpm BP: 100 / 55 mmHg Technical Quality: Poor Exam Date: 11/25/2023 10:10 AM Exam Location: Echo Lab Patient Status: Inpatient Admit Date: 11/18/2023 Staff Ordering Physician: Roberta Stevens DO Carpet Technician: Soo Wong RDCS Attending Provider: Jaime Torres MD Referring Physician: Hilda MCDUFFIE; Exam Type: CA echo dop color flow w con Study Info Indications J96.90 - Respiratory failure, unspecified, unspecified whether with hypoxia or hypercapnia Complete two-dimensional, color flow and Doppler transthoracic echocardiogram is performed with contrast to opacify the left ventricle and to improve the deliniation of the left ventricle endocardial borders. Contrast/Agitated Saline Contrast/Ag. Saline: Definity Amount: 3.00 ml Existing IV Access: Yes IV Access Condition: patent with no signs of infiltration Reason for Poor Study: poor echocardiographic windows Summary 1. Left ventricular size and systolic function appears to be normal. LVEF is approximately 60-65%. Normal wall motion. 2. There is an aortic valve prosthesis. The valve is poorly visualized however the velocity and gradients across the valve appears normal. No color Doppler evidence of significant aortic regurgitation. 3. Overall this is a study with poor images. Left Ventricle Left ventricular size and systolic function appears to be normal. LVEF is approximately 60-65%. Normal wall motion. Right Ventricle Right ventricle is poorly visualized however size and systolic function does appear to be normal in the limited views. Left Atria Left atrial chamber dimension is normal. Right Atria Right atrial chamber dimension is normal. Aortic Valve There is an aortic valve prosthesis. The valve is poorly visualized however the velocity and gradients across the valve appears normal. No color Doppler evidence of significant aortic regurgitation. Pulmonic Valve Poorly visualized. Trace pulmonic valve regurgitation. Mitral Valve Poorly visualized. No color Doppler evidence of significant mitral regurgitation. Tricuspid Valve Poorly visualized. Trace tricuspid valve regurgitation. Pericardium/Pleural Pericardium is normal in appearance with no evidence for significant pericardial effusion. Inferior Vena Cava Normal inferior vena cava with >50% collapse upon inspiration consistent with normal right atrial pressure, 3 mmHg. Left Ventricular Outflow Tract Name Value Normal LVOT 2D LVOT Diameter 2.10 cm LVOT Doppler LVOT Peak Gradient 4 mmHg LVOT Mean Gradient 2 mmHg LVOT VTI 16.56 cm LVOT VTI/AV VTI Ratio 0.92 LVOT Stroke Volume 57.08 ml LVOT CO 4.32 l/min LVOT CI 2.37 L/min/m2 Pulmonic Valve Name Value Normal
[2023-11-25] MEDS: metroNIDAZOLE 500 MG/ISO 100ML 500 MG/100 ML BAG 100 MG IVPB ×2 (00:20→09:41)
[2023-11-25 00:47] LABS: Anion Gap 9 mmol/L (4-12); Blood Urea Nitrogen 59 mg/dL (9-20); Calcium 7.4 mg/dL (8.4-10.2); Carbon Dioxide 26 mmol/L (22-30); Chloride 124 mmol/L (98-107); Estimated CRCL calculation 42 ml/min; Estimated Glomerular Filt Rate 44; Glucose 118 mg/dL (65-110); Potassium 3.3 mmol/L (3.4-5.0); Sodium 159 mmol/L (137-145)
--- NOTE | 2023-11-25 01:05 | PC.NURSE ---
Spoke with Dr. Terrazas on the phone and discussed the patient's lab results. He wants to wait and see the morning labs before deciding on further action. He ordered me not to call him back with results and that he would review the chart in the A.M.
[2023-11-25] MEDS: ALBUMIN HUMAN 25% 25 GM/100 ML 100 ML IVPB (01:54)
[2023-11-25 04:33] LABS: Hematocrit 22.7 % (42.0-52.0); Mean Corpuscular HGB Conc 30.8 g/dl (32-36); Mean Corpuscular Hemoglobin 27.8 pg (26-34); Mean Corpuscular Volume 90.1 fl (80-100); Platelet Count Result 111 k/mm3 (150-375); Red Blood Count 2.52 M/mm3 (4.6-6.20); Red Cell Distribution Width 16.8 % (11.5-14.5); White Blood Count 10.4 K/mm3 (4.5-10.0)
[2023-11-25 04:48] LABS: Alanine Aminotransferase 14 U/L (6-50); Albumin Level 2.9 g/dL (3.5-5.1); Alkaline Phosphatase 102 U/L (38-126); Anion Gap 10 mmol/L (4-12); Aspartate Amino Transferase 25 U/L (17-59); Bilirubin,Total 1.3 mg/dL (0.2-1.3); Blood Urea Nitrogen 56 mg/dL (9-20); Calcium 7.8 mg/dL (8.4-10.2); Carbon Dioxide 26 mmol/L (22-30); Chloride 124 mmol/L (98-107); Estimated CRCL calculation 39 ml/min; Estimated Glomerular Filt Rate 41; Glucose 98 mg/dL (65-110); Potassium 3.2 mmol/L (3.4-5.0); Sodium 160 mmol/L (137-145)
[2023-11-25 05:23] LABS: Alveolar/Arterial O2 Gradient 224.1 mmHg; Base Excess ABG -1.9 mEq/l (+/-2.0); Carboxyhemoglobin 1.1 % THb (0-2.0); Fractional Inspired Oxygen 50 %; HCO3 ABG 22.3 mEq/l (22.0-26.0); Methemoglobin ABG 0.1 %THb (0-1.5); Oxygen Saturation ABG 97.3 % (95.0-100.0); Oxyhemoglobin 96.1 % THb (90.0-100.0); PO2 FiO2 Ratio Arterial Blood 1.86 %; Reduced Hemoglobin 2.7 %THb (0-5.0); pH ABG 7.422 (7.350-7.450)
[2023-11-25 05:25] LABS: Total Hemoglobin 7.3 g/dL (12.0-18.0)
[2023-11-25 05:26] LABS: Device VENTILATOR; Modified Allen's Test Pass; Site Drawn ARTLINE
[2023-11-25 05:27] LABS: Arterial Blood Gas PEEP 12 cmH2O; Arterial Blood Gas Tidal Volume 500 ml; Arterial Blood Gas Vent Mode CMV; Arterial Blood Gas Ventilator rate 28 /MIN
[2023-11-25] MEDS: HYDROCORTISONE SODIUM SUCCINATE 100 MG/2 ML VIAL IV PUSH (06:19)
[2023-11-25] MEDS: CENTRAL LINE FLUSH 10 ML IV PUSH ×2 (06:19)
[2023-11-25 06:31] LABS: Hematocrit 22.7 % (42.0-52.0); Mean Corpuscular HGB Conc 30.8 g/dl (32-36); Mean Corpuscular Hemoglobin 27.9 pg (26-34); Mean Corpuscular Volume 90.4 fl (80-100); Mean Platelet Volume 12.8 fl (7.4-10.4); Platelet Count Result 115 k/mm3 (150-375); Red Blood Count 2.51 M/mm3 (4.6-6.20); Red Cell Distribution Width 16.8 % (11.5-14.5); White Blood Count 11.1 K/mm3 (4.5-10.0)
--- NOTE | 2023-11-25 08:40 | WPDINTPN ---
Progress Note: A&P Assessment and Plan (1) Septic shock: Code(s): A41.9 - Sepsis, unspecified organism; R65.21 - Severe sepsis with septic shock Status: Acute Assessment and Plan: Septic shock likely related to pneumonia -fluid management per Nephrology due to severe hyponatremia -patient is only on Levophed, will maintain mean arterial pressures greater than 65 mmHg or systolic blood pressure greater than 100 mmHg at all times -patient is now off vasopressin and epinephrine infusions -lactic acids trending down, will obtain lactic acid now - Patient is on metronidazole, cefepime and vancomycin -11/22: Preliminary blood culture reports are negative x2 -11/22: Urine culture negative so -11/22: Sputum culture obtained and pending -patient on stress dose steroids (2) Acute hypoxic respiratory failure: Code(s): J96.01 - Acute respiratory failure with hypoxia Status: Acute Assessment and Plan: Acute respiratory failure likely related to bilateral pneumonia, questionable COVID pneumonia -worsening encephalopathy, increased oxygen requirements, was placed on high-flow therapy, continue desaturate -11/23/2023 intubated in the ICU -currently on CMV mode of ventilation peep of 12, 100% FiO2 -P/F ratio is 186 (compared to 73 on 11/24/2023), which puts him and moderate ARDS according to [place] criteria -currently on hydrocortisone (11/22) -started him on baricitinib (11/23) -status post remdesivir for 5 days (checked with pharmacy) -ABGs and chest x-ray reviewed, will obtain repeat blood gases now that he is in prone position -sedated with fentanyl and Versed, maintain RASS of 0 to -2, -Nimbex for neuromuscular blockade -patient was prone on 11/24/2023 for 16 hours, currently in supine position. Will again place patient in prone position today 16 hours -will obtain CT chest scan when patient is more stable (3) Bilateral pneumonia: Code(s): J18.9 - Pneumonia, unspecified organism Status: Acute Assessment and Plan: Bilateral interstitial changes in the mid and lower lungs bilaterally, most likely infiltrates secondary to pneumonia or interstitial fibrosis. -could also be related to aspiration given his altered mental status/encephalopathy -continue antibiotics as above -sputum cultures pending (4) COVID-19: Code(s): U07.1 - COVID-19 Status: Acute Assessment and Plan: status post 5 days of Remdesivir -currently on hydrocortisone -started on baricitinib (11/23) (5) Hypernatremia: Code(s): E87.0 - Hyperosmolality and hypernatremia Status: Acute Assessment and Plan: Hypernatremia, likely due to dehydration, and free water deficit -nephrology following and managing -currently on free water flushes via NG tube and on D5 water infusion -and albumin for intravascular volume expansion -TSH levels normal -cortisol within normal limit (patient was on steroids) -unlikely DI as patient is not dumping a lot of urine, discussed with Nephrology, urine studies are pending (6) JEANNETTE (acute kidney injury): Code(s): N17.9 - Acute kidney failure, unspecified Status: Acute Assessment and Plan: Acute kidney injury likely multifactorial, related to hypotensive, shock, infection, hypovolemia, kidney stones -continue IV fluids -appreciate nephrology following the patient -patient continues to make urine, -continue to monitor urine output, renal function electrolytes -creatinine is improved since admission 1.7 this morning, is stable (creatinine was 2.90 on admission) (7) Kidney stones: Code(s): N20.0 - Calculus of kidney Status: Acute Assessment and Plan: Patient has history of kidney stones bilaterally with bilateral ureteral stents -urology has been following the patient, each time they were planning to do a cystoscopy with removal of the ureteral stents, patient had some respiratory distress and the procedures were deferred (8)
[2023-11-25] MEDS: KCL 40 MEQ/WATER 100 ML 100 ML 25 ML IVPB (09:36)
[2023-11-25] MEDS: DEXTROSE 5% IN WATER 500 ML 100 ML IV CONT (09:39)
[2023-11-25] MEDS: CEFEPIME 2 GM in DEXTROSE 5% IN WATER 50 ML IVPB (09:40)
[2023-11-25] MEDS: PANTOPRAZOLE SODIUM IV 40 MG VIAL IV PUSH (09:41)
[2023-11-25] MEDS: carBAMazepine 200 MG TABLET FEED TUBE ×2 (09:42→11:10)
--- NOTE | 2023-11-25 09:47 | PM.PNNEP ---
Progress Note: A&P Assessment and Plan (1) Hypernatremia: Code(s): E87.0 - Hyperosmolality and hypernatremia Status: Acute Assessment and Plan: slow improvement noyrf suspect due to severe/significant free water deficit on admission s/p 3L normal saline fluid bolus in the ER then subsequently changed to D5W IVFs D5W IVFs was on hold from 11/19 due to concerns of fluid overload sodium was better but has not normalized - not clear why unable to facilitate oral free water intake due to aspiration risk NG tube in place free water flushes in attempt to compensate (but this on hold due to tube feed residuals) will attempt to change all carrier fluid for IV meds/IVPBs...etc to D5W if possible restarting D5W IVFs since unable to give FWF doubt DI since no evidence of polyuria evaluation to date noted: urine electrolytes (by FeUrea) prerenal TSH okay cortisol within reason (although already on steroids) serum/urine osmo pending SPEP/UPEP pending follow trend of repeat sodium levels (2) Acute kidney failure: Code(s): N17.9 - Acute kidney failure, unspecified Status: Acute Assessment and Plan: initial improvement noted from admission however, some worsening noted since 11/22 -- likely related to hypoxia and hypotension/altered hemodynamics multifactorial etiology: acute on chronic hypotension prerenal factors/volume depletion renal hypoperfusion/mild ATN infection/sepsis nephrolithiasis (?) no evidence of acute obstruction by admission CT of abd/pelvis: bilateral double-J stent with hydronephrotic changes and bilateral renal stones with the largest in the left kidney measuring 6 mm; vascular calcifications are also noted; bladder is underfilled with Cotto's catheter; no bladder stones renal ultrasound results noted s/p aggressive IVF resuscitation good urine output with cotto catheter in place follow trend of repeat labs and UOP (3) Acute hypoxic respiratory failure: Code(s): J96.01 - Acute respiratory failure with hypoxia Status: Acute Assessment and Plan: related to bilateral pneumonia and questionable COVID pneumonia intubated and on mechanical ventilation on 11/22 continue ventilator support weaning when more stable (4) Septic shock: Code(s): A41.9 - Sepsis, unspecified organism; R65.21 - Severe sepsis with septic shock Status: Acute Assessment and Plan: as noted on admission with acute on chronic hypotension, elevated WBC, lactic acidosis, JEANNETTE/ARF, and altered mental status potential sources = pneumonia, COVID, and possible UTI s/p IVF resuscitation with normalization of lactic acid culture data noted: blood culture with Providencia (1 out of 2 bottles) urine culture with mixed genital ashley imaging (CT of C/A/P) with bilateral pneumonia on antibiotics on vasopressor therapy follow repeat cultures continue supportive therapy (5) Bilateral pneumonia: Code(s): J18.9 - Pneumonia, unspecified organism Status: Acute Assessment and Plan: as noted by previous CT imaging possibly secondary to COVID versus bacterial pneumonia versus combination of both... follow CXR and respiratory status clinically worse by repeat imaging done (on 11/25/23) continue antibiotics, steroids, and antiviral therapy on ventilator support (6) COVID: Code(s): U07.1 - COVID-19 Status: Acute Assessment and Plan: viral PCR testing positive at nursing facilty since hypoxic and requiring oxygen on admission, started on steroids and remdesivir was weaned off supplemental oxygen until recently now on ventilator support completed course of remdesivir; remains on steroids and started on baricitinib follow CXR and respiratory status (7) Kidney stones: Code(s): N20.0 - Calculus of kidney Status: Acute Assessment and Plan: has indwelling Cotto cat
--- NOTE | 2023-11-25 09:47 | P.PNNP_ITS ---
Progress Note: A&P Assessment and Plan (1) Hypernatremia: Code(s): E87.0 - Hyperosmolality and hypernatremia Status: Acute Assessment and Plan: * slow improvement noyrf * suspect due to severe/significant free water deficit on admission * s/p 3L normal saline fluid bolus in the ER * then subsequently changed to D5W IVFs * D5W IVFs was on hold from 11/19 due to concerns of fluid overload * sodium was better but has not normalized - not clear why * unable to facilitate oral free water intake due to aspiration risk * NG tube in place * free water flushes in attempt to compensate (but this on hold due to tube feed residuals) * will attempt to change all carrier fluid for IV meds/IVPBs...etc to D5W if possible * restarting D5W IVFs since unable to give FWF * doubt DI since no evidence of polyuria * evaluation to date noted: * urine electrolytes (by FeUrea) prerenal * TSH okay * cortisol within reason (although already on steroids) * serum/urine osmo pending * SPEP/UPEP pending * follow trend of repeat sodium levels (2) Acute kidney failure: Code(s): N17.9 - Acute kidney failure, unspecified Status: Acute Assessment and Plan: * initial improvement noted from admission * however, some worsening noted since 11/22 -- likely related to hypoxia and hypotension/altered hemodynamics * multifactorial etiology: * acute on chronic hypotension * prerenal factors/volume depletion * renal hypoperfusion/mild ATN * infection/sepsis * nephrolithiasis (?) * no evidence of acute obstruction by admission CT of abd/pelvis: * bilateral double-J stent with hydronephrotic changes and bilateral renal stones with the largest in the left kidney measuring 6 mm; vascular calcifications are also noted; bladder is underfilled with Cotto's catheter; no bladder stones * renal ultrasound results noted * s/p aggressive IVF resuscitation * good urine output with cotto catheter in place * follow trend of repeat labs and UOP (3) Acute hypoxic respiratory failure: Code(s): J96.01 - Acute respiratory failure with hypoxia Status: Acute Assessment and Plan: * related to bilateral pneumonia and questionable COVID pneumonia * intubated and on mechanical ventilation on 11/22 * continue ventilator support * weaning when more stable (4) Septic shock: Code(s): A41.9 - Sepsis, unspecified organism; R65.21 - Severe sepsis with septic shock Status: Acute Assessment and Plan: * as noted on admission with acute on chronic hypotension, elevated WBC, lactic acidosis, JEANNETTE/ARF, and altered mental status * potential sources = pneumonia, COVID, and possible UTI * s/p IVF resuscitation with normalization of lactic acid * culture data noted: * blood culture with Providencia (1 out of 2 bottles) * urine culture with mixed genital ashley * imaging (CT of C/A/P) with bilateral pneumonia * on antibiotics * on vasopressor therapy * follow repeat cultures * continue supportive therapy (5) Bilateral pneumonia: Code(s): J18.9 - Pneumonia, unspecified organism Status: Acute Assessment and Plan: * as noted by previous CT imaging * possibly secondary to COVID versus bacterial pneumonia versus combination of both... * follow CXR and respiratory status * clinically worse by repeat imaging done (on 11/25/23) * continue antibiotics, steroids, and antiviral therapy * on ventilator support (6) COVID: Code(s): U07.1 - COVID-19 Statu
[2023-11-25] MEDS: MINERAL OIL/WHITE PETROLATUM OINTMENT 1 APPLIC EACH EYE (09:56)
[2023-11-25] MEDS: BARICITINIB 2 MG TABLET FEED TUBE (10:36)
[2023-11-25 10:55] LABS: Lactate Dehydrogenase 204 U/L (120-246); Lactic Acid Reflex 1.5 mmol/L (0.7-2.0)
[2023-11-25] MEDS: PERFLUTREN LIPID MICROSPHERES 1.5 ML VIAL DILUTED TO 10 ML TOTAL VOLUME IV PUSH (11:10)
--- NOTE | 2023-11-25 11:10 | IVDEFINITY ---
Prior to administration of IV Definity the patient was educated on the risks and benefits of the imaging enhancing agent including potential adverse side effects. The patient verbalized understanding. Allergies were verified. No exclusion criteria were identified and at least one of the following inclusion criteria were met: 1) physician request, 2) patient technically difficult to image (per the [place] [employer] guidelines of two or more segments not discernable within the apical view), or 3) questionable left ventricular function. ?
--- NOTE | 2023-11-25 11:14 | PCNFU ---
Nutrition Follow-Up Complete: Swallowing difficulties related to dysphagia as evidenced speech evaluation and noted previous orders for a minced and moist level 5, moderately thick level 3 liquids. goal: Appropriate diet order with tolerance PO intake adequate Patient is progressing towards goal. We will continue current goal. Pt current nutrition is NPO.. Nutrition recommendation: Nepro at 40 ml/hr Last recorded weight is 72.1 kg, up from 70 ml/hr Bowel Motility: Last reported BM 11/21 Labs Reviewed:BUN 56, Cr 1.7,Na 160, Alb 2.9 Meds Noted:Fentanyl, Versed, Levophed, Nimbex, Protonix, Dextrose 5% Skin: WNL Additional Notes: Patient remains NPO at this time. COVID+, plans for CT and Echo today. Tube feedings recommendations remain as Nepro at 40 ml/hr when diet order advances. Flush 250 ml q 4 hours. Agree with diet orders at this time. Monitor for diet orders, intake, tolerance, wt, labs every Friday and Friday.
[2023-11-25] MEDS: VANCOMYCIN 1,250 MG/NS 250 ML 1,250 MG/250 ML BAG 166.67 MG IVPB (11:16)
[2023-11-25 11:49] LABS: Iron 19 ug/dL (49-181)
[2023-11-25 11:58] LABS: Percent Iron Saturation 17 % (20-50)
[2023-11-25 12:02] LABS: Folic Acid 3.1 ng/mL (2.76->20); Vitamin B12 > 1000.0 pg/mL (239-931)
[2023-11-25] MEDS: LORazepam INJ (*CRX) 2 MG/ML VIAL IV PUSH ×5 (14:30→21:50)
[2023-11-25] MEDS: MORPHINE SULFATE INJ (*CRX) 10 MG/ML AMP 5 MG IV PUSH ×2 (14:30→14:40)
[2023-11-25] MEDS: MORPHINE SULFATE (*CRX) 2 MG/ML INJ IV PUSH ×4 (15:06→17:11)
--- NOTE | 2023-11-25 18:04 | PM.IMPN ---
Progress Note: A&P Assessment and Plan (1) Septic shock: Code(s): A41.9 - Sepsis, unspecified organism; R65.21 - Severe sepsis with septic shock Status: Acute (2) Acute hypoxic respiratory failure: Code(s): J96.01 - Acute respiratory failure with hypoxia Status: Acute (3) Bilateral pneumonia: Code(s): J18.9 - Pneumonia, unspecified organism Status: Acute (4) Dysphagia: Code(s): R13.10 - Dysphagia, unspecified Status: Acute (5) COVID: Code(s): U07.1 - COVID-19 Status: Acute (6) Acute kidney failure: Code(s): N17.9 - Acute kidney failure, unspecified Status: Acute (7) Hypernatremia: Code(s): E87.0 - Hyperosmolality and hypernatremia Status: Acute (8) Elevated troponin: Code(s): R79.89 - Other specified abnormal findings of blood chemistry Status: Acute (9) Kidney stones: Code(s): N20.0 - Calculus of kidney Status: Acute (10) MRSA colonization: Code(s): Z22.322 - Carrier or suspected carrier of Methicillin resistant Staphylococcus aureus Status: Acute (11) Metabolic encephalopathy: Code(s): G93.41 - Metabolic encephalopathy Status: Acute (12) Seizure disorder: Code(s): G40.909 - Epilepsy, unspecified, not intractable, without status epilepticus Status: Acute (13) Complicated urinary tract infection: Code(s): N39.0 - Urinary tract infection, site not specified Status: Ruled-out Plan Discussed with family at bedside. They felt that Blaine has suffered enough. They want to move toward comfort measures. Family is in agreement. All questions answered. Patient was extubated after given morphine as a terminal wean. He is comfortable. Plan to start Morphine drip for comfort. He is curently receiving morphine 2mg every 30 minutes so will start morphine drip at 4mg/hour. Ativan also available as needed. 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 Patient is intubated and sedated. Content Strategy Lead spoke with family and they decided to move toward comfort measures. Review of Systems Review of Systems: ROS unobtainable: Yes unobtainable due to mental status Exam Narrative: Gen - intubated and sedated. HEENT - ETT and NGT secured Chest - coarse BS CV - RRR S1/S2 Abd - Soft, hypoactive BS - Rowe secured draining clear yellow urine. Ext - trace pedal edema Neuro - sedated. LUE flexion contraction Psych - unable to assess Skin - cool and dry Objective Data Vital Signs Vital Signs: Vital Signs - 24 hr 11/24/23 18:21 11/24/23 18:21 11/24/23 18:22 Temperature Pulse Rate 75 75 74 Respiratory Rate 28 H 28 H 28 H Blood Pressure 112/57 L Pulse Oximetry Oxygen Delivery Fraction of Inspired Oxygen 11/24/23 18:20 11/24/23 18:15 11/24/23 18:30 Temperature Pulse Rate 74 76 77 Respiratory Rate 28 H Blood Pressure 112/57 L 110/57 L Pulse Oximetry Oxygen Delivery Fraction of Inspired Oxygen 11/24/23 18:45 11/24/23 19:00 11/24/23 18:15 Temperature Pulse Rate 76 77 76 Respiratory Rate Blood Pressure 107/56 L 106/57 L 112/57 L Pulse Oximetry Oxygen Delivery Fraction of Inspired Oxygen 11/24/23 18:30 11/24/23 18:45 11/24/23 19:00 Temperature Pulse Rate 77 76 77 Respiratory Rate Blood Pressure 110/57 L 107/56 L 106/57 L Pulse Oximetry Oxygen Delivery Fraction of Inspired Oxygen 11/24/23 20:40 11/24/23 21:27 11/24/23 21:33 Temperature Pulse Rate 77 75 75 Respiratory Rate Blood Pressure 109/55 L 111/56 L Pulse Oximetry 98 Oxygen Delivery Mechanical Ventilation Fraction of Inspi
[2023-11-25] MEDS: MORPHINE 50 MG/NS 100ML (*CRX) 50 MG/100 ML BAG 8 MG IV CONT (18:13)
[2023-11-25 19:08] LABS: Immunofixation, Serum Normal pattern.
[2023-11-25] MEDS: ATROPINE SULFATE 1% OPHTH SOLN 5 ML BOTTLE 1 DROP SUBLINGUAL (21:50)
[2023-11-26] MEDS: LORazepam INJ (*CRX) 2 MG/ML VIAL IV PUSH (05:01)
[2023-11-26 05:33] VITALS: PULSE 73
[2023-11-26] MEDS: MORPHINE 50 MG/NS 100ML (*CRX) 50 MG/100 ML BAG 8 MG IV CONT (05:33)
[2023-11-26] MEDS: ATROPINE SULFATE 1% OPHTH SOLN 5 ML BOTTLE 1 DROP SUBLINGUAL (05:35)
[2023-11-26 08:00] VITALS: BP 58/31; PULSE 81; RESP 20; TEMP 35.7; O2SAT 49
[2023-11-26] MEDS: MORPHINE SULFATE (*CRX) 2 MG/ML INJ IV PUSH (08:05)
[2023-11-27 03:37] LABS: Haptoglobin 212 mg/dL (43-212)
[2023-11-28 00:54] LABS: Protein, Total 5.8 g/dL (6.1-8.1)
[2023-11-28 10:14] LABS: Abnormal Protein Band 1 0.3 g/dL (NONE DETECTED); Albumin 1.9 g/dL (3.8-4.8); Alpha 1 Globulin 0.6 g/dL (0.2-0.3); Beta 1 Globulin 0.4 g/dL (0.4-0.6); Gamma Globulin 1.3 g/dL (0.8-1.7)
[2023-11-29 16:43] LABS: Chloride Rand Ur 38 mmol/L (32-290); Chloride/Creatinine Rand Ur 90 (23-275); Creatinine, Random Urine 42 mg/dL (20-320); Total Prot/Creat ratio mg/mg 2.905 (0.025-0.148); Total Protein/Creatinine Ratio 2905 mg/g creat (25-148)
[2023-11-29 18:54] LABS: Mycoplasma IgM Antibody Titer 272 U/mL
--- NOTE | 2023-12-03 06:51 | PM.DDS ---
Discharge Summary Date and Time Date of : 11/26/23 Time of : 08:15 Provider Pronounced By: 2 RNs Name of First RN That Pronounced: Maia Griggs RN Name of Second RN That Pronounced: Evette Elliott RN Probable Cause of Probable Cause of : Septic shock Summary Hospital Course: Patient initially admitted for sepsis from COVID, pneumonia and UTI. He was treated appropriately and was improving. He was found to have dysphagia and probably aspiration pneumonia. A NGT was placed and he was started on tube feedings. Patient's condition worsened abruptly on 11/22 felt to have aspirated. He developed septic shock and respiratory failure. He was intubated and started on pressors. Family felt the patient had suffered enough and decided to withdraw care. Patient was made comfortable and on 11/26/23. Additional Data Confirmation of as documented by pronouncing clinician: Pupillary Reflex, Palpable Pulses, Response to Stimuli, Heart Tones and Breath Sounds Name of Provider Notified: Dr. Pate Time Provider Notified: 08:20 Provider Requests Autopsy: No Family Requests Autopsy: No Vice President Biostatistics Notified: Yes Date [facility] Notified of : 11/26/23 Time [facility] Notified of : 08:46
[2023-12-04 13:14] LABS: Creatinine Random Urine 42 mg/dL
== END 2023-11-26 08:15 | disposition expired | DRG 871 ==
LOC: ANHED 16:50 → ANHIMU 17:10 → ANH3MED 11-21 22:08 → ANHICU 11-23 07:10
PROVIDERS: Internal Medicine; Internal Medicine Nephrology; Physician Assistant; Urology; Admitting Provider Internal Medicine; Emergency Provider Emergency Medicine; PCP Family Medicine; Visit Provider Internal Medicine
PROC: (CPT 52352; principal; 2023-11-20 16:00)
DX: A41.89 Other specified sepsis (principal); G93.41 Metabolic encephalopathy; U07.1 COVID-19; J12.82 Pneumonia due to coronavirus disease 2019; J96.01 Acute respiratory failure with hypoxia; R65.21 Severe sepsis with septic shock; J69.0 Pneumonitis due to inhalation of food and vomit; J15.9 Unspecified bacterial pneumonia; N17.9 Acute kidney failure, unspecified; E87.0 Hyperosmolality and hypernatremia; I69.354 Hemiplegia and hemiparesis following cerebral infarction affecting left non-dominant side; J44.0 Chronic obstructive pulmonary disease with (acute) lower respiratory infection; I10 Essential (primary) hypertension; I25.10 Atherosclerotic heart disease of native coronary artery without angina pectoris; N20.0 Calculus of kidney; D64.9 Anemia, unspecified; E55.9 Vitamin D deficiency, unspecified; E78.5 Hyperlipidemia, unspecified; R13.10 Dysphagia, unspecified; K21.9 Gastro-esophageal reflux disease without esophagitis; G20.A1 Parkinson's disease without dyskinesia, without mention of fluctuations; G40.909 Epilepsy, unspecified, not intractable, without status epilepticus; F32.A Depression, unspecified; F41.9 Anxiety disorder, unspecified; Z79.82 Long term (current) use of aspirin; Z79.02 Long term (current) use of antithrombotics/antiplatelets; Z95.2 Presence of prosthetic heart valve; Z87.442 Personal history of urinary calculi; Z87.891 Personal history of nicotine dependence; Z22.322 Carrier or suspected carrier of Methicillin resistant Staphylococcus aureus
CPT/HCPCS: 31500; 36415; 36430; 36569; 36600; 70450; 71045; 71250; 74176; 76775; 80048; 80053; 80069; 80156; 80307; 81001; 81050; 82375; 82436; 82533; 82550; 82570; 82607; 82746; 82805; 82810; 82948; 83010; 83050; 83540; 83550; 83605; 83615; 83690; 83735; 83880; 83930; 83935; 84100; 84133; 84145; 84155; 84156; 84165; 84166; 84300; 84443; 84484; 84540; 85018; 85025; 85027; 85055; 85380; 85610; 85730; 85999; 86038; 86039; 86140; 86334; 86335; 86430; 86738; 86850; 86900; 86901; 86923; 87040; 87070; 87077; 87086; 87088; 87186; 87205; 87449; 87637; 87641; 87899; 92610; 92611; 93005; 94002; 94003; 94640; 96361; 96365; 96367; 96375; 99285; A9270; C1751; C1769; C8929; G0378; J0171; J0248; J0330; J0692; J1650; J1720; J1836; J1940; J2060; J2250; J2270; J2470; J2543; J3010; J3370; J3480; J7030; J7040; J7060; J7070; J8540; P9016; P9047; Q9957